=== PATIENT | female | born 1945 | race Caucasian/White ===

== ENCOUNTER 2020-02-04 09:50 | Outpatient (REF) | payer MEDICARE, OTHER, SELFPAY ==
[2020-02-04 14:03] LABS: MANUAL DIFF FLAG NO
[2020-02-04 14:18] LABS: Basophils Percent Auto 0.8 % (0-2); Eosinophils Absolute Auto 0.3 X10*3/uL (0.0-0.4); Hematocrit 42.4 % (37-47); Hemoglobin 13.4 g/dl (12.0-16.0); Imm Gran Abs Auto 0.02 X10*3/uL (0.00-0.03); Imm Gran Pct Auto 0.4 % (0.0-0.4); Lymphocytes Absolute Auto 1.4 X10*3/uL (1.2-4.9); Lymphocytes Percent Auto 25.6 % (20-40); Mean Corpuscular HGB Conc 31.6 g/dl (31.0-35.0); Mean Corpuscular Hemoglobin 26.7 pg (27.0-33.0); Mean Corpuscular Volume 84.5 fL (80-98); Mean Platelet Volume 11.3 fL (9.4-12.3); Monocytes Absolute Auto 0.5 X10*3/uL (0.1-1.2); Monocytes Percent Auto 8.7 % (2-11); Neutrophils Absolute Auto 3.1 X10*3/uL (2.0-8.3); Neutrophils Percent Auto 58.5 % (45-73); Platelet Count 288 X10*3/uL (160-400); Red Blood Count 5.02 X10*6/uL (4.20-5.50); Red Cell Distribution Width 14.1 % (11.0-16.0); White Blood Count 5.3 X10*3/uL (4.8-10.8)
[2020-02-04 14:24] LABS: Estimated Average Glucose 160 mg/dL; Hemoglobin A1c % 7.2 %
[2020-02-04 14:44] LABS: Glucose Urine UA NEG (NEG); Leukocyte Esterase Urine TRACE (NEG); Nitrite Urine POS (NEG); Specific Gravity - Urine >= 1.030 (1.005-1.025); Urine Blood NEG (NEG); Urine Ketones NEG (NEG); Urine Protein NEG (NEG-TRACE)
[2020-02-04 14:49] LABS: Appearance Urine CLOUDY; Color Urine YELLOW
[2020-02-04 14:50] LABS: Alanine Aminotransferase 32 U/L (0-31); Albumin Level 4.2 g/dL (3.5-5.0); Alkaline Phosphatase 61 U/L (39-117); Anion Gap 14 (12-20); Aspartate Amino Transferase 16 U/L (5-31); Bilirubin Total 0.6 mg/dL (0.0-1.0); Blood Urea Nitrogen 19 mg/dL (9-16); Calcium 9.8 mg/dL (8.4-10.2); Carbon Dioxide 23 mmol/L (22-29); Chloride 106 mmol/L (96-108); Cholesterol 155 mg/dL; Estimated Glomerular Filt Rate > 60; Glucose Fasting 173 mg/dL (60-99); HDL Cholesterol 45 mg/dL; LDL Cholesterol Calculated 83 mg/dl; Potassium 4.8 mmol/l (3.3-5.1); Sodium 138 mmol/L (135-145); Triglycerides 138 mg/dL
[2020-02-04 15:07] LABS: Bacteria Urine 3+ /LPF; RBC Urine 0-2 /HPF (0); Squamous Epithelial Cell Urine TRACE /LPF
[2020-02-04 15:11] LABS: Free T4 (Free Thyroxine) 1.17 ng/dL (0.71-1.85); Thyroid Stimulating Hormone 0.23 uIU/mL (0.32-4.0)
[2020-02-04 15:24] LABS: Creatinine Urine 109.48 mg/dL; Microalbum/Creatinine Ratio Ur 4.5 ug/mg cr
== END 2020-02-04 09:51 | disposition home or self-care (01) ==
LOC: HO.10HDL 09:50
PROVIDERS: Visit Provider Internal Medicine
DX: E78.5 Hyperlipidemia, unspecified (principal); E11.9 Type 2 diabetes mellitus without complications; I10 Essential (primary) hypertension; R74.8 Abnormal levels of other serum enzymes; E03.9 Hypothyroidism, unspecified; K21.9 Gastro-esophageal reflux disease without esophagitis; R32 Unspecified urinary incontinence
CPT/HCPCS: 36415; 80053; 80061; 81001; 82043; 83036; 84439; 84443; 85025; 87086; 87088; 87186

== ENCOUNTER 2020-05-11 10:25 | Outpatient (REF) | payer MEDICARE, OTHER, SELFPAY ==
[2020-05-11 13:44] LABS: MANUAL DIFF FLAG NO
[2020-05-11 13:50] LABS: Basophils Percent Auto 0.6 % (0-2); Eosinophils Absolute Auto 0.3 X10*3/uL (0.0-0.4); Eosinophils Percent Auto 4.1 % (0-4); Hematocrit 42.7 % (37-47); Hemoglobin 13.7 g/dl (12.0-16.0); Imm Gran Abs Auto 0.02 X10*3/uL (0.00-0.03); Imm Gran Pct Auto 0.3 % (0.0-0.4); Lymphocytes Absolute Auto 1.6 X10*3/uL (1.2-4.9); Lymphocytes Percent Auto 25.5 % (20-40); Mean Corpuscular HGB Conc 32.1 g/dl (31.0-35.0); Mean Corpuscular Volume 84.2 fL (80-98); Mean Platelet Volume 11.2 fL (9.4-12.3); Monocytes Absolute Auto 0.5 X10*3/uL (0.1-1.2); Monocytes Percent Auto 8.5 % (2-11); Neutrophils Absolute Auto 3.8 X10*3/uL (2.0-8.3); Platelet Count 289 X10*3/uL (160-400); Red Blood Count 5.07 X10*6/uL (4.20-5.50); Red Cell Distribution Width 14.6 % (11.0-16.0); White Blood Count 6.3 X10*3/uL (4.8-10.8)
[2020-05-11 14:02] LABS: Glucose Urine UA NEG (NEG); Leukocyte Esterase Urine NEG (NEG); Nitrite Urine POS (NEG); PH 5.5 (5.0-8.0); Specific Gravity - Urine 1.025 (1.005-1.025); UACC Culture Trigger YES; Urine Blood NEG (NEG); Urine Ketones NEG (NEG); Urine Protein NEG (NEG-TRACE)
[2020-05-11 14:15] LABS: Appearance Urine HAZY; Color Urine YELLOW
[2020-05-11 14:20] LABS: Alanine Aminotransferase 37 U/L (0-31); Albumin Level 4.5 g/dL (3.5-5.0); Alkaline Phosphatase 64 U/L (39-117); Anion Gap 13 (12-20); Aspartate Amino Transferase 20 U/L (5-31); Bilirubin Total 0.5 mg/dL (0.0-1.0); Blood Urea Nitrogen 20 mg/dL (9-16); Carbon Dioxide 23 mmol/L (22-29); Chloride 107 mmol/L (96-108); Cholesterol 142 mg/dL; Estimated Glomerular Filt Rate > 60; Glucose Fasting 136 mg/dL (60-99); HDL Cholesterol 45 mg/dL; LDL Cholesterol Calculated 68 mg/dl; Potassium 4.9 mmol/L (3.3-5.1); Sodium 138 mmol/L (135-145); Total Protein 7.3 g/dL (6.5-8.0); Triglycerides 147 mg/dL
[2020-05-11 14:32] LABS: Bacteria Urine 3+ /LPF; RBC Urine 0 /HPF (0); Squamous Epithelial Cell Urine TRACE /LPF
[2020-05-11 14:41] LABS: Free T4 (Free Thyroxine) 1.33 ng/dL (0.71-1.85); Thyroid Stimulating Hormone 0.16 uIU/mL (0.32-4.0)
== END 2020-05-11 10:26 | disposition home or self-care (01) ==
LOC: HO.10HDL 10:25
PROVIDERS: Visit Provider Internal Medicine
DX: I10 Essential (primary) hypertension (principal); K21.9 Gastro-esophageal reflux disease without esophagitis; E78.00 Pure hypercholesterolemia, unspecified; R74.8 Abnormal levels of other serum enzymes; E11.9 Type 2 diabetes mellitus without complications; E03.9 Hypothyroidism, unspecified; E66.9 Obesity, unspecified
CPT/HCPCS: 36415; 80053; 80061; 81001; 81003; 84439; 84443; 85025; 87086; 87088; 87186

== ENCOUNTER 2020-08-11 07:55 | Outpatient (REF) | payer MEDICARE, OTHER, SELFPAY ==
[2020-08-11 09:00] LABS: MANUAL DIFF FLAG NO
[2020-08-11 09:08] LABS: Basophils Absolute Auto 0.1 X10*3/uL (0.0-0.2); Basophils Percent Auto 0.8 % (0-2); Eosinophils Absolute Auto 0.3 X10*3/uL (0.0-0.4); Eosinophils Percent Auto 5.1 % (0-4); Hematocrit 42.2 % (37-47); Hemoglobin 13.4 g/dl (12.0-16.0); Imm Gran Abs Auto 0.03 X10*3/uL (0.00-0.03); Imm Gran Pct Auto 0.5 % (0.0-0.4); Lymphocytes Absolute Auto 1.5 X10*3/uL (1.2-4.9); Lymphocytes Percent Auto 24.5 % (20-40); Mean Corpuscular HGB Conc 31.8 g/dl (31.0-35.0); Mean Corpuscular Hemoglobin 26.6 pg (27.0-33.0); Mean Corpuscular Volume 83.9 fL (80-98); Mean Platelet Volume 10.9 fL (9.4-12.3); Monocytes Absolute Auto 0.6 X10*3/uL (0.1-1.2); Monocytes Percent Auto 9.1 % (2-11); Neutrophils Absolute Auto 3.8 X10*3/uL (2.0-8.3); Platelet Count 266 X10*3/uL (160-400); Red Blood Count 5.03 X10*6/uL (4.20-5.50); White Blood Count 6.3 X10*3/uL (4.8-10.8)
[2020-08-11 09:16] LABS: Estimated Average Glucose 186 mg/dL; Hemoglobin A1c % 8.1 %
[2020-08-11 09:23] LABS: Glucose Urine UA NEG (NEG); Leukocyte Esterase Urine NEG (NEG); Nitrite Urine POS (NEG); Specific Gravity - Urine 1.025 (1.005-1.025); UACC Culture Trigger YES; Urine Blood NEG (NEG); Urine Ketones NEG (NEG); Urine Protein NEG (NEG-TRACE)
[2020-08-11 09:24] LABS: Appearance Urine HAZY; Color Urine YELLOW
[2020-08-11 09:33] LABS: Alanine Aminotransferase 39 U/L (0-31); Albumin Level 4.3 g/dL (3.5-5.0); Alkaline Phosphatase 66 U/L (39-117); Anion Gap 13 (12-20); Aspartate Amino Transferase 20 U/L (5-31); Bilirubin Total 0.7 mg/dL (0.0-1.0); Blood Urea Nitrogen 19 mg/dL (9-16); Calcium 10.4 mg/dL (8.4-10.2); Carbon Dioxide 23 mmol/L (22-29); Chloride 107 mmol/L (96-108); Cholesterol 151 mg/dL; Estimated Glomerular Filt Rate 58; Glucose Fasting 243 mg/dL (60-99); HDL Cholesterol 42 mg/dL; LDL Cholesterol Calculated 80 mg/dl; Potassium 5.2 mmol/L (3.3-5.1); Sodium 138 mmol/L (135-145); Total Protein 6.8 g/dL (6.5-8.0); Triglycerides 149 mg/dL
[2020-08-11 09:36] LABS: Creatinine Urine 95.53 mg/dL; Microalbum/Creatinine Ratio Ur 5.2 ug/mg cr
[2020-08-11 09:43] LABS: Bacteria Urine 3+ /LPF; RBC Urine 0-2 /HPF (0); Squamous Epithelial Cell Urine 1+ /LPF
[2020-08-11 09:46] LABS: Free T4 (Free Thyroxine) 1.37 ng/dL (0.71-1.85); Thyroid Stimulating Hormone 0.09 uIU/mL (0.32-4.0)
== END 2020-08-11 07:56 | disposition home or self-care (01) ==
LOC: HO.LAB 07:55
PROVIDERS: PCP Internal Medicine; Visit Provider Internal Medicine
DX: I10 Essential (primary) hypertension (principal); K21.9 Gastro-esophageal reflux disease without esophagitis; E78.00 Pure hypercholesterolemia, unspecified; R74.8 Abnormal levels of other serum enzymes; E11.9 Type 2 diabetes mellitus without complications; E03.9 Hypothyroidism, unspecified; E66.9 Obesity, unspecified; E55.9 Vitamin D deficiency, unspecified
CPT/HCPCS: 36415; 80053; 80061; 81001; 81003; 82043; 82306; 83036; 84439; 84443; 85025; 87086; 87088; 87186

== ENCOUNTER 2020-12-01 09:25 | Outpatient (REF) | payer MEDICARE, OTHER, SELFPAY ==
[2020-12-01 10:29] LABS: MANUAL DIFF FLAG NO
[2020-12-01 10:35] LABS: Basophils Percent Auto 0.5 % (0-2); Eosinophils Absolute Auto 0.3 X10*3/uL (0.0-0.4); Eosinophils Percent Auto 3.8 % (0-4); Hematocrit 41.4 % (37-47); Hemoglobin 13.3 g/dl (12.0-16.0); Imm Gran Abs Auto 0.02 X10*3/uL (0.00-0.03); Imm Gran Pct Auto 0.3 % (0.0-0.4); Lymphocytes Absolute Auto 1.7 X10*3/uL (1.2-4.9); Lymphocytes Percent Auto 22.8 % (20-40); Mean Corpuscular HGB Conc 32.1 g/dl (31.0-35.0); Mean Corpuscular Volume 84.1 fL (80-98); Mean Platelet Volume 10.9 fL (9.4-12.3); Monocytes Absolute Auto 0.6 X10*3/uL (0.1-1.2); Monocytes Percent Auto 8.3 % (2-11); Neutrophils Absolute Auto 4.8 X10*3/uL (2.0-8.3); Neutrophils Percent Auto 64.3 % (45-73); Platelet Count 262 X10*3/uL (160-400); Red Blood Count 4.92 X10*6/uL (4.20-5.50); White Blood Count 7.5 X10*3/uL (4.8-10.8)
[2020-12-01 10:56] LABS: Estimated Average Glucose 189 mg/dL; Hemoglobin A1c % 8.2 %
[2020-12-01 11:15] LABS: Alanine Aminotransferase 51 U/L (0-31); Albumin Level 4.3 g/dL (3.5-5.0); Alkaline Phosphatase 60 U/L (39-117); Anion Gap 14 (12-20); Aspartate Amino Transferase 23 U/L (5-31); Bilirubin Total 0.6 mg/dL (0.0-1.0); Blood Urea Nitrogen 17 mg/dL (9-16); Calcium 10.1 mg/dL (8.4-10.2); Carbon Dioxide 22 mmol/L (22-29); Chloride 107 mmol/L (96-108); Cholesterol 144 mg/dL; Estimated Glomerular Filt Rate > 60; Glucose Fasting 203 mg/dL (60-99); HDL Cholesterol 42 mg/dL; LDL Cholesterol Calculated 62 mg/dl; Potassium 4.8 mmol/L (3.3-5.1); Sodium 138 mmol/L (135-145); Total Protein 6.9 g/dL (6.5-8.0); Triglycerides 201 mg/dL
[2020-12-01 11:27] LABS: Creatinine Urine 104.41 mg/dL; Microalbum/Creatinine Ratio Ur 5.7 ug/mg cr
[2020-12-01 11:39] LABS: Appearance Urine CLEAR; Color Urine YELLOW; Glucose Urine UA NEG (NEG); Leukocyte Esterase Urine 1+ (NEG); Nitrite Urine NEG (NEG); UACC Culture Trigger YES; Urine Blood NEG (NEG); Urine Ketones NEG (NEG); Urine Protein NEG (NEG-TRACE)
[2020-12-01 11:40] LABS: Free T4 (Free Thyroxine) 1.26 ng/dL (0.71-1.85); Thyroid Stimulating Hormone 0.13 uIU/mL (0.32-4.0)
[2020-12-01 11:58] LABS: Bacteria Urine 3+ /LPF; RBC Urine 0-2 /HPF (0); Squamous Epithelial Cell Urine 1+ /LPF
== END 2020-12-01 09:26 | disposition home or self-care (01) ==
LOC: HO.10HDL 09:25
PROVIDERS: Visit Provider Internal Medicine
DX: I10 Essential (primary) hypertension (principal); K21.9 Gastro-esophageal reflux disease without esophagitis; E78.00 Pure hypercholesterolemia, unspecified; E11.9 Type 2 diabetes mellitus without complications; E03.9 Hypothyroidism, unspecified; E66.9 Obesity, unspecified
CPT/HCPCS: 36415; 80053; 80061; 81001; 81003; 82043; 83036; 84439; 84443; 85025; 87086; 87088; 87186

== ENCOUNTER 2020-12-03 11:50 | Outpatient (REF) | payer MEDICARE, OTHER, SELFPAY ==
--- NOTE | ~2020-12-03 | XR_ITS ---
EXAMINATION: XR BOTH KNEES AP STANDING XR RIGHT KNEE, 2 VIEWS CLINICAL INFORMATION: Pain. COMPARISON: Persistent bilateral knee radiographs dated 04/08/2019. TECHNIQUE: Standing AP view of both knees and lateral and sunrise views of the right knee. FINDINGS: Right Knee: Moderate medial compartment joint space narrowing. Tricompartmental marginal osteophytes. No osseous erosion. No fracture or dislocation. Central osteophytes within the lateral and patellofemoral compartments. No significant joint effusion. Left Knee: Severe medial compartment joint space narrowing with subchondral sclerosis. Medial and lateral compartment marginal osteophytes. No osseous erosion. No fracture or dislocation. XR/XR knee standing BI IMPRESSION: RIGHT KNEE: Qlzotxvf-tt-umlezz medial as well as more alkw-ek-lfzopuyg patellofemoral and lateral compartment osteophyte arthritis, unchanged. LEFT KNEE: Severe medial and dubm-ny-fqykiaib lateral compartment osteophyte arthritis, unchanged.
--- NOTE | ~2020-12-03 | XR_ITS ---
EXAMINATION: XR BOTH KNEES AP STANDING XR RIGHT KNEE, 2 VIEWS CLINICAL INFORMATION: Pain. COMPARISON: Persistent bilateral knee radiographs dated 04/08/2019. TECHNIQUE: Standing AP view of both knees and lateral and sunrise views of the right knee. FINDINGS: Right Knee: Moderate medial compartment joint space narrowing. Tricompartmental marginal osteophytes. No osseous erosion. No fracture or dislocation. Central osteophytes within the lateral and patellofemoral compartments. No significant joint effusion. Left Knee: Severe medial compartment joint space narrowing with subchondral sclerosis. Medial and lateral compartment marginal osteophytes. No osseous erosion. No fracture or dislocation. XR/XR knee RT 2V IMPRESSION: RIGHT KNEE: Qadpopvv-yz-xpeycq medial as well as more rmxy-ka-blqdixnc patellofemoral and lateral compartment osteophyte arthritis, unchanged. LEFT KNEE: Severe medial and kikw-jx-ylmblrbd lateral compartment osteophyte arthritis, unchanged.
== END 2020-12-03 11:51 | disposition home or self-care (01) ==
LOC: HO.HOSX 11:50
PROVIDERS: Visit Provider Orthopaedic Surgery
DX: M17.0 Bilateral primary osteoarthritis of knee (principal); E11.9 Type 2 diabetes mellitus without complications
CPT/HCPCS: 20610; 73560; 73565; 99212; J1100

== ENCOUNTER 2020-12-31 12:21 | Outpatient (REF) | payer MEDICARE, OTHER, SELFPAY ==
--- NOTE | ~2020-12-31 | MM_ITS ---
EXAMINATION: MM SCREENING DIGITAL BREAST TOMOSYNTHESIS, BILATERAL CLINICAL INFORMATION: Screening. Asymptomatic. The lifetime risk of breast cancer based on the Tyrer-Cuzick Model is 5.7%. COMPARISON: Mammography: November 04, 2019 and studies dating back to September 18, 2015 TECHNIQUE: Digital breast tomosynthesis is performed in both the craniocaudal and mediolateral oblique views along with computer-aided detection (CAD). Synthesized 2D images are generated from the tomosynthesis. Additional left breast exaggerated craniocaudal view performed. FINDINGS: There are scattered areas of fibroglandular density (ACR BI-RADS breast composition Category b). There are no significant masses, abnormal calcifications, or other abnormalities. MM/MM tomosynthesis screening BI IMPRESSION: There are no significant changes from prior study. ASSESSMENT: BI-RADS 1: Negative RECOMMENDATION: Routine annual mammography screening. This patient's information was entered into a reminder system with a target due date for their next mammogram.
== END 2020-12-31 12:22 | disposition home or self-care (01) ==
LOC: HO.MAMMO 12:21
PROVIDERS: Visit Provider Internal Medicine
DX: Z12.31 Encounter for screening mammogram for malignant neoplasm of breast (principal)
CPT/HCPCS: 77063; 77067

== ENCOUNTER → 2021-01-14 08:34 | Outpatient (BNVA) | payer MEDICARE, OTHER, SELFPAY | PROVIDERS: PCP Internal Medicine; Visit Provider Orthopaedic Surgery | DX: M17.0 Bilateral primary osteoarthritis of knee (principal); M70.61 Trochanteric bursitis, right hip; E11.9 Type 2 diabetes mellitus without complications | CPT/HCPCS: 20610; 99212; J1100 ==

== ENCOUNTER 2021-03-17 10:00 | Outpatient (RCR) | payer MEDICARE, OTHER, SELFPAY ==
--- NOTE | 2020-12-16 13:10 | MHC.PT.EP ---
[facility] [place] [facility] [place] [facility] [place] [facility] [address] [place] [address] Dr Hiren Wade [address] [phone] F: [phone] F: [phone] F: [phone] F: [phone] Physical Therapy Plan of Care Date of Evaluation: Date of Surgery: NA Diagnosis: OA KNEES, TROCHANTERIC BURSITIS R Assessment: Pt IS 75 YO F REFERRED TO PT FROM DR MELARA WITH B KNEE OA AND R HIP TROCHANTERIC BURSITIS (NOTED TO HAVE BURSITIS BOTH HIPS). Pt PRESENTS WITH TTP B GREATER TROCHANTERS AND SURROUNDING TISSUES WITH LIMITED HIP FLEXIBILITY AND STRENGTH. Pt WITH B KNEE PAIN ALSO (REPORTS INITIALLY R>L BUT SINCE CORTISONE INJECTION IN R, L IS FEELING WORSE) WITH SOME LIMITED LE ENDURANCE REPORTED. Pt HAS DISCUSSED TKR WITH DR MELARA BUT DATE HAS NOT BEEN SET. SHOULD BENEFIT FROM PT TO ADDRESS THESE ISSUES WITH HOME PROG FOR LE STRENGTH AND FLEXIBILITY, ST WORK TO HELP DECREASE TISSUE TIGHTNESS/ STIFFNESS WITH KT USE (HAS HAD IN PAST) TO HELP WITH JT SUPPORT. Frequency and Duration: The patient will be seen 2X/WK X 8 WKS Short Term Goals: 1. INCREASED AWARENESS HIP AND KNEE CARE 2. IMPROVED GT PATTERN (LESS LIMP) 3. IMPROVED SLEEP (LESS AFFECT ON SLEEP FROM KNEE/HIP PAIN) Appeals Coordinator Goals: 1. I HEP WITH DC EX PLAN 2. DECREASED KNEE PAIN AT LEAST 50% WITH ADLS 3. DECREASED HIP PAIN AT LEAST 50% WITH ADLS 4. Pt TO REPORT FEELING STRONGER IN LEGS (WITH AN INCREASE IN HIP ABD STRENGTH AT LEAST 1/2 MM GRADE) 5. IMPROVED LEFI Treatment Plan: Modalities to reduce pain, spasms and effusion. Manual therapy to restore motion and function. Therapeutic exercise to improve strength and flexibility. Neuromuscular re-education for posture and balance. Therapeutic activities to return to functional activities of daily living. Electronically signed by: NURIS CHAPMAN PT Please sign and return to therapist. Thank you for your referral.
--- NOTE | 2021-01-11 15:22 | MHC.PT.OD ---
[facility] [place] Office [place] Office [place] [facility] [address] Hiren Wade [address] [phone] F: [phone] F: [phone] F: [phone] F: [phone] Physical Therapy Daily Note Diagnosis: OA KNEES, TROCHANTERIC BURSITIS R Date of Surgery: NA Date of Evaluation: 12/16/20 Date of Treatment: 01/11/21 Treatments to Date: 8 Cancellations to Date: No Shows to Date: Authorized Visits: Insurance End Date: Precautions/ Contraindications:COLBERT at time of eval Subjective: Doing better than last week but we will see how I do after working in the yard later today. Pain Score and Location: 2-6 R HIP, L KNEE Objective Flowsheet: Tests & Measures PT EVAL Exercises SCI-FIT bike LEVEL 3 X 10 MIN AT END OF SESSION last 4 minutes had to switch to backward revolution due to onset of L knee pain HL FOR HIP ADD ON BALL X 20 R sitting with unsupported trunk with TAC, SKTC WITH 30 SEC HOLD X 3 R B, HS STRETCH X 3 B, PIRIFORMIS STRETCH X 5 B, , SLR reviewed, hooklying posterior pelvic tilt x 2 sets 10R, SL clamshell x 3 sets 10R bilaterally STM to R posterior lateral hip via flexbar along R ITB distribution in effort to decrease pain and improve tissue extensibility. Reviewed HEP program Pt reports report of ankle pain- poor footwear support unable to find shoes that fit her width (+) DM- has not used diabetic footwear benefit- educated re: benefit Note send to pt's PCP Dr. Rojas to inquire re: obtaining prescription and clinical notes supporting need for diabetic footwear- pt given education re: information Call placed to [facility] in [address] [phone] fax [phone] walker Shepherd If prescription is obtained from PCP and he is in agreement PT office can aide patient in booking her an appt with [facility]. Modalities Trial continuous US 1.5 enriquez cm2 x 8 minutes 1 mHZ to R lateral greater troch insertion following STM to R ITB region while positioned in L SL position. Relief verbalized post treatment. Assessment: Pt demonstrated positive response to trial of continuous US and taping at time of last session at site of R trochanteric bursa region.. Improved tolerance for ther-ex today (before too painful). Pt reports ongoing L knee pain- able to do bike with periods of rest, encouraged gentle posterior vs anterior revolution with improved ability. Pt inquires re: how to obtain diabetic shoes after having conversation with therapist about current footwear. Phone call placed to Dr. Rojas office to ensure message was received today 01/11/21 (therapist spoke with Shawna in afternoon approx 3:00pm stated message will be changed to a high priority- therapist should hear from him in a day or so if not to call back). PT Plan: To see Dr. Reed on 01/14/21... ?? benefit of trialing ionto should sx return/persist- if in agreement Dr. Reed please write order Short Term Goals: 1. INCREASED AWARENESS HIP AND KNEE CARE 2. IMPROVED GT PATTERN (LESS LIMP) 3. IMPROVED SLEEP (LESS AFFECT ON SLEEP FROM KNEE/HIP PAIN) Sales Representative Electric Service Goals: 1. I HEP WITH DC EX PLAN 2. DECREASED KNEE PAIN AT LEAST 50% WITH ADLS 3. DECREASED HIP PAIN AT LEAST 50% WITH ADLS 4. Pt TO REPORT FEELING STRONGER IN LEGS (WITH AN INCREASE IN HIP ABD STRENGTH AT LEAST 1/2 MM GRADE) 5. IMPROVED LEFI Electronically signed by: Ayala Costello, PT, DPT
--- NOTE | 2021-03-17 12:36 | MHC.PT.DC ---
[facility] [place] [facility] [place] Office [place] [facility] [address] Hiren Wade [address] [phone] F: [phone] F: [phone] F: [phone] F: [phone] Physical Therapy Discharge Report Diagnosis: OA KNEES, TROCHANTERIC BURSITIS R Date of Surgery: NA Date of Evaluation: 12/16/20 Date of Discharge: 03/17/21 Treatments to Date: 14 Cancellations to Date: No Shows to Date: Discharge Status: Achieved Goals Improved Function Independent with HEP Recommend MD Follow-up Discharge Summary: LEFI=47/80, 39/80 AT SOC, HIP ABD STRENGTH 4+/5 B (3-/5 AT SOC) HAS MET MOST PT GOALS..HAS NOT BEEN SEEN IN OVER 1 MONTH AND REPORTS STILL DOING OK HAS HEP, AGREES TO DC AT THIS TIME Electronically signed by: NURIS CHPAMAN PT Please sign and return to therapist. Thank you for your referral.
== END 2021-03-17 12:36 | disposition home or self-care (01) ==
LOC: HO.PTWFD 10:00
PROVIDERS: PCP Internal Medicine; Visit Provider Orthopaedic Surgery
DX: M17.0 Bilateral primary osteoarthritis of knee (principal); M70.61 Trochanteric bursitis, right hip
CPT/HCPCS: 97014; 97035; 97110; 97140; 97162; 97164; 97535

== ENCOUNTER 2021-05-06 09:41 | Outpatient (REF) | payer MEDICARE, OTHER, SELFPAY ==
[2021-05-06 10:01] LABS: MANUAL DIFF FLAG NO
[2021-05-06 10:04] LABS: Basophils Absolute Auto 0.1 X10*3/uL (0.0-0.2); Basophils Percent Auto 0.7 % (0-2); Eosinophils Absolute Auto 0.3 X10*3/uL (0.0-0.4); Eosinophils Percent Auto 4.2 % (0-4); Hematocrit 44.1 % (37.0-47.0); Hemoglobin 14.2 g/dl (12.0-16.0); Imm Gran Abs Auto 0.03 X10*3/uL (0.00-0.03); Imm Gran Pct Auto 0.4 % (0.0-0.4); Lymphocytes Absolute Auto 1.6 X10*3/uL (1.2-4.9); Lymphocytes Percent Auto 21.9 % (20-40); Mean Corpuscular HGB Conc 32.2 g/dl (31.0-35.0); Mean Corpuscular Hemoglobin 26.4 pg (27.0-33.0); Mean Corpuscular Volume 82.1 fL (80.0-98.0); Mean Platelet Volume 10.1 fL (9.4-12.3); Monocytes Absolute Auto 0.6 X10*3/uL (0.1-1.2); Monocytes Percent Auto 7.8 % (2-11); Neutrophils Absolute Auto 4.8 x10*3/uL (2.0-8.3); Platelet Count 291 X10*3/uL (160-400); Red Blood Count 5.37 X10*6/uL (4.20-5.50); Red Cell Distribution Width 13.9 % (11.0-16.0); White Blood Count 7.3 X10*3/uL (4.8-10.8)
[2021-05-06 10:24] LABS: Estimated Average Glucose 206 mg/dL; Hemoglobin A1c % 8.8 %
[2021-05-06 11:07] LABS: Alanine Aminotransferase 77 U/L (0-31); Albumin Level 4.3 g/dL (3.5-5.0); Alkaline Phosphatase 64 U/L (39-117); Anion Gap 14 (12-20); Aspartate Amino Transferase 47 U/L (5-31); Bilirubin Total 0.7 mg/dL (0.0-1.0); Blood Urea Nitrogen 18 mg/dL (9-16); Calcium 11.7 mg/dL (8.4-10.2); Carbon Dioxide 23 mmol/L (22-29); Chloride 106 mmol/L (96-108); Cholesterol 142 mg/dL; Estimated Glomerular Filt Rate 52; Glucose Fasting 226 mg/dL (60-99); HDL Cholesterol 39 mg/dL; LDL Cholesterol Calculated 70 mg/dl; Potassium 4.8 mmol/L (3.3-5.1); Sodium 138 mmol/L (135-145); Total Protein 7.1 g/dL (6.5-8.0); Triglycerides 165 mg/dL
[2021-05-06 11:18] LABS: Free T4 (Free Thyroxine) 1.31 ng/dL (0.71-1.85)
[2021-05-06 13:52] LABS: Appearance Urine HAZY; Color Urine YELLOW; Glucose Urine UA NEG (NEG); Leukocyte Esterase Urine 1+ (NEG); Nitrite Urine POS (NEG); PH 5.5 (5.0-8.0); Specific Gravity - Urine 1.025 (1.005-1.025); UACC Culture Trigger YES; Urine Blood NEG (NEG); Urine Ketones NEG (NEG); Urine Protein NEG (NEG-TRACE)
[2021-05-06 14:06] LABS: Bacteria Urine 4+ /LPF; RBC Urine 0 /HPF (0); Squamous Epithelial Cell Urine TRACE /LPF
[2021-05-06 14:19] LABS: Creatinine Urine 109.43 mg/dL; Microalbum/Creatinine Ratio Ur 5.4 ug/mg cr
== END 2021-05-06 09:42 | disposition home or self-care (01) ==
LOC: HO.10HDL 09:41
PROVIDERS: Absent Provider Nurse Practitioner Family; Visit Provider Internal Medicine
DX: I10 Essential (primary) hypertension (principal); R74.8 Abnormal levels of other serum enzymes; E03.9 Hypothyroidism, unspecified; E11.9 Type 2 diabetes mellitus without complications; E78.00 Pure hypercholesterolemia, unspecified
CPT/HCPCS: 36415; 80053; 80061; 81001; 82043; 83036; 84439; 84443; 85025; 87086; 87088; 87186

== ENCOUNTER 2021-05-07 10:20 | Outpatient (REF) | payer MEDICARE, OTHER, SELFPAY ==
[2021-05-07 13:00] LABS: Vitamin D 25-OH Total 61.7 ng/mL (>30)
[2021-05-10 13:35] LABS: Calcium (PTHI) 11.1 mg/dL (8.6-10.4); PTHI 26 pg/mL (14-64)
== END 2021-05-07 10:21 | disposition home or self-care (01) ==
LOC: HO.10HDL 10:20
PROVIDERS: Visit Provider Internal Medicine
DX: I10 Essential (primary) hypertension (principal); E83.52 Hypercalcemia
CPT/HCPCS: 36415; 82306; 83970

== ENCOUNTER → 2021-05-28 09:24 | Outpatient (REF) | payer MEDICARE, OTHER, SELFPAY ==
--- NOTE | ~2021-05-28 | NM_ITS ---
Lexiscan Myocardial perfusion study Indication: Chest pain, assess for coronary artery disease Technique: The patient was brought in for a Lexiscan perfusion study on 05/28/2021 and was injected 0.4 mg of Lexiscan intravenously. Within a minute of this injection 35 mCi of sestamibi was given intravenously. Images were obtained using the SPECT gamma camera interlaced with the gating device. Images were obtained in supine position. Resting perfusion study was performed on 05/31/2021. Patient was administered 35 mCi of sestamibi intravenously at rest. Images were then obtained in supine position. Total DLP 143mGy-cm. Images were processed with the software and compared side to side in short axis, horizontal long axis and vertical long axis views. Findings: Raw acquisition was reviewed. The stress perfusion study showed mildly diminished tracer uptake in the distal part of anterior wall and adjacent apex. There is improvement with CT attenuation correction and hence could be from soft tissue attenuation artifact. The gated study shows normal LV systolic function with calculated LVEF of 60%. LV cavity is normal in size. The gated study shows normal wall thickening and contraction of segments. Resting study shows no significant perfusion abnormality. Gating at rest reveals normal wall motion with ejection fraction at 69%. The findings are consistent with mild reversible distal anterior defect most likely from soft tissue attenuation. NM/NM aakash perf SPECT rest & str Impression: 1. Myocardial perfusion imaging study shows no evidence of any ischemia or infarction. Likely normal perfusion. 2. Gated LVEF is percent during stress and 69% during rest. 3. Transient ischemic dilatation not present. EKG component of the test reported separately.
--- NOTE | 2021-05-28 09:27 | CA_ITS ---
Acquisition Time: 2021-05-28 09:57:51 Total Exercise Time: 00:02:00 Test Indications: CP, SOB Medications: SEE CHART Protocol: LEXISCAN Max HR: 122 BPM 83% of Pred: 146 BPM Max BP: 136/072 mmHG Max Work Load: 1.6 METS Pharmacological stress test with Lexiscan injection, while walking on treadmill, with report of sob post injection, no chest discomfort, with occassional PACs, with normotensive response to injection, with nondiagnostic EKG for ischemia. In recovery she reported headache and mild sob that was treated with Aminophylline 75mg IVP to reverse Lexsican with resolution of symptoms. Nuclear images pending. Test reviewed with Dr Gordillo. Referred By: Roberto Rojas Overread By: ACE MCRAE
== END ==
LOC: HO.CARD 09:24
PROVIDERS: Visit Provider Internal Medicine
DX: R07.9 Chest pain, unspecified (principal); I10 Essential (primary) hypertension; E11.9 Type 2 diabetes mellitus without complications; E78.00 Pure hypercholesterolemia, unspecified
CPT/HCPCS: 78452; 93017; A9500; J0280; J2785

== ENCOUNTER 2021-06-02 08:02 | Outpatient (REF) | payer MEDICARE, OTHER, SELFPAY ==
--- NOTE | ~2021-06-02 | US_ITS ---
EXAMINATION: US ABDOMEN COMPLETE CLINICAL INFORMATION: Abnormal results of other liver enzymes. COMPARISON: Ultrasound abdomen 07/15/2016 and 12/14/2012. TECHNIQUE: Real-time imaging of the abdominal viscera. FINDINGS: PANCREAS: Partially visualized pancreas, head and the body appear unremarkable. ABDOMINAL AORTA: The proximal, mid, and distal segments are normal in caliber. INFERIOR VENA CAVA: Visualized portions are normal. LIVER: The liver is enlarged measuring 21.4 cm. The liver contour is normal. There is diffuse hepatic echogenicity without focal lesion. There is no intrahepatic biliary duct dilatation seen. There is calcification along the anterior hepatic border. GALLBLADDER: There is an echogenic foci in the gallbladder fossa. The gallbladder is physiologically distended without evidence of stones, sludge, polyps, wall thickening or pericholecystic fluid. COMMON BILE DUCT: Normal in caliber measuring 0.4 cm in diameter. RIGHT KIDNEY: Normal. No hydronephrosis. No renal calculi or focal parenchymal lesions. The kidney measures 10.9 cm in maximum dimension. LEFT KIDNEY: Normal. No hydronephrosis. No renal calculi or focal parenchymal lesions. The kidney measures 10.4 cm in maximum dimension. SPLEEN: Normal. The spleen measures 11.3 cm in maximum dimension. FREE FLUID: None. ADDITIONAL FINDINGS: None. US/US abdomen complete IMPRESSION: Hepatic steatosis without focal lesion. Mild hepatomegaly. There is calcification along the anterior hepatic border. There is an echogenic area seen in the gallbladder fossa. Rest of the abdominal ultrasound is unremarkable.
== END 2021-06-02 08:03 | disposition home or self-care (01) ==
LOC: HO.US 08:02
PROVIDERS: PCP Internal Medicine; Visit Provider Internal Medicine
DX: R74.8 Abnormal levels of other serum enzymes (principal)
CPT/HCPCS: 76700

== ENCOUNTER 2021-07-02 08:48 | Outpatient (REF) | payer MEDICARE, OTHER, SELFPAY ==
--- NOTE | ~2021-07-02 | XR_ITS ---
EXAMINATION: XR chest 2V CLINICAL INFORMATION: Reason for Exam E83.52 - Hypercalcemia COMPARISON: None TECHNIQUE: 2 views of the chest XR/XR chest 2V FINDINGS/IMPRESSION: There is a 2.3 cm rounded nodular opacity in the right medial lung base raising the suspicion for possible pulmonary nodule. Recommend further characterization with a contrast-enhanced CT chest. There is asymmetric opacification at the left lung apex apex which may be related to calcification of the first costochondral junction however recommend attention on subsequent CT to ensure this does not reflect an underlying pulmonary nodule. No pneumothorax. No pleural effusion. Normal cardiomediastinal silhouette. The report will be called to the ordering clinician by a [place] Radiology Physician Nuclear Fuel Processing Technician.
[2021-07-02 09:18] LABS: MANUAL DIFF FLAG NO
[2021-07-02 09:41] LABS: Appearance Urine CLEAR; Color Urine YELLOW; Glucose Urine UA NEG (NEG); Leukocyte Esterase Urine TRACE (NEG); Nitrite Urine POS (NEG); PH 5.5 (5.0-8.0); Specific Gravity - Urine 1.025 (1.005-1.025); UACC Culture Trigger YES; Urine Blood NEG (NEG); Urine Ketones NEG (NEG); Urine Protein NEG (NEG-TRACE)
[2021-07-02 09:41] LABS: Basophils Absolute Auto 0.1 X10*3/uL (0.0-0.2); Basophils Percent Auto 0.7 % (0-2); Eosinophils Absolute Auto 0.3 X10*3/uL (0.0-0.4); Eosinophils Percent Auto 4.2 % (0-4); Hematocrit 41.5 % (37.0-47.0); Hemoglobin 13.3 g/dl (12.0-16.0); Imm Gran Abs Auto 0.02 X10*3/uL (0.00-0.03); Imm Gran Pct Auto 0.3 % (0.0-0.4); Lymphocytes Absolute Auto 1.6 X10*3/uL (1.2-4.9); Lymphocytes Percent Auto 22.8 % (20-40); Mean Corpuscular Hemoglobin 26.5 pg (27.0-33.0); Mean Corpuscular Volume 82.8 fL (80.0-98.0); Mean Platelet Volume 10.8 fL (9.4-12.3); Monocytes Absolute Auto 0.6 X10*3/uL (0.1-1.2); Monocytes Percent Auto 8.3 % (2-11); Neutrophils Absolute Auto 4.6 x10*3/uL (2.0-8.3); Neutrophils Percent Auto 63.7 % (45-73); Platelet Count 263 X10*3/uL (160-400); Red Blood Count 5.01 X10*6/uL (4.20-5.50); Red Cell Distribution Width 14.3 % (11.0-16.0); White Blood Count 7.2 X10*3/uL (4.8-10.8)
[2021-07-02 09:52] LABS: Bacteria Urine 4+ /LPF; Squamous Epithelial Cell Urine 2+ /LPF
[2021-07-02 09:54] LABS: RBC Urine 0 /HPF (0)
[2021-07-02 10:03] LABS: Alanine Aminotransferase 54 U/L (0-31); Albumin Level 4.2 g/dL (3.5-5.0); Alkaline Phosphatase 50 U/L (39-117); Anion Gap 11 (12-20); Aspartate Amino Transferase 25 U/L (5-31); Bilirubin Total 0.5 mg/dL (0.0-1.0); Blood Urea Nitrogen 18 mg/dL (9-16); Carbon Dioxide 24 mmol/L (22-29); Chloride 108 mmol/L (96-108); Estimated Glomerular Filt Rate 54; Glucose Random 150 mg/dL (60-115); Lactate Dehydrogenase 133 U/L (122-220); Phosphorus 3.6 mg/dL (2.7-4.5); Sodium 138 mmol/L (135-145)
[2021-07-02 10:26] LABS: Erythrocyte Sedimentation Rate 8 MM/HR (0-20)
[2021-07-02 10:33] LABS: Calcium 11.3 mg/dL (8.4-10.2)
[2021-07-02 11:29] LABS: Estimated Average Glucose 177 mg/dL; Hemoglobin A1c % 7.8 %
[2021-07-06 14:22] LABS: Beta-2 Microglobulin, Serum 2.57 mg/L (< OR = 2.51)
== END 2021-07-02 08:49 | disposition home or self-care (01) ==
LOC: HO.XRAY 08:48
PROVIDERS: PCP Internal Medicine; Visit Provider Internal Medicine
DX: E83.52 Hypercalcemia (principal); E11.9 Type 2 diabetes mellitus without complications; I10 Essential (primary) hypertension; R82.71 Bacteriuria; B96.20 Unspecified Escherichia coli [E. coli] as the cause of diseases classified elsewhere
CPT/HCPCS: 36415; 71046; 80053; 81001; 82232; 83036; 83615; 84100; 85025; 85652; 87086; 87088; 87186

== ENCOUNTER 2021-07-06 09:38 | Outpatient (REF) | payer MEDICARE, OTHER, SELFPAY ==
[2021-07-06 10:35] LABS: Blood Urea Nitrogen 17 mg/dL (9-16); Estimated Glomerular Filt Rate > 60
== END 2021-07-06 09:39 | disposition home or self-care (01) ==
LOC: HO.LAB 09:38
PROVIDERS: PCP Internal Medicine; Visit Provider Internal Medicine
DX: Z01.812 Encounter for preprocedural laboratory examination (principal)
CPT/HCPCS: 36415; 82565; 84520

== ENCOUNTER 2021-07-07 10:03 | Outpatient (REF) | payer MEDICARE, OTHER, SELFPAY ==
--- NOTE | ~2021-07-07 | CT_ITS ---
EXAMINATION: CT CHEST WITH CONTRAST CLINICAL INFORMATION: Question right pulmonary nodule COMPARISON: Previous chest x-ray June 2021 TECHNIQUE: Multidetector volumetric CT imaging of the chest was obtained after the administration of 65 mL of Omnipaque 350 intravenous contrast without immediate adverse reactions. Axial MIP volume rendering provided. Sagittal and coronal reformatted images were obtained. This CT examination was performed using dose optimization techniques as appropriate, variously including the following: *Automated exposure control *Adjustment of mA and/or kV according to patient size (this includes techniques or standardized protocols for targeted exams where dose is matched to indication/reason for exam; i.e. extremities or head) *Use of iterative reconstruction technique DLP: 192 mGy-cm FINDINGS: LUNGS: There is a 1.3 x 2 cm right lower lobe nodule corresponding to chest x-ray finding. The lungs are otherwise clear. MEDIASTINUM: The heart does not appear enlarged. There is mild coronary artery calcification. There is no pericardial effusion. The thoracic aorta is normal in caliber. There are no enlarged hilar or mediastinal lymph nodes. PLEURA: There is no pleural effusion. No pleural mass or thickening. AXILLA: No enlarged axillary lymph nodes. No chest wall mass. UPPER ABDOMEN: The gallbladder has been removed. OSSEOUS STRUCTURES: There are degenerative changes of the spine. CT/CT chest w con IMPRESSION: 1.3 x 2 cm right lower lobe nodule suspicious for malignancy. Fleischner guidelines were followed. Findings communicated by the [place] work flow co teacher.
[2021-07-07] MEDS: iohexoL 350 MG/ML 100 ML INFUS..BTL IV (10:33)
== END 2021-07-07 10:04 | disposition home or self-care (01) ==
LOC: HO.CT 10:03
PROVIDERS: PCP Internal Medicine; Visit Provider Internal Medicine
DX: R91.8 Other nonspecific abnormal finding of lung field (principal)
CPT/HCPCS: 71260; Q9967

== ENCOUNTER → 2021-07-23 10:02 | Outpatient (BNVA) | payer MEDICARE, OTHER, SELFPAY | PROVIDERS: PCP Internal Medicine; Visit Provider Surgery | DX: R91.1 Solitary pulmonary nodule (principal) | CPT/HCPCS: 99202 ==

== ENCOUNTER 2021-07-27 13:03 | Outpatient (REF) | payer MEDICARE, OTHER, SELFPAY ==
--- NOTE | ~2021-07-27 | PE_ITS ---
EXAMINATION: Fluorine-18 FDG PET/CT Scan CLINICAL INDICATION: Initial treatment management. Pulmonary nodule. PROCEDURE: 65 minutes following the intravenous administration of 21.9 mCi of fluorine 18 FDG, images from the base of the skull to the mid thighs were obtained using a combined PET/CT scanner with CT scan based attenuation correction. No oral contrast was administered. No intravenous contrast was administered. Transverse, coronal, sagittal, and volume reconstruction projections were obtained. The patient's blood glucose as determined by a finger stick, was 161 mg/dl immediately prior to injection. Total CT exam dose-length product 1122.08 mGy-cm * These CT images were obtained using dose optimization techniques as appropriate, variously including the following: Automated exposure control * Adjustment of mA and/or kV according to patient size (this includes techniques or standardized protocols for targeted exams where dose is matched to indication/reason for exam; i.e. extremities or head) * Use of iterative reconstruction technique COMPARISON: No previous PET/CT scan is available for comparison. CT scan of the chest dated 07/07/2021 is available for comparison. FINDINGS: (Slice numbers described in this report are numbered superiorly to inferiorly with slice #1 in the head) NECK AND VISUALIZED HEAD: There is mild diffuse FDG activity in the thyroid gland, slightly more prominently in the right lobe which is slightly larger than the left. There is no definite focal component. No other foci of abnormal FDG activity are present in the neck or visualized head. There is no cervical lymphadenopathy. THORAX: There is very weak FDG activity associated with the previously visualized right lower lobe pulmonary nodule, SUVmax 1.5, slice 103/267. This measures 2.1 x 1.2 cm in largest transverse dimensions and approximately 1 cm cephalocaudad. It does not appear changed in appearance from the 07/07/[address] scan. No additional pulmonary nodules are visualized. There are no additional foci of increased FDG activity in the chest. There is no pleural or pericardial fluid, or pneumothorax. There is no mediastinal, supraclavicular, or axillary lymphadenopathy. ABDOMEN AND PELVIS: There is diffuse FDG activity throughout the gastrointestinal tract possibly related to metformin use. There are no associated CT abnormalities. There is diverticulosis without evidence of diverticulitis. The hollow viscera are otherwise unremarkable. The liver and spleen are unremarkable. The gallbladder has been resected and there are multiple metallic surgical clips in the gallbladder bed. The kidneys, adrenal glands and pancreas are unremarkable. There is no retroperitoneal, mesenteric, pelvic or inguinal lymphadenopathy. There are several dense calcifications present in the pelvis. The uterus is not well visualized. The pelvic organs are otherwise unremarkable. MUSCULOSKELETAL: There is mild FDG activity in the shoulders bilaterally, likely arthritic in etiology. There are no other foci of abnormal FDG activity present in the osseous structures. There are degenerative changes in the spine but no suspicious sclerotic or lytic lesions are visualized. A minimal thoracolumbar scoliosis with upper lumbar convexity to the left is noted. VASCULAR: Diffuse vascular calcifications are noted. PET/PET CT fusion skull to thigh IMPRESSION: 1. There is weak FDG activity associated with the right lower lobe pulmonary nodule and this suggests a benign etiology. However, because approximately 10% of pulmonary malignancies demonstrate no abnormal FDG activity, if biopsy of this nodule is not obtained, followup with diagnostic CT scan in 6 months is recommended. 2. Mild diffuse FDG activity in the thyroid gland is nonspecific, but is likely due to autoimmune thyroid disease such as Haily's thyroiditis or Graves' disease. Clinical correlation with blood thyroid functions is recommended for initial follow-up. 3. No additional abnormalities are present suspicious for metastatic or other malignant lesions.
== END 2021-07-27 13:04 | disposition home or self-care (01) ==
LOC: HO.PET 13:03
PROVIDERS: Visit Provider Surgery
DX: Z13.89 Encounter for screening for other disorder (principal)

== ENCOUNTER 2021-07-28 12:58 | Outpatient (REF) | payer MEDICARE, OTHER, SELFPAY ==
--- NOTE | 2021-07-28 13:53 | PFT_ITS ---
FLOWS: FEV1 of 105% of predicted at 2.33 L. FVC of 100% of predicted at 2.96 L. FEV1 to FVC ratio of 0.79. No bronchodilator response. LUNG VOLUMES: Total lung capacity 106% of predicted at 5.54 L. Residual volume 103% of predicted at 2.40 L. Slow vital capacity 109% of predicted at 3.13 L. Expiratory reserve volume 15% of predicted at 0.10 L. Diffusion capacity is mildly decreased. IMPRESSION: No obstructive or restrictive ventilatory defect. No bronchodilator response. Decreased expiratory reserve volume suggests extrathoracic restriction likely secondary to abdominal obesity. Decreased diffusion capacity suggests emphysema. MD AUGUST Hutton/MODL / [id number]
== END 2021-07-28 12:59 | disposition home or self-care (01) ==
LOC: HO.RESP 12:58
PROVIDERS: PCP Internal Medicine; Visit Provider Surgery
DX: Z01.818 Encounter for other preprocedural examination (principal); R91.1 Solitary pulmonary nodule
CPT/HCPCS: 94060; 94727; 94729

== ENCOUNTER → 2021-08-27 09:18 | Outpatient (BNVA) | payer MEDICARE, OTHER, SELFPAY | PROVIDERS: PCP Internal Medicine; Visit Provider Surgery | DX: R91.1 Solitary pulmonary nodule (principal) | CPT/HCPCS: 99212 ==

== ENCOUNTER 2021-10-26 08:55 | Outpatient (REF) | payer MEDICARE, OTHER, SELFPAY ==
[2021-10-26 10:58] LABS: Estimated Average Glucose 157 mg/dL; Hemoglobin A1c % 7.1 %
[2021-10-26 11:05] LABS: Alanine Aminotransferase 31 U/L (0-31); Alkaline Phosphatase 50 U/L (39-117); Anion Gap 14 (12-20); Aspartate Amino Transferase 19 U/L (5-31); Bilirubin Total 0.5 mg/dL (0.0-1.0); Blood Urea Nitrogen 17 mg/dL (9-16); Calcium 9.9 mg/dL (8.4-10.2); Carbon Dioxide 23 mmol/L (22-29); Chloride 109 mmol/L (96-108); Cholesterol 162 mg/dL; Estimated Glomerular Filt Rate > 60; Glucose Fasting 154 mg/dL (60-99); HDL Cholesterol 48 mg/dL; LDL Cholesterol Calculated 86 mg/dl; Potassium 4.8 mmol/L (3.3-5.1); Sodium 141 mmol/L (135-145); Total Protein 6.5 g/dL (6.5-8.0); Triglycerides 141 mg/dL
[2021-10-26 11:07] LABS: Appearance Urine Clear; Color Urine Yellow; Glucose Urine UA Negative (Negative); Leukocyte Esterase Urine Moderate (2+) (Negative); Nitrite Urine Negative (Negative); PH 5.5 (5.0-8.0); Specific Gravity - Urine 1.015 (1.005-1.025); Urine Blood Negative (Negative); Urine Ketones Negative (Negative); Urine Protein Negative (Neg-Trace)
[2021-10-26 11:16] LABS: Bacteria Urine 4+ (None Seen); Creatinine Urine 69.12 mg/dL; Hyaline Casts Urine 0-2 /LPF (0-2); Microalbum/Creatinine Ratio Ur 23.1 ug/mg cr; RBC Urine 0-2 /HPF (0-2); UACC Culture Trigger YES; WBC Urine >50 /HPF (0-5)
[2021-10-26 11:26] LABS: Free T4 (Free Thyroxine) 1.12 ng/dL (0.71-1.85); Thyroid Stimulating Hormone 0.17 uIU/mL (0.32-4.0); Vitamin D 25-OH Total 44.2 ng/mL (>30)
== END 2021-10-26 08:56 | disposition home or self-care (01) ==
LOC: HO.10HDL 08:55
PROVIDERS: Visit Provider Internal Medicine
DX: E78.00 Pure hypercholesterolemia, unspecified (principal); E03.9 Hypothyroidism, unspecified; E83.52 Hypercalcemia; E11.9 Type 2 diabetes mellitus without complications
CPT/HCPCS: 36415; 80053; 80061; 81001; 81003; 82043; 82306; 83036; 84439; 84443; 87086; 87088; 87186

== ENCOUNTER 2022-01-06 12:30 | Outpatient (REF) | payer MEDICARE, OTHER, SELFPAY ==
--- NOTE | ~2022-01-06 | MM_ITS ---
EXAMINATION: MM SCREENING DIGITAL BREAST TOMOSYNTHESIS, BILATERAL CLINICAL INFORMATION: Screening. Asymptomatic. COMPARISON: Mammography: 12/31/2020, 11/04/2019, 07/04/2018 TECHNIQUE: Digital breast tomosynthesis is performed in both the craniocaudal and mediolateral oblique views along with computer-aided detection (CAD). Synthesized 2D images are generated from the tomosynthesis. FINDINGS: There are scattered areas of fibroglandular density (ACR BI-RADS breast composition Category b). There are no significant masses, abnormal calcifications, or other abnormalities. Parenchymal pattern is similar to prior studies. There is no developing density or architectural abnormality. The axilla and skin contours are unremarkable. No significant changes. MM/MM tomosynthesis screening BI IMPRESSION: No mammographic evidence of malignancy. ASSESSMENT: BI-RADS 1: Negative RECOMMENDATION: Routine annual mammography screening. This patient's information was entered into a reminder system with a target due date for their next mammogram.
== END 2022-01-06 12:31 | disposition home or self-care (01) ==
LOC: HO.MAMMO 12:30
PROVIDERS: PCP Internal Medicine; Visit Provider Internal Medicine
DX: Z12.31 Encounter for screening mammogram for malignant neoplasm of breast (principal)
CPT/HCPCS: 77063; 77067

== ENCOUNTER 2022-01-31 09:02 | Outpatient (REF) | payer MEDICARE, OTHER, SELFPAY ==
[2022-01-31 11:16] LABS: MANUAL DIFF FLAG NO
[2022-01-31 11:26] LABS: Basophils Absolute Auto 0.1 X10*3/uL (0.0-0.2); Basophils Percent Auto 0.9 % (0-2); Eosinophils Absolute Auto 0.3 X10*3/uL (0.0-0.4); Eosinophils Percent Auto 4.4 % (0-4); Hematocrit 41.7 % (37.0-47.0); Hemoglobin 13.3 g/dl (12.0-16.0); Imm Gran Abs Auto 0.02 X10*3/uL (0.00-0.03); Imm Gran Pct Auto 0.3 % (0.0-0.4); Lymphocytes Absolute Auto 1.4 X10*3/uL (1.2-4.9); Mean Corpuscular HGB Conc 31.9 g/dl (31.0-35.0); Mean Corpuscular Hemoglobin 26.7 pg (27.0-33.0); Mean Corpuscular Volume 83.7 fL (80.0-98.0); Mean Platelet Volume 11.1 fL (9.4-12.3); Monocytes Absolute Auto 0.5 X10*3/uL (0.1-1.2); Monocytes Percent Auto 8.3 % (2-11); Neutrophils Absolute Auto 3.7 x10*3/uL (2.0-8.3); Neutrophils Percent Auto 62.1 % (45-73); Platelet Count 258 X10*3/uL (160-400); Red Blood Count 4.98 X10*6/uL (4.20-5.50); White Blood Count 5.9 X10*3/uL (4.8-10.8)
[2022-01-31 12:03] LABS: Estimated Average Glucose 163 mg/dL; Hemoglobin A1c % 7.3 %
[2022-01-31 13:08] LABS: Alanine Aminotransferase 29 U/L (0-31); Alkaline Phosphatase 65 U/L (39-117); Anion Gap 13 (12-20); Aspartate Amino Transferase 17 U/L (5-31); Bilirubin Total 0.5 mg/dL (0.0-1.0); Blood Urea Nitrogen 22 mg/dL (9-16); Calcium 10.4 mg/dL (8.4-10.2); Carbon Dioxide 24 mmol/L (22-29); Chloride 106 mmol/L (96-108); Cholesterol 144 mg/dL; Estimated Glomerular Filt Rate > 60; Glucose Fasting 167 mg/dL (60-99); HDL Cholesterol 46 mg/dL; LDL Cholesterol Calculated 75 mg/dl; Potassium 4.9 mmol/L (3.3-5.1); Sodium 138 mmol/L (135-145); TSH reflex Free T4 0.09 uIU/mL (0.32-4.0); Total Protein 6.7 g/dL (6.5-8.0); Triglycerides 117 mg/dL; Vitamin D 25-OH Total 39.9 ng/mL (>30)
[2022-01-31 13:41] LABS: Appearance Urine Clear; Color Urine Yellow; Glucose Urine UA Negative (Negative); Leukocyte Esterase Urine Trace (Negative); Nitrite Urine Positive (Negative); PH 5.5 (5.0-9.0); UMIC TRIGGER UACC YES; Urine Blood Small (1+) (Negative); Urine Ketones Negative (Negative); Urine Protein Negative (Neg-Trace)
[2022-01-31 13:44] LABS: Bacteria Urine 4+ (None Seen); Hyaline Casts Urine 0-2 /LPF (0-2); UACC Culture Trigger YES
[2022-01-31 14:41] LABS: Creatinine Urine 115.43 mg/dL; Microalbum/Creatinine Ratio Ur 7.7 ug/mg cr
== END 2022-01-31 09:03 | disposition home or self-care (01) ==
LOC: HO.10HDL 09:02
PROVIDERS: Visit Provider Internal Medicine
DX: I10 Essential (primary) hypertension (principal); E55.9 Vitamin D deficiency, unspecified; E78.00 Pure hypercholesterolemia, unspecified; E11.9 Type 2 diabetes mellitus without complications
CPT/HCPCS: 36415; 80053; 80061; 81001; 82043; 82306; 83036; 84439; 84443; 85025; 87086; 87088; 87186

== ENCOUNTER 2022-05-02 09:05 | Outpatient (REF) | payer MEDICARE, OTHER, SELFPAY ==
--- NOTE | ~2022-05-02 | CT_ITS ---
EXAMINATION: CT CHEST WITHOUT CONTRAST CLINICAL INFORMATION: Benign carcinoid tumor of the bronchus and lung. COMPARISON: PET/CT dated 07/27/2021. Chest CT dated 07/07/2021. TECHNIQUE: Multidetector volumetric CT imaging of the chest was done. Axial MIP volume rendering provided. Sagittal and coronal reformatted images were obtained. This CT examination was performed using dose optimization techniques as appropriate, variously including the following: *Automated exposure control *Adjustment of mA and/or kV according to patient size (this includes techniques or standardized protocols for targeted exams where dose is matched to indication/reason for exam; i.e. extremities or head) *Use of iterative reconstruction technique DLP: 235 mGy-cm FINDINGS: LUNGS: Right lower lobe postsurgical changes. No evidence of locally recurrent tumor. The lungs otherwise appear clear, with no evidence of inflammation or nodules. MEDIASTINUM: The mediastinum is normal. CORONARY ARTERY CALCIFICATION: None visualized on this study. PLEURA: There is no pleural effusion. No pleural mass or thickening. AXILLA: No lymphadenopathy by size criteria. UPPER ABDOMEN: Status post cholecystectomy. OSSEOUS STRUCTURES: Mild degenerative changes of the spine and shoulders. CT/CT chest wo IV con IMPRESSION: No evidence of recurrent neoplasm.
== END 2022-05-02 09:06 | disposition home or self-care (01) ==
LOC: HO.CT 09:05
PROVIDERS: PCP Internal Medicine; Visit Provider Surgery
DX: D3A.090 Benign carcinoid tumor of the bronchus and lung (principal); R91.1 Solitary pulmonary nodule
CPT/HCPCS: 71250

== ENCOUNTER → 2022-05-06 10:39 | Outpatient (BNVA) | payer MEDICARE, OTHER, SELFPAY | PROVIDERS: PCP Internal Medicine; Visit Provider Surgery | DX: D3A.090 Benign carcinoid tumor of the bronchus and lung (principal); R91.1 Solitary pulmonary nodule | CPT/HCPCS: 99212 ==

== ENCOUNTER 2022-05-09 10:27 | Outpatient (REF) | payer MEDICARE, OTHER, SELFPAY ==
[2022-05-09 11:09] LABS: MANUAL DIFF FLAG NO
[2022-05-09 11:13] LABS: Basophils Absolute Auto 0.1 X10*3/uL (0.0-0.2); Basophils Percent Auto 0.8 % (0-2); Eosinophils Absolute Auto 0.3 X10*3/uL (0.0-0.4); Eosinophils Percent Auto 4.6 % (0-4); Hematocrit 41.6 % (37.0-47.0); Hemoglobin 13.3 g/dl (12.0-16.0); Imm Gran Abs Auto 0.03 X10*3/uL (0.00-0.03); Imm Gran Pct Auto 0.5 % (0.0-0.4); Lymphocytes Absolute Auto 1.4 X10*3/uL (1.2-4.9); Mean Corpuscular Hemoglobin 26.9 pg (27.0-33.0); Mean Platelet Volume 10.9 fL (9.4-12.3); Monocytes Absolute Auto 0.5 X10*3/uL (0.1-1.2); Monocytes Percent Auto 8.9 % (2-11); Neutrophils Absolute Auto 3.8 x10*3/uL (2.0-8.3); Neutrophils Percent Auto 62.2 % (45-73); Platelet Count 274 X10*3/uL (160-400); Red Blood Count 4.95 X10*6/uL (4.20-5.50); White Blood Count 6.1 X10*3/uL (4.8-10.8)
[2022-05-09 11:55] LABS: Alanine Aminotransferase 32 U/L (0-31); Albumin Level 4.3 g/dL (3.5-5.0); Alkaline Phosphatase 60 U/L (39-117); Anion Gap 12 (12-20); Aspartate Amino Transferase 22 U/L (5-31); Bilirubin Total 0.6 mg/dL (0.0-1.0); Blood Urea Nitrogen 19 mg/dL (9-16); Calcium 10.3 mg/dL (8.4-10.2); Carbon Dioxide 24 mmol/L (22-29); Chloride 111 mmol/L (96-108); Cholesterol 150 mg/dL; Estimated Glomerular Filt Rate > 60; Glucose Fasting 134 mg/dL (60-99); HDL Cholesterol 46 mg/dL; LDL Cholesterol Calculated 83 mg/dl; Potassium 4.7 mmol/L (3.3-5.1); Sodium 142 mmol/L (135-145); Total Protein 6.8 g/dL (6.5-8.0); Triglycerides 109 mg/dL
[2022-05-09 12:07] LABS: Estimated Average Glucose 163 mg/dL; Hemoglobin A1c % 7.3 %
[2022-05-09 12:14] LABS: Free T4 (Free Thyroxine) 1.31 ng/dL (0.71-1.85); Thyroid Stimulating Hormone 0.08 uIU/mL (0.32-4.0); Vitamin D 25-OH Total 35.3 ng/mL (>30)
[2022-05-09 14:08] LABS: Appearance Urine Clear; Color Urine Yellow; Glucose Urine UA Negative (Negative); Leukocyte Esterase Urine Moderate (2+) (Negative); Nitrite Urine Positive (Negative); PH 5.5 (5.0-9.0); UMIC TRIGGER UACC YES; Urine Blood Negative (Negative); Urine Ketones Negative (Negative); Urine Protein Negative (Neg-Trace)
[2022-05-09 14:11] LABS: Bacteria Urine 4+ (None Seen); Hyaline Casts Urine 0-2 /LPF (0-2); RBC Urine 0-2 /HPF (0-2); UACC Culture Trigger YES; WBC Urine 21-50 /HPF (0-5)
[2022-05-09 14:14] LABS: Creatinine Urine 116.14 mg/dL; Microalbum/Creatinine Ratio Ur 8.6 ug/mg cr
[2022-05-10 11:49] LABS: Calcium (PTHI) 10.7 mg/dL (8.6-10.4); PTHI 38 pg/mL (16-77)
== END 2022-05-09 10:28 | disposition home or self-care (01) ==
LOC: HO.10HDL 10:27
PROVIDERS: Visit Provider Internal Medicine
DX: E78.00 Pure hypercholesterolemia, unspecified (principal); E03.9 Hypothyroidism, unspecified; E11.9 Type 2 diabetes mellitus without complications; E83.52 Hypercalcemia; I10 Essential (primary) hypertension; R82.90 Unspecified abnormal findings in urine
CPT/HCPCS: 36415; 80053; 80061; 81001; 81003; 82043; 82306; 83036; 83970; 84439; 84443; 85025; 87086; 87088; 87186

== ENCOUNTER 2022-07-04 07:09 | Day surgery (SDC) | payer MEDICARE, OTHER, SELFPAY ==
--- NOTE | 2022-07-01 13:06 | HO.ANESPROP2 ---
Documented by User: Digna Browne NP 07/01/22 13:12 HPI - Anesthesia Eval Consult details Narrative: 76yo F for Upper Endoscopy and Colonoscopy S/P VATS and wedge resection by Dr. Wilson on 09/29/21 [facility] Active Problems Active Problems: All Active Problems (Updated 05/10/22 @ 11:02 by Roberto Rojas MD) Allergic rhinitis (Acute) Hypercalcemia (Acute) Rosacea (Acute) Carcinoid tumor (Acute) Right lower lobe pulmonary nodule (Acute) Obstructive sleep apnea (Acute ~2005) Benign essential hypertension (Acute) Pure hypercholesterolemia (Acute) Acquired hypothyroidism (Acute) Diabetes mellitus (Acute) Obesity (BMI 30-39.9) (Acute) GERD without esophagitis (Acute) Tubular adenoma of colon (Acute ~2002) Elevated liver enzymes (Acute) Hypercalcemia (Acute) Chest pain (Acute) Anxiety (Acute) Urinary incontinence (Acute) Greater trochanteric bursitis of right hip (Acute) Primary osteoarthritis of both knees (Acute) Post-menopausal (Acute) Nail abnormality (Acute) Past Medical History Medical History (Updated 07/01/22 @ 13:07 by Evangelina Florence, RN) Acquired hypothyroidism Allergic rhinitis Anxiety Campoverde's palsy Benign essential hypertension Diabetes mellitus Elevated liver enzymes GERD without esophagitis Obesity (BMI 30-39.9) Obstructive sleep apnea (~2005) Primary osteoarthritis of both knees Pure hypercholesterolemia Tubular adenoma of colon (~2002) Urinary incontinence Family History Family History Father Diabetes Hypertension Mother Diabetes Cancer Surgical History Surgical History (Updated 07/01/22 @ 13:07 by Evangelina Florence, CHELY) History of bronchoscopy (~2021) History of cholecystectomy (~1996) History of colonoscopy History of hysterectomy History of lung surgery History of pubovaginal sling (~2010) Social History Social History Household Members: Significant Other Housing: House Alcohol intake: current Alcohol intake frequency: holidays/special occasions only Alcohol type: wine Patient Tobacco Use Status: Never used Tobacco e-Cigarette/Vaping Use: Never Used Second Hand Smoke Exposure: Yes Use of substances other than those prescribed or required for medical reasons: No Advance Directives: No Advance Directives Information Provided: Yes Recently lost weight without trying: No service: No Current occupational status: retired Cognitive needs: No Hearing needs: Yes Vision needs: Yes Meds Allergies Allergy/AdvReac Type Severity Reaction Status Date / Time amoxicillin [AMOXICILLIN] Allergy Mild GI UPSET, Verified 05/10/22 10:32 upset stomach, stomach upset Sulfa (Sulfonamide Allergy Unknown HIVES,RASH Verified 05/10/22 10:32 Antibiotics) [SULFA (SULFONAMIDE ANTIBIOTICS)] Home Medications Medication Instructions Recorded Confirmed Last Taken Type fexofenadine 180 mg tablet 180 mg PO DAILY 05/07/21 05/10/22 Unknown History (Diane Allergy) Exam Exam Date and Time: July 01, 2022 1306 Pertinent Lab Results Pertinent Lab Results: Laboratory Tests 05/09/22 05/09/22 10:33 10:33 WBC 6.1 Hgb 13.3 Hct 41.6 Plt Count 274 Sodium 142 Potassium 4.7 Chloride 111 H Carbon Dioxide 24 BUN 19 H Creatinine 0.84 Narrative Narrative: NM aakash perf SPECT rest & str 2021 Impression: ? 1.? Myocardial perfusion imaging study shows no evidence of any ischemia or infarction. Likely normal perfusion. 2.? Gated LVEF is percent during stress and 69% during rest. 3. Transient ischemic dilatation not present. ? EKG component of the test reported separately. CT chest wo IV con 04/2022 IMPRESSION: ? No evidence of recurrent neoplasm.? Documented by User: Usama Fang MD 07/04/22 08:14 [facility] Past Medical History Medical History (Updated 07/01/22 @ 13:07 by Evangelina Florence RN) Acquired hypothyroidism Allergic rhinitis Anxiety Campoverde's palsy Benign essential hypertension Diabetes mellitus Elevated liver enzymes GERD without esophagitis Obesity (BMI 30-39.9) Obstructive sleep apnea (~2005) Primary osteoarthritis of both knees Pure hypercholesterolemia Tubular adenoma of colon (~2002) Urinary incontinence Family History Family History Father Diabetes Hypertension Mother Diabetes Cancer Family history of problems with anesthesia: No Surgical History Surgical History (Updated 07/01/22 @ 13:07 by Evangelina Florence RN) History of bronchoscopy (~2021) History of cholecystectomy (~1996) History of colonoscopy History of hysterectomy History of lung surgery History of pubovaginal sling (~2010) History of Problems with Anesthesia: No Social History Social History Household Members: Significant Other Housing: House Alcohol intake: current Alcohol intake frequency: holidays/special occasions only Alcohol type: wine Patient Tobacco Use Status: Never used Tobacco e-Cigarette/Vaping Use: Never Used Second Hand Smoke Exposure: Yes Use of substances other than those prescribed or required for medical reasons: No Advance Directives: No Advance Directives Information Provided: Yes Recently lost weight without trying: No service: No Current occupational status: retired Cognitive needs: No Hearing needs: Yes Vision needs: Yes Meds Allergies Allergy/AdvReac Type Severity Reaction Status Date / Time amoxicillin [AMOXICILLIN] Allergy Mild GI UPSET, Verified 05/10/22 10:32 upset stomach, stomach upset Sulfa (Sulfonamide Allergy Unknown HIVES,RASH Verified 05/10/22 10:32 Antibiotics) [SULFA (SULFONAMIDE ANTIBIOTICS)] Home Medications Medication Instructions Recorded Confirmed Last Taken Type fexofenadine 180 mg tablet 180 mg PO DAILY 05/07/21 05/10/22 Unknown History (Diane Allergy) Exam Airway Mallampati Class: II TM Dist: <=3cm Neck ROM: Full Heart: ok Lungs: ok Assessment and Plan Assessment Anesthesia Assessment: Anesthesia Plan Discussed and Chart Reviewed Final Anesthetic Review Family History of Problems with Anesthesia: No History of Problems with Anesthesia: No NPO: Yes ASA Class: III Final Preanesthetic Review: No Changes in Pt Med Stat, Meds/Allgs Chart Reviewed, Consent Obtained/Reviewed and Anes Risks/Benef Reviewed Patient Risk: High Procedure Risk: Intermediate Anesthetic Plan Anesthetic Plan: MAC: and Agree w/ Assess. and Plan Disposition: Standard PACU
[2022-07-04 07:19] VITALS: BP 152/82; PULSE 78; RESP 16; TEMP 36.6; O2SAT 97; BMI 34.0
[2022-07-04 07:32] LABS: Glucose, Whole Blood 181 mg/dL (60-115)
[2022-07-04 08:53] VITALS: BP 107/56; PULSE 66; RESP 18; TEMP 36.2; O2SAT 93
[2022-07-04 08:58] VITALS: BP 122/63; PULSE 68; RESP 18; O2SAT 96
--- NOTE | 2022-07-04 08:58 | PM.OP ---
Brief Operative Note Date of Service: 07/04/22 Pre-op diagnosis: GERD, Screening Post-op diagnosis: other (York's esophagus, Hiatal hernia, Diverticulosis) Procedure: EGD with biopsies, Colonoscopy to the cecum Surgeon: Tim Valenzuela Anesthesia: MAC Was an Evp General Counsel used for this Procedure?: No Estimated blood loss (mL): 2.0 Pathology: other (A. Esophagus at 34cm B. Esophagus at 32cm) Condition: stable Disposition: PACU
[2022-07-04 09:03] VITALS: BP 110/63; PULSE 73; RESP 18; O2SAT 98
[2022-07-04 09:08] VITALS: BP 121/67; PULSE 64; RESP 18; TEMP 36.1; O2SAT 96
--- NOTE | 2022-07-04 10:31 | OP_ITS ---
DATE OF SERVICE: 07/04/2022 SURGEON: Tim Valenzuela MD INDICATIONS: The patient presents for evaluation of chronic gastroesophageal reflux, personal history of tubular adenoma of the colon, and need for colorectal cancer screening. Full consent has been obtained from her for this, including risks of bleeding and perforation. PREOPERATIVE DIAGNOSIS: POSTOPERATIVE DIAGNOSIS: PROCEDURE PERFORMED: Esophagogastroduodenoscopy with biopsies and colonoscopy to the cecum . ESTIMATED BLOOD LOSS: COMPLICATIONS: ANESTHESIA: Monitored anesthesia care. ASSISTANTS: SPECIMENS: PREOPERATIVE DIAGNOSES: Gastroesophageal reflux, personal history of tubular adenoma of the colon and colorectal cancer screening. POSTOPERATIVE DIAGNOSES: Gastroesophageal reflux, personal history of tubular adenoma of the colon and colorectal cancer screening, hiatal hernia, rule out York's esophagus, diverticulosis, and internal hemorrhoids. DESCRIPTION OF PROCEDURE: The patient was placed in the left lateral decubitus position. The Olympus video gastroscope was passed into the posterior oropharynx and upper esophagus under direct vision. The scope was passed slowly to the distal esophagus. The gastroesophageal junction appeared at 35 cm. Extending from this to 32 cm was what appeared to be York's mucosa but without any lesions, inflammation, nor ulceration. The scope entered into the stomach. There was a moderate-sized hiatal hernia. The scope was advanced to the pylorus and the duodenum was cannulated to the descending portion. The duodenum including the bulb appeared normal without mass or ulceration. The scope was withdrawn back to the stomach. The gastric antrum and body appeared normal with good peristalsis. Scope was retroflexed visualizing the proximal stomach carefully, which appeared normal, without any sign of mass or ulceration. The scope was straightened and withdrawn back in the esophagus. I otained multiple biopsies at levels of 34 cm and at 32 cm in the esophagus from what appeared to be the York's mucosa. Proximal to 32 cm, the esophageal mucosa appeared normal. The scope was withdrawn from the patient. She was turned around for the colonoscopy. The digital rectal exam revealed no abnormalities. The Olympus video pediatric colonoscope was entered into the rectum and advanced easily to the cecum. Once in the cecum, I did identify a cecal pouch with appendiceal orifice and a normal-appearing ileocecal valve. The entire cecum and ileocecal valve appeared normal. The transillumination of light deep in the lower quadrant. The scope was slowly withdrawn assessing all mucosal surfaces carefully. Preparation was excellent. I did not visualize any sign of polyps, colitis nor angiodysplasia. There was a moderate amount of sigmoid diverticulosis. In the rectum, the scope was retroflexed visualizing internal hemorrhoids, but no other pathology. The rectal mucosa appeared normal. The scope was straightened out and withdrawn from the patient. She tolerated both procedures well and was returned to the recovery area in stable condition. IMPRESSION: 1. 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 2. Hiatal hernia. 3. Diverticulosis. 4. Internal hemorrhoids. PLAN: Given today's negative colonoscopy and her age, I do not think she will need any further screening colonoscopies. If the esophageal biopsies do show York's esophagus without dysplasia, I would recommend a repeat upper endoscopy in three years for further surveillance. She was advised continue her daily Prilosec for symptomatic relief of reflux. She was advised not to use any aspirin or NSAIDs for 1 week. MD COSTA Castaneda/PERCY / [id number] MTDJosh
== END 2022-07-04 09:50 | disposition home or self-care (01) ==
PROVIDERS: PCP Internal Medicine; Visit Provider Internal Medicine
PROC: (CPT 43239; principal; 2022-07-04 08:30)
DX: Z12.11 Encounter for screening for malignant neoplasm of colon (principal); K57.30 Diverticulosis of large intestine without perforation or abscess without bleeding; K64.8 Other hemorrhoids; Z86.010 Personal history of colon polyps; K21.9 Gastro-esophageal reflux disease without esophagitis; K22.70 Barrett's esophagus without dysplasia; K44.9 Diaphragmatic hernia without obstruction or gangrene; E11.9 Type 2 diabetes mellitus without complications; Z79.84 Long term (current) use of oral hypoglycemic drugs
CPT/HCPCS: 43239; G0105; 82947; 88305; J3010

== ENCOUNTER 2022-08-17 09:42 | Outpatient (REF) | payer MEDICARE, OTHER, SELFPAY ==
[2022-08-17 10:03] LABS: MANUAL DIFF FLAG NO
[2022-08-17 10:08] LABS: Basophils Absolute Auto 0.1 X10*3/uL (0.0-0.2); Eosinophils Absolute Auto 0.2 X10*3/uL (0.0-0.4); Eosinophils Percent Auto 3.6 % (0-4); Hemoglobin 13.9 g/dl (12.0-16.0); Imm Gran Abs Auto 0.03 X10*3/uL (0.00-0.03); Imm Gran Pct Auto 0.5 % (0.0-0.4); Lymphocytes Absolute Auto 1.6 X10*3/uL (1.2-4.9); Lymphocytes Percent Auto 25.2 % (20-40); Mean Corpuscular HGB Conc 32.3 g/dl (31.0-35.0); Mean Corpuscular Hemoglobin 26.9 pg (27.0-33.0); Mean Corpuscular Volume 83.3 fL (80.0-98.0); Mean Platelet Volume 10.4 fL (9.4-12.3); Monocytes Absolute Auto 0.5 X10*3/uL (0.1-1.2); Monocytes Percent Auto 7.8 % (2-11); Neutrophils Absolute Auto 3.8 x10*3/uL (2.0-8.3); Neutrophils Percent Auto 61.9 % (45-73); Platelet Count 303 X10*3/uL (160-400); Red Blood Count 5.16 X10*6/uL (4.20-5.50); Red Cell Distribution Width 14.4 % (11.0-16.0); White Blood Count 6.2 X10*3/uL (4.8-10.8)
[2022-08-17 10:25] LABS: Estimated Average Glucose 143 mg/dL; Hemoglobin A1c % 6.6 %
[2022-08-17 12:20] LABS: Alanine Aminotransferase 23 U/L (0-31); Albumin Level 4.2 g/dL (3.5-5.0); Alkaline Phosphatase 56 U/L (39-117); Anion Gap 15 (12-20); Aspartate Amino Transferase 16 U/L (5-31); Bilirubin Total 0.6 mg/dL (0.0-1.0); Blood Urea Nitrogen 18 mg/dL (9-16); Calcium 10.9 mg/dL (8.4-10.2); Carbon Dioxide 20 mmol/L (22-29); Chloride 111 mmol/L (96-108); Cholesterol 147 mg/dL; Estimated Glomerular Filt Rate > 60; Glucose Fasting 140 mg/dL (60-99); HDL Cholesterol 45 mg/dL; LDL Cholesterol Calculated 73 mg/dl; Potassium 4.5 mmol/L (3.3-5.1); Sodium 141 mmol/L (135-145); Thyroid Stimulating Hormone 0.22 uIU/mL (0.32-4.0); Total Protein 7.3 g/dL (6.5-8.0); Triglycerides 149 mg/dL; Vitamin D 25-OH Total 46.9 ng/mL (>30)
[2022-08-17 13:27] LABS: Appearance Urine Cloudy; Color Urine Yellow; Glucose Urine UA Negative (Negative); Leukocyte Esterase Urine Moderate (2+) (Negative); Nitrite Urine Positive (Negative); PH 5.5 (5.0-9.0); UMIC TRIGGER UACC YES; Urine Blood Negative (Negative); Urine Ketones Negative (Negative); Urine Protein Negative (Neg-Trace)
[2022-08-17 13:38] LABS: Bacteria Urine 4+ (None Seen); Hyaline Casts Urine 0-2 /LPF (0-2); UACC Culture Trigger YES; WBC Urine 21-50 /HPF (0-5)
[2022-08-17 13:53] LABS: Creatinine Urine 137.62 mg/dL; Microalbum/Creatinine Ratio Ur 8.7 ug/mg cr
[2022-08-19 19:23] LABS: Calcium (PTHI) 10.7 mg/dL (8.6-10.4); PTHI 37 pg/mL (16-77)
== END 2022-08-17 09:43 | disposition home or self-care (01) ==
LOC: HO.10HDL 09:42
PROVIDERS: Visit Provider Internal Medicine
DX: E03.9 Hypothyroidism, unspecified (principal); E55.9 Vitamin D deficiency, unspecified; E11.9 Type 2 diabetes mellitus without complications; I10 Essential (primary) hypertension; E78.00 Pure hypercholesterolemia, unspecified; R82.90 Unspecified abnormal findings in urine
CPT/HCPCS: 36415; 80053; 80061; 81001; 82043; 82306; 83036; 83970; 84439; 84443; 85025; 87086

== ENCOUNTER 2022-08-19 12:05 | Outpatient (REF) | payer MEDICARE, OTHER, SELFPAY ==
--- NOTE | ~2022-08-19 | XR_ITS ---
EXAMINATION: Lumbar spine and sacroiliac joints x-ray CLINICAL INFORMATION: Pain COMPARISON: None. TECHNIQUE: 3 views of the lumbar spine and 3 views of the sacroiliac joints FINDINGS: Sacroiliac joints: Bone alignment is normal. No fracture or dislocation. 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 Lumbar spine: Mild curvature of the lumbar spine to the left. Bone alignment is otherwise normal. No fracture or dislocation. Normal disc spaces. Mild degenerative spondylosis at L3-L4 and in the lower thoracic spine. Lower lumbar spine facet arthritis. Atherosclerotic disease. There is joint space narrowing at the right hip joint. XR/XR sacroiliac joint min 3V IMPRESSION: Degenerative changes of the lumbar spine and sacroiliac joints.
--- NOTE | ~2022-08-19 | XR_ITS ---
EXAMINATION: Lumbar spine and sacroiliac joints x-ray CLINICAL INFORMATION: Pain COMPARISON: None. TECHNIQUE: 3 views of the lumbar spine and 3 views of the sacroiliac joints FINDINGS: Sacroiliac joints: Bone alignment is normal. No fracture or dislocation. 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 Lumbar spine: Mild curvature of the lumbar spine to the left. Bone alignment is otherwise normal. No fracture or dislocation. Normal disc spaces. Mild degenerative spondylosis at L3-L4 and in the lower thoracic spine. Lower lumbar spine facet arthritis. Atherosclerotic disease. There is joint space narrowing at the right hip joint. XR/XR lumbar spine 2-3V IMPRESSION: Degenerative changes of the lumbar spine and sacroiliac joints.
== END 2022-08-19 12:06 | disposition home or self-care (01) ==
LOC: HO.XRAY 12:05
PROVIDERS: PCP Internal Medicine; Visit Provider Internal Medicine
DX: M54.41 Lumbago with sciatica, right side (principal)
CPT/HCPCS: 72100; 72202

== ENCOUNTER 2022-10-21 10:13 | Outpatient (REF) | payer MEDICARE, OTHER, SELFPAY ==
--- NOTE | ~2022-10-21 | XR_ITS ---
EXAMINATION: XR PELVIS XR KNEE, RIGHT XR KNEE, LEFT XR KNEE, STANDING, BILATERAL CLINICAL INFORMATION: Pain. COMPARISON: Sacroiliac joints 08/19/2022, bilateral knees 04/08/2019. TECHNIQUE: AP view of the pelvis, AP standing view of bilateral knees, lateral and sunrise views of bilateral knees. FINDINGS: PELVIS: Redemonstration of rounded pelvic calcifications. Advanced degenerative changes on AP views of bilateral hips with joint space narrowing and hypertrophic change right greater than left. Mild degenerative changes in the imaged lower lumbar spine. Mild degenerative changes in the bilateral sacroiliac joints. AP STANDING VIEW OF BILATERAL KNEES: Bilateral medial joint space narrowing, left greater than right, with varus angulation. Medial and lateral marginal osteophytes. RIGHT KNEE: Joint effusion. Tricompartmental osteophytes. Gpyitixl-ct-qdbjcx medial joint space narrowing. LEFT KNEE: Joint effusion. Tricompartmental osteophytes. Marked medial joint space narrowing. XR/XR knee standing BI IMPRESSION: 1. Advanced degenerative changes on single AP view of bilateral hips. Additional imaging with CT scan or MRI should be considered for better visualization as these modalities are much more sensitive for detection of fracture or other underlying pathology. 2. Zpojltws-oe-ycayie medial joint space narrowing right knee with tricompartmental degenerative changes. 3. Marked medial joint space narrowing left knee with tricompartmental degenerative changes.
--- NOTE | ~2022-10-21 | XR_ITS ---
EXAMINATION: XR PELVIS XR KNEE, RIGHT XR KNEE, LEFT XR KNEE, STANDING, BILATERAL CLINICAL INFORMATION: Pain. COMPARISON: Sacroiliac joints 08/19/2022, bilateral knees 04/08/2019. TECHNIQUE: AP view of the pelvis, AP standing view of bilateral knees, lateral and sunrise views of bilateral knees. FINDINGS: PELVIS: Redemonstration of rounded pelvic calcifications. Advanced degenerative changes on AP views of bilateral hips with joint space narrowing and hypertrophic change right greater than left. Mild degenerative changes in the imaged lower lumbar spine. Mild degenerative changes in the bilateral sacroiliac joints. AP STANDING VIEW OF BILATERAL KNEES: Bilateral medial joint space narrowing, left greater than right, with varus angulation. Medial and lateral marginal osteophytes. RIGHT KNEE: Joint effusion. Tricompartmental osteophytes. Tsavcvsn-wf-sudkgj medial joint space narrowing. LEFT KNEE: Joint effusion. Tricompartmental osteophytes. Marked medial joint space narrowing. XR/XR knee LT 2V IMPRESSION: 1. Advanced degenerative changes on single AP view of bilateral hips. Additional imaging with CT scan or MRI should be considered for better visualization as these modalities are much more sensitive for detection of fracture or other underlying pathology. 2. Gxnankxq-zl-dbgahb medial joint space narrowing right knee with tricompartmental degenerative changes. 3. Marked medial joint space narrowing left knee with tricompartmental degenerative changes.
--- NOTE | ~2022-10-21 | XR_ITS ---
EXAMINATION: XR PELVIS XR KNEE, RIGHT XR KNEE, LEFT XR KNEE, STANDING, BILATERAL CLINICAL INFORMATION: Pain. COMPARISON: Sacroiliac joints 08/19/2022, bilateral knees 04/08/2019. TECHNIQUE: AP view of the pelvis, AP standing view of bilateral knees, lateral and sunrise views of bilateral knees. FINDINGS: PELVIS: Redemonstration of rounded pelvic calcifications. Advanced degenerative changes on AP views of bilateral hips with joint space narrowing and hypertrophic change right greater than left. Mild degenerative changes in the imaged lower lumbar spine. Mild degenerative changes in the bilateral sacroiliac joints. AP STANDING VIEW OF BILATERAL KNEES: Bilateral medial joint space narrowing, left greater than right, with varus angulation. Medial and lateral marginal osteophytes. RIGHT KNEE: Joint effusion. Tricompartmental osteophytes. Ycksfcea-or-xkalif medial joint space narrowing. LEFT KNEE: Joint effusion. Tricompartmental osteophytes. Marked medial joint space narrowing. XR/XR knee RT 2V IMPRESSION: 1. Advanced degenerative changes on single AP view of bilateral hips. Additional imaging with CT scan or MRI should be considered for better visualization as these modalities are much more sensitive for detection of fracture or other underlying pathology. 2. Cnmeneer-xt-rdhfdi medial joint space narrowing right knee with tricompartmental degenerative changes. 3. Marked medial joint space narrowing left knee with tricompartmental degenerative changes.
--- NOTE | ~2022-10-21 | XR_ITS ---
EXAMINATION: XR PELVIS XR KNEE, RIGHT XR KNEE, LEFT XR KNEE, STANDING, BILATERAL CLINICAL INFORMATION: Pain. COMPARISON: Sacroiliac joints 08/19/2022, bilateral knees 04/08/2019. TECHNIQUE: AP view of the pelvis, AP standing view of bilateral knees, lateral and sunrise views of bilateral knees. FINDINGS: PELVIS: Redemonstration of rounded pelvic calcifications. Advanced degenerative changes on AP views of bilateral hips with joint space narrowing and hypertrophic change right greater than left. Mild degenerative changes in the imaged lower lumbar spine. Mild degenerative changes in the bilateral sacroiliac joints. AP STANDING VIEW OF BILATERAL KNEES: Bilateral medial joint space narrowing, left greater than right, with varus angulation. Medial and lateral marginal osteophytes. RIGHT KNEE: Joint effusion. Tricompartmental osteophytes. Ewyyphwn-mh-dmmfuf medial joint space narrowing. LEFT KNEE: Joint effusion. Tricompartmental osteophytes. Marked medial joint space narrowing. XR/XR pelvis 1-2V IMPRESSION: 1. Advanced degenerative changes on single AP view of bilateral hips. Additional imaging with CT scan or MRI should be considered for better visualization as these modalities are much more sensitive for detection of fracture or other underlying pathology. 2. Bwwaivrt-xn-ypzafl medial joint space narrowing right knee with tricompartmental degenerative changes. 3. Marked medial joint space narrowing left knee with tricompartmental degenerative changes.
== END 2022-10-21 10:14 | disposition home or self-care (01) ==
LOC: HO.HOSX 10:13
PROVIDERS: PCP Internal Medicine; Visit Provider Orthopaedic Surgery
DX: M16.11 Unilateral primary osteoarthritis, right hip (principal); M17.12 Unilateral primary osteoarthritis, left knee
CPT/HCPCS: 72170; 73560; 73565; 99212

== ENCOUNTER 2022-10-21 10:13 | Outpatient (AMB) | payer MEDICARE, OTHER, SELFPAY ==
--- NOTE | 2022-10-21 10:20 | A.OFFVIS_ITS ---
Intake Vital Signs 10/21/22 10:21 Height 5 ft 6 in Weight 214 lb BMI 34.5 Intake Visit Reasons: OV-Bilateral Knee Pain Intake Note: Ariane is a 76 year old female who presents today for a follow up of her bilateral knee pain. Last injection was done left knee 01/14/21 & right knee 12/03/20. Patient reports that these injections help but dont give great relief. She was recently seen with her PCP due to pain below the right buttock and radiates down the back of the leg. She would like to discus other treatment options. Allergies amoxicillin [AMOXICILLIN] Allergy (Mild, Verified 08/19/22 10:40) GI UPSET, upset stomach, stomach upset Sulfa (Sulfonamide Antibiotics) [SULFA (SULFONAMIDE ANTIBIOTICS)] Allergy (Unknown, Verified 08/19/22 10:40) HIVES,RASH HPI OV-Bilateral Knee Pain HPI Details Ariane Song is a 76-year-old Diabetic female who returns with bilateral knee pain. She was last injection with cortisone in the right knee on 12/03/2020 and left knee was on 01/14/2021. She states the injections gave her some help, but did not give her relief. She states she was recently seen by her PCP for pain in the lower buttocks that radiates to the back of her leg. She states when she ambulates she feels wobbly. She confirms stiffness when ambulating and feels like she is tripping. She states she feel in 06/2022. She confirms being treated for sciatica. [facility] Medical History Acquired hypothyroidism Allergic rhinitis Anxiety Campoverde's palsy Benign essential hypertension Diabetes mellitus Elevated liver enzymes GERD without esophagitis Obesity (BMI 30-39.9) Obstructive sleep apnea (~2005) Primary osteoarthritis of both knees Pure hypercholesterolemia Tubular adenoma of colon (~2002) Urinary incontinence Surgical History History of bronchoscopy (~2021) History of cholecystectomy (~1996) History of colonoscopy History of hysterectomy History of lung surgery History of pubovaginal sling (~2010) Family History Father Diabetes Hypertension Mother Diabetes Cancer Social History Household Members: Significant Other Housing: House Alcohol intake: current Alcohol intake frequency: holidays/special occasions only Alcohol type: wine Patient Tobacco Use Status: Never used Tobacco e-Cigarette/Vaping Use: Never Used Second Hand Smoke Exposure: Yes service: No Current occupational status: retired Cognitive needs: No Hearing needs: Yes Vision needs: Yes Review of Systems Const All systems reviewed & are unremarkable except as noted in HPI and below Physical Exam Vital Signs: BMI result Body Mass Index 34.5 Const General: cooperative, healthy appearing and no acute distress Orientation/consciousness: patient oriented x3 Resp Effort & Inspection: normal respiratory effort and able to speak in complete sentences Cardio Rate: regular rate Peripheral pulses: Peripheral pulses 2+ throughout GI Palpation (GI): Soft to palpation Skin General skin exam: no rashes or lesions noted Lesions: no lesions Rashes: no rashes Neuro General: patient oriented x3 Extrem Other: Right hip: Positive hip impingement test on the right. Limited internal rotation. Positive Stinchfield test. Antalgic trendelenburg gait. Negative trendelenburg sign. Results Reviewed Results Reviewed: I personally reviewed relevant radiographs. X-rays of the right hip obtained today revealed severe right hip osteoarthritis. X-rays of the left knee obtained today revealed severe left knee osteoarthritis. Assessment & Plan Assessment & Plan (1) Osteoarthritis of right hip: Code(s): M16.11 - Unilateral primary osteoarthritis, right hip Plan: I discussed the role of cortisone injection in the left knee and right hip. I educated the patient if she moves forward with the cortisone injection today she will delay any possibility of surgery for [address] a referral for the patient to be seen by Pain Management for a back injection. She feels limited in their ADLs and that their QOL is diminished. I recommend a right hip arthroplasty. I discussed the risks, benefits, and alternatives including, but not limited to, the risk of pain, infection, stiffness, need for further surgery as well as potential medical complications such as blood clots, pulmonary embolism and cardiac complications. I discussed the recovery timeline and process as well as the importance of PT. She is a good candidate for this surgery, and she wishes to proceed with this decision. She will speak with Elda to schedule this procedure. (2) Osteoarthritis of left knee: Code(s): M17.12 - Unilateral primary osteoarthritis, left knee Plan Scribed for Dr. Alejandro Reed by Renu Liao, claim review medical director, on 10/11/2022 at 10:41 am, EST. Orders: Orders XR knee LT 2V 10/21/22 M25.569 - Pain in unspecified knee XR knee RT 2V 10/21/22 M25.569 - Pain in unspecified knee XR knee standing BI 10/21/22 M25.569 - Pain in unspecified knee XR pelvis 1-2V 10/21/22 M25.559 - Pain in unspecified hip Coding Level of Care Code Est Pt Level 4 (70364) Diagnoses Osteoarthritis of right hip M16.11 Osteoarthritis of left knee M17.12
[2022-10-21 10:21] VITALS: BMI 34.5
== END 2022-10-21 11:24 | disposition home or self-care (01) ==
PROVIDERS: PCP Internal Medicine; Visit Provider Orthopaedic Surgery
DX: M16.11 Unilateral primary osteoarthritis, right hip (principal); M17.0 Bilateral primary osteoarthritis of knee
CPT/HCPCS: 99214

== ENCOUNTER 2022-11-01 13:42 | Outpatient (REF) | payer MEDICARE, OTHER, SELFPAY ==
--- NOTE | ~2022-11-01 | CT_ITS ---
EXAMINATION: CT CHEST WITHOUT CONTRAST CLINICAL INFORMATION: History of benign carcinoid tumor of the bronchus and lung. COMPARISON: 05/02/2022 and 07/07/2021 TECHNIQUE: Multidetector volumetric CT imaging of the chest was done. Axial MIP volume rendering provided. Sagittal and coronal reformatted images were obtained. This CT examination was performed using dose optimization techniques as appropriate, variously including the following: *Automated exposure control *Adjustment of mA and/or kV according to patient size (this includes techniques or standardized protocols for targeted exams where dose is matched to indication/reason for exam; i.e. extremities or head) *Use of iterative reconstruction technique DLP: 354 mGy-cm FINDINGS: LUNGS: Stable postsurgical changes in the right lower lobe. No evidence of local tumor recurrence. No suspicious pulmonary nodule. No focal consolidation. Central airways are patent. MEDIASTINUM: No bulky axillary, hilar or mediastinal lymphadenopathy. Great vessels are of normal caliber. Heart size is normal. No pericardial effusion. CORONARY ARTERY CALCIFICATION: Mild. PLEURA: There is no pleural effusion. No pleural mass or thickening. UPPER ABDOMEN: Status post cholecystectomy. No adrenal mass. OSSEOUS STRUCTURES: No destructive bone lesions. CT/CT chest wo IV con IMPRESSION: No evidence of recurrent disease.
== END 2022-11-01 13:43 | disposition home or self-care (01) ==
LOC: HO.CT 13:42
PROVIDERS: PCP Internal Medicine; Visit Provider Surgery
DX: D3A.090 Benign carcinoid tumor of the bronchus and lung (principal)
CPT/HCPCS: 71250

== ENCOUNTER 2022-11-11 09:49 | Outpatient (AMB) | payer MEDICARE, OTHER, SELFPAY ==
--- NOTE | 2022-11-11 10:09 | A.OFFVIS_ITS ---
Intake Vital Signs 11/11/22 10:18 Height 5 ft 6 in Weight 218 lb BMI 35.2 BP 130/80 Blood Pressure Location Lt brachial Position Sitting Pulse 80 Pulse Oximetry (%) 99 Intake Visit Reasons: 6 month follow up with Chest CT Allergies amoxicillin [AMOXICILLIN] Allergy (Mild, Verified 11/11/22 10:19) GI UPSET, upset stomach, stomach upset Sulfa (Sulfonamide Antibiotics) [SULFA (SULFONAMIDE ANTIBIOTICS)] Allergy (Unkn own, Verified 11/11/22 10:19) HIVES,RASH Medication List - Last Reconciled 11/11/22 by Nathaniel Wilson MD atorvastatin 10 mg PO DAILY [DIABETIC SHOES As directed - Dx: E11.9] dulaglutide 1.5 mg (0.5 mL) subcut QWEEK 90 days fexofenadine (Diane Allergy) 180 mg PO DAILY fluoxetine 20 mg PO QAM 90 days levothyroxine (Synthroid) 150 mcg PO QAM lisinopril 20 mg PO DAILY 90 days metformin 850 mg PO BID 90 days metronidazole 0.75% 1 appl topical BID PRN omeprazole 20 mg PO DAILY 90 days sitagliptin phosphate (Januvia) 100 mg PO DAILY 90 days tizanidine 4 mg PO Q8H PRN 30 days HPI 6 month follow up with Chest CT HPI Details 76-year-old woman nonsmoker never s moker who is havin g some vague chest pain symptoms and as part of that w orkup got a chest x-ray which was fo llowed with a CT s can of the chest d one on 07/07/2021.? This CT scan was r eviewed interprete d by me directly a nd shows a 1.3 x 2 cm right lower lo be pulmonary nodul e posteriorly in t he superior segmen t of the right low er lobe.? This has a lobulated appea damir.? There is n o mediastinal lymp hadenopathy and no pleural fluid.? W e then arranged fo r her to have pulm onary function bijal ting, PET scan, an d navigational bro nchoscopy with an attempt at biopsy. ? The pulmonary fu nction testing was done on 07/28/2021 which showed an F EV1 of 100% of pre dicted and 105% of predicted after b ronchodilators wit h a DLCO VA of 69% of predicted.? PE T scan showed mini mal if any increas ed uptake in the r ight lower lobe pu lmonary nodule SUV max of 1.5 and in no increased upta ke elsewhere.? Klever igational bronchos copy done on 022 showed some at ypical cells what but was nondiagnos tic of malignancy. ? She tolerated th e procedure well a nd denies any hemo ptysis or shortnes s of breath since that time. On 09/04 she underwe nt a Davinci right lower lobe wedge resection and medi astinal lymphadeno matias for what tur mindi out to be a ca rcinoid typical tu mor. She has done quite well since that operation and was here after fo llow-up CT scan of the chest done on 05/02/2022 which s hows no evidence o f recurrence or ne w disease. Her 2n d six-month follow -up CT scan as per protocol was done on 11/01/2022 whic h was reviewed int erpreted by me dir ectly as well show ing no evidence of recurrence or new disease. There i s no mediastinal l ymphadenopathy and no pleural fluid. She continues to do well denies an y pain shortness o f breath cough or hemoptysis. Her o nly complaint is t hat she needs to n ew knees and hip. She reports feeli ng generally good health and denies unintentional weig ht loss, decreased appetite, fevers, chills, soaking s weats, or fatigue. ? She denies chest pain currently an d denies shortness of breath, cough, or hemoptysis.? S he denies any new neurologic symptom s.? Showing has ve ry occasional pain at her surgical s ite. Other than a lenny, 12 point rev iew of systems was done and document ed separately in t he office chart wi th detailed social and family histor y. ? PFSH Medical History [place] esophagus GERD (gastroesophageal reflux disease) Campoverde's palsy Allergic rhinitis Carcinoid tumor (~2021) Tubular adenoma of colon (~2002) Obesity (BMI 30-39.9) Anxiety Urinary incontinence Primary osteoarthritis of both knees Acquired hypothyroidism Obstructive sleep apnea (~2005) Benign essential hypertension Diabetes mellitus Pure hypercholesterolemia Surgical History History of esophagogastroduodenoscopy (EGD) History of lung surgery History of bronchoscopy (~2021) History of colonoscopy History of pubovaginal sling (~2010) History of hysterectomy History of cholecystectomy (~1996) Family History Father Diabetes Hypertension Mother Diabetes Cancer Social History Household Members: Significant Other Housing: House Alcohol intake: current Alcohol intake frequency: holidays/special occasions only Alcohol type: wine Patient Tobacco Use Status: Never used Tobacco e-Cigarette/Vaping Use: Never Used Second Hand Smoke Exposure: Yes service: No Current occupational status: retired Cognitive needs: No Hearing needs: Yes Vision needs: Yes Physical Exam Vital Signs: Last Vital Signs Pulse 80 11/11/22 10:18 BP 130/80 11/11/22 10:18 Pulse Ox 99 11/11/22 10:18 BMI result Body Mass Index 35.2 General: No acute distress HEENT: Moist mucous membranes, normocephalic, pupils equal round and reactive to light. Neck: No thyromegaly, supple, no JVD Lymph: No cervical, supraclavicular, or other lymphadenopathy Chest: No chest wall abnormalities or deformities wounds well healed Heart: Regular rate and rhythm Lungs: Clear to auscultation bilaterally Abdomen: Soft, nontender, normal bowel sounds Extremities: No edema, cyanosis, or clubbing. 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 I explained to her the findings on the CT scan which she seemed understand. We also discussed the surveillance protocol after resection of carcinoid tumors in the lung which is a CT scan every 6 months for the 1st 2 years postoperatively followed by yearly for 7 years after that for a total of 10 years as long as there are no new changes. Plan then will be for her to have a CT scan of the chest here at [place] with a follow-up visit in the office at [facility] in 1 year's time. All questions were answered. Orders: Orders CT chest wo IV con 11 Months D3A.090 - Benign carcinoid tumor of the bronchus and lung Coding Level of Care Code Est Pt Level 4 (67643) Diagnoses 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 Carcinoid tumor malignancy status: benign Carcinoid tumor location: lung
[2022-11-11 10:18] VITALS: BP 130/80; PULSE 80; O2SAT 99; BMI 35.2
== END 2022-11-11 10:54 | disposition home or self-care (01) ==
PROVIDERS: PCP Internal Medicine; Visit Provider Surgery
DX: D3A.090 Benign carcinoid tumor of the bronchus and lung (principal)

== ENCOUNTER → 2022-11-11 09:49 | Outpatient (BNVA) | payer MEDICARE, OTHER, SELFPAY | PROVIDERS: PCP Internal Medicine; Visit Provider Surgery | DX: D3A.090 Benign carcinoid tumor of the bronchus and lung (principal) | CPT/HCPCS: 99212 ==

== ENCOUNTER 2022-11-28 09:58 | Outpatient (REF) | payer MEDICARE, OTHER, SELFPAY ==
[2022-11-28 10:26] LABS: MANUAL DIFF FLAG NO
[2022-11-28 11:07] LABS: Basophils Absolute Auto 0.1 X10*3/uL (0.0-0.2); Basophils Percent Auto 0.8 % (0-2); Eosinophils Absolute Auto 0.3 X10*3/uL (0.0-0.4); Eosinophils Percent Auto 3.9 % (0-4); Hematocrit 43.2 % (37.0-47.0); Hemoglobin 13.9 g/dl (12.0-16.0); Imm Gran Abs Auto 0.02 X10*3/uL (0.00-0.03); Imm Gran Pct Auto 0.3 % (0.0-0.4); Lymphocytes Absolute Auto 1.6 X10*3/uL (1.2-4.9); Lymphocytes Percent Auto 22.3 % (20-40); Mean Corpuscular HGB Conc 32.2 g/dl (31.0-35.0); Mean Corpuscular Volume 83.9 fL (80.0-98.0); Mean Platelet Volume 11.3 fL (9.4-12.3); Monocytes Absolute Auto 0.5 X10*3/uL (0.1-1.2); Monocytes Percent Auto 7.4 % (2-11); Neutrophils Absolute Auto 4.7 x10*3/uL (2.0-8.3); Neutrophils Percent Auto 65.3 % (45-73); Platelet Count 297 X10*3/uL (160-400); Red Blood Count 5.15 X10*6/uL (4.20-5.50); White Blood Count 7.1 X10*3/uL (4.8-10.8)
[2022-11-28 11:22] LABS: Estimated Average Glucose 140 mg/dL; Hemoglobin A1c % 6.5 % (<6.0)
[2022-11-28 11:35] LABS: Alanine Aminotransferase 25 U/L (0-31); Albumin Level 4.4 g/dL (3.5-5.0); Alkaline Phosphatase 57 U/L (39-117); Anion Gap 16 (12-20); Aspartate Amino Transferase 16 U/L (5-31); Bilirubin Total 0.4 mg/dL (0.0-1.0); Blood Urea Nitrogen 18 mg/dL (9-16); Calcium 11.1 mg/dL (8.4-10.2); Carbon Dioxide 21 mmol/L (22-29); Chloride 109 mmol/L (96-108); Cholesterol 154 mg/dL (<200); Estimated Glomerular Filt Rate > 60; Glucose Fasting 137 mg/dL (60-99); HDL Cholesterol 44 mg/dL (>40); LDL Cholesterol Calculated 87 mg/dL (<100); Potassium 4.7 mmol/L (3.3-5.1); Sodium 141 mmol/L (135-145); Total Protein 7.4 g/dL (6.5-8.0); Triglycerides 119 mg/dL (<150)
[2022-11-28 11:53] LABS: Free T4 (Free Thyroxine) 1.32 ng/dL (0.71-1.85); Thyroid Stimulating Hormone 0.07 uIU/mL (0.32-4.0); Vitamin D 25-OH Total 59.3 ng/mL (>30)
[2022-11-28 12:02] LABS: Folate 7.8 ng/mL (> or = 4.0); Vitamin B12 277 pg/mL (200-900)
[2022-11-28 12:11] LABS: Appearance Urine Clear; Color Urine Yellow; Glucose Urine UA Negative (Negative); Leukocyte Esterase Urine Small (1+) (Negative); Nitrite Urine Negative (Negative); PH 5.5 (5.0-9.0); UMIC TRIGGER UACC YES; Urine Blood Negative (Negative); Urine Ketones Negative (Negative); Urine Protein Negative (Neg-Trace)
[2022-11-28 12:15] LABS: Bacteria Urine 2+ (None Seen); Hyaline Casts Urine 0-2 /LPF (0-2); RBC Urine 0-2 /HPF (0-2); Squamous Epithelial Cell Urine 0-2 /HPF (0-2); UACC Culture Trigger YES
== END 2022-11-28 09:59 | disposition home or self-care (01) ==
LOC: HO.LAB 09:58
PROVIDERS: PCP Internal Medicine; Visit Provider Internal Medicine
DX: E03.9 Hypothyroidism, unspecified (principal); E53.8 Deficiency of other specified B group vitamins; I10 Essential (primary) hypertension; E11.9 Type 2 diabetes mellitus without complications; E55.9 Vitamin D deficiency, unspecified; E78.00 Pure hypercholesterolemia, unspecified; R30.0 Dysuria
CPT/HCPCS: 36415; 80053; 80061; 81001; 81003; 82306; 82607; 82746; 83036; 84439; 84443; 85025; 87086; 87088; 87186

== ENCOUNTER 2022-11-30 10:43 | Outpatient (AMB) | payer MEDICARE, OTHER, SELFPAY ==
[2022-11-30 10:45] VITALS: BP 130/82; PULSE 63; O2SAT 98; BMI 34.5
--- NOTE | 2022-11-30 10:45 | A.OFFPC_ITS ---
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: No Accompanied by: Self / Same As Patient Allergies amoxicillin [AMOXICILLIN] Allergy (Mild, Verified 11/30/22 11:29) GI UPSET, upset stomach, stomach upset Sulfa (Sulfonamide Antibiotics) [SULFA (SULFONAMIDE ANTIBIOTICS)] Allergy (Unknown, Verified 11/30/22 11:29) HIVES,RASH Medication List - Last Reconciled 11/30/22 by Roberto Rojas MD atorvastatin 10 mg PO DAILY [DIABETIC SHOES As directed - Dx: E11.9] dulaglutide 1.5 mg (0.5 mL) subcut QWEEK 90 days fexofenadine (Diane Allergy) 180 mg PO DAILY fluoxetine 20 mg PO QAM 90 days levothyroxine (Synthroid) 150 mcg PO QAM lisinopril 20 mg PO DAILY 90 days metformin 850 mg PO BID 90 days metronidazole 0.75% 1 appl topical BID PRN omeprazole 20 mg PO DAILY 90 days sitagliptin phosphate (Januvia) 100 mg PO DAILY 90 days tizanidine 4 mg PO Q8H PRN 30 days Tobacco use date assessed: 11/30/22 Fall risk assessment: 2 + Falls in past year Last assessed Fall Risk: 11/30/22 Dental Screening Dental Screen Date: 11/30/22 Did you have a dental visit in the last 12 months?: Yes Did you have a dental problem in the last 6 months where you did not have access to dental care?: No Was dental information given to patient?: Patient has dentist HPI 3 month f/u HPI Details Patient comes in today for her follow up visit States that she continues to experience increased pain over her right lower back and right buttocks area - symptoms started back in August 2022 and have not eased up or improved since States that taking Tylenol lately has not helped relieve even some of her pain She is scheduled for a right hip replacement surgery with Dr. Reed on 01/17/23 and is wondering if her symptoms may also be related to her hip osteoarthritis Also relates (+) multiple joint pains as well, including over her knees She denies any headaches or dizziness Denies any chest pains, no increased SOB No nausea/vomiting, no abdominal pain No change in bowel habits noted Had her follow up labs done a couple of days ago - to discuss her results [facility] Medical History [place] esophagus GERD (gastroesophageal reflux disease) Campoverde's palsy Allergic rhinitis Carcinoid tumor (~2021) Tubular adenoma of colon (~2002) Obesity (BMI 30-39.9) Anxiety Urinary incontinence Primary osteoarthritis of both knees Acquired hypothyroidism Obstructive sleep apnea (~2005) Benign essential hypertension Diabetes mellitus Pure hypercholesterolemia Surgical History History of esophagogastroduodenoscopy (EGD) History of lung surgery History of bronchoscopy (~2021) History of colonoscopy History of pubovaginal sling (~2010) History of hysterectomy History of cholecystectomy (~1996) Family History Father Diabetes Hypertension Mother Diabetes Cancer Social History Household Members: Significant Other Housing: House Alcohol intake: current Alcohol intake frequency: holidays/special occasions only Alcohol type: wine Patient Tobacco Use Status: Never used Tobacco e-Cigarette/Vaping Use: Never Used Second Hand Smoke Exposure: Yes service: No Current occupational status: retired Cognitive needs: No Hearing needs: Yes Vision needs: Yes Questionnaire PHQ-9 Over the last 2 weeks, how often have you been bothered by any of the following problems? 1. Little interest or pleasure in doing things: not at all 2. Feeling down, depressed, or hopeless: not at all 3. Trouble falling or staying asleep, or sleeping too much: not at all 4. Feeling tired or having little energy: not at all 5. Poor appetite or overeating: not at all 6. Feeling bad about yourself - or that you are a failure or have let yourself or your family down: not at all 7. Trouble concentrating on things, such as reading the newspaper or watching television: not at all 8. Moving or speaking so slowly that other people could have noticed. Or the opposite - being so fidgety or restless that you have been moving around a lot more than usual: not at all 9. Thoughts that you would be better off or of hurting yourself in some way: not at all Total score: 0 Depression Screening Interpretation: Negative 50505 - PHQ-9 Billing: Yes Source: Developed by Drs. Tim Torres, Caitie Nguyen, Justin Fallon and colleagues, with an educational ion from [employer]. Thrive Questionnaire Date Thrive assessed: 11/30/22 I am a: Patient What is your living situation today?: I have a steady place to live Within the past 12 months, did the food you bought not last and you didn't have the money to get more?: Never true Within the past 12 months, did you worry whether your food would run out before you got money to buy more?: Never true Do you have trouble paying for medicines?: No Do you have trouble getting transportation to medical appointments?: No Do you have trouble paying your heating and electricity bill?: No Do you have trouble taking care of your child, family member or friend?: No Do you have trouble with day-to-day activities such as bathing, preparing meals, shopping, managing finances, etc.?: No Are you currently unemployed and looking for a job?: No Are you interested in more education?: No Please select the resources that you would like help with: None Currently or been in a relationship where the following occur: no concerns reported AUDIT C Alcohol Use Questionnaire (AUDIT-C) 1. How often do you have a drink containing alcohol?: Monthly or less 2. How many drinks containing alcohol do you have on a typical day when you are drinking?: 1 or 2 3. How often do you have six or more drinks on one occasion?: Never Total Score: 1 Score Reviewed/Action Taken: Yes SEBAS-7 AMB Questionnaire SEBAS-7 Date SEBAS - 7 assessed: 11/30/22 Feeling nervous, anxious, or on edge: 0 = Not at all Not being able to stop or control worryin = Not at all Worrying too much about different things: 0 = Not at all Trouble relaxin = Not at all Being so restless that it is hard to sit still: 0 = Not at all Becoming easily annoyed or irritable: 0 = Not at all Feeling afraid as if something awful might happen: 0 = Not at all Total SEBAS-7 score (0-4 normal; 5-9 mild; 10-14 moderate; 15-21 severe): 0 Source: Developed by Drs. Tim Torres, Caitie Nguyen, Justin Fallon and colleagues, with an educational ion from [employer]. Review of Systems Const Denies chills, Reports fatigue, Denies fever(s) and Denies headache(s) ENT Denies dysphagia, Denies dizziness, Denies otalgia, Denies headache(s), Denies neck pain, Denies odynophagia and Denies sore throat Card Denies chest pain, Denies palpitations and Denies dyspnea Resp Denies cough and Denies dyspnea GI Denies abdominal pain, Denies constipation, Denies dysphagia, Denies heartburn, Denies diarrhea, Denies nausea, Denies odynophagia and Denies vomiting Denies difficulty voiding, Denies nocturia and Denies dysuria Musc Reports back pain (increased over the right lower back - see HPI), Reports arthralgias (affecting her hips, knees and ankles) and Denies neck pain Skin/Breast Denies rash Neuro Denies dizziness and Denies headache(s) Endo Reports fatigue and Denies palpitations Physical exam (Primary Care) Vital Signs: Last Vital Signs Pulse 63 11/30/22 10:45 BP 130/82 11/30/22 10:45 Pulse Ox 98 11/30/22 10:45 Oxygen Delivery Method Room Air 11/30/22 10:45 BMI result Body Mass Index 34.5 Tobacco/Smoking Status: Tobacco use Status Tobacco use date assessed 11/30/22 11/30/22 10:52 Patient Tobacco Use Status Never used Tobacco 11/30/22 10:52 e-Cigarette/Vaping Use Never Used 11/30/22 10:52 PHQ-9: PHQ-9 Score PHQ-9: Total score 0 11/30/22 10:52 Depression Screening Interpretation: Negative Thrive Assessment: Date of Thrive Assessment Date Thrive assessed 11/30/22 11/30/22 10:52 Currently or been in a relationship where the following occur: no concerns reported Const General: no acute distress and alert HENMT Ears: TM's normal bilaterally and EAC's normal Throat: Yes posterior oropharynx normal and Yes tonsils normal (no TP congestion noted) Neck Neck: Yes no lymphadenopathy and Yes supple Resp Auscultation: clear to auscultation bilaterally, no rales and no wheezes Cardio Rate: regular rate Rhythm: regular rhythm Heart sounds: no murmurs GI Palpation (GI): Soft to palpation and nontender Auscultation: normal bowel sounds Back/Spine/Pelvis Thoracic/Lumbar Spine: straight leg raise negative bilaterally, paraspinal muscle tenderness on the right in the lower lumbar and lumbar spinal tenderness Pelvis: buttock tenderness on the right Sacroiliac joints: on the right tender to palpation Skin Rashes: no rashes Extrem General: Yes no clubbing, cyanosis or edema Right lower extremity: hip/thigh Details: tenderness Location: of the hip Left lower extremity: hip/thigh Details: tenderness Location: of the hip Results Reviewed Results Reviewed: Laboratory Tests 08/17/22 11/28/22 11/28/22 09:45 10:24 11:18 WBC 7.1 Hgb 13.9 Hct 43.2 Plt Count 297 Sodium 141 Potassium 4.7 Creatinine 0.80 Estimated GFR > 60 Fasting Glucose 137 H Hemoglobin A1c % 6.5 H Calcium 11.1 H AST 16 ALT 25 Triglycerides 119 Cholesterol 154 LDL Cholesterol, Calc 87 HDL Cholesterol 44 Vitamin B12 277 25-OH Vitamin D Total 59.3 TSH 0.07 L Free T4 1.32 PTH Intact 37 Calcium (PTH Intact) 10.7 H Urine Protein Negative Urine Glucose (UA) Negative Urine Blood Negative Assessment and Plan Assessment & Plan (1) Pure hypercholesterolemia: Code(s): E78.00 - Pure hypercholesterolemia, unspecified Plan: Results of her labs done a couple of days ago reviewed and discussed with patient Reinforced low cholesterol diet Continue Atorvastatin 10 mg QD (2) Diabetes mellitus: Code(s): E11.9 - Type 2 diabetes mellitus without complications Qualifiers: Diabetes mellitus type: type 2 Diabetes mellitus fdc insulin use: without fdc use Diabetes mellitus complication status: without complication Qualified Code(s): E11.9 - Type 2 diabetes mellitus without complications Plan: HgbA1c has improved to 6.5% on her labs done a couple of days ago (was at 6.6% a few months ago) - goal is < 7.0% Reinforced diabetic diet Continue Metformin 850 mg BID, Januvia 100 mg QD and Trulicity 1.5 mg SQ once a week (3) Benign essential hypertension: Code(s): I10 - Essential (primary) hypertension Plan: Reinforced low sodium diet - goal is systolic BP of at least 140 mm or less Her BP is still okay today - states that her BP is usually much lower when she checks it at home Continue Lisinopril 20 mg QD (4) Carcinoid tumor: Onset Date: ~2021 Comment: (s/p RLL wedge resection 09/2021) Code(s): D3A.00 - Benign carcinoid tumor of unspecified site Qualifiers: Carcinoid tumor malignancy status: benign Carcinoid tumor location: lung Qualified Code(s): 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 Wilson on 09/29/21; states that she has been doing well since with no acute issues Follow up with thoracic surgery (Dr. Wilson) as scheduled for continuing surveillance - was last seen back in August 2022 and will have repeat chest CT in 1 year (5) Hypercalcemia: Code(s): E83.52 - Hypercalcemia Plan: Serum calcium level remains slightly elevated again and has gone up higher on her recent labs, this time to 11.1 PTH level checked a couple of times in the past have come back normal Will recheck ionized calcium level and repeat PTH level for further evaluation Will also place an urgent referral to endocrinology for further evaluation - patient is concerned that this may delay her upcoming right hip replacement surgery in January 2023 (6) Acquired hypothyroidism: Code(s): E03.9 - Hypothyroidism, unspecified Plan: TSH level is again low on her recent labs but free T4 level remains normal; patient is clinically euthyroid Continue Levothyroxine 150 mcg QD Will continue to monitor her TFTs regularly (7) Elevated liver enzymes: Code(s): R74.8 - Abnormal levels of other serum enzymes Plan: Improved; LFTs have remained normal on her recent labs - will continue to monitor closely Is most likely due to her weight (hepatosteatosis) - this was confirmed on abdominal US in the past (8) Obstructive sleep apnea: Onset Date: ~2005 Comment: (ALEXANDRE on CPAP) Code(s): G47.33 - Obstructive sleep apnea (adult) (pediatric) Plan: Continue using her CPAP device when she sleeps at night - patient continues to experience significant improvement/resolution of her fatigue and daytime somnolence with the regular use of her CPAP device (9) Low back pain with right-sided sciatica: Code(s): M54.41 - Lumbago with sciatica, right side Qualifiers: Chronicity: unspecified Back pain laterality: right Qualified Code(s): M54.41 - Lumbago with sciatica, right side Plan: Reinforced activity and weight-lifting restrictions Repeat lumbar spine and SI joint x-rays done back in August 2022 revealed (+) degenerative changes of the lumbar spine and SI joints May continue taking Tylenol PRN and Tizanidine 4 mg TID PRN but as she reports no relief from Tylenol recently, will start her on a trial of Meloxicam 15 mg QD PRN with food Advised that physical therapy may also be an option and she can call for referral at any time if she wishes to try physical therapy (10) GERD without esophagitis: Code(s): K21.9 - Gastro-esophageal reflux disease without esophagitis Plan: Dietary restrictions reinforced Continue Omeprazole 20 mg QD PRN (11) Allergic rhinitis: Code(s): J30.9 - Allergic rhinitis, unspecified Qualifiers: Allergic rhinitis trigger: unspecified Allergic rhinitis seasonality: non-seasonal Qualified Code(s): J30.89 - Other allergic rhinitis Plan: States that she has tried several OTC antihistamines and nasal sprays with variable results Recalls getting allergy shots in the past but did not think they were helping much either and she eventually stopped getting them Advised that we can refer her back for allergy testing if she wants - states that she will call for referral if she decides to get this done again (12) Rosacea: Code(s): L71.9 - Rosacea, unspecified Plan: Continue Metronidazole 0.75% cream apply BID PRN Follow up with dermatology as scheduled (13) Primary osteoarthritis of both knees: Code(s): M17.0 - Bilateral primary osteoarthritis of knee Plan: Follow up with orthopedics as scheduled - is now scheduled for a total right hip arthroplasty with Dr. Reed on 01/17/2023 (14) Urinary incontinence: Code(s): R32 - Unspecified urinary incontinence Qualifiers: Urinary Incontinence type: unspecified incontinence Qualified Code(s): R32 - Unspecified urinary incontinence Plan: Follow up with urology (Dr. Hernandes) as scheduled (15) Anxiety: Code(s): F41.9 - Anxiety disorder, unspecified Plan: Continue Fluoxetine 20 mg QD (16) Obesity (BMI 30-39.9): Code(s): E66.9 - Obesity, unspecified Plan: Reinforced diet; exercise is not realistic at present due to patient's multiple physical issues Plan To return as scheduled next month for her Medicare Wellness Exam and also for her preop exam Orders: Orders PTHI Today E83.52 - Hypercalcemia Calcium, Ionized Today E83.52 - Hypercalcemia Referrals Endocrinology Referral E83.52 - Hypercalcemia Medications: New meloxicam Take with food as needed 15 mg PO DAILY 30 days 30 tabs 1RF Coding Level of Care Code Est Pt Level 4 (73410) Diagnoses Pure hypercholesterolemia E78.00 Type 2 diabetes mellitus without complication, without long-term current use of insulin E11.9 Diabetes mellitus type: type 2 Diabetes mellitus 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 use: without fdc use Diabetes mellitus complication status: without complication Benign essential hypertension I10 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 Carcinoid tumor malignancy status: benign Carcinoid tumor location: lung Hypercalcemia E83.52 Acquired hypothyroidism E03.9 Elevated liver enzymes R74.8 Obstructive sleep apnea G47.33 Right-sided low back pain with right-sided sciatica, unspecified chronicity M54.41 Chronicity: unspecified Back pain laterality: right GERD without esophagitis K21.9 Non-seasonal allergic rhinitis, unspecified trigger J30.89 Allergic rhinitis trigger: unspecified Allergic rhinitis seasonality: non-seasonal Rosacea L71.9 Primary osteoarthritis of both knees M17.0 Urinary incontinence, unspecified type R32 Urinary Incontinence type: unspecified incontinence Anxiety F41.9 Obesity (BMI 30-39.9) E66.9
== END 2022-11-30 11:51 | disposition home or self-care (01) ==
PROVIDERS: PCP Internal Medicine; Visit Provider Internal Medicine
DX: E11.9 Type 2 diabetes mellitus without complications (principal); I10 Essential (primary) hypertension; E83.52 Hypercalcemia; E03.9 Hypothyroidism, unspecified; K21.9 Gastro-esophageal reflux disease without esophagitis; F41.9 Anxiety disorder, unspecified; E78.00 Pure hypercholesterolemia, unspecified; D3A.090 Benign carcinoid tumor of the bronchus and lung; R74.8 Abnormal levels of other serum enzymes; G47.33 Obstructive sleep apnea (adult) (pediatric); M54.41 Lumbago with sciatica, right side
CPT/HCPCS: 99214

== ENCOUNTER 2022-11-30 11:57 | Outpatient (REF) | payer MEDICARE, OTHER, SELFPAY ==
[2022-12-01 16:19] LABS: Calcium (PTHI) 10.6 mg/dL (8.6-10.4); PTHI 30 pg/mL (16-77)
[2022-12-04 22:18] LABS: Calcium, Ionized 5.6 mg/dL (4.7-5.5)
== END 2022-11-30 11:58 | disposition home or self-care (01) ==
LOC: HO.10HDL 11:57
PROVIDERS: Visit Provider Internal Medicine
DX: E83.52 Hypercalcemia (principal)
CPT/HCPCS: 36415; 82330; 83970

== ENCOUNTER 2022-12-09 08:54 | Outpatient (AMB) | payer MEDICARE, OTHER, SELFPAY ==
[2022-12-09 08:56] VITALS: BP 152/80; PULSE 63; O2SAT 99; BMI 34.7
--- NOTE | 2022-12-09 08:56 | AM.OFFVISMDC ---
Intake Vital Signs 12/09/22 08:56 12/09/22 09:26 Height 5 ft 6 in Weight 215 lb 0.6 oz BMI 34.7 BP 152/80 H 156/76 H Blood Pressure Location Lt brachial Lt brachial Position Sitting Sitting Pulse 63 Pulse Source Pulse Oximeter Temp Source Skin Pulse Oximetry (%) 99 Oxygen Delivery Method Room Air Intake Visit Reasons: [facility] News Assistant Required: No Allergies amoxicillin [AMOXICILLIN] Allergy (Mild, Verified 12/09/22 09:09) GI UPSET, upset stomach, stomach upset Sulfa (Sulfonamide Antibiotics) [SULFA (SULFONAMIDE ANTIBIOTICS)] Allergy (Unknown, Verified 12/09/22 09:09) HIVES,RASH Medication List - Last Reconciled 12/09/22 by TAMMY Mcguire atorvastatin 10 mg PO DAILY [DIABETIC SHOES As directed - Dx: E11.9] dulaglutide 1.5 mg (0.5 mL) subcut QWEEK 90 days fexofenadine (Diane Allergy) 180 mg PO DAILY fluoxetine 20 mg PO QAM 90 days levothyroxine (Synthroid) 150 mcg PO QAM lisinopril 20 mg PO DAILY 90 days meloxicam 15 mg PO DAILY 30 days metformin 850 mg PO BID 90 days metronidazole 0.75% 1 appl topical BID PRN omeprazole 20 mg PO DAILY 90 days sitagliptin phosphate (Januvia) 100 mg PO DAILY 90 days tizanidine 4 mg PO Q8H PRN 30 days HPI [facility] HPI Details Patient is a 77-year-old female who presents today for subsequent wellness visit. Patient of Dr. Rojas Today we discussed patient's need for bone density screening and tetanus vaccine. Patient would like to hold off on tetanus vaccine. She has an upcoming mammogram 01/2023. Colonoscopy 07/2022 with diverticulosis and internal hemorrhoids was done by Dr. Valenzuela. Weiser of care was reviewed with the patient and she was provided with a screening schedule. End of life planning was discussed with the patient and she was provided with healthcare proxy and MOLST forms. In addition, patient reports that about 1 week ago she tripped on a stool and hurt left foot 2nd to 4th toes, reports ecchymosis which is improving, no more pain, able to ambulate. [facility] Medical History Chest pain York esophagus GERD (gastroesophageal reflux disease) Campoverde's palsy Allergic rhinitis Carcinoid tumor (~2021) Tubular adenoma of colon (~2002) Obesity (BMI 30-39.9) Anxiety Urinary incontinence Primary osteoarthritis of both knees Acquired hypothyroidism Obstructive sleep apnea (~2005) Benign essential hypertension Diabetes mellitus Pure hypercholesterolemia Surgical History History of esophagogastroduodenoscopy (EGD) History of lung surgery History of bronchoscopy (~2021) History of colonoscopy History of pubovaginal sling (~2010) History of hysterectomy History of cholecystectomy (~1996) Family History Father Diabetes Hypertension Mother Diabetes Cancer Social History Household Members: Significant Other Housing: House Alcohol intake: current Alcohol intake frequency: holidays/special occasions only Alcohol type: wine Patient Tobacco Use Status: Never used Tobacco e-Cigarette/Vaping Use: Never Used Second Hand Smoke Exposure: Yes service: No Current occupational status: retired Cognitive needs: No Hearing needs: Yes Vision needs: Yes Questionnaire Medicare Wellness Checkup [age] What gender do you identify with?: female During the past 4 weeks, how much have you been bothered by emotional problems such as feeling anxious, depressed, irritable, sad or downhearted, and blue?: not at all During the past 4 weeks, has your physical & emotional health limited your social activities with family, friends, neighbors, or groups?: not at all During the past 4 weeks, how much bodily pain have you generally had?: moderate pain During the past 4 weeks, was someone available to help you if you needed & wanted help?: yes, as much as I wanted During the past 4 weeks, what was the hardest physical activity you could do for at least 2 minutes?: moderate Can you get to places out of walking distance without help? (For eg., can you travel alone on buses, taxis or drive your car?): Yes Can you go shopping for groceries or clothes without someone's help?: Yes Can you prepare your own meals?: Yes Can you do your housework without help?: Yes Because of any health problems, do you need the help of another person with your personal care needs such as eating, bathing, dressing or getting around the house?: No Can you handle your own money without help?: Yes During the past 4 weeks, how would you rate your health in general?: good During the past 4 weeks how have things been going for you?: good & bad parts about equal Are you having difficulties driving your car?: no Do you always fasten your seat belt when you are in a car?: yes, usually During past 4 weeks, have you been bothered by the following: never: Sexual problems?, Trouble eating well?, Teeth or denture problems?, Problems using the telephone? and Tiredness or fatigue? and sometimes: Falling or dizzy when standing up Have you fallen 2 or more times in the past year?: Yes Are you afraid of falling?: Yes Are you a smoker?: no During the past 4 weeks, how many drinks of wine, beer, or other alcoholic beverages did you have?: 1 drink or less per week Do you exercise for about 20 minutes 3 or more times a week?: no, I usually do not exercise this much Have you been given information to help with the following?: yes: Hazards in your house that might hurt you? and yes: Keeping track of your medications? How often do you have trouble taking medicines the way you have been told to take them?: I always take medicine as prescribed How confident are you that you can control & manage most of your health problems?: very confident What is your race?: White Mini Mental State Exam (MMSE) Orientation What is the (year) (season) (date) (day) (month)?: year, season, date, day and month Score Score: 5 Activity of Daily Living Bathing - sponge bath, tub bath or shower: receives no assistance (gets in/out by self, if usual bathing means Dressing - getting clothes from closets & drawers, including inner/outer garments & fasteners.: gets clothes & gets completely dressed without help Toileting - going to the 'toilet room' for urine/bowel elimination & cleaning self/arranging clothes: goes to toilet room, cleans self, arranges clothes without help Transfer: moves in & out of bed and chair without help (may use support object) Continence: controls urination/bowel movements completely by self Feeding: feeds self without help Total Score: 0 Information obtained from: patient Using telephone: independent Traveling: independent Shopping: independent Preparing meals: independent Housework: independent Taking medicine: independent Managing money: independent PHQ-9 Over the last 2 weeks, how often have you been bothered by any of the following problems? 1. Little interest or pleasure in doing things: not at all 2. Feeling down, depressed, or hopeless: not at all 3. Trouble falling or staying asleep, or sleeping too much: not at all 4. Feeling tired or having little energy: not at all 5. Poor appetite or overeating: not at all 6. Feeling bad about yourself - or that you are a failure or have let yourself or your family down: not at all 7. Trouble concentrating on things, such as reading the newspaper or watching television: not at all 8. Moving or speaking so slowly that other people could have noticed. Or the opposite - being so fidgety or restless that you have been moving around a lot more than usual: not at all 9. Thoughts that you would be better off or of hurting yourself in some way: not at all Total score: 0 Depression Screening Interpretation: Negative Depression Screening Done: Yes 16957 - PHQ-9 Billing: Yes Source: Developed by Drs. Tim Torres, Caitie Nguyen, Justin Fallon and colleagues, with an educational ion from [employer]. Review of Systems Skin/Breast Reports as per HPI Physical Exam Vital Signs: Last Vital Signs Pulse 63 12/09/22 08:56 BP 156/76 H 12/09/22 09:26 Pulse Ox 99 12/09/22 08:56 Oxygen Delivery Method Room Air 12/09/22 08:56 BMI result Body Mass Index 34.7 Const General: cooperative and no acute distress Orientation/consciousness: patient oriented x3 HEENT Other: Whisper test: pass Neuro Other: Balance: Normal Get up and walk: able to Romberg: negative Tandem gait: able to General: patient oriented x3 Extrem Other: Left foot 2nd to 4th toes with fading ecchymosis, patient able to move toes, denies pain, nontender-patient was encouraged to monitor and notify office if no improvement Assessment & Plan Assessment & Plan (1) Adult general medical exam: Code(s): Z00.00 - Encounter for general adult medical examination without abnormal findings (2) Post-menopausal: Code(s): Z78.0 - Asymptomatic menopausal state (3) Obesity (BMI 30-39.9): Code(s): E66.9 - Obesity, unspecified Plan: Encouraged healthy food choices and exercise as tolerated (4) Anxiety: Code(s): F41.9 - Anxiety disorder, unspecified Plan: Continue fluoxetine (5) Urinary incontinence: Code(s): R32 - Unspecified urinary incontinence Qualifiers: Urinary Incontinence type: unspecified incontinence Qualified Code(s): R32 - Unspecified urinary incontinence Plan: Patient was seen by urologist Dr. Hernandes in the past (6) GERD without esophagitis: Code(s): K21.9 - Gastro-esophageal reflux disease without esophagitis Plan: Continue current treatment. Encouraged to avoid GERD trigger foods. (7) Primary osteoarthritis of both knees: Code(s): M17.0 - Bilateral primary osteoarthritis of knee Plan: Continue meloxicam as prescribed. Followed by Dr. Reed (8) Acquired hypothyroidism: Code(s): E03.9 - Hypothyroidism, unspecified Plan: Patient is on levothyroxine 150 mcg (9) Obstructive sleep apnea: Onset Date: ~2005 Comment: (ALEXANDRE on CPAP) Code(s): G47.33 - Obstructive sleep apnea (adult) (pediatric) Plan: Patient uses CPAP at bedtime (10) Benign essential hypertension: Code(s): I10 - Essential (primary) hypertension Plan: Goal BP equal or less than 140/90 Continue current treatment. Reinforced low-sodium diet and exercise as tolerated. (11) Diabetes mellitus: Code(s): E11.9 - Type 2 diabetes mellitus without complications Qualifiers: Diabetes mellitus type: type 2 Diabetes mellitus long-term insulin use: without long-term use Diabetes mellitus complication status: without complication Qualified Code(s): E11.9 - Type 2 diabetes mellitus without complications Plan: A1c 6.5 11/2022 Continue current treatment Low-carbohydrate diet (12) Pure hypercholesterolemia: Code(s): E78.00 - Pure hypercholesterolemia, unspecified Plan: Continue current treatment. Reinforced low-cholesterol diet. 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 Wilson Orders: Orders XR DEXA axial skeleton Today Z78.0 - Asymptomatic menopausal state Quality Reporting (2019) Depression/Bipolar (159/160/161/177) PHQ-9: Total score: 0 Coding Level of Care Code Medicare Subsequent (G0439) Diagnoses Adult general medical exam Z00.00 Post-menopausal Z78.0 Obesity (BMI 30-39.9) E66.9 Anxiety F41.9 Urinary incontinence, unspecified type R32 Urinary Incontinence type: unspecified incontinence GERD without esophagitis K21.9 Primary osteoarthritis of both knees M17.0 Acquired hypothyroidism E03.9 Obstructive sleep apnea G47.33 Benign essential hypertension I10 Type 2 diabetes mellitus without complication, without long-term current use of insulin E11.9 Diabetes mellitus type: type 2 Diabetes mellitus manager long term care insulin use: without long-term use Diabetes mellitus complication status: without complication Pure hypercholesterolemia E78.00 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
[2022-12-09 09:26] VITALS: BP 156/76
== END 2022-12-09 09:32 | disposition home or self-care (01) ==
PROVIDERS: Visit Provider Nurse Practitioner Family
DX: Z00.00 Encounter for general adult medical examination without abnormal findings (principal); E11.9 Type 2 diabetes mellitus without complications; D3A.090 Benign carcinoid tumor of the bronchus and lung; Z78.0 Asymptomatic menopausal state; E66.9 Obesity, unspecified; F41.9 Anxiety disorder, unspecified; R32 Unspecified urinary incontinence; K21.9 Gastro-esophageal reflux disease without esophagitis; M17.0 Bilateral primary osteoarthritis of knee; E03.9 Hypothyroidism, unspecified; G47.33 Obstructive sleep apnea (adult) (pediatric); Z68.37 Body mass index [BMI] 37.0-37.9, adult
CPT/HCPCS: 1124F; G0439

== ENCOUNTER → 2022-12-14 09:43 | Outpatient (REF) | payer MEDICARE, OTHER, SELFPAY | LOC: HO.CARD 09:43 | PROVIDERS: PCP Internal Medicine; Visit Provider Orthopaedic Surgery | DX: Z01.810 Encounter for preprocedural cardiovascular examination (principal) | CPT/HCPCS: 93005 ==

== ENCOUNTER 2022-12-19 12:18 | Outpatient (AMB) | payer MEDICARE, OTHER, SELFPAY ==
[2022-12-19 12:34] VITALS: BP 148/88; PULSE 87; O2SAT 98; BMI 34.2
--- NOTE | 2022-12-19 12:34 | A.OFFPC_ITS ---
Vital Signs 12/19/22 12:34 Height 5 ft 6 in Weight 212 lb BMI 34.2 BP 148/88 H Position Sitting Pulse 87 Pulse Source Pulse Oximeter Pulse Oximetry (%) 98 Oxygen Delivery Method Room Air Intake Visit Reasons: RT SALOMON 01/17/23 Order Filler Required: No Accompanied by: Self / Same As Patient Allergies amoxicillin [AMOXICILLIN] Allergy (Mild, Verified 12/19/22 12:47) GI UPSET, upset stomach, stomach upset Sulfa (Sulfonamide Antibiotics) [SULFA (SULFONAMIDE ANTIBIOTICS)] Allergy (Unknown, Verified 12/19/22 12:47) HIVES,RASH Medication List - Last Reconciled 12/19/22 by Roberto Rojas MD atorvastatin 10 mg PO DAILY [DIABETIC SHOES As directed - Dx: E11.9] dulaglutide 1.5 mg (0.5 mL) subcut QWEEK 90 days fexofenadine (Diane Allergy) 180 mg PO DAILY fluoxetine 20 mg PO QAM 90 days levothyroxine (Synthroid) 150 mcg PO QAM lisinopril 20 mg PO DAILY 90 days meloxicam 15 mg PO DAILY 30 days metformin 850 mg PO BID 90 days metronidazole 0.75% 1 appl topical BID PRN omeprazole 20 mg PO DAILY 90 days sitagliptin phosphate (Januvia) 100 mg PO DAILY 90 days tizanidine 4 mg PO Q8H PRN 30 days walker Folding Front wheeled walker Tobacco use date assessed: 12/19/22 Fall risk assessment: 2 + Falls in past year Last assessed Fall Risk: 12/19/22 Dental Screening Dental Screen Date: 12/19/22 Did you have a dental visit in the last 12 months?: Yes Did you have a dental problem in the last 6 months where you did not have access to dental care?: No Was dental information given to patient?: Patient has dentist HPI RT SALOMON 01/17/23 HPI Details Patient comes in today at the request of Dr. Alejandro Reed for a preoperative medical examination for clearance for surgery She is scheduled for a total right hip arthroplasty under general anesthesia on 01/17/2023 States that she currently feels okay She denies any headaches or dizziness Denies any chest pains, no shortness of breath No nausea/ vomiting, no abdominal pain No change in bowel habits noted She had her labs done a few weeks ago and her EKG done at [facility] [place] last week PFSH Medical History Chest pain York esophagus GERD (gastroesophageal reflux disease) Campoverde's palsy Allergic rhinitis Carcinoid tumor (~2021) Tubular adenoma of colon (~2002) Obesity (BMI 30-39.9) Anxiety Urinary incontinence Primary osteoarthritis of both knees Acquired hypothyroidism Obstructive sleep apnea (~2005) Benign essential hypertension Diabetes mellitus Pure hypercholesterolemia Surgical History History of esophagogastroduodenoscopy (EGD) History of lung surgery History of bronchoscopy (~2021) History of colonoscopy History of pubovaginal sling (~2010) History of hysterectomy History of cholecystectomy (~1996) Family History Father Diabetes Hypertension Mother Diabetes Cancer Social History Household Members: Significant Other Housing: House Alcohol intake: current Alcohol intake frequency: holidays/special occasions only Alcohol type: wine Patient Tobacco Use Status: Never used Tobacco e-Cigarette/Vaping Use: Never Used Second Hand Smoke Exposure: Yes service: No Current occupational status: retired Cognitive needs: No Hearing needs: Yes Vision needs: Yes Questionnaire PHQ-9 Over the last 2 weeks, how often have you been bothered by any of the following problems? 1. Little interest or pleasure in doing things: not at all 2. Feeling down, depressed, or hopeless: not at all 3. Trouble falling or staying asleep, or sleeping too much: not at all 4. Feeling tired or having little energy: not at all 5. Poor appetite or overeating: not at all 6. Feeling bad about yourself - or that you are a failure or have let yourself or your family down: not at all 7. Trouble concentrating on things, such as reading the newspaper or watching television: not at all 8. Moving or speaking so slowly that other people could have noticed. Or the opposite - being so fidgety or restless that you have been moving around a lot more than usual: not at all 9. Thoughts that you would be better off or of hurting yourself in some way: not at all Total score: 0 Depression Screening Interpretation: Negative Depression Screening Done: Yes 88830 - PHQ-9 Billing: Yes Source: Developed by Drs. Tim Torres, Caitie Nguyen, Justin Fallon and colleagues, with an educational ion from [employer]. Thrive Questionnaire Date Thrive assessed: 12/19/22 I am a: Patient What is your living situation today?: I have a steady place to live Within the past 12 months, did the food you bought not last and you didn't have the money to get more?: Never true Within the past 12 months, did you worry whether your food would run out before you got money to buy more?: Never true Do you have trouble paying for medicines?: No Do you have trouble getting transportation to medical appointments?: No Do you have trouble paying your heating and electricity bill?: No Do you have trouble taking care of your child, family member or friend?: No Do you have trouble with day-to-day activities such as bathing, preparing meals, shopping, managing finances, etc.?: No Are you currently unemployed and looking for a job?: No Are you interested in more education?: No Please select the resources that you would like help with: None Currently or been in a relationship where the following occur: no concerns reported AUDIT C Alcohol Use Questionnaire (AUDIT-C) 1. How often do you have a drink containing alcohol?: Monthly or less 2. How many drinks containing alcohol do you have on a typical day when you are drinking?: 1 or 2 3. How often do you have six or more drinks on one occasion?: Never Total Score: 1 Score Reviewed/Action Taken: Yes SEBAS-7 AMB Questionnaire SEBAS-7 Date SEBAS - 7 assessed: 12/19/22 Feeling nervous, anxious, or on edge: 0 = Not at all Not being able to stop or control worryin = Not at all Worrying too much about different things: 0 = Not at all Trouble relaxin = Not at all Being so restless that it is hard to sit still: 0 = Not at all Becoming easily annoyed or irritable: 0 = Not at all Feeling afraid as if something awful might happen: 0 = Not at all Total SEBAS-7 score (0-4 normal; 5-9 mild; 10-14 moderate; 15-21 severe): 0 Source: Developed by Drs. Tim Torres, Caitie Nguyen, Justin Fallon and colleagues, with an educational ion from [employer]. Review of Systems Const Denies chills, Denies fatigue, Denies fever(s) and Denies headache(s) ENT Denies dysphagia, Denies dizziness, Denies otalgia, Denies headache(s), Denies neck pain, Denies odynophagia and Denies sore throat Card Denies chest pain, Denies palpitations and Denies dyspnea Resp Denies cough and Denies dyspnea GI Denies abdominal pain, Denies constipation, Denies dysphagia, Denies heartburn, Denies diarrhea, Denies nausea, Denies odynophagia and Denies vomiting Denies difficulty voiding, Denies nocturia and Denies dysuria Musc Reports back pain (increased over the right lower back - see HPI), Reports arthralgias (affecting her hips, knees and ankles but especially over the right hip), Denies neck pain and Reports stiffness Skin/Breast Denies rash Neuro Denies dizziness and Denies headache(s) Endo Denies fatigue and Denies palpitations Physical exam (Primary Care) Vital Signs: Last Vital Signs Pulse 87 12/19/22 12:34 BP 148/88 H 12/19/22 12:34 Pulse Ox 98 12/19/22 12:34 Oxygen Delivery Method Room Air 12/19/22 12:34 BMI result Body Mass Index 34.2 Tobacco/Smoking Status: Tobacco use Status Tobacco use date assessed 12/19/22 12/19/22 12:41 Patient Tobacco Use Status Never used Tobacco 12/19/22 12:41 e-Cigarette/Vaping Use Never Used 12/19/22 12:41 PHQ-9: PHQ-9 Score PHQ-9: Total score 0 12/19/22 12:45 Depression Screening Interpretation: Negative Thrive Assessment: Date of Thrive Assessment Date Thrive assessed 12/19/22 12/19/22 12:41 Currently or been in a relationship where the following occur: no concerns reported Const General: no acute distress and alert HENMT Ears: TM's normal bilaterally and EAC's normal Throat: Yes posterior oropharynx normal and Yes tonsils normal (no TP congestion noted) Neck Neck: Yes no lymphadenopathy and Yes supple Resp Auscultation: clear to auscultation bilaterally, no rales and no wheezes Cardio Rate: regular rate Rhythm: regular rhythm Heart sounds: no murmurs GI Palpation (GI): Soft to palpation and nontender Auscultation: normal bowel sounds Back/Spine/Pelvis Thoracic/Lumbar Spine: straight leg raise negative bilaterally, paraspinal muscle tenderness on the right in the lower lumbar and lumbar spinal tenderness Pelvis: buttock tenderness on the right Sacroiliac joints: on the right tender to palpation Skin Rashes: no rashes Extrem General: Yes no clubbing, cyanosis or edema Right lower extremity: hip/thigh Details: tenderness Location: of the hip Left lower extremity: hip/thigh Details: tenderness Location: of the hip Results Reviewed Results Reviewed: Laboratory Tests 11/28/22 11/28/22 11/28/22 10:24 10:24 11:18 WBC 7.1 Hgb 13.9 Hct 43.2 Plt Count 297 Sodium 141 Potassium 4.7 Creatinine 0.80 Estimated GFR > 60 Fasting Glucose 137 H Hemoglobin A1c % 6.5 H Calcium 11.1 H Ionized Calcium AST 16 ALT 25 Triglycerides 119 Cholesterol 154 LDL Cholesterol, Calc 87 HDL Cholesterol 44 Vitamin B12 277 25-OH Vitamin D Total 59.3 TSH 0.07 L Free T4 1.32 PTH Intact Calcium (PTH Intact) Urine pH 5.5 Ur Specific [place] Urine Protein Negative Urine Glucose (UA) Negative Urine Blood Negative 11/28/22 11/30/22 11/30/22 11:18 12:05 12:05 WBC Hgb Hct Plt Count Sodium Potassium Creatinine Estimated GFR Fasting Glucose Hemoglobin A1c % Calcium Ionized Calcium 5.6 H AST ALT Triglycerides Cholesterol LDL Cholesterol, Calc HDL Cholesterol Vitamin B12 25-OH Vitamin D Total TSH Free T4 PTH Intact 30 Calcium (PTH Intact) 10.6 H Urine pH Ur Specific [place] 1.020 Urine Protein Urine Glucose (UA) Urine Blood Assessment and Plan Assessment & Plan (1) Preoperative examination: Code(s): Z01.818 - Encounter for other preprocedural examination Plan: Patient presents with acceptable risks for planned intermediate cardiac risk procedure Results of her labs done a few weeks ago reviewed and discussed with patient - her labs are mostly within normal limits EKG done at [facility] [place] last week came out normal - NSR with no acute ST-T wave changes (2) Primary osteoarthritis of right hip: Code(s): M16.11 - Unilateral primary osteoarthritis, right hip Plan: She is currently scheduled for a total right hip arthroplasty under general anesthesia with Dr. Reed on 01/17/2023 (3) Primary osteoarthritis of both knees: Code(s): M17.0 - Bilateral primary osteoarthritis of knee Plan: Follow up with orthopedics as scheduled (4) Low back pain with right-sided sciatica: Code(s): M54.41 - Lumbago with sciatica, right side Qualifiers: Back pain laterality: right Chronicity: unspecified Qualified Code(s): M54.41 - Lumbago with sciatica, right side Plan: Reinforced activity and weight-lifting restrictions Repeat lumbar spine and SI joint x-rays done back in August 2022 revealed (+) degenerative changes of the lumbar spine and SI joints May continue taking Tylenol PRN and Tizanidine 4 mg TID PRN but as she reports no relief from Tylenol recently, she was started on a trial of Meloxicam 15 mg QD PRN with food - states that Meloxicam helped a lot but she is concerned that this is affecting her BP and she stopped taking it about a week ago She is advised to start back on Meloxicam for now to help with her pain - explained that while it is true that taking Meloxicam may increase her blood pressure, significant pain can also cause her blood pressure to increase She is reminded to stop taking Meloxicam and all other NSAIDs about 7 days before her scheduled surgery next month Advised also that physical therapy may also be an option and she can call for referral at any time if she wishes to try physical therapy for her back pain (5) Benign essential hypertension: Code(s): I10 - Essential (primary) hypertension Plan: Reinforced low sodium diet - goal is systolic BP of at least 140 mm or less Patient states that her BP is usually much lower when she checks it at home but it appears elevated today, likely in part due to pain in her hips and also due to anxiety Instructed patient to increase her Lisinopril to 30 mg QD Will have her come back regularly for the next couple of weeks and have our nurse navigators recheck and monitor her blood pressure (6) Diabetes mellitus: Code(s): E11.9 - Type 2 diabetes mellitus without complications Qualifiers: Diabetes mellitus complication status: without complication Diabetes mellitus halfway insulin use: without halfway use Diabetes mellitus type: type 2 Qualified Code(s): E11.9 - Type 2 diabetes mellitus without complications Plan: HgbA1c has improved to 6.5% on her labs done a couple of weeks ago (was previously at 6.6%) - goal is < 7.0% Reinforced diabetic diet Continue Metformin 850 mg BID, Januvia 100 mg QD and Trulicity 1.5 mg SQ once a week (7) Pure hypercholesterolemia: Code(s): E78.00 - Pure hypercholesterolemia, unspecified Plan: Reinforced low cholesterol diet Continue Atorvastatin 10 mg QD Will recheck her labs and fasting lipids in 3 months for follow up (8) Hypercalcemia: Code(s): E83.52 - Hypercalcemia Plan: Serum calcium level remains slightly elevated again and has gone up higher on her recent labs, this time to 11.1 PTH level checked a couple of times in the past have come back normal Her ionized calcium level came back on slightly elevated at 10.6 (normal is up to 10.4) and her repeat PTH level is normal An urgent referral to endocrinology was placed a couple of weeks ago for further evaluation as patient is concerned that this may delay her upcoming right hip replacement surgery next month - she is scheduled to be seen by Dr. 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 Wilson on 09/29/21; states that she has been doing well since with no acute issues Follow up with thoracic surgery (Dr. Wilson) as scheduled for continuing surveillance - was last seen back in August 2022 and will have repeat chest CT in 1 year (10) Acquired hypothyroidism: Code(s): E03.9 - Hypothyroidism, unspecified Plan: TSH level is again low on her recent labs but free T4 level remains normal; patient is clinically euthyroid Continue Levothyroxine 150 mcg QD Will continue to monitor her TFTs regularly (11) Elevated liver enzymes: Code(s): R74.8 - Abnormal levels of other serum enzymes Plan: Improved; LFTs have remained normal on her recent labs - will continue to monitor closely Is most likely due to her weight (hepatosteatosis) - this was confirmed on abdominal US in the past (12) Obstructive sleep apnea: Onset Date: ~2005 Comment: (ALEXANDRE on CPAP) Code(s): G47.33 - Obstructive sleep apnea (adult) (pediatric) Plan: Continue using her CPAP device when she sleeps at night - patient continues to experience significant improvement/resolution of her fatigue and daytime somnolence with the regular use of her CPAP device (13) GERD without esophagitis: Code(s): K21.9 - Gastro-esophageal reflux disease without esophagitis Plan: Dietary restrictions reinforced Continue Omeprazole 20 mg QD PRN (14) Anxiety: Code(s): F41.9 - Anxiety disorder, unspecified Plan: Continue Fluoxetine 20 mg QD (15) Obesity (BMI 30-39.9): Code(s): E66.9 - Obesity, unspecified Plan: Reinforced diet; exercise is not realistic at present due to patient's multiple physical issues Plan Patient is currently still not medically optimized for surgery mainly due to her elevated blood pressure - this is currently being addressed and her BP Rx dosage has been increased today She will return regularly over the next couple of weeks and meet with our nurse navigators here in the office and they will help her monitor her blood pressure closely If we can get her BP to goal (systolic BP of at least 130 mm or less) in the next week or so, she will then be formally cleared for surgery She also has an upcoming appointment with Dr. Anitha Hughes in [place] for endocrinology consultation regarding her recent hypercalcemia although her ionized calcium level checked a couple of weeks ago came back only slightly elevated above the normal range Follow up in 3 months Orders: Orders Comprehensive [place]. Panel Fast 3 Months E78.00 - Pure hypercholesterolemia, u nspecified Hemoglobin A1c 3 Months E11.9 - Type 2 diabetes mellitus without complications Thyroid Stimulating Hormone 3 Months E03.9 - Hypothyroidism, unspecified UA CC w/rflx Micro + Cult 3 Months R30.0 - Dysuria Vitamin D 25-OH Total 3 Months E55.9 - Vitamin D deficiency, unspecified Calcium, Ionized 3 Months E83.52 - Hypercalcemia Lipid Panel 3 Months E78.00 - Pure hypercholesterolemia, unspecified Complete Blood Count Auto Diff 3 Months I10 - Essential (primary) hypertension Microalbumin, Random (w Creat) 3 Months E11.9 - Type 2 diabetes mellitus without complications Free T4 (Free Thyroxine) 3 Months E03.9 - Hypothyroidism, unspecified Medications: Changed From lisinopril 20 mg PO DAILY 90 days 90 tabs 3RF I10 - Essential (primary) hypertension To lisinopril 30 mg (1.5 x 20 mg) PO DAILY 90 days 135 tabs 3RF I10 - Essential (primary) hypertension Coding Level of Care Code Est Pt Level 4 (05309) Diagnoses Preoperative examination Z01.818 Primary osteoarthritis of right hip M16.11 Primary osteoarthritis of both knees M17.0 Right-sided low back pain with right-sided sciatica, unspecified chronicity M54 .41 Back pain laterality: right Chronicity: unspecified Benign essential hypertension I10 Type 2 diabetes mellitus without complication, without long-term current use of insulin E11.9 Diabetes mellitus complication status: without complication Diabetes mellitus 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
== END 2022-12-19 13:00 | disposition home or self-care (01) ==
PROVIDERS: PCP Internal Medicine; Visit Provider Internal Medicine
DX: Z01.818 Encounter for other preprocedural examination (principal); M16.11 Unilateral primary osteoarthritis, right hip; E11.9 Type 2 diabetes mellitus without complications; D3A.090 Benign carcinoid tumor of the bronchus and lung; E03.9 Hypothyroidism, unspecified; R74.8 Abnormal levels of other serum enzymes; G47.33 Obstructive sleep apnea (adult) (pediatric); K21.9 Gastro-esophageal reflux disease without esophagitis; F41.9 Anxiety disorder, unspecified
CPT/HCPCS: 99214

== ENCOUNTER 2023-01-12 09:14 | Outpatient (AMB) | payer MEDICARE, OTHER, SELFPAY ==
--- NOTE | 2023-01-12 09:34 | MHC.OFFVIS ---
Intake Vital Signs 01/12/23 09:37 Height 5 ft 6 in Weight 212 lb BMI 34.2 Intake Visit Reasons: Preop-RT SALOMON 01/17/23 NE Intake Note: Ariane is a 77 year old female who presents today for a pre op appointment for her right SALOMON 01/17/23 NE. Allergies amoxicillin [AMOXICILLIN] Allergy (Intermediate, Verified 01/12/23 09:38) Gastrointestinal Upset Sulfa (Sulfonamide Antibiotics) [SULFA (SULFONAMIDE ANTIBIOTICS)] Allergy (Intermediate, Verified 01/12/23 09:38) HIVES,RASH HPI Preop-RT SALOMON 01/17/23 NE HPI Details 77-year-old female who presents in the office today for her preoperative history and physical exam prior to a right total hip arthroplasty to be performed on 01/17/[address] Reed. The patient reports she was exposed to COVID and presents wearing a mask while in the office today. She reports her diabetes has been controlled. She has been having some elevated blood pressures. 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 09/29/2022 -History of lung surgery; Davinci [facility] -History of bronchoscopy; Klever Bronch, RLL bx = non-diagnostic - [facility] ? 08/11/2021 -History of colonoscopy; TA/HP 11/29/02; normal 08/16/06; TA/HP 04/12/12; TA 10/26/17; diverticulosis 07/04/22 -History of pubovaginal sling; Dr. Rosa, [facility] [place] - 05/25/2010 -History of hysterectomy -History of cholecystectomy; lap caryn - Dr. Moctezuma, [facility] - [facility]12/[facility] Medical History (Updated 01/12/23 @ 09:44 by Renu Liao) Cervical cancer York esophagus GERD (gastroesophageal reflux disease) Campoverde's palsy Allergic rhinitis Carcinoid tumor (~2021) Tubular adenoma of colon (~2002) Chest pain Obesity (BMI 30-39.9) Anxiety Urinary incontinence Primary osteoarthritis of both knees Acquired hypothyroidism Obstructive sleep apnea (~2005) Benign essential hypertension Diabetes mellitus Pure hypercholesterolemia Surgical History (Updated 01/11/23 @ 12:10 by Xena Chand RN) Hx of bilateral cataract extraction History of esophagogastroduodenoscopy (EGD) History of lung surgery History of bronchoscopy (~2021) History of colonoscopy History of pubovaginal sling (~2010) History of hysterectomy History of cholecystectomy (~1996) Family History Father Diabetes Hypertension Mother Diabetes Cancer Social History Household Members: Significant Other Housing: House Are you a primary rn managed care to a significant other at home: No Do you presently have visiting nurse or other home services: No Alcohol intake: current Alcohol intake frequency: holidays/special occasions only Alcohol type: wine Patient Tobacco Use Status: Never used Tobacco e-Cigarette/Vaping Use: Never Used Second Hand Smoke Exposure: Yes service: No Current occupational status: retired Cognitive needs: No Hearing needs: Yes Vision needs: Yes Review of Systems Const All systems reviewed & are unremarkable except as noted in HPI and below Physical Exam Vital Signs: BMI result Body Mass Index 34.2 Const General: cooperative, healthy appearing and no acute distress Orientation/consciousness: patient oriented x3 Resp Effort & Inspection: normal respiratory effort and able to speak in complete sentences Cardio Rate: regular rate Peripheral pulses: Peripheral pulses 2+ throughout GI Palpation (GI): Soft to palpation Skin General skin exam: no rashes or lesions noted Lesions: no lesions Rashes: no rashes Neuro General: patient oriented x3 Extrem Other: Right hip: Skin is clean, dry, and intact. Positive hip impingement test on the right. Limited internal rotation. Positive Stinchfield test. Antalgic trendelenburg gait. Negative trendelenburg sign. Results Reviewed Results Reviewed: 01/12/23 09:45 Lidocaine HCl 2 % MPF [Xylocaine 2 % MPF] 5 ml .ROUTE .STK-MED ONE methylPREDNISolone acetate [DEPO-MedroL] 40 mg .ROUTE .STK-MED ONE Assessment & Plan Assessment & Plan (1) Osteoarthritis of right hip: Code(s): M16.11 - Unilateral primary osteoarthritis, right hip Qualifiers: Osteoarthritis type: unspecified Qualified Code(s): M16.11 - Unilateral primary osteoarthritis, right hip (2) Osteoarthritis of left knee: Code(s): M17.12 - Unilateral primary osteoarthritis, left knee Qualifiers: Osteoarthritis type: unspecified Qualified Code(s): M17.12 - Unilateral primary osteoarthritis, left knee Plan Ms. Song is a 77-year-old female who presents in the office today for her preoperative history and physical exam prior to a right total hip arthroplasty to be performed on 01/17/[address] Reed. The patient reports she was exposed to COVID and presents wearing a mask while in the office today. She reports her diabetes has been controlled. She has been having some elevated blood pressures. 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 Valenzuela, [facility] ? 09/29/2022 -History of lung surgery; Davinci RLL wedge resection [carcinoid] - Dr. Wilson [facility] - 09/29/2021 -History of bronchoscopy; Klever Bronch, RLL bx = [facility]diagnostic [facility] -History of colonoscopy; TA/HP 11/29/02; normal 08/16/06; TA/HP 04/12/12; TA 10/26/17; diverticulosis 07/04/22 -History of pubovaginal sling; Dr. Rosa, [facility] - 05/25/2010 -History of hysterectomy -History of cholecystectomy; lap caryn - Dr. Moctezuma, [facility] - 03/12/1996 The patient was offered a cortisone injection in the left knee with 40 mg of DepoMedrol. The patient was explained the risk, benefits, and alternatives to receiving this injection. After receiving consent for the injection, the patient had the procedure done while in office today. The patient tolerated the procedure well with no complications. I discussed in detail the procedure and what to expect pre and post operatively. We discussed the risks, benefits and alternatives to the surgery as well as the rehabilitation course. The risks; which include, but are not limited to infection, bleeding, nerve injury, ongoing pain, swelling, and stiffness, perioperative risk of injury to bones and soft tissues, and blood clots. I have answered all questions and with their understanding they have consented to move forward with a right total hip arthroplasty to be performed on 01/17/[address] Alejandro Reed. Follow up will be at the post operative appointment on 02/02/2023 at 1:00 pm, or sooner if needed. Patient Instructions: Scribed for Lakeisha Argueta PA-C by Renu Liao medical service technician, on 01/12/2023 at 9:15 am, EST. Coding Level of Care Code Global (89153) Diagnoses Osteoarthritis of right hip, unspecified osteoarthritis type M16.11 Osteoarthritis type: unspecified Osteoarthritis of left knee, unspecified osteoarthritis type M17.12 Osteoarthritis type: unspecified
[2023-01-12 09:37] VITALS: BMI 34.2
== END 2023-01-12 09:59 | disposition home or self-care (01) ==
PROVIDERS: PCP Internal Medicine; Visit Provider Physician Assistant
DX: M16.11 Unilateral primary osteoarthritis, right hip (principal); M17.12 Unilateral primary osteoarthritis, left knee
CPT/HCPCS: 99024

== ENCOUNTER 2023-01-12 12:20 | Outpatient (REF) | payer MEDICARE, OTHER, SELFPAY ==
--- NOTE | ~2023-01-12 | MM_ITS ---
EXAMINATION: BONE DENSITOMETRY CLINICAL INDICATION: Menopause. COMPARISON: Previous BD dated 05/21/2010 and baseline BD dated 08/23/2006. TECHNIQUE: Using a [employer] DXA System (software version: 13.1) manufactured by [employer], dual-energy x-ray absorptiometry was performed of the lumbar spine and left hip. The images are of good technical quality. Summary results are attached. FINDINGS: LEFT FEMUR, NECK: Current: BMD 0.988 g/cm2, Z-score 0.9, T-score -0.4, normal. Prior: BMD 1.178 g/cm2. Baseline: BMD 1.083 g/cm2. LEFT FEMUR, TOTAL: Current: BMD 1.115 g/cm2, Z-score 1.9, T-score 0.9, normal, 11.8% decrease from previous, 10.1% decrease from baseline (<5% change is not significant). Prior: BMD 1.264 g/cm2. Baseline: BMD 1.240 g/cm2. AP SPINE L1-L2 (excluding L3 and L4): The data of L1-L4 has been changed to exclude the L3 and L4 vertebral bodies, because degenerative sclerosis at these levels may cause overestimation of lumbar spine density. Current: BMD 1.235 g/cm2, Z-score 1.3, T-score 0.6, normal, 3.6% decrease from previous, 1.1% increase from baseline (<5% change is not significant). Prior: BMD 1.281 g/cm2. Baseline: BMD 1.221 g/cm2. IDENTIFIED RISK FACTORS: Menopause, height loss, hysterectomy, recurrent falls, rheumatoid arthritis. HISTORY OF FRACTURE: None listed. MEDICATIONS: Vitamin D. MM/XR DEXA axial skeleton IMPRESSION: 1. DIAGNOSIS: Normal bone density based on the lowest T-score value of -0.4 in the femoral neck applying World Health Organization criteria. 2. 10-YEAR FRACTURE RISK PREDICTION, FRAX: According to the guidelines, FRAX calculation should only be performed on patients in the osteopenia bone density category. Therefore, FRAX was not performed on this patient. 3. Treatment Recommendations: NOF guidelines recommend consideration for treatment in postmenopausal women and men age 50 and older presenting with the following: -A hip or vertebral (clinical or morphometric) fracture. -T-score less than or equal to -2.5 at the femoral neck or spine after appropriate evaluation to exclude secondary causes. -Low bone mass at the hip or spine and a 10-year fracture probability by FRAX of greater than or equal to 3% for hip fracture or greater than or equal to 20% for major osteoporotic fracture based on the [place] adapted WHO algorithm. 4. Other Recommendations: All treatment decisions require clinical judgment and consideration of individual patient factors, including patient preferences, comorbidities, previous drug use, risk factors not captured in the FRAX model (e.g. frailty, falls, vitamin D deficiency, increased bone turnover, interval significant decline in bone density) and possible under or overestimation of fracture risk by FRAX. FUTURE SCAN RECOMMENDATION: People with diagnosed cases of osteoporosis or at high risk for fracture should have regular bone mineral density tests. For patients eligible for Medicare, routine testing is allowed once every 2 years. The testing frequency can be increased to one year for patients who have rapidly progressing disease, those who are receiving or discontinuing medical therapy to restore bone mass, or have additional risk factors.
== END 2023-01-12 12:21 | disposition home or self-care (01) ==
LOC: HO.MAMMO 12:20
PROVIDERS: PCP Internal Medicine; Visit Provider Nurse Practitioner Family
DX: Z12.31 Encounter for screening mammogram for malignant neoplasm of breast (principal); Z13.820 Encounter for screening for osteoporosis; Z78.0 Asymptomatic menopausal state
CPT/HCPCS: 77063; 77067; 77080; J1020

== ENCOUNTER → 2023-01-12 13:00 | Outpatient (BNV) | payer MEDICARE, OTHER, SELFPAY | PROVIDERS: PCP Internal Medicine; Visit Provider Radiology Diagnostic Radiology | DX: Z12.31 Encounter for screening mammogram for malignant neoplasm of breast (principal) | CPT/HCPCS: 77063; 77067 ==

== ENCOUNTER 2023-01-17 09:32 | Inpatient (IN) | payer MEDICARE, OTHER, SELFPAY ==
[2023-01-11 12:19] VITALS: BMI 34.8
[2023-01-11 12:23] VITALS: BP 164/70; PULSE 55; RESP 20; O2SAT 97
--- NOTE | 2023-01-11 12:33 | HO.ANESPROP2 ---
HPI - Anesthesia Eval Consult details Narrative: 77yo F for Right Hip Total Replacement PCP cleared after optimizing BP Recent sinus infection resolved with abx No CP/SOB with stairs or mowing lauwn Lung CA s/p RLL resection 2021. Minimal COLBERT DM. FBS ~ 150 ALEXANDRE. With CPAP QHS GERD. Controlled with PPI Dexter Palsy with R eyelid affected Anesthesia Pre-Procedure Meds Is the patient on any of the following meds?: Dulaglutide (Trulicity) (Last dose 01/03/23) If Yes to any meds - educate patient: Pt education - increased risk of aspiration and Pt education - possibility of cancelled proc at provider's discretion PMFSH Active Problems Active Problems: All Active Problems (Updated 01/11/23 @ 12:09 by Xena Chand RN) Primary osteoarthritis of right hip (Acute) Preoperative examination (Acute) Osteoarthritis of left knee (Acute) Osteoarthritis of right hip (Acute) Low back pain with right-sided sciatica (Acute) Hypercalcemia (Acute) Rosacea (Acute) Greater trochanteric bursitis of right hip (Acute) Nail abnormality (Acute) Post-menopausal (Acute) Carcinoid tumor (Acute ~2021) Acquired hypothyroidism (Acute) Diabetes mellitus (Acute) Benign essential hypertension (Acute) Pure hypercholesterolemia (Acute) Obstructive sleep apnea (Acute ~2005) [place] esophagus (Acute) GERD (gastroesophageal reflux disease) (Acute) Tubular adenoma of colon (Acute ~2002) Urinary incontinence (Acute) Allergic rhinitis (Acute) Anxiety (Acute) Obesity (BMI 30-39.9) (Acute) Primary osteoarthritis of both knees (Acute) Past Medical History Medical History Cervical cancer [place] esophagus GERD (gastroesophageal reflux disease) Campoverde's palsy Allergic rhinitis Carcinoid tumor (~2021) Tubular adenoma of colon (~2002) Chest pain Obesity (BMI 30-39.9) Anxiety Urinary incontinence Primary osteoarthritis of both knees Acquired hypothyroidism Obstructive sleep apnea (~2005) Benign essential hypertension Diabetes mellitus Pure hypercholesterolemia Family History Family History Father Diabetes Hypertension Mother Diabetes Cancer Family history of problems with anesthesia: No Surgical History Surgical History Hx of bilateral cataract extraction History of esophagogastroduodenoscopy (EGD) History of lung surgery History of bronchoscopy (~2021) History of colonoscopy History of pubovaginal sling (~2010) History of hysterectomy History of cholecystectomy (~1996) History of Problems with Anesthesia: No Social History Social History Household Members: Spouse Housing: House Are you a primary home health care worker to a significant other at home: No Do you presently have visiting nurse or other home services: No Alcohol intake: current Alcohol intake frequency: holidays/special occasions only Alcohol type: wine Patient Tobacco Use Status: Never used Tobacco e-Cigarette/Vaping Use: Never Used Second Hand Smoke Exposure: Yes service: No Current occupational status: retired Cognitive needs: No Hearing needs: Yes Vision needs: Yes Meds Allergies Allergy/AdvReac Type Severity Reaction Status Date / Time amoxicillin [AMOXICILLIN] Allergy Intermediate Gastrointestinal Verified 01/12/23 09:38 Upset Sulfa (Sulfonamide Allergy Intermediate HIVES,RASH Verified 01/12/23 09:38 Antibiotics) [SULFA (SULFONAMIDE ANTIBIOTICS)] Home Medications Medication Instructions Recorded Confirmed Last Taken Type atorvastatin 10 mg tablet 10 mg PO QAM 01/11/23 01/11/23 01/16/23 History cholecalciferol (vitamin D3) 25 25 mcg PO BID 01/11/23 01/11/23 01/16/23 History mcg (1,000 unit) tablet (Vitamin D3) coenzyme Q10 400 mg capsule (Co 400 mg PO QAM 01/11/23 01/11/23 01/16/23 History Q-10) omeprazole 20 mg capsule,delayed 20 mg PO QAM 01/11/23 01/11/23 01/16/23 History release sitagliptin phosphate 100 mg 100 mg PO QAM 01/11/23 01/11/23 01/16/23 History tablet (Januvia) Exam Exam Date and Time: January 11, 2023 1233 Height,Weight and Vital Signs: Height 5 ft 6 in Weight 97.7 kg Pertinent Lab Results Pertinent Lab Results: Laboratory Tests 11/28/22 10:24 WBC 7.1 Hgb 13.9 Hct 43.2 Plt Count 297 Sodium 141 Potassium 4.7 Chloride 109 H Carbon Dioxide 21 L BUN 18 H Creatinine 0.80 Narrative Narrative: EKG 11/2022 Vent. Rate : 062 BPM Atrial Rate : 062 BPM P-R Int : 146 ms QRS Dur : 086 ms QT Int : 416 ms P-R-T Axes : 054 016 024 degrees QTc Int : 422 ms Normal sinus rhythm Normal ECG When compared with ECG of 16-JUN-2014 14:07, No significant change was found NM aakash perf SPECT rest & str 2021 Impression: 1. Myocardial perfusion imaging study shows no evidence of any ischemia or infarction. Likely normal perfusion. 2. Gated LVEF is percent during stress and 69% during rest. 3. Transient ischemic dilatation not present. EKG component of the test reported separately. Airway TM Dist: >3cm Neck ROM: Limited (OA, no disc disease) Loose/Missing/Broken Teeth: No (1 x crown RL molar) Heart: RRR Lungs: CTAB Assessment and Plan Assessment Anesthesia Assessment: Anesthesia Plan Discussed and PAT Visit Final Anesthetic Review Family History of Problems with Anesthesia: No History of Problems with Anesthesia: No
[2023-01-11 14:21] LABS: MRSA Nasal PCR NEGATIVE (Negative); SA Nasal PCR NEGATIVE (Negative)
[2023-01-17] VITALS (8 sets, daily range): BP systolic 120–155; BP diastolic 46–68; PULSE 62–91; RESP 16–18; TEMP 36.3–36.8; O2SAT 93–98
--- NOTE | ~2023-01-17 | XR_ITS ---
EXAMINATION: XR PELVIS CLINICAL INFORMATION: Post right hip replacement COMPARISON: Previous pelvis x-ray October 2022 TECHNIQUE: AP view of the pelvis. FINDINGS: There is a new right hip replacement in satisfactory position. No fracture or dislocation. Mild degenerative changes at the left hip. Bones of the pelvis are unremarkable. Postsurgical changes to the soft tissues. XR/XR pelvis 1-2V IMPRESSION: Satisfactory appearance of right hip replacement.
[2023-01-17] MEDS: oxyCODONE HCl ER 10 MG TAB.ER.12H PO ×2 (10:05→19:57)
[2023-01-17 10:14] LABS: Glucose, Whole Blood 134 mg/dL (60-115)
[2023-01-17] MEDS: vancomycin HCL 1,500 MG in 0.9 % Sodium Chloride 500 ML 333.33 MG IV ×2 (10:46→21:36)
[2023-01-17] MEDS: Lactated Ringers 1,000 ML 100 ML IVCONT ×2 (10:49→15:55)
--- NOTE | 2023-01-17 14:22 | P.BOP_ITS ---
Brief Operative Note Date of Service: 01/17/23 Pre-op diagnosis: Right Hip OA Post-op diagnosis: same Procedure: Right SALOMON Implants: Sharyn Trident 50/10 deg liner Stryler Accolade2 #4 127 deg with + 0/32 ceramic Surgeon: Alejandro Reed MD Anesthesia: GETA and local Was an Education Research Analyst used for this Procedure?: Yes Education Research Analyst: Lizandro Jeff Estimated blood loss (mL): 175 IV fluids (mL): 1,000 Pathology: other Condition: stable Disposition: PACU
--- NOTE | 2023-01-17 15:23 | PC.NURSE ---
bladder scanned 15:15 multiple sites (patient has had hysterectomy as per her) 0ml' s when asked if she feels the need/sensation to void she declined.
--- NOTE | 2023-01-17 15:51 | PHA.MEDREC ---
Pharmacy Consult ? Medication Reconciliation Pharmacy has reviewed the medication reconciliation completed by nursing. Called to confirmed medications that were filled. Patient last filled lisinopril 20 mg tablet in October however, per provider not it was increased to 1.5 tablets in December. Lucy Quiroz, PharmD
[2023-01-17] MEDS: 0.9 % Sodium Chloride Flush 3 ML SYRINGE IVFLUSH (15:52)
[2023-01-17 16:22] LABS: Glucose, Whole Blood 181 mg/dL (60-115)
--- NOTE | 2023-01-17 16:30 | P.CONHOSP_ITS ---
History of Present Illness Data of Consult Service Date: 01/17/23 Requesting physician: Alejandro Reed Primary Care Provider: Roberto Rojas MD HPI Reason for consult: medical management 77yo F admitted to Orthopedics p R SALOMON for OA. Medicine consultation for management of comorbid conditions, which include: - ALEXANDRE, on CPAP 12 cm at night - DM2, on Januvia plus MTF plus Trulicity with A1c 6.5 11/28/22 - carcinoid tumor, s/p VATS resection with recent clear CT - HLD, on statin - hypothyroidism, on LT4 - HTN, on lisinopril - anxiety, on fluoxetine She denies hx of perioperative cardiovascular complications and denies hx of ID or CVA. Currently c/o postop pain. No fever, chills, chest pain, or dyspnea. Review of Systems Review of Systems: Yes all other systems are reviewed and are negative [facility] Medical History Cervical cancer York esophagus GERD (gastroesophageal reflux disease) Campoverde's palsy Allergic rhinitis Carcinoid tumor (~2021) Tubular adenoma of colon (~2002) Chest pain Obesity (BMI 30-39.9) Anxiety Urinary incontinence Primary osteoarthritis of both knees Acquired hypothyroidism Obstructive sleep apnea (~2005) Benign essential hypertension Diabetes mellitus Pure hypercholesterolemia Family History Father Diabetes Hypertension Mother Diabetes Cancer Surgical History Hx of bilateral cataract extraction History of esophagogastroduodenoscopy (EGD) History of lung surgery History of bronchoscopy (~2021) History of colonoscopy History of pubovaginal sling (~2010) History of hysterectomy History of cholecystectomy (~1996) Social History Household Members: Spouse Housing: House Are you a primary career manager to a significant other at home: No Do you presently have visiting nurse or other home services: No Alcohol intake: current Alcohol intake frequency: holidays/special occasions only Alcohol type: wine Patient Tobacco Use Status: Never used Tobacco e-Cigarette/Vaping Use: Never Used Second Hand Smoke Exposure: Yes service: No Current occupational status: retired Cognitive needs: No Hearing needs: Yes Vision needs: Yes Meds Allergies Allergy/AdvReac Type Severity Reaction Status Date / Time amoxicillin [AMOXICILLIN] Allergy Intermediate Gastrointestinal Verified 01/12/23 09:38 Upset Sulfa (Sulfonamide Allergy Intermediate HIVES,RASH Verified 01/12/23 09:38 Antibiotics) [SULFA (SULFONAMIDE ANTIBIOTICS)] Active Medications: Current Medications Acetaminophen (Acetaminophen 325 Mg Tablet) 650 mg PO Q6H PRN PRN Reason: Pain, Mild (Pain Scale 1-3) Aspirin (Aspirin 325 Mg Tablet) 325 mg PO BID [facility] Celecoxib (Celecoxib 200 Mg Capsule) 200 mg PO BID [facility] Dextrose (Dextrose 50 % 25 Gm/50 Ml Syringe) 25 gm IVPUSH Q15M PRN; Protocol PRN Reason: per Hypoglycemia Standing Ord. Docusate Sodium (Docusate Sodium 100 Mg Capsule) 100 mg PO BID [facility] Fluoxetine HCl (Fluoxetine Hcl 20 Mg Capsule) 20 mg PO DAILY [facility] Glucose (Glucose Gel 15 Gm Gel..Gram.) 15 gm PO Q15M PRN; Protocol PRN Reason: per Hypoglycemia Standing Ord. Hydromorphone HCl (Hydromorphone Hcl 0.5 Mg/0.5 Ml Syringe) 0.25 mg IVPUSH Q4H PRN; Protocol PRN Reason: Pain, Severe (Pain Scale 7-10) Lactated Ringer's (Lr) 1,000 mls @ 100 mls/hr IVCONT .Q10H [facility] Stop: 01/18/23 14:25 Last Admin: 01/17/23 15:55 Dose: 100 mls/hr Vancomycin HCl 1,500 mg/ (Sodium Chloride) 500 mls @ 333.333 mls/hr IV POSTOP ONE Stop: 01/17/23 23:59 Insulin Human Lispro (Insulin Lispro 100 Unit/Ml 3 Ml Vial) 0 unit SUBCUT QIDACHS [facility]; Protocol Levothyroxine Sodium (Levothyroxine Sodium 150 Mcg Tablet) 150 mcg PO ROSALINDA LY@0600 [facility] Metronidazole (Metronidazole 0.75 % Gel 45 Gm Tube) 1 appl TOPICAL BID PRN PRN Reason: rosacea rash Omeprazole (Omeprazole 20 Mg Capsule.Dr) 20 mg PO DAILY@0630 [facility] Ondansetron HCl (Ondansetron Hcl 4 Mg/2 Ml Vial) 4 mg IVPUSH Q8H PRN PRN Reason: Nausea and Vomiting Oxycodone HCl (Oxycodone Hcl Immed Release 5 Mg Tablet) 5 mg PO Q4H PRN PRN Reason: Pain, Moderate(Pain Scale 4-6) Oxycodone HCl (Oxycodone Hcl Er 10 Mg Tab.Er.12h) 10 mg PO BID [facility] Sodium Chloride (0.9 % Sodium Chloride Flush 3 Ml Syringe) 3 ml IVFLUSH QSHIFT [facility] Last Admin: 01/17/23 15:52 Dose: 3 ml Tizanidine HCl (Tizanidine Hcl 4 Mg Tablet) 4 mg PO Q8H PRN PRN Reason: muscle spasms Home Medications Medication Instructions Recorded Confirmed Last Taken Type atorvastatin 10 mg tablet 10 mg PO QAM 01/11/23 01/11/23 01/16/23 History cholecalciferol (vitamin D3) 25 25 mcg PO BID 01/11/23 01/11/23 01/16/23 History mcg (1,000 unit) tablet (Vitamin D3) coenzyme Q10 400 mg capsule (Co 400 mg PO QAM 01/11/23 01/11/23 01/16/23 History Q-10) omeprazole 20 mg capsule,delayed 20 mg PO QAM 01/11/23 01/11/23 01/16/23 History release sitagliptin phosphate 100 mg 100 mg PO QAM 01/11/23 01/11/23 01/16/23 History tablet (Januvia) Physical Exam Vital Signs and Narrative: Vital Signs: Last Vital Signs Temp 97.3 F 01/17/23 15:44 Pulse 71 01/17/23 15:44 Resp 18 01/17/23 15:44 BP 155/68 H 01/17/23 15:44 Pulse Ox 98 01/17/23 15:44 O2 Del Method Nasal Cannula 01/17/23 15:44 O2 Flow Rate 2 01/17/23 15:44 BMI result Body Mass Index 34.8 Gen: in no acute distress HEENT: sclera anicteric, moist mucus membranes Neck: supple Lungs: clear to auscultation bilaterally Heart: regular rate and rhythm, no murmurs Abd: soft, non-tender, non-distended Ext: no edema Skin: warm/well-perfused, R hip incision with dry bandage Neuro: alert and oriented x3, no focal findings Psych: appropriate affect Results Labs Labs: Laboratory Results - last 24 hr 01/17/23 01/17/23 10:09 16:02 POC Glucose 134 H 181 H Assessment and Plan (1) Primary osteoarthritis of right hip: Status: Acute Plan 77yo F s/p R SALOMON for OA 01/17/23, hospitalist consultation for management of comorbid medical conditions ALEXANDRE - CPAP 12 cm at night DM2 - on Januvia plus MTF plus Trulicity with A1c 6.5 11/28/22; use betsy-dose lispro in hospital carcinoid tumor - s/p VATS resection with recent clear CT HLD - continue statin hypothyroidism - continue LT4 HTN - continue lisinopril anxiety - fluoxetine VTE ppx - LMWH when cleared by Ortho, should have 30d postop dispo - TBD Thank you for this consultation; we will continue to follow her in the hospital
[2023-01-17] MEDS: oxyCODONE HCl Immed Release 5 MG TABLET PO (18:47)
[2023-01-17] MEDS: Celecoxib 200 MG CAPSULE PO (19:56)
[2023-01-17] MEDS: Docusate Sodium 100 MG CAPSULE PO (19:57)
[2023-01-17] MEDS: Acetaminophen 325 MG TABLET 650 MG PO (20:01)
[2023-01-17 20:29] LABS: Glucose, Whole Blood 207 mg/dL (60-115)
[2023-01-17] MEDS: Insulin Lispro 100 UNIT/ML 3 ML VIAL SUBCUT (21:05)
[2023-01-18] VITALS (9 sets, daily range): BP systolic 108–158; BP diastolic 56–72; PULSE 54–72; RESP 16–18; TEMP 36.1–36.6; O2SAT 94–98
[2023-01-18] MEDS: Lactated Ringers 1,000 ML 100 ML IVCONT (00:32)
[2023-01-18] MEDS: oxyCODONE HCl Immed Release 5 MG TABLET PO ×4 (05:34→20:01)
[2023-01-18] MEDS: Omeprazole 20 MG CAPSULE.DR PO (05:35)
[2023-01-18] MEDS: Levothyroxine Sodium 150 MCG TABLET PO (05:35)
[2023-01-18 05:42] LABS: MANUAL DIFF FLAG NO
[2023-01-18 05:48] LABS: Basophils Percent Auto 0.2 % (0-2); Eosinophils Percent Auto 0.1 % (0-4); Hematocrit 33.9 % (37.0-47.0); Hemoglobin 10.5 g/dl (12.0-16.0); Imm Gran Abs Auto 0.06 X10*3/uL (0.00-0.03); Imm Gran Pct Auto 0.5 % (0.0-0.4); Lymphocytes Absolute Auto 1.1 X10*3/uL (1.2-4.9); Lymphocytes Percent Auto 8.3 % (20-40); Mean Corpuscular Hemoglobin 26.4 pg (27.0-33.0); Mean Corpuscular Volume 85.2 fL (80.0-98.0); Mean Platelet Volume 10.7 fL (9.4-12.3); Monocytes Absolute Auto 1.1 X10*3/uL (0.1-1.2); Monocytes Percent Auto 8.2 % (2-11); Neutrophils Absolute Auto 10.7 x10*3/uL (2.0-8.3); Neutrophils Percent Auto 82.7 % (45-73); Platelet Count 250 X10*3/uL (160-400); Red Blood Count 3.98 X10*6/uL (4.20-5.50); Red Cell Distribution Width 14.1 % (11.0-16.0); White Blood Count 12.9 X10*3/uL (4.8-10.8)
[2023-01-18 06:04] LABS: Anion Gap 9 (12-20); Blood Urea Nitrogen 22 mg/dL (9-16); Calcium 9.5 mg/dL (8.4-10.2); Carbon Dioxide 23 mmol/L (22-29); Chloride 111 mmol/L (96-108); Creatinine Clr Calc Pharmacy 69.6; Estimated Glomerular Filt Rate > 60; Glucose Fasting 158 mg/dL (60-99); Potassium 4.6 mmol/L (3.3-5.1); Sodium 138 mmol/L (135-145)
[2023-01-18 07:48] LABS: Glucose, Whole Blood 118 mg/dL (60-115)
[2023-01-18] MEDS: FLUoxetine HCl 20 MG CAPSULE PO (08:34)
[2023-01-18] MEDS: Celecoxib 200 MG CAPSULE PO ×2 (08:35→20:53)
[2023-01-18] MEDS: oxyCODONE HCl ER 10 MG TAB.ER.12H PO ×2 (08:35→20:52)
[2023-01-18] MEDS: Docusate Sodium 100 MG CAPSULE PO ×2 (08:37→20:53)
--- NOTE | 2023-01-18 09:54 | MHC.CLN ---
NUTRITION INCREASED DIETARY KCALS TO DIABETIC 1800 KCAL TO BETTER MEET ESTIMATED ENERGY NEEDS.
--- NOTE | 2023-01-18 10:33 | HO.PM.IMPN ---
Subjective Subjective Date of Service: 01/18/23 Interval History: no chest pain or dyspnea postop hip pain controlled, did well with PT Review of Systems Review of Systems: Yes all other systems are reviewed and are negative Physical Exam Vital Signs: Vital Signs: Last Vital Signs Temp 97.8 F 01/18/23 07:40 Pulse 60 01/18/23 10:04 Resp 16 01/18/23 07:40 BP 147/62 H 01/18/23 10:04 Pulse Ox 96 01/18/23 10:04 O2 Del Method Room Air 01/18/23 07:40 O2 Flow Rate 2 01/17/23 15:44 BMI result Body Mass Index 34.8 Gen: in no acute distress HEENT: sclera anicteric, moist mucus membranes Neck: supple Lungs: clear to auscultation bilaterally Heart: regular rate and rhythm, no murmurs Abd: soft, non-tender, non-distended Ext: no edema Skin: warm/well-perfused, R hip incision with dry bandage Neuro: alert and oriented x3, no focal findings Psych: appropriate affect Objective Data Active Medications Dextrose (Dextrose 50 % 25 Gm/50 Ml Syringe) 25 gm IVPUSH Q15M PRN; Protocol PRN Reason: per Hypoglycemia Standing Ord. Fluoxetine HCl (Fluoxetine Hcl 20 Mg Capsule) 20 mg PO DAILY [facility] Last Admin: 01/18/23 08:34 Dose: 20 mg Documented By: SANAZ Glucose (Glucose Gel 15 Gm Gel..Gram.) 15 gm PO Q15M PRN; Protocol PRN Reason: per Hypoglycemia Standing Ord. Insulin Human Lispro (Insulin Lispro 100 Unit/Ml 3 Ml Vial) 0 unit SUBCUT QIDACHS [facility]; Protocol Last Admin: 01/18/23 07:53 Dose: Not Given Documented By: SANAZ Non-Admin Reason: No Insulin Coverage Levothyroxine Sodium (Levothyroxine Sodium 150 Mcg Tablet) 150 mcg PO DAILY@0600 [facility] Last Admin: 01/18/23 05:35 Dose: 150 mcg Documented By: DIAN Metronidazole (Metronidazole 0.75 % Gel 45 Gm Tube) 1 appl TOPICAL BID PRN PRN Reason: rosacea rash Omeprazole (Omeprazole 20 Mg Kristen.) 20 mg PO DAILY@0630 [facility] Last Admin: 01/18/23 05:35 Dose: 20 mg Documented By: DIAN Tizanidine HCl (Tizanidine Hcl 4 Mg Tablet) 4 mg PO Q8H PRN PRN Reason: muscle spasms Labs 01/18/23 05:10 01/18/23 05:10 Labs: Laboratory Results - last 24 hr 01/17/23 01/17/23 01/18/23 16:02 20:21 05:10 MCV 85.2 MCH 26.4 L MCHC 31.0 RDW 14.1 Plt Count 250 MPV 10.7 Immature Gran % (Auto) 0.5 H Neut % (Auto) 82.7 H Lymph % (Auto) 8.3 L [place] % (Auto) 8.2 Eos % (Auto) 0.1 Baso % (Auto) 0.2 Lymph # (Auto) 1.1 L [place] # (Auto) 1.1 Eos # (Auto) 0.0 Baso # (Auto) 0.0 Abs Immat Gran (auto) 0.06 H Absolute Neuts (auto) 10.7 H Absolute Nucleated RBC 0.000 Nucleated RBC % (auto) 0.0 Anion Gap 9 L Estim Creat Clear Calc 69.6 Estimated GFR > 60 POC Glucose 181 H 207 H Fasting Glucose 158 H Calcium 9.5 D 01/18/23 07:45 MCV MCH MCHC RDW Plt Count MPV Immature Gran % (Auto) Neut % (Auto) Lymph % (Auto) [place] % (Auto) Eos % (Auto) Baso % (Auto) Lymph # (Auto) [place] # (Auto) Eos # (Auto) Baso # (Auto) Abs Immat Gran (auto) Absolute Neuts (auto) Absolute Nucleated RBC Nucleated RBC % (auto) Anion Gap Estim Creat Clear Calc Estimated GFR POC Glucose 118 H Fasting Glucose Calcium Assessment and Plan (1) Primary osteoarthritis of right hip: Status: Acute Plan 77yo F s/p R SALOMON for OA 01/17/23, hospitalist consultation for management of comorbid medical conditions today is POD1 ALEXANDRE - continue CPAP 12 cm at night DM2 - at home, on Januvia plus MTF plus Trulicity with A1c 6.5 11/28/22; use betsy-dose lispro in hospital carcinoid tumor - s/p VATS resection with recent clear CT HLD - continue statin hypothyroidism - continue LT4 HTN - continue lisinopril anxiety - fluoxetine VTE ppx - LMWH when cleared by Ortho, should have 30d postop Thank you for this consultation. We are signing off the case at this time. Please communicate with us if any new medical questions arise. Total time managing care of this patient today: 25 minutes. Quality Stroke Does the patient have a stroke diagnosis?: No VTE Prior VTE?: No VTE Risk Level:: Medical - moderate - high VTE Device Contraindication: N/A - Device Ordered VTE Drug Contraindication: N/A - Med Ordered
--- NOTE | 2023-01-18 10:52 | W.PM.OPN ---
Operative Note Operative Note Date of Service: 01/17/23 Narrative: Date of Service: 01/17/23 Pre-op diagnosis: Right Hip OA Post-op diagnosis: same Procedure: Right SALOMON Implants: [place] Trident 50/10 deg liner Stryler Accolade2 #4 127 deg with + 0/32 ceramic Surgeon: Alejandro Reed MD Anesthesia: GETA and local Was an Requisition Approver used for this Procedure?: Yes Requisition Approver: Lizandro Jeff Estimated blood loss (mL): 175 IV fluids (mL): 1,000 Pathology: other Condition: stable Disposition: PACU Procedure in detail: Patient was brought into the operating room and placed in the right lateral decubitus position. All bony prominences were well padded and the limb was prepped and draped in standard sterile fashion. A time-out was called to identify proper site procedure proper surgeon IV antibiotics and 1 g of transaxemic acid were administered. I began by making a curvilinear incision over the posterolateral aspect of the greater trochanter. Dissection was taken down to the tensor fascia which was incised in line with the incision and a Charnley retractor was placed. Cautery was used to maintain hemostasis. The hip was internally rotated and the external rotators were identified. The vessels were cauterized and a full-thickness capsular/external rotator layer was developed starting just proximal to the piriformis. This layer was tagged and a dull Hohmann retractor was placed underneath the neck in the hip was dislocated. A neck cut was made 1 cm proximal to the lesser trochanter and the head and neck were removed and measured 46mm on the back table. I then removed the labrum and cauterized the fovea. I started with a 42 reamer and medialized to the inner table. I sequentially reamed up to a size 50 and impacted a 50mm cup at 45 degrees of inclination and 25 degrees of version. I then placed a 10 deg posterior lipped liner and turned my attention to the femur. I identified the piriformis insertion and used this as a starting point for my bethany cutter. The medius tendon was protected with a Hibs retractor. A Charnley awl was inserted in the canal and a curved curette used to remove the lateral bone. I irrigated copiously. I then sequentially broached in the patient's natural version to a size 4 and placed my trial implants. I used a #4/127/+0 based on my pre-operative template. Using a trail head I took the hip through range of motion. I was satisfied with the stability. A -4 head was not stable. I removed all instrumentation and copiously irrigated. I placed my final femoral implant and again took the hip through range of motion and was satisfied with the stability and length. The final +0/32 implant was impacted in place and the hip reduced. I then irrigated for 3 minutes with iodine and placed 1 g of local transaxemic acid. I performed a capsular closure with 2.0 fiberwire, Nga's fascia with 0 Vicryl, subcuticular with 2-0 Vicryl and the skin with magalis. Patient was placed into a sterile dressing. Radiographs were taken prior to extubation and I was satisfied with the alignment. Patient was extubated brought to the recovery room in stable condition. There were no known complications.
[2023-01-18 11:18] LABS: Glucose, Whole Blood 138 mg/dL (60-115)
[2023-01-18] MEDS: Aspirin 325 MG TABLET PO ×2 (12:56→20:53)
--- NOTE | 2023-01-18 13:30 | MHC.CM.NN ---
pt lives with had no previous servceis will be going home with home pt thru [facility] pt has opwn ride home
[2023-01-18] MEDS: Acetaminophen 325 MG TABLET 650 MG PO (16:06)
[2023-01-18] MEDS: 0.9 % Sodium Chloride Flush 3 ML SYRINGE IVFLUSH ×2 (16:09→20:53)
[2023-01-18 16:14] LABS: Glucose, Whole Blood 159 mg/dL (60-115)
[2023-01-18] MEDS: Insulin Lispro 100 UNIT/ML 3 ML VIAL SUBCUT ×2 (16:38→20:52)
[2023-01-18 20:22] LABS: Glucose, Whole Blood 214 mg/dL (60-115)
[2023-01-19] MEDS: oxyCODONE HCl Immed Release 5 MG TABLET PO ×2 (02:36→07:29)
[2023-01-19 03:27] VITALS: BP 116/57; PULSE 65; RESP 18; TEMP 36.6; O2SAT 96
[2023-01-19] MEDS: Levothyroxine Sodium 150 MCG TABLET PO (05:48)
[2023-01-19] MEDS: Omeprazole 20 MG CAPSULE.DR PO (05:48)
--- NOTE | 2023-01-19 06:47 | HO.POSTANES ---
Post Anesthesia Evaluation Post Anesthesia Evaluation Date of Service: 01/19/23 Vital Signs: Vital Signs Temp Pulse Resp BP Pulse Ox O2 Del Method 01/19/23 03:27 97.8 F 65 18 116/57 L 96 Room Air 01/18/23 23:51 97.7 F 54 18 130/60 98 Room Air 01/18/23 19:14 97.5 F 68 18 135/60 97 Room Air Anesthesia: General Mental Status: Awake Pain Control: Satisfactory Nausea/Vomiting: None Hydration: Adequate Anesthesia-Related Issues: No Anes. Related Issues
[2023-01-19 07:53] LABS: Glucose, Whole Blood 141 mg/dL (60-115)
[2023-01-19] MEDS: Aspirin 325 MG TABLET PO (08:28)
[2023-01-19] MEDS: oxyCODONE HCl ER 10 MG TAB.ER.12H PO (08:28)
[2023-01-19] MEDS: FLUoxetine HCl 20 MG CAPSULE PO (08:29)
[2023-01-19] MEDS: Docusate Sodium 100 MG CAPSULE PO (08:29)
[2023-01-19] MEDS: Celecoxib 200 MG CAPSULE PO (08:29)
[2023-01-19] MEDS: 0.9 % Sodium Chloride Flush 3 ML SYRINGE IVFLUSH (08:30)
--- NOTE | 2023-01-19 08:49 | P.DS_ITS ---
DS: Providers Provider Date of Service: 01/19/23 Date of admission: 01/17/23 09:32 Primary care physician: Roberto Rojas MD DS: Diagnosis Discharge Diagnosis (1) Primary osteoarthritis of right hip: Status: Acute DS: Summary Hospital Course Hospital Course: The patient underwent a successful right total hip arthroplasty, they were transferred to PACU and then to the floor to recover. During their stay, their vitals were stable, afebrile at 97.4. Labs were unremarkable, H/H 10.5/33.9. POD 1 they were started on Aspirin 325mg po bid for DVT ppx, they also received Physical Therapy services twice a day. Prior to discharge, their dressing was changed, incision clean dry and intact, new Aquacel dressing applied and the plan was to be discharged home with VNA services. Time Attestation Discharge coordination time: Less than 30 minutes Quality: Safe Use of Opioids Does Pt have an Active Cancer Diagnosis on the Problem List?: No Quality: Stroke Does the patient have a stroke diagnosis?: No Physical Exam Vital Signs: Vital Signs: Last Vital Signs Temp 97.8 F 01/19/23 03:27 Pulse 65 01/19/23 03:27 Resp 18 01/19/23 03:27 BP 116/57 L 01/19/23 03:27 Pulse Ox 96 01/19/23 03:27 O2 Del Method Room Air 01/19/23 03:27 O2 Flow Rate 2 01/17/23 15:44 BMI result Body Mass Index 34.8 Const: General: cooperative, healthy appearing and no acute distress Resp: Effort & Inspection: normal respiratory effort and able to speak in complete sentences Cardio: Rate: regular rate Peripheral pulses: Peripheral pulses 2+ throughout GI: Palpation (GI): Soft to palpation Skin: Lesions: no lesions Rashes: no rashes Extrem: Other: Right hip dressing is c/d/i. [place] intact. No erythema or drainage. Able to dorsi/plantar flex. Calf is supple and nontender. Sensation intact. Pedal pulse intact. DS: Data Data Completed and Pending Pending studies at discharge: Pending at discharge 01/17/23 13:41 Surgical [PTH] Routine Labs on day of discharge: Laboratory Results - last 24 hr 01/18/23 01/18/23 01/18/23 11:12 16:03 20:19 POC Glucose 138 H 159 H 214 H 01/19/23 07:15 POC Glucose 141 H Discharge Plan Discharge Anticipated Discharge Date/Time: 01/19/23 08:46 Patient Disposition: Home Health Service Discharge Diagnosis: s/p RTHA Referrals: Lizandro Jeff PA-C [Physician Supervisor Color Making] - 02/02/23 1:00 pm Discharge Medications: New celecoxib 200 mg Capsule 200 mg PO BID 30 Days Qty: 60 0RF acetaminophen 325 mg Tablet 650 mg PO Q6H PRN (Reason: Pain, Mild (Pain Scale 1-3)) 30 Days Qty: 240 0RF aspirin 325 mg Tablet 325 mg PO BID 42 Days Qty: 84 0RF docusate sodium 100 mg Capsule 100 mg PO BID 60 Days Qty: 120 0RF oxycodone 5 mg Tablet 5 mg PO Q4H PRN (Reason: Pain, Moderate(Pain Scale 4-6)) 7 Days Qty: 42 0RF Rx Instructions: Partial Fill upon patient request. Continued (DME) DIABETIC SHOES See Rx Instructions .Route .MEDSUPPLY Qty: 2 0RF Rx Instructions: As directed - Dx: E11.9 fluoxetine 20 mg capsule 20 mg PO QAM 90 Days Qty: 90 1RF levothyroxine [Synthroid] 150 mcg tablet 150 mcg PO QAM Qty: 90 3RF metformin 850 mg tablet 850 mg PO BID 90 Days Qty: 180 2RF (DME) walker Misc See Rx Instructions .MEDSUPPLY Qty: 1 0RF Rx Instructions: Folding Front wheeled walker lisinopril 30 mg tablet 30 mg PO QAM 90 Days Qty: 90 1RF atorvastatin 10 mg tablet 10 mg PO QAM omeprazole 20 mg capsule,delayed release(DR/EC) 20 mg PO QAM Januvia 100 mg tablet 100 mg PO QAM cholecalciferol (vitamin D3) [Vitamin D3] 25 mcg (1,000 unit) Tablet 25 mcg PO BID coenzyme Q10 [Co Q-10] 400 mg Capsule 400 mg PO QAM tizanidine 4 mg tablet 4 mg PO Q8H PRN (Reason: muscle spasms) 30 Days Qty: 90 0RF metronidazole 0.75 % cream 1 appl topical BID PRN (Reason: rosacea rash) Qty: 45 1RF dulaglutide 1.5 mg/0.5 mL pen injector 1.5 mg subcut QWEEK 90 Days Qty: 6.5 3RF Discharge Orders: Discharge Order (Routine); Ordered 01/19/23 Ordered By: Lakeisha Argueta Diet: Advance to usual diet Activity on Discharge: Use cane or walker Stand Alone Forms: Patient Portal Discharge page Care Plan Goals: Restore fxn to right hip Health Concerns: None Plan of Treatment: Physical Therapy for total hip arthroplasty: posterior precautions, gait training, ROM, strength Limit stair climbing No showering, no tub bath-keep dressing clean, dry and intact No driving x6 weeks Continue Lovenox tabs once a day x 4 weeks Follow up with [facility] in 2 weeks Assessment: Stable for d/c
--- NOTE | 2023-01-19 08:50 | P.F2F_ITS ---
Service Date Service Date: 01/19/23 Encounter Date of encounter: 01/19/23 Reasons for Services Signs and symptoms assessed: s/p RTHA. Pt. is considered homebound due to recent surgery. Unable to drive, poor balance, poor gait mechanics. Reason for physical therapy: home safety and mobility, therapeutic exercises, restore joint function, gait/transfer training, assess need for DME and ADL training Reason for occupational therapy: home safety and mobility, therapeutic exercises, restore joint function, gait/transfer training, assess need for DME and ADL training Homebound: Leaving the home is medically contraindicated at this time without the asist of a device and/or another person due th the listed conditions above and below. Reason homebound: unsteady gait / fall risk, leg weakness, pain with ambulation, pain with transfers, poor balance / fall risk and unable to drive Certification: Based on the above findings, I certify that this patient is confined to the home and needs intermittent group home care, physical therapy and/or speech therapy, or continues to need occupational therapy. The patient is under my care, and I have initiated the establishment of the plan of care. The patient will be followed by a physician who will periodically review the plan of care. Time Spent With Patient Time: Total time managing care of this patient today ____ minutes.
--- NOTE | 2023-01-19 09:01 | MHC.CM.PN ---
PT WILL DC HOME TODAY WITH NIKOLAY BARKER FOR HOME PT FAMILY TO TRANSPORT
[2023-01-19 09:14] VITALS: BP 116/57; PULSE 65; O2SAT 96
[2023-01-19] MEDS: Acetaminophen 325 MG TABLET 650 MG PO (10:45)
== END 2023-01-19 11:15 | disposition home health service (06) | DRG 470 ==
LOC: HO.SSSA 09:38 → HO.S3 14:37
PROVIDERS: Physician Assistant; Admitting Provider Orthopaedic Surgery; PCP Internal Medicine; Visit Provider Orthopaedic Surgery
PROC: 0SR903A Replacement of Right Hip Joint with Ceramic Synthetic Substitute, Uncemented, Open Approach (ICD-10-PCS; CPT 27130; principal; 2023-01-17 11:50)
DX: M16.11 Unilateral primary osteoarthritis, right hip (principal); E11.9 Type 2 diabetes mellitus without complications; E78.5 Hyperlipidemia, unspecified; I10 Essential (primary) hypertension; F41.9 Anxiety disorder, unspecified; G47.33 Obstructive sleep apnea (adult) (pediatric); Z90.2 Acquired absence of lung [part of]; Z79.84 Long term (current) use of oral hypoglycemic drugs; Z79.85 Long-term (current) use of injectable non-insulin antidiabetic drugs; Z79.899 Other long term (current) drug therapy
CPT/HCPCS: 27130; 36415; 72170; 80048; 82947; 85025; 86850; 86900; 86901; 87640; 87641; 88304; 88311; 97116; 97161; 97165; 97535; C1776; J0131; J1100; J1170; J1885; J2405; J2704; J2795; J3010; J3371; J7120

== ENCOUNTER → 2023-01-17 09:32 | Outpatient (BNV) | payer MEDICARE, OTHER, SELFPAY | PROVIDERS: Admitting Provider Orthopaedic Surgery; PCP Internal Medicine; Visit Provider Family Medicine | DX: M16.11 Unilateral primary osteoarthritis, right hip (principal) | CPT/HCPCS: 99223; 99231 ==

== ENCOUNTER → 2023-01-17 09:32 | Outpatient (BNV) | payer MEDICARE, OTHER, SELFPAY | PROVIDERS: Admitting Provider Orthopaedic Surgery; PCP Internal Medicine; Visit Provider Orthopaedic Surgery | DX: Z47.1 Aftercare following joint replacement surgery (principal); Z96.641 Presence of right artificial hip joint; M16.11 Unilateral primary osteoarthritis, right hip | CPT/HCPCS: 27130; 99024; G0180 ==

== ENCOUNTER 2023-02-02 12:54 | Outpatient (AMB) | payer MEDICARE, OTHER, SELFPAY ==
--- NOTE | 2023-02-02 12:58 | MHC.OFFVIS ---
Intake Intake Visit Reasons: PO RT SALOMON 01/17/23 NE Intake Note: THis is a 77 year old female who presents for a post op right SALOMON on 01/17/23 with NE. She reports she is doing well and denies pain at this time. Allergies amoxicillin [AMOXICILLIN] Allergy (Intermediate, Verified 02/02/23 13:00) Gastrointestinal Upset Sulfa (Sulfonamide Antibiotics) [SULFA (SULFONAMIDE ANTIBIOTICS)] Allergy (Intermediate, Verified 02/02/23 13:00) HIVES,RASH Medication List - Last Reconciled 02/02/23 by Yumi Shay RN acetaminophen 650 mg (2 x 325 mg) PO Q6H PRN 30 days aspirin 325 mg PO BID 42 days atorvastatin 10 mg PO QAM celecoxib 200 mg PO BID 30 days cholecalciferol (vitamin D3) (Vitamin D3) 25 mcg PO BID coenzyme Q10 (Co Q-10) 400 mg PO QAM [DIABETIC SHOES As directed - Dx: E11.9] docusate sodium 100 mg PO BID 60 days dulaglutide 1.5 mg (0.5 mL) subcut QWEEK 90 days fluoxetine 20 mg PO QAM 90 days levothyroxine (Synthroid) 150 mcg PO QAM lisinopril 30 mg PO QAM 90 days metformin 850 mg PO BID 90 days metronidazole 0.75% 1 appl topical BID PRN omeprazole 20 mg PO QAM oxycodone 5 mg PO Q4H PRN 7 days sitagliptin phosphate (Januvia) 100 mg PO QAM tizanidine 4 mg PO Q8H PRN 30 days walker Folding Front wheeled walker HPI PO RT SALOMON 01/17/23 NE HPI Details 77-year-old female who returns to the office today for post-op right SALOMON, 01/17/[address] Reed. She states she has no pain and is doing well overall. she has no concerns today. [facility] Medical History Cervical cancer [place] esophagus GERD (gastroesophageal reflux disease) Campoverde's palsy Allergic rhinitis Carcinoid tumor (~2021) Tubular adenoma of colon (~2002) Chest pain Obesity (BMI 30-39.9) Anxiety Urinary incontinence Primary osteoarthritis of both knees Acquired hypothyroidism Obstructive sleep apnea (~2005) Benign essential hypertension Diabetes mellitus Pure hypercholesterolemia Surgical History Hx of bilateral cataract extraction History of esophagogastroduodenoscopy (EGD) History of lung surgery History of bronchoscopy (~2021) History of colonoscopy History of pubovaginal sling (~2010) History of hysterectomy History of cholecystectomy (~1996) Family History Father Diabetes Hypertension Mother Diabetes Cancer Social History Household Members: Spouse Housing: House Are you a primary personal care aid to a significant other at home: No Do you presently have visiting nurse or other home services: No Alcohol intake: current Alcohol intake frequency: holidays/special occasions only Alcohol type: wine Patient Tobacco Use Status: Never used Tobacco e-Cigarette/Vaping Use: Never Used Second Hand Smoke Exposure: Yes service: No Current occupational status: retired Cognitive needs: No Hearing needs: Yes Vision needs: Yes Review of Systems Const All systems reviewed & are unremarkable except as noted in HPI and below Physical Exam Extrem Other: Right hip: Normal to inspection. No redness or drainage. She has no pain with ROM of hip. Mild discomfort with hip flexion. NVI. Assessment & Plan Assessment & Plan (1) Status post total replacement of right hip: Code(s): Z96.641 - Presence of right artificial hip joint Plan Niranjan removed, steri strips applied. She will begin to transition to Outpatient PT to continue working on Gait training, ROM and quad strength. No driving for another 4 weeks. She will require ppx abx for dental procedures. She will f/u in 4 weeks, sooner if needed. Orders: Orders PT Evaluation and Treatment 02/01/23 Z96.641 - Presence of right artificial hip joint Patient Instructions: Scribed for Lizandro Jeff PA-C, by Leno Santos medical administrative assistant, on 02/02/2023 at 1:00 PM EST. I, Lizandro Jeff PA-C, have personally reviewed and agree with the information entered by the scribe. Coding Level of Care Code Global (25457) Diagnoses Status post total replacement of right hip Z96.641
== END 2023-02-02 13:38 | disposition home or self-care (01) ==
PROVIDERS: PCP Internal Medicine; Visit Provider Physician Assistant
DX: Z96.641 Presence of right artificial hip joint (principal)
CPT/HCPCS: 99024

== ENCOUNTER → 2023-02-02 12:54 | Outpatient (BNVA) | payer MEDICARE, OTHER, SELFPAY | PROVIDERS: PCP Internal Medicine; Visit Provider Physician Assistant | DX: Z96.641 Presence of right artificial hip joint (principal) ==

== ENCOUNTER 2023-02-20 13:00 | Outpatient (RCR) | payer MEDICARE, OTHER, SELFPAY ==
--- NOTE | 2023-02-02 13:27 | MHC.PT.EP ---
[facility] [place] [facility] [place] [facility] [place] [facility] [address] Hiren Wade [address] [phone] F: [phone] F: [phone] F: [phone] F: [phone] Physical Therapy Plan of Care Date of Evaluation: 02/02/23 Date of Surgery: 01/17/23 Diagnosis: S/P RIGHT SALOMON (DR MELARA) Assessment: 66 YO FEMALE REF TO PT S/P Rt SALOMON , POSTERIOR APPROACH ON 01/17/23. SHE RESIDES W HER SPOUSE IN A 1 LEVEL HOME AND IS CURRENTLY AMB W A CANE. OBJECTIVE FINDINGS: LIMITED AROM Rt LE, TIGHT PSOAS MM SANDRA AND DECR ANKLE DF SANDRA; DECR STRENGTH IN PROX / LUMBOPELVIC AND Rt LE, POST-OP PAIN IN RIGHT HIP GIRDLE/ THIGH MM ,AND HEALING LATERAL Rt HIP INCISION. FUNCTIONALLY, SHE HAS COMPENSATORY GAIT, MODIFIED STAIR MGMT, DECR SLEEPING, AND DECR HECTOR TO MORE DYNAMIC ADLs . Pt IS A GOOD PT CANDIDATE TO GUIDE HER IN HER POST-OP SALOMON COURSE, REVIEWING SALOMON PRECAUTIONS, ADDRESSING THE ABOVE FINDINGS, PAIN MGMT, AND MAXIMIZING FUNCTIONAL INDEPENDENCE Frequency and Duration: The patient will be seen 2 x WK x 8 WKS Short Term Goals: *Pt INDEP W RIGHT SALOMON POSTERIOR PRECAUTIONS/ RESTRICTIONS W SIMUL ADLs *Pt WILL DEMON EFFICIENT GAIT MECHANICS W LEAST RESTRICTIVE ASST DEVICE ON LEVEL GROUND AND STAIRS *Pt'S RIGHT HIP PAIN WILL DECR TO 2-3/10 *Pt DEMON APPROP BED MOB/ POSITIONING/ SIT <-> STAND/ CAR TRANSFERS Mcc Goals: *Pt WILL IMPROVE LUMBOPELVIC/ Rt LE STRENGTH TO AT LEAST 5-/5 *Pt RESUME PLOF EVIDENT W IMPROVED LEFI SCORE AND BE ABLE TO WALK LONGER DISTANCES (AT EVAL 29/ ) *Pt INDEP W PROGR HEP AND SELF-SX MGMT TECHN Treatment Plan: Modalities to reduce pain, spasms and effusion. Manual therapy to restore motion and function. Therapeutic exercise to improve strength and flexibility. Neuromuscular re-education for posture and balance. Therapeutic activities to return to functional activities of daily living. Electronically signed by: JUSTIN GRAY,PT Please sign and return to therapist. Thank you for your referral.
== END 2023-04-04 13:44 | disposition home or self-care (01) ==
LOC: HO.PTWFD 13:00
PROVIDERS: PCP Internal Medicine; Visit Provider Physician Assistant
DX: Z96.641 Presence of right artificial hip joint (principal)
CPT/HCPCS: 97110; 97116; 97140; 97162; 97530

== ENCOUNTER 2023-03-02 13:52 | Outpatient (AMB) | payer MEDICARE, OTHER, SELFPAY ==
--- NOTE | 2023-03-02 13:57 | A.OFFVIS_ITS ---
Intake Intake Visit Reasons: P.O- right SALOMON on 01/17/23 NE Intake Note: Ariane a 77 year old female presents today for a post operative right SALOMON on 01/17/23 NE. Patient reports she is doing well, however she complains of discomfort in her right knee causing her to limp. States with certain leg exercises she has pain in her groin area. Completed PT. She is questioning if she would be able to start taking celebrex again as this provided her with the most relief. Allergies amoxicillin [AMOXICILLIN] Allergy (Intermediate, Verified 02/02/23 13:00) Gastrointestinal Upset Sulfa (Sulfonamide Antibiotics) [SULFA (SULFONAMIDE ANTIBIOTICS)] Allergy ( Intermediate, Verified 02/02/23 13:00) HIVES,RASH HPI P.O- right SALOMON on 01/17/23 NE HPI Details 77-year-old female who returns to the [facility] today for post-op right SALOMON, 01/17/[address] Reed. She states she has pain in her groin region with certain leg exercises as well as discomfort in her right knee. Her pain is aggravated with sleeping and stair use. She also c/o clicking and knee giving out. She walks with a limp. She is completed with physical therapy about a week ago. She is doing well otherwise and has no other concerns today. [facility] Medical History Cervical cancer [place] esophagus GERD (gastroesophageal reflux disease) Campoverde's palsy Allergic rhinitis Carcinoid tumor (~2021) Tubular adenoma of colon (~2002) Chest pain Obesity (BMI 30-39.9) Anxiety Urinary incontinence Primary osteoarthritis of both knees Acquired hypothyroidism Obstructive sleep apnea (~2005) Benign essential hypertension Diabetes mellitus Pure hypercholesterolemia Surgical History Hx of bilateral cataract extraction History of esophagogastroduodenoscopy (EGD) History of lung surgery History of bronchoscopy (~2021) History of colonoscopy History of pubovaginal sling (~2010) History of hysterectomy History of cholecystectomy (~1996) Family History Father Diabetes Hypertension Mother Diabetes Cancer Social History Household Members: Spouse Housing: House Are you a primary personal care assistant to a significant other at home: No Do you presently have visiting nurse or other home services: No Alcohol intake: current Alcohol intake frequency: holidays/special occasions only Alcohol type: wine Patient Tobacco Use Status: Never used Tobacco e-Cigarette/Vaping Use: Never Used Second Hand Smoke Exposure: Yes service: No Current occupational status: retired Cognitive needs: No Hearing needs: Yes Vision needs: Yes Review of Systems Const All systems reviewed & are unremarkable except as noted in HPI and below Physical Exam Extrem Other: Right hip: Incision well healed. She has good ROM of hip. No discomfort with hip flexion. She does have the lateral retropatellar tenderness in the right knee and crepitus with ROM. Assessment & Plan Assessment & Plan (1) Status post total replacement of right hip: Code(s): Z96.641 - Presence of right artificial hip joint Plan She will continue working on home exercises for glute strengthening and core stabilization. As far as her knee goes, she had Celebrex in the past which was helpful and I did send a prescription to her pharmacy today. We discussed cortisone injections today and if she does not have any relief in 6 weeks, we will discuss about having the injection. She will see us back in [address] Reed and new x-rays, sooner if needed. Medications: New amoxicillin take 4 capsules 1 hr prior to dental procedure 2,000 mg (4 x 500 mg) PO ONCE 4 tabs 3RF 1 day Refilled celecoxib 200 mg PO BID 60 caps 0RF 30 days Patient Instructions: Scribed for Lizandro Jeff PA-C, by Leno Santos certified medical aide, on 03/02/2023 at 2:00 PM EST. Lizandro Martinez PA-C, have personally reviewed and agree with the information entered by the scribe. Coding Level of Care Code Global (99887) Diagnoses Status post total replacement of right hip Z96.641
== END 2023-03-02 14:13 | disposition home or self-care (01) ==
PROVIDERS: PCP Internal Medicine; Visit Provider Physician Assistant
DX: Z96.641 Presence of right artificial hip joint (principal)
CPT/HCPCS: 99024

== ENCOUNTER → 2023-03-02 13:52 | Outpatient (BNVA) | payer MEDICARE, OTHER, SELFPAY | PROVIDERS: PCP Internal Medicine; Visit Provider Physician Assistant | DX: Z47.1 Aftercare following joint replacement surgery (principal); Z96.641 Presence of right artificial hip joint | CPT/HCPCS: 99212 ==

== ENCOUNTER 2023-03-20 12:28 | Outpatient (AMB) | payer MEDICARE, OTHER, SELFPAY ==
[2023-03-20 12:34] VITALS: BP 124/72; PULSE 68; O2SAT 99; BMI 34.3
--- NOTE | 2023-03-20 12:34 | A.OFFPC_ITS ---
Vital Signs 03/20/23 12:34 Height 5 ft 6 in Weight 212 lb 8 oz BMI 34.3 BP 124/72 Blood Pressure Location Rt femoral Position Sitting Pulse 68 Pulse Source Pulse Oximeter Pulse Oximetry (%) 99 Oxygen Delivery Method Room Air Intake Visit Reasons: 3mth f/u Wet Trimmer Required: No Accompanied by: Self / Same As Patient Allergies amoxicillin [AMOXICILLIN] Allergy (Intermediate, Verified 03/20/23 12:50) Gastrointestinal Upset Sulfa (Sulfonamide Antibiotics) [SULFA (SULFONAMIDE ANTIBIOTICS)] Allergy (Intermediate, Verified 03/20/23 12:50) HIVES,RASH Medication List - Last Reconciled 03/20/23 by Roberto Rojas MD acetaminophen 650 mg (2 x 325 mg) PO Q6H PRN 30 days amoxicillin 2,000 mg (4 x 500 mg) PO ONCE 1 day aspirin 325 mg PO BID 42 days atorvastatin 10 mg PO QAM celecoxib (Celebrex) 200 mg PO BID celecoxib 200 mg PO BID 30 days cholecalciferol (vitamin D3) (Vitamin D3) 25 mcg PO BID coenzyme Q10 (Co Q-10) 400 mg PO QAM [DIABETIC SHOES As directed - Dx: E11.9] docusate sodium 100 mg PO BID 60 days dulaglutide 1.5 mg (0.5 mL) subcut QWEEK 90 days fluoxetine 20 mg PO QAM 90 days levothyroxine (Synthroid) 150 mcg PO QAM lisinopril 30 mg PO QAM 90 days metformin 850 mg PO BID 90 days metronidazole 0.75% 1 appl topical BID PRN omeprazole 20 mg PO QAM oxycodone 5 mg PO Q4H PRN 7 days sitagliptin phosphate (Januvia) 100 mg PO QAM tizanidine 4 mg PO Q8H PRN 30 days walker Folding Front wheeled walker Tobacco use date assessed: 03/20/23 Fall risk assessment: 2 + Falls in past year Last assessed Fall Risk: 03/20/23 Dental Screening Dental Screen Date: 03/20/23 Did you have a dental visit in the last 12 months?: Yes Did you have a dental problem in the last 6 months where you did not have access to dental care?: No Was dental information given to patient?: Patient has dentist HPI 3mth f/u HPI Details Patient comes in today for her follow up visit States that she feels okay Had total right hip arthroplasty a couple of months ago and states that her surgery went well, with significant improvement of her hip pain after her surgery States that she also recently completed physical therapy for her hip and she continues to do the exercises taught to her by physical therapy regularly She denies any headaches or dizziness Denies any chest pains, no SOB No nausea/vomiting, no abdominal pain No change in bowel habits noted Was not able to get her follow up labs done prior to her visit today - states that she will try to get her labs done sometime in the next few days [facility] Medical History Primary osteoarthritis of right hip Cervical cancer [place] esophagus GERD (gastroesophageal reflux disease) Campoverde's palsy Allergic rhinitis Carcinoid tumor (~2021) Tubular adenoma of colon (~2002) Chest pain Obesity (BMI 30-39.9) Anxiety Urinary incontinence Primary osteoarthritis of both knees Acquired hypothyroidism Obstructive sleep apnea (~2005) Benign essential hypertension Diabetes mellitus Pure hypercholesterolemia Surgical History (Updated 03/20/23 @ 12:54 by Roberto Rojas MD) Status post total replacement of right hip (~01/17/23) Hx of bilateral cataract extraction History of esophagogastroduodenoscopy (EGD) History of lung surgery History of bronchoscopy (~2021) History of colonoscopy History of pubovaginal sling (~2010) History of hysterectomy History of cholecystectomy (~1996) Family History Father Diabetes Hypertension Mother Diabetes Cancer Social History Household Members: Spouse Housing: House Are you a primary health care attorney to a significant other at home: No Do you presently have visiting nurse or other home services: No Alcohol intake: current Alcohol intake frequency: holidays/special occasions only Alcohol type: wine Patient Tobacco Use Status: Never used Tobacco e-Cigarette/Vaping Use: Never Used Second Hand Smoke Exposure: Yes service: No Current occupational status: retired Cognitive needs: No Hearing needs: Yes Vision needs: Yes Questionnaire PHQ-9 Over the last 2 weeks, how often have you been bothered by any of the following problems? 1. Little interest or pleasure in doing things: not at all 2. Feeling down, depressed, or hopeless: not at all 3. Trouble falling or staying asleep, or sleeping too much: not at all 4. Feeling tired or having little energy: not at all 5. Poor appetite or overeating: not at all 6. Feeling bad about yourself - or that you are a failure or have let yourself or your family down: not at all 7. Trouble concentrating on things, such as reading the newspaper or watching television: not at all 8. Moving or speaking so slowly that other people could have noticed. Or the opposite - being so fidgety or restless that you have been moving around a lot more than usual: not at all 9. Thoughts that you would be better off or of hurting yourself in some way: not at all Total score: 0 Depression Screening Interpretation: Negative Depression Screening Done: Yes [id number] - PHQ-9 Billing: Yes Source: Developed by Drs. Tim Torres, Caitie Nguyen, Justin Fallon and colleagues, with an educational ion from [employer]. Thrive Questionnaire Date Thrive assessed: 03/20/23 I am a: Patient What is your living situation today?: I have a steady place to live Within the past 12 months, did the food you bought not last and you didn't have the money to get more?: Never true Within the past 12 months, did you worry whether your food would run out before you got money to buy more?: Never true Do you have trouble paying for medicines?: No Do you have trouble getting transportation to medical appointments?: No Do you have trouble paying your heating and electricity bill?: No Do you have trouble taking care of your child, family member or friend?: No Do you have trouble with day-to-day activities such as bathing, preparing meals, shopping, managing finances, etc.?: No Are you currently unemployed and looking for a job?: No Are you interested in more education?: No Please select the resources that you would like help with: None Currently or been in a relationship where the following occur: no concerns reported AUDIT C Alcohol Use Questionnaire (AUDIT-C) 1. How often do you have a drink containing alcohol?: Monthly or less 2. How many drinks containing alcohol do you have on a typical day when you are drinking?: 1 or 2 3. How often do you have six or more drinks on one occasion?: Never Total Score: 1 Score Reviewed/Action Taken: Yes SEBAS-7 AMB Questionnaire SEBAS-7 Date SEBAS - 7 assessed: 03/20/23 Feeling nervous, anxious, or on edge: 0 = Not at all Not being able to stop or control worryin = Not at all Worrying too much about different things: 0 = Not at all Trouble relaxin = Not at all Being so restless that it is hard to sit still: 0 = Not at all Becoming easily annoyed or irritable: 0 = Not at all Feeling afraid as if something awful might happen: 0 = Not at all Total SEBAS-7 score (0-4 normal; 5-9 mild; 10-14 moderate; 15-21 severe): 0 Source: Developed by Drs. Tim Torres, Caitie Nguyen, Justin Fallon and colleagues, with an educational ion from [employer]. Review of Systems Const Denies chills, Denies fatigue, Denies fever(s) and Denies headache(s) ENT Denies dysphagia, Denies dizziness, Denies otalgia, Denies headache(s), Denies neck pain, Denies odynophagia and Denies sore throat Card Denies chest pain, Denies palpitations and Denies dyspnea Resp Denies cough and Denies dyspnea GI Denies abdominal pain, Denies constipation, Denies dysphagia, Denies heartburn, Denies diarrhea, Denies nausea, Denies odynophagia and Denies vomiting Denies difficulty voiding, Denies nocturia and Denies dysuria Musc Reports arthralgias (over both knees; right hip pain has improved with SALOMON recently), Denies neck pain and Reports stiffness Skin/Breast Denies rash Neuro Denies dizziness and Denies headache(s) Endo Denies fatigue and Denies palpitations Physical exam (Primary Care) Vital Signs: Last Vital Signs Pulse 68 03/20/23 12:34 BP 124/72 03/20/23 12:34 Pulse Ox 99 03/20/23 12:34 Oxygen Delivery Method Room Air 03/20/23 12:34 BMI result Body Mass Index 34.3 Tobacco/Smoking Status: Tobacco use Status Tobacco use date assessed 03/20/23 03/20/23 12:40 Patient Tobacco Use Status Never used Tobacco 03/20/23 12:40 e-Cigarette/Vaping Use Never Used 03/20/23 12:40 PHQ-9: PHQ-9 Score PHQ-9: Total score 0 03/20/23 12:40 Depression Screening Interpretation: Negative Thrive Assessment: Date of Thrive Assessment Date Thrive assessed 03/20/23 03/20/23 12:40 Currently or been in a relationship where the following occur: no concerns reported Const General: no acute distress and alert HENMT Ears: TM's normal bilaterally and EAC's normal Throat: Yes posterior oropharynx normal and Yes tonsils normal (no TP congestion noted) Neck Neck: Yes no lymphadenopathy and Yes supple Resp Auscultation: clear to auscultation bilaterally, no rales and no wheezes Cardio Rate: regular rate Rhythm: regular rhythm Heart sounds: no murmurs GI Palpation (GI): Soft to palpation and nontender Auscultation: normal bowel sounds Back/Spine/Pelvis Thoracic/Lumbar Spine: paraspinal muscle tenderness on the right in the lower lumbar and lumbar spinal tenderness Skin Rashes: no rashes Extrem General: Yes no clubbing, cyanosis or edema Right lower extremity: knee Details: tenderness; no swelling Left lower extremity: knee Details: tenderness; no swelling Assessment and Plan Assessment & Plan (1) Benign essential hypertension: Code(s): I10 - Essential (primary) hypertension Plan: Reinforced low sodium diet - goal is systolic BP of at least 140 mm or less Patient states that her BP is usually much lower when she checks it at home Continue Lisinopril 30 mg QD Patient is reminded to continue monitoring her blood pressure regularly (2) Diabetes mellitus: Comment: type 2-dx ~2016-glucose usually [phone] Trulicity (takes on Tuesdays), Metformin, Januvia Code(s): E11.9 - Type 2 diabetes mellitus without complications Qualifiers: Diabetes mellitus type: type 2 Diabetes mellitus usp insulin use: without usp use Diabetes mellitus complication status: without complication Qualified Code(s): E11.9 - Type 2 diabetes mellitus without complications Plan: She has not been able to get her follow up labs done recently HgbA1c has improved to 6.5% on her labs done a few months ago (was previously at 6.6%) - goal is < 7.0% Reinforced diabetic diet Continue Metformin 850 mg BID, Januvia 100 mg QD and Trulicity 1.5 mg SQ once a week (3) Pure hypercholesterolemia: Code(s): E78.00 - Pure hypercholesterolemia, unspecified Plan: Patient states that she will try to get her follow up labs done NIALL Reinforced low cholesterol diet Continue Atorvastatin 10 mg QD Will recheck her labs and fasting lipids in 3 months for follow up (4) Primary osteoarthritis of right hip: Code(s): M16.11 - Unilateral primary osteoarthritis, right hip Plan: S/P total right hip arthroplasty with Dr. Reed on 01/17/2023, with (+) significant improvement of her hip symptoms Patient also recently completed physical therapy for her right hip and she continues to do the exercises taught to her by physical therapy regularly Follow up with orthopedics as scheduled (5) Primary osteoarthritis of both knees: Code(s): M17.0 - Bilateral primary osteoarthritis of knee Plan: Follow up with orthopedics as scheduled (6) Low back pain with right-sided sciatica: Code(s): M54.41 - Lumbago with sciatica, right side Qualifiers: Chronicity: unspecified Back pain laterality: right Qualified Code(s): M54.41 - Lumbago with sciatica, right side Plan: Reinforced activity and weight-lifting restrictions Repeat lumbar spine and SI joint x-rays done back in August 2022 revealed (+) degenerative changes of the lumbar spine and SI joints May continue taking Tylenol PRN and Tizanidine 4 mg TID PRN but as she reports no relief from Tylenol recently, she was started on a trial of Meloxicam 15 mg QD PRN with food - states that Meloxicam helped a lot but she is concerned that this is affecting her BP and she stopped taking it about a week ago She is advised to start back on Meloxicam for now to help with her pain - explained that while it is true that taking Meloxicam may increase her blood pressure, significant pain can also cause her blood pressure to increase She is reminded to stop taking Meloxicam and all other NSAIDs about 7 days before her scheduled surgery next month Advised also that physical therapy may also be an option and she can call for referral at any time if she wishes to try physical therapy for her back pain (7) Hypercalcemia: Code(s): E83.52 - Hypercalcemia Plan: Serum calcium level was normal at 9.5 when last checked on 01/18/2023 PTH level checked a couple of times in the past have come back normal Follow up with endocrinology as scheduled (8) Carcinoid tumor: Onset Date: ~2021 Comment: (s/p RLL wedge resection 09/2021) Code(s): D3A.00 - Benign carcinoid tumor of unspecified site Qualifiers: Carcinoid tumor malignancy status: benign Carcinoid tumor location: lung Qualified Code(s): 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 Wilson on 09/29/21; states that she has been doing well since with no acute issues Follow up with thoracic surgery (Dr. Wilson) as scheduled for continuing surveillance - was last seen back in August 2022 and will have repeat chest CT in 1 year (9) Acquired hypothyroidism: Code(s): E03.9 - Hypothyroidism, unspecified Plan: Continue Levothyroxine 150 mcg QD Will continue to monitor her TFTs regularly (10) Elevated liver enzymes: Code(s): R74.8 - Abnormal levels of other serum enzymes Plan: Improved; LFTs have remained normal on her previous labs - will continue to monitor this closely Is most likely due to her weight (hepatosteatosis) - this was confirmed on abdominal US in the past (11) Obstructive sleep apnea: Onset Date: ~2005 Comment: (ALEXANDRE on CPAP) Code(s): G47.33 - Obstructive sleep apnea (adult) (pediatric) Plan: Continue using her CPAP device when she sleeps at night - patient continues to experience significant improvement/resolution of her fatigue and daytime somnolence with the regular use of her CPAP device (12) GERD without esophagitis: Code(s): K21.9 - Gastro-esophageal reflux disease without esophagitis Plan: Dietary restrictions reinforced Continue Omeprazole 20 mg QD PRN (13) Anxiety: Code(s): F41.9 - Anxiety disorder, unspecified Plan: Continue Fluoxetine 20 mg QD (14) Obesity (BMI 30-39.9): Code(s): E66.9 - Obesity, unspecified Plan: Reinforced diet; exercise is not realistic at present due to patient's multiple physical issues Plan Follow up in 3 months Orders: Orders Complete Blood Count Auto Diff 3 Months D64.9 - Anemia, unspecified Lipid Panel 3 Months E78.00 - Pure hypercholesterolemia, unspecified Vitamin D 25-OH Total 3 Months E55.9 - Vitamin D deficiency, unspecified Thyroid Stimulating Hormone 3 Months E03.9 - Hypothyroidism, unspecified Comprehensive [place]. Panel Fast 3 Months E78.00 - Pure hypercholesterolemia, unspecified Hemoglobin A1c 3 Months E11.9 - Type 2 diabetes mellitus without complications Microalbumin, Random (w Creat) 3 Months E11.9 - Type 2 diabetes mellitus without complications UA CC w/rflx Micro + Cult 3 Months R30.0 - Dysuria Vitamin B12 and Folate 3 Months E53.8 - Deficiency of other specified B group vitamins Free T4 (Free Thyroxine) 3 Months E03.9 - Hypothyroidism, unspecified Coding Level of Care Code Est Pt Level 4 (30464) Diagnoses Benign essential hypertension I10 Type 2 diabetes mellitus without complication, without long-term current use of insulin E11.9 Diabetes mellitus type: type 2 Diabetes mellitus usp insulin use: without usp use Diabetes mellitus complication status: without complication Pure hypercholesterolemia E78.00 Primary osteoarthritis of right hip M16.11 Primary osteoarthritis of both knees M17.0 Right-sided low back pain with right-sided sciatica, unspecified chronicity M54.41 Chronicity: unspecified Back pain laterality: right Hypercalcemia E83.52 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
== END 2023-03-20 13:04 | disposition home or self-care (01) ==
PROVIDERS: PCP Internal Medicine; Visit Provider Internal Medicine
DX: I10 Essential (primary) hypertension (principal); E11.9 Type 2 diabetes mellitus without complications; D3A.090 Benign carcinoid tumor of the bronchus and lung; E78.00 Pure hypercholesterolemia, unspecified; M16.11 Unilateral primary osteoarthritis, right hip; M17.0 Bilateral primary osteoarthritis of knee; M54.41 Lumbago with sciatica, right side; E83.52 Hypercalcemia; E03.9 Hypothyroidism, unspecified; R74.8 Abnormal levels of other serum enzymes; G47.33 Obstructive sleep apnea (adult) (pediatric)
CPT/HCPCS: 99214

== ENCOUNTER 2023-03-24 09:00 | Outpatient (REF) | payer MEDICARE, OTHER, SELFPAY ==
[2023-03-24 10:29] LABS: MANUAL DIFF FLAG NO
[2023-03-24 10:38] LABS: Basophils Percent Auto 0.6 % (0-2); Eosinophils Absolute Auto 0.3 X10*3/uL (0.0-0.4); Eosinophils Percent Auto 4.2 % (0-4); Hematocrit 41.6 % (37.0-47.0); Hemoglobin 13.2 g/dl (12.0-16.0); Imm Gran Abs Auto 0.01 X10*3/uL (0.00-0.03); Imm Gran Pct Auto 0.2 % (0.0-0.4); Lymphocytes Absolute Auto 1.3 X10*3/uL (1.2-4.9); Lymphocytes Percent Auto 19.7 % (20-40); Mean Corpuscular HGB Conc 31.7 g/dl (31.0-35.0); Mean Corpuscular Hemoglobin 25.9 pg (27.0-33.0); Mean Corpuscular Volume 81.6 fL (80.0-98.0); Mean Platelet Volume 10.3 fL (9.4-12.3); Monocytes Absolute Auto 0.5 X10*3/uL (0.1-1.2); Monocytes Percent Auto 8.2 % (2-11); Neutrophils Absolute Auto 4.3 x10*3/uL (2.0-8.3); Neutrophils Percent Auto 67.1 % (45-73); Platelet Count 257 X10*3/uL (160-400); Red Cell Distribution Width 14.6 % (11.0-16.0); White Blood Count 6.4 X10*3/uL (4.8-10.8)
[2023-03-24 10:43] LABS: Appearance Urine Turbid; Color Urine Yellow; Glucose Urine UA Negative (Negative); Leukocyte Esterase Urine Moderate (2+) (Negative); Nitrite Urine Positive (Negative); Specific Gravity - Urine >= 1.030 (1.005-1.025); UMIC TRIGGER UACC YES; Urine Blood Trace (Negative); Urine Ketones Negative (Negative); Urine Protein Trace mg/dL (Neg-Trace)
[2023-03-24 10:51] LABS: Estimated Average Glucose 131 mg/dL; Hemoglobin A1C 151.9551 umol/L; Hemoglobin A1c % 6.2 % (<6.0)
[2023-03-24 11:08] LABS: Bacteria Urine 4+ (None Seen); Calcium Oxalate Crystals Urine Present; RBC Urine 0-2 /HPF (0-2); Squamous Epithelial Cell Urine >20 /HPF (0-2); UACC Culture Trigger YES; WBC Urine >50 /HPF (0-5)
[2023-03-24 11:14] LABS: Microalbum/Creatinine Ratio Ur 7.9 ug/mg cr (<30)
[2023-03-24 13:19] LABS: Alanine Aminotransferase 17 U/L (0-31); Albumin Level 4.2 g/dL (3.5-5.0); Alkaline Phosphatase 60 U/L (39-117); Anion Gap 13 (12-20); Aspartate Amino Transferase 13 U/L (5-31); Bilirubin Total 0.4 mg/dL (0.0-1.0); Blood Urea Nitrogen 19 mg/dL (9-16); Calcium 10.6 mg/dL (8.4-10.2); Carbon Dioxide 23 mmol/L (22-29); Chloride 111 mmol/L (96-108); Cholesterol 147 mg/dL (<200); Estimated Glomerular Filt Rate > 60; Free T4 (Free Thyroxine) 1.53 ng/dL (0.71-1.85); Glucose Fasting 118 mg/dL (60-99); HDL Cholesterol 50 mg/dL (>40); LDL Cholesterol Calculated 77 mg/dL (<100); Potassium 4.5 mmol/L (3.3-5.1); Sodium 142 mmol/L (135-145); Thyroid Stimulating Hormone 0.07 uIU/mL (0.32-4.0); Triglycerides 104 mg/dL (<150); Vitamin D 25-OH Total 39.7 ng/mL (>30)
[2023-03-27 13:33] LABS: Calcium, Ionized 5.6 mg/dL (4.7-5.5)
== END 2023-03-24 09:01 | disposition home or self-care (01) ==
LOC: HO.10HDL 09:00
PROVIDERS: Visit Provider Internal Medicine
DX: E03.9 Hypothyroidism, unspecified (principal); E55.9 Vitamin D deficiency, unspecified; E78.00 Pure hypercholesterolemia, unspecified; I10 Essential (primary) hypertension; E11.9 Type 2 diabetes mellitus without complications; R30.0 Dysuria
CPT/HCPCS: 36415; 80053; 80061; 81001; 82043; 82306; 82330; 82570; 83036; 84439; 84443; 85025; 87086

== ENCOUNTER 2023-04-13 07:25 | Outpatient (REF) | payer MEDICARE, OTHER, SELFPAY ==
--- NOTE | ~2023-04-13 | XR_ITS ---
EXAMINATION: XR pelvis 1-2V, XR hip RT 1V CLINICAL INFORMATION: Reason for Exam M25.559 - Pain in unspecified hip COMPARISON: Pelvis radiographs 01/17/2023 TECHNIQUE: Two views of the hip and pelvis FINDINGS: No acute fracture or dislocation. Status post right total hip arthroplasty. No evidence of hardware fracture or complication. Mild osteoarthritis of the left hip with small osteophytes similar to prior. Calcified phleboliths in the pelvis. XR/XR pelvis 1-2V IMPRESSION: 1. Status post right total hip arthroplasty. No evidence of hardware fracture or complication. 2. Mild osteoarthritis of the left hip similar to prior.
--- NOTE | ~2023-04-13 | XR_ITS ---
EXAMINATION: XR pelvis 1-2V, XR hip RT 1V CLINICAL INFORMATION: Reason for Exam M25.559 - Pain in unspecified hip COMPARISON: Pelvis radiographs 01/17/2023 TECHNIQUE: Two views of the hip and pelvis FINDINGS: No acute fracture or dislocation. Status post right total hip arthroplasty. No evidence of hardware fracture or complication. Mild osteoarthritis of the left hip with small osteophytes similar to prior. Calcified phleboliths in the pelvis. XR/XR hip RT 1V IMPRESSION: 1. Status post right total hip arthroplasty. No evidence of hardware fracture or complication. 2. Mild osteoarthritis of the left hip similar to prior.
== END 2023-04-13 07:26 | disposition home or self-care (01) ==
LOC: HO.HOSX 07:25
PROVIDERS: Visit Provider Orthopaedic Surgery
DX: M25.551 Pain in right hip (principal); M17.12 Unilateral primary osteoarthritis, left knee
CPT/HCPCS: 72170; 73501; 99212

== ENCOUNTER 2023-04-13 10:36 | Outpatient (AMB) | payer MEDICARE, OTHER, SELFPAY ==
--- NOTE | 2023-04-13 10:49 | MHC.OFFVIS ---
Intake Intake Visit Reasons: OV- right SALOMON on 01/17/23 NE Intake Note: Ariane a 77 year old female presents today for a post operative right SALOMON on 01/17/23 NE. Patient reports that the right hip is doing well, however she is struggling with bilateral knee pain, Left > Right Allergies amoxicillin [AMOXICILLIN] Allergy (Intermediate, Verified 03/20/23 12:50) Gastrointestinal Upset Sulfa (Sulfonamide Antibiotics) [SULFA (SULFONAMIDE ANTIBIOTICS)] Allergy (Intermediate, Verified 03/20/23 12:50) HIVES,RASH HPI OV- right SALOMON on 01/17/23 NE HPI Details Ariane is a 77 year old woman ~3 months S/P right SALOMON. She says in regards to her hip that she is doing well, and continues to attend PT. Her complaint today is of bilateral knee pain, L>R. She has been treated in the past for her knees with injections, PT and NSAIDs but this is no longer helpful. SHe has been doing well after her SALOMON but has pain with all ambulation in her left knee. She does not want injections. [facility] Medical History (Updated 04/17/23 @ 13:18 by Velma Juárez RN) Elevated cholesterol Cervical cancer Primary osteoarthritis of right hip [place] esophagus GERD (gastroesophageal reflux disease) Campoverde's palsy Allergic rhinitis Carcinoid tumor (~2021) Tubular adenoma of colon (~2002) Chest pain Obesity (BMI 30-39.9) Anxiety Urinary incontinence Primary osteoarthritis of both knees Acquired hypothyroidism Obstructive sleep apnea (~2005) Benign essential hypertension Diabetes mellitus Pure hypercholesterolemia Surgical History (Updated 03/20/23 @ 12:54 by Roberto Rojas MD) Status post total replacement of right hip (~01/17/23) Hx of bilateral cataract extraction History of esophagogastroduodenoscopy (EGD) History of lung surgery History of bronchoscopy (~2021) History of colonoscopy History of pubovaginal sling (~2010) History of hysterectomy History of cholecystectomy (~1996) Family History Father Diabetes Hypertension Mother Diabetes Cancer Social History Household Members: Spouse Housing: House Are you a primary progressive care manager to a significant other at home: No Do you presently have visiting nurse or other home services: No Alcohol intake: current Alcohol intake frequency: holidays/special occasions only Alcohol type: wine Patient Tobacco Use Status: Never used Tobacco e-Cigarette/Vaping Use: Never Used Second Hand Smoke Exposure: Yes Use of substances other than those prescribed or required for medical reasons: No Have you been hit, kicked, punched, or otherwise hurt by someone within the past year? If so, by whom?: No Advance Directives: No Advance Directives Information Provided: No Advance Directives on File: No Recently lost weight without trying: No Nutrition Risks: No Nutritional Risk Patient : No : No Poor oral hygiene: No service: No Current occupational status: retired Cognitive needs: No Hearing needs: Yes Vision needs: Yes Review of Systems Const All systems reviewed & are unremarkable except as noted in HPI and below Physical Exam Const General: no acute distress, alert and awake Orientation/consciousness: patient oriented x3 HEENT Head: Yes normocephalic and Yes atraumatic Eyes EOM: EOMs intact bilaterally Resp Effort & Inspection: normal respiratory effort and able to speak in complete sentences Cardio Jugular venous distension: no JVD Skin General skin exam: turgor normal Rashes: no rashes Neuro General: patient oriented x3 Extrem Other: Varus thrust with gait on left 1+ varus instability TTP medial joint line Psych Appearance: grossly normal Affect: normal affect Attitude: cooperative Results Reviewed Results Reviewed: I personally reviewed relevant radiographs. Severe left varus pattern OA Right SALOMON in expected post operative position with no hardware complications or evidence of loosening Assessment & Plan Assessment & Plan (1) Osteoarthritis of left knee: Code(s): M17.12 - Unilateral primary osteoarthritis, left knee Qualifiers: Osteoarthritis type: unspecified Qualified Code(s): M17.12 - Unilateral primary osteoarthritis, left knee Plan: Left knee OA with long standing pain. She feels her QOL is diminished and she feels that she cannot engage in daily activities without pain. We discussed options and I recommend TKA. I discussed the risks benefits and alternatives including but not limited to the risk of pain, infection, stiffness, need for further surgery as well as potential medical complications such as blood clots, pulmonary embolism and cardiac complications. She expressed understanding. Plan Prepared for Alejandro Reed MD by Abraham Solis special forces medical sergeant, on 04/13/23 at 11:02 AM, EST. Orders: Orders XR pelvis 1-2V 04/13/23 M25.559 - Pain in unspecified hip XR hip RT 1V 04/13/23 M25.559 - Pain in unspecified hip Coding Level of Care Code Est Pt Level 4 (10213) Diagnoses Osteoarthritis of left knee, unspecified osteoarthritis type M17.12 Osteoarthritis type: unspecified
== END 2023-04-13 11:59 | disposition home or self-care (01) ==
PROVIDERS: PCP Internal Medicine; Visit Provider Orthopaedic Surgery
DX: M17.12 Unilateral primary osteoarthritis, left knee (principal)
CPT/HCPCS: 99214

== ENCOUNTER 2023-04-19 11:10 | Outpatient (AMB) | payer MEDICARE, OTHER, SELFPAY ==
--- NOTE | 2023-04-19 11:15 | MHC.OFFWIV ---
Intake Vital Signs 04/19/23 11:17 Height 5 ft 6 in Weight 209 lb BMI 33.7 BP 142/86 H Blood Pressure Location Lt brachial Position Sitting Pulse 74 Pulse Source Pulse Oximeter Temp 97.7 F Temp Source Oral Pulse Oximetry (%) 96 Oxygen Delivery Method Room Air Intake Visit Reasons: ? Sinus Infection Intake Note: Pt presents to the office today for c/o sinus pressure in her whole head and ears. Pt states she also has a stuffy nose. Patient Tobacco Use Status: Never used Tobacco Allergies amoxicillin [AMOXICILLIN] Allergy (Intermediate, Verified 04/19/23 11:46) Gastrointestinal Upset Sulfa (Sulfonamide Antibiotics) [SULFA (SULFONAMIDE ANTIBIOTICS)] Allergy (Intermediate, Verified 04/19/23 11:46) HIVES,RASH Medication List - Last Reconciled 04/19/23 by Stella Andino AIR SHOVEL OPERATOR- acetaminophen 650 mg (2 x 325 mg) PO Q6H PRN 30 days amoxicillin 2,000 mg (4 x 500 mg) PO ONCE 1 day atorvastatin 10 mg PO QAM cholecalciferol (vitamin D3) (Vitamin D3) 50 mcg PO DAILY coenzyme Q10 (Co Q-10) 400 mg PO QAM [DIABETIC SHOES As directed - Dx: E11.9] dulaglutide 1.5 mg (0.5 mL) subcut QWEEK 90 days fluoxetine 20 mg PO QAM 90 days levothyroxine (Synthroid) 150 mcg PO QAM lisinopril 30 mg PO QAM 90 days metformin 850 mg PO BID 90 days metronidazole 0.75% 1 appl topical BID PRN omeprazole 20 mg PO QAM sitagliptin phosphate (Januvia) 100 mg PO QAM walker Folding Front wheeled walker HPI HPI Comments History of Present Illness Details here today c/o sinus congestion, runny nose, sneezing, head pressure, dental pain in the setting of environmental allergies. Getting allergy shots Her sx started a few weeks ago Using zyrtec w/o relief. No flu shot or RSV. UTD on COVID vaccine [facility] Medical History (Updated 04/17/23 @ 13:18 by Velma Juárez RN) Elevated cholesterol Cervical cancer Primary osteoarthritis of right hip York esophagus GERD (gastroesophageal reflux disease) Campoverde's palsy Allergic rhinitis Carcinoid tumor (~2021) Tubular adenoma of colon (~2002) Chest pain Obesity (BMI 30-39.9) Anxiety Urinary incontinence Primary osteoarthritis of both knees Acquired hypothyroidism Obstructive sleep apnea (~2005) Benign essential hypertension Diabetes mellitus Pure hypercholesterolemia Surgical History (Updated 03/20/23 @ 12:54 by Roberto Rojas MD) Status post total replacement of right hip (~01/17/23) Hx of bilateral cataract extraction History of esophagogastroduodenoscopy (EGD) History of lung surgery History of bronchoscopy (~2021) History of colonoscopy History of pubovaginal sling (~2010) History of hysterectomy History of cholecystectomy (~1996) Family History Father Diabetes Hypertension Mother Diabetes Cancer Social History Household Members: Spouse Housing: House Are you a primary career transition specialist to a significant other at home: No Do you presently have visiting nurse or other home services: No Alcohol intake: current Alcohol intake frequency: holidays/special occasions only Alcohol type: wine Patient Tobacco Use Status: Never used Tobacco e-Cigarette/Vaping Use: Never Used Second Hand Smoke Exposure: Yes service: No Current occupational status: retired Cognitive needs: No Hearing needs: Yes Vision needs: Yes Review of Systems Const All systems reviewed & are unremarkable except as noted in HPI and below Physical Exam Vital Signs: Last Vital Signs Pulse 74 04/19/23 11:17 BP 142/86 H 04/19/23 11:17 Pulse Ox 96 04/19/23 11:17 Oxygen Delivery Method Room Air 04/19/23 11:17 BMI result Body Mass Index 33.7 Const Other: Awake alert NAD Sclera and conjunctiva clear bilat TM intact and clear bilat Nares with mucoid discharge bilat, turbinates erythematous and edematous, positive maxillary and frontal sinus tenderness with palpation MMM, pharynx WNL RRR LS CTAB Assessment & Plan Assessment & Plan (1) Acute bacterial sinusitis: Code(s): J01.90 - Acute sinusitis, unspecified; B96.89 - Other specified bacterial agents as the cause of diseases classified elsewhere Plan: . Medications: New doxycycline hyclate 100 mg PO BID 7 days 14 caps 0RF Coding Level of Care Code Est Pt Level 3 (17875) Diagnoses Acute bacterial sinusitis J01.90; B96.89
[2023-04-19 11:17] VITALS: BP 142/86; PULSE 74; TEMP 36.5; O2SAT 96; BMI 33.7
== END 2023-04-19 12:26 | disposition home or self-care (01) ==
PROVIDERS: PCP Internal Medicine; Visit Provider Nurse Practitioner Family
DX: J01.90 Acute sinusitis, unspecified (principal); B96.89 Other specified bacterial agents as the cause of diseases classified elsewhere
CPT/HCPCS: 99213

== ENCOUNTER 2023-04-20 09:56 | Outpatient (AMB) | payer MEDICARE, OTHER, SELFPAY ==
--- NOTE | 2023-04-20 10:02 | A.OFFVIS_ITS ---
Intake Intake Visit Reasons: Pre Op LT TKA 04/26/23 NE Intake Note: Ariane is a 77 year old female who presents today for a pre op appointment for her left TKA 04/26/23. Allergies amoxicillin [AMOXICILLIN] Allergy (Intermediate, Verified 04/20/23 10:03) Gastrointestinal Upset Sulfa (Sulfonamide Antibiotics) [SULFA (SULFONAMIDE ANTIBIOTICS)] Allergy (Intermediate, Verified 04/20/23 10:03) HIVES,RASH HPI Pre Op LT TKA 04/26/23 NE HPI Details 77-year-old female who presents in the [facility] today for her preop erative history and physical exam prior to a left total knee arthroplasty to be performed on 04/26/[address] Alejandro Reed. Patient is currently being treated for acute sinusitis and was prescribed doxycycline hyclate 100 mg PO BID for 7 days on 04/19/2023; estimated course completion on 04/27/2023. She reports having diarrhea from the antibiotic. Patient has an allergy history, as follows: -Amoxicillin; GI upset -Sulfa; hive, rash Patient is currently taking, as follows: -Acetaminophen 650 mg PO Q6H PRN -Atorvastatin 10 mg PO QAM -Cholecalciferol 50 mcg PO Daily -Coenzyme Q10 400 mg PO QAM -Doxycycline hyclate 100 mg pO BID -Dulaglutide 1.5 mg subcut Qweek -Fluoxetine 20 mg PO QAM -Sitagliptin phosphate 100 mg PO QAM -Levothyroxine 150 mcg PO QAM -Lisinopril 30 mg PO QAM -Metformin 850 mg PO BID -Metronidazole 0.75% 1 application topic al BID PRN -Omeprazole 20 mg PO QAM -Trulicity *states she took last dose on Monday* Patient has a medical history, as follows: -Elevated cholesterol -Cervical cancer -York esophagus -GERD (gastroesophageal reflux disease) -Campoverde's palsy; 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 Reed -Hx of bilateral cataract extraction -History of esophagogastroduodenoscopy ( EGD); Barretts - Dr. Valenzuela, [facility] [place] - 09/29/2022 -History of lung surgery; Davinci RLL we dge resection [carcinoid] - Dr. Wilson [facility] - 09/29/2021 -History of bronchoscopy; Klever Bronch, RL L bx = non-diagnostic - Dr. Wilson [facility] - 08/11/2021 -History of colonoscopy; TA/HP 11/29/02; normal 08/16/06; TA/HP 04/12/12; TA 10/26/17; diverticulosis 07/04/22 -History of pubovaginal sling; Dr. Laila ojeda, [facility] [place] - 05/25/2010 -History of hysterectomy -History of cholecystectomy; lap caryn - Dr. Moctezuma, [facility] [place] - 03/12/1996 [facility] Medical History Elevated cholesterol Cervical cancer Primary osteoarthritis of right hip York esophagus GERD (gastroesophageal reflux disease) Campoverde's palsy Allergic rhinitis Carcinoid tumor (~2021) Tubular adenoma of colon (~2002) Chest pain Obesity (BMI 30-39.9) Anxiety Urinary incontinence Primary osteoarthritis of both knees Acquired hypothyroidism Obstructive sleep apnea (~2005) Benign essential hypertension Diabetes mellitus Pure hypercholesterolemia Surgical History Status post total replacement of right hip (~01/17/23) Hx of bilateral cataract extraction History of esophagogastroduodenoscopy (EGD) History of lung surgery History of bronchoscopy (~2021) History of colonoscopy History of pubovaginal sling (~2010) History of hysterectomy History of cholecystectomy (~1996) Family History Father Diabetes Hypertension Mother Diabetes Cancer Social History Household Members: Spouse Housing: House Are you a primary residential child care counselor to a significant other at home: No Do you presently have visiting nurse or other home services: No Alcohol intake: current Alcohol intake frequency: holidays/special occasions only Alcohol type: wine Patient Tobacco Use Status: Never used Tobacco e-Cigarette/Vaping Use: Never Used Second Hand Smoke Exposure: Yes service: No Current occupational status: retired Cognitive needs: No Hearing needs: Yes Vision needs: Yes Review of Systems Const All systems reviewed & are unremarkable except as noted in HPI and below Physical Exam Const General: cooperative, healthy appearing, comfortable, no acute distress, well developed, alert and awake Orientation/consciousness: patient oriented x3 HEENT Head: Yes normal to inspection, Yes normocephalic and Yes atraumatic Eyes General: appearance normal, both eyes and all related structures EOM: EOMs intact bilaterally Neck Neck: Yes normal visual inspection and Yes no lymphadenopathy Resp Effort & Inspection: normal respiratory effort and able to speak in complete sentences Cardio Jugular venous distension: no JVD Rate: regular rate Peripheral pulses: Peripheral pulses 2+ throughout GI Inspection: Yes normal to inspection Palpation (GI): Soft to palpation Skin General skin exam: no rashes or lesions noted Rashes: no rashes Neuro General: patient oriented x3 Extrem Other: Left knee: Varus thrust with gait on left 1+ varus instability TTP medial joint line Psych Appearance: grossly normal Mental Status: mental status grossly normal Affect: normal affect Attitude: cooperative Assessment & Plan Assessment & Plan (1) Osteoarthritis of left knee: Code(s): M17.12 - Unilateral primary osteoarthritis, left knee Qualifiers: Osteoarthritis type: unspecified Qualified Code(s): M17.12 - Unilateral primary osteoarthritis, left knee Plan Ms. Song is a 77-year-old female who presents in the office today for her preoperative history and physical exam prior to a left total knee arthroplasty to be performed on 04/26/[address] Alejandro Reed. Patient is currently being treated for acute sinusitis and was prescribed doxycycline hyclate 100 mg PO BID for 7 days on 04/19/2023; estimated course completion on 04/27/2023. She reports having diarrhea from the antibiotic. Patient has an allergy history, as follows: -Amoxicillin; GI upset -Sulfa; hive, rash Patient is currently taking, as follows: -Acetaminophen 650 mg PO Q6H PRN -Atorvastatin 10 mg PO QAM -Cholecalciferol 50 mcg PO Daily -Coenzyme Q10 400 mg PO QAM -Doxycycline hyclate 100 mg pO BID -Dulaglutide 1.5 mg subcut Qweek -Fluoxetine 20 mg PO QAM -Sitagliptin phosphate 100 mg PO QAM -Levothyroxine 150 mcg PO QAM -Lisinopril 30 mg PO QAM -Metformin 850 mg PO BID -Metronidazole 0.75% 1 application topical BID PRN -Omeprazole 20 mg PO QAM -Trulicity *states she took last dose on Monday* Patient has a medical history, as follows: -Elevated cholesterol -Cervical cancer -York esophagus -GERD (gastroesophageal reflux disease) -Campoverde's palsy; 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 Reed -Hx of bilateral cataract extraction -History of esophagogastroduodenoscopy (EGD); Chris - Dr. Valenzuela, [facility] [place] - 09/29/2022 -History of lung surgery; Davinci RLL wedge resection [carcinoid] - Dr. Wilson [facility] - 09/29/2021 -History of bronchoscopy; Klever Bronch[facility] -History of colonoscopy; TA/HP 11/29/02; normal 08/16/06; TA/HP 04/12/12; TA 10/26/17; diverticulosis 07/04/22 -History of pubovaginal sling; Dr. Rosa, [facility] [place] - 05/25/2010 -History of hysterectomy -History of cholecystectomy; lap caryn - Dr. Moctezuma, [facility] [place] - 03/12/1996 I discussed in detail the procedure and what to expect pre and post operatively. We discussed the risks, benefits and alternatives to the surgery as well as the rehabilitation course. The risks; which include, but are not limited to infection, bleeding, nerve injury, ongoing pain, swelling, and stiffness, perioperative risk of injury to bones and soft tissues, and blood clots. I have answered all questions and with their understanding they have consented to move forward with a left total knee arthroplasty to be performed on 04/26/[address] Alejandro Reed. Follow up will be at the post operative appointment on 05/11/2023 at 3:00 pm, or sooner if needed. The patient [place] [facility] [place] Patient Instructions: Scribed by Renu Liao certified medical assistant, for Lakeisha Argueta PA-C on 04/20/2023 at 9:58 am, EST. Coding Level of Care Code Global (15265) Diagnoses Osteoarthritis of left knee, unspecified osteoarthritis type M17.12 Osteoarthritis type: unspecified
== END 2023-04-20 10:35 | disposition home or self-care (01) ==
PROVIDERS: PCP Internal Medicine; Visit Provider Physician Assistant
DX: M17.12 Unilateral primary osteoarthritis, left knee (principal)
CPT/HCPCS: 99024

== ENCOUNTER → 2023-04-20 09:56 | Outpatient (BNVA) | payer MEDICARE, OTHER, SELFPAY | PROVIDERS: PCP Internal Medicine; Visit Provider Physician Assistant | DX: Z01.818 Encounter for other preprocedural examination (principal); M17.12 Unilateral primary osteoarthritis, left knee | CPT/HCPCS: 99212 ==

== ENCOUNTER 2023-04-26 06:13 | Inpatient (IN) | payer MEDICARE, OTHER, SELFPAY ==
[2023-04-17 13:28] VITALS: BP 176/83; PULSE 62; RESP 20; O2SAT 97; BMI 34.4
--- NOTE | 2023-04-17 13:32 | HO.ANESPROP2 ---
Documented by User: Digna Browne NP 04/17/23 13:58 HPI - Anesthesia Eval Consult details Narrative: 77yo F for Left Knee Replacement Total s/p Right Hip Total Replacement 01/2023 with GA-ETT 7.5 - pt states that everything went well No recent illness No CP/SOB within limits of pain Lung CA s/p RLL resection 2021. Minimal COLBERT DM. FBS ~ 150 ALEXANDRE. With CPAP QHS GERD. Controlled with PPI [place] Palsy with R eyelid affected BP up at PAT. OK at PCP office visit. Will monitor at home and bring log DOS. Anesthesia Pre-Procedure Meds Is the patient on any of the following meds?: Dulaglutide (Trulicity) (Last dose 04/16/23) If Yes to any meds - educate patient: Pt education - increased risk of aspiration and Pt education - possibility of cancelled proc at provider's discretion PMFSH Active Problems Active Problems: All Active Problems (Updated 04/17/23 @ 13:18 by Velma Juárez RN) Preoperative examination (Acute) Osteoarthritis of left knee (Acute) Osteoarthritis of right hip (Acute) Low back pain with right-sided sciatica (Acute) Hypercalcemia (Acute) Rosacea (Acute) Greater trochanteric bursitis of right hip (Acute) Nail abnormality (Acute) Post-menopausal (Acute) Status post total replacement of right hip (Acute ~01/17/23) Carcinoid tumor (Acute ~2021) Acquired hypothyroidism (Acute) Diabetes mellitus (Acute) Benign essential hypertension (Acute) Pure hypercholesterolemia (Acute) Obstructive sleep apnea (Acute ~2005) York esophagus (Acute) GERD (gastroesophageal reflux disease) (Acute) Tubular adenoma of colon (Acute ~2002) Urinary incontinence (Acute) Allergic rhinitis (Acute) Anxiety (Acute) Obesity (BMI 30-39.9) (Acute) Primary osteoarthritis of both knees (Acute) Past Medical History Medical History Elevated cholesterol Cervical cancer Primary osteoarthritis of right hip York esophagus GERD (gastroesophageal reflux disease) Campoverde's palsy Allergic rhinitis Carcinoid tumor (~2021) Tubular adenoma of colon (~2002) Chest pain Obesity (BMI 30-39.9) Anxiety Urinary incontinence Primary osteoarthritis of both knees Acquired hypothyroidism Obstructive sleep apnea (~2005) Benign essential hypertension Diabetes mellitus Pure hypercholesterolemia Family History Family History Father Diabetes Hypertension Mother Diabetes Cancer Family history of problems with anesthesia: No Surgical History Surgical History Status post total replacement of right hip (~01/17/23) Hx of bilateral cataract extraction History of esophagogastroduodenoscopy (EGD) History of lung surgery History of bronchoscopy (~2021) History of colonoscopy History of pubovaginal sling (~2010) History of hysterectomy History of cholecystectomy (~1996) History of Problems with Anesthesia: No Social History Social History Household Members: Spouse Housing: House Are you a primary care management associate to a significant other at home: No Do you presently have visiting nurse or other home services: No Alcohol intake: current Alcohol intake frequency: holidays/special occasions only Alcohol type: wine Patient Tobacco Use Status: Never used Tobacco e-Cigarette/Vaping Use: Never Used Second Hand Smoke Exposure: Yes Use of substances other than those prescribed or required for medical reasons: No Have you been hit, kicked, punched, or otherwise hurt by someone within the past year? If so, by whom?: No Advance Directives: No Advance Directives Information Provided: No Advance Directives on File: No Recently lost weight without trying: No Nutrition Risks: No Nutritional Risk Patient : No : No Poor oral hygiene: No service: No Current occupational status: retired Cognitive needs: No Hearing needs: Yes Vision needs: Yes Meds Allergies Allergy/AdvReac Type Severity Reaction Status Date / Time amoxicillin [AMOXICILLIN] Allergy Intermediate Gastrointestinal Verified 04/20/23 10:03 Upset Sulfa (Sulfonamide Allergy Intermediate HIVES,RASH Verified 04/20/23 10:03 Antibiotics) [SULFA (SULFONAMIDE ANTIBIOTICS)] Home Medications Medication Instructions Recorded Confirmed Last Taken Type atorvastatin 10 mg tablet 10 mg PO QAM 01/11/23 04/19/23 04/25/23 History cholecalciferol (vitamin D3) 25 50 mcg PO DAILY 01/11/23 04/19/23 04/25/23 History mcg (1,000 unit) tablet (Vitamin D3) coenzyme Q10 400 mg capsule (Co 400 mg PO QAM 01/11/23 04/19/23 04/25/23 History Q-10) omeprazole 20 mg capsule,delayed 20 mg PO QAM 01/11/23 04/19/23 04/26/23 History release sitagliptin phosphate 100 mg 100 mg PO QAM 01/11/23 04/19/23 04/23/23 History tablet (Januvia) Exam Exam Date and Time: January 11, 2023 1233 Height,Weight and Vital Signs: Vital Signs Pulse Rate 62 04/17/23 13:28 Respiratory Rate 20 04/17/23 13:28 Blood Pressure 176/83 H 04/17/23 13:28 Pulse Oximetry 97 04/17/23 13:28 Oxygen Delivery Method Room Air 04/17/23 13:28 Narrative Narrative: EKG 11/2022 Vent. Rate : 062 BPM Atrial Rate : 062 BPM P-R Int : 146 ms QRS Dur : 086 ms QT Int : 416 ms P-R-T Axes : 054 016 024 degrees QTc Int : 422 ms Normal sinus rhythm Normal ECG When compared with ECG of 16-JUN-2014 14:07, No significant change was found NM aakash perf SPECT rest & str 2021 Impression: 1. Myocardial perfusion imaging study shows no evidence of any ischemia or infarction. Likely normal perfusion. 2. Gated LVEF is percent during stress and 69% during rest. 3. Transient ischemic dilatation not present. EKG component of the test reported separately. Airway Mallampati Class: III TM Dist: >3cm Neck ROM: Limited (OA, no disc disease) Loose/Missing/Broken Teeth: No (1 x crown RL molar) Heart: RRR Lungs: CTAB Assessment and Plan Assessment Anesthesia Assessment: Anesthesia Plan Discussed and PAT Visit Final Anesthetic Review Family History of Problems with Anesthesia: No History of Problems with Anesthesia: No Documented by User: Rosalind Reaves MD 04/26/23 08:04 [facility] Past Medical History Medical History Elevated cholesterol Cervical cancer Primary osteoarthritis of right hip York esophagus GERD (gastroesophageal reflux disease) Campoverde's palsy Allergic rhinitis Carcinoid tumor (~2021) Tubular adenoma of colon (~2002) Chest pain Obesity (BMI 30-39.9) Anxiety Urinary incontinence Primary osteoarthritis of both knees Acquired hypothyroidism Obstructive sleep apnea (~2005) Benign essential hypertension Diabetes mellitus Pure hypercholesterolemia Family History Family History Father Diabetes Hypertension Mother Diabetes Cancer Surgical History Surgical History Status post total replacement of right hip (~01/17/23) Hx of bilateral cataract extraction History of esophagogastroduodenoscopy (EGD) History of lung surgery History of bronchoscopy (~2021) History of colonoscopy History of pubovaginal sling (~2010) History of hysterectomy History of cholecystectomy (~1996) Social History Social History Household Members: Spouse Housing: House Are you a primary care management associate to a significant other at home: No Do you presently have visiting nurse or other home services: No Alcohol intake: current Alcohol intake frequency: holidays/special occasions only Alcohol type: wine Patient Tobacco Use Status: Never used Tobacco e-Cigarette/Vaping Use: Never Used Second Hand Smoke Exposure: Yes Use of substances other than those prescribed or required for medical reasons: No Have you been hit, kicked, punched, or otherwise hurt by someone within the past year? If so, by whom?: No Advance Directives: No Advance Directives Information Provided: No Advance Directives on File: No Recently lost weight without trying: No Nutrition Risks: No Nutritional Risk Patient : No : No Poor oral hygiene: No service: No Current occupational status: retired Cognitive needs: No Hearing needs: Yes Vision needs: Yes Meds Allergies Allergy/AdvReac Type Severity Reaction Status Date / Time amoxicillin [AMOXICILLIN] Allergy Intermediate Gastrointestinal Verified 04/20/23 10:03 Upset Sulfa (Sulfonamide Allergy Intermediate HIVES,RASH Verified 04/20/23 10:03 Antibiotics) [SULFA (SULFONAMIDE ANTIBIOTICS)] Home Medications Medication Instructions Recorded Confirmed Last Taken Type atorvastatin 10 mg tablet 10 mg PO QAM 01/11/23 04/19/23 04/25/23 History cholecalciferol (vitamin D3) 25 50 mcg PO DAILY 01/11/23 04/19/23 04/25/23 History mcg (1,000 unit) tablet (Vitamin D3) coenzyme Q10 400 mg capsule (Co 400 mg PO QAM 01/11/23 04/19/23 04/25/23 History Q-10) omeprazole 20 mg capsule,delayed 20 mg PO QAM 01/11/23 04/19/23 04/26/23 History release sitagliptin phosphate 100 mg 100 mg PO QAM 01/11/23 04/19/23 04/23/23 History tablet (Januvia) Assessment and Plan Assessment Anesthesia Assessment: Chart Reviewed Final Anesthetic Review NPO: Yes ASA Class: III Final Preanesthetic Review: No Changes in Pt Med Stat, Meds/Allgs Chart Reviewed, Consent Obtained/Reviewed and Anes Risks/Benef Reviewed Patient Risk: Intermediate Procedure Risk: Intermediate Anesthetic Plan Anesthetic Plan: Spinal and Regional Block Disposition: Standard PACU
[2023-04-17 16:01] LABS: MRSA Nasal PCR NEGATIVE (Negative); SA Nasal PCR POSITIVE (Negative)
[2023-04-26] VITALS (17 sets, daily range): BP systolic 123–173; BP diastolic 53–86; PULSE 57–68; RESP 14–18; TEMP 36.1–37; O2SAT 95–100
--- NOTE | ~2023-04-26 | XR_ITS ---
EXAMINATION: XR KNEE, LEFT CLINICAL INFORMATION: Status post left total knee arthroplasty. COMPARISON: October 25, 2022 TECHNIQUE: AP and lateral views of the left knee. FINDINGS: The patient is status post left total knee arthroplasty without evidence of acute fracture or dislocation. Prosthetic components appear in good position. Surgical magalis are seen anteriorly. A small suprapatellar effusion present. There is some gas within the soft tissues from the recent surgery. XR/XR knee LT 2V IMPRESSION: Satisfactory postoperative appearance status post left total knee arthroplasty.
--- OUTSIDE RECORDS SUMMARY | 2023-04-26 06:15 | XMS_ITS | Patient Health Record ---
Author Name Unknown Organization [facility] Address [address] [place] [address] Care Team Providers Care Citrix Engineer Name Role Phone Bob LYNN, Roberto Primary Care Provider Tim Odell Unavailable [phone] RESULTS Component Value Reference Range Notes Pathology (Not yet reviewed by provider) Interpretation: Performing Lab:[facility], [address] [place] [id number] Notes/Report: Glucose, Whole Blood Reviewed date:07/04/2022 04:51:43 PM Interpretation: Performing Lab:[facility], [address] [place] [phone] Notes/Report: Glucose, Whole Blood 181 60-115 mg/dL METER # : [id number] REASON FOR REFERRAL No Information MEDICATIONS Medication SIG (Take, Route, Fr equency, Duration) Notes Start Date End Date Status Lisinopril 20 MG TAKE 1 TABLET BY FOSTER TH DAILY Diagnosis Unavailable Oral for 90 Active metFORMIN HCl Active Prilosec Active Prozac Active Synthroid Active Vitamin D3 Active IMMUNIZATIONS Vaccine Route Administration Date Status Comme nts Influenza Unknown 01/04/2022 Administered SOCIAL HISTORY Tobacco Use: Social History Observation Description Date Details (start date - stop date) Never Smoker NA - NA Sex Assigned At : Social History Observation Description Sex Assigned At Unknown Tobacco Use/Smoking Question Answer Notes Patient is a nonsmoker Alcohol Screen Question Answer Notes Did you have a drink containing alcohol in the p ast year? No Points 0 Interpretation Negative PROBLEMS Problem Type ICD Code Onset Dates Problem Status W/U Status Risk SNOMED Code Notes Problem Gastroesophageal reflux disease, unspecified whether esophagitis present (K21.9) Active confirmed 382220339 Problem History of adenomatous polyp of colon (Z86.010) Active confirmed 919446174 Problem Colon cancer screening (Z12.11) Active confirmed 359893242 Problem Personal history of colonic polyps (Z86.010) Active confirmed History of poly p of colon (situation) (488512691) Problem Diverticulosis of large intestine without perforation or abscess without bleeding (K57.30) Active confirmed Diverticul ar disease of colon (118891199) Problem Gastroesophageal reflux disease (K21.9) Active confirmed Gastroesophagea l reflux disease (496025937) VITAL SIGNS Temperature 98.6 degrees Fahrenheit 05/06/2022 Blood pressure diastolic 00 mm Hg 05/06/2022 Height 66 in 05/06/2022 Blood pressure systolic 000 mm Hg 05/06/2022 Weight 221 lbs 05/06/2022 BMI 35.67 kg/m2 05/06/2022 Encounters Encounter Location Date Provider Diagnosis [facility] Outpatient [address] [place] [address] [id number] 07/04/2022 Tim Valenzuela Personal history of colonic polyps Z86.010 ; Diverticulosis of large intestine without perforation or abscess without bleeding K57.30 ; Other hemorrhoids K64.8 ; Other specified disease of esophagus K22.89 ; Gastroesophageal reflux disease K21.9 and Hiatal hernia K44.9 [facility] [address] [place] [address] 05/06/2022 Tim Valenzuela Gastroesophageal ref lux disease, unspecified whether esophagitis present K21.9 ; Colon cancer screening Z12.11 and History of adenomatous polyp of colon Z86.010 ASSESSMENTS Encounter Date Diagnosis Assessment Notes Treatment Notes Treatment Clinical Notes 05/06/2022 Gastroesophageal ref lux disease, unspecified whether esophagitis present (ICD-10 - K21.9) 07/04/2022 Personal history of colonic polyps (ICD-10 - Z86.010) 07/04/2022 Diverticulosis of la rge intestine without perforation or abscess without bleeding (ICD-10 - K57.30) 05/06/2022 Colon cancer screeni ng (ICD-10 - Z12.11) Do not use the Metformin the night before nor on the morning of the procedures 07/04/2022 Other hemorrhoids (ICD-10 - K64.8) 05/06/2022 History of adenomato us polyp of colon (ICD-10 - Z86.010) 07/04/2022 Other specified dise ase of esophagus (ICD-10 - K22.89) 07/04/2022 Gastroesophageal ref lux disease (ICD-10 - K21.9) 07/04/2022 Hiatal hernia (ICD-1 0 - K44.9) PLAN OF TREATMENT Pending Test Test Name Order Date Pathology 07/04/2022 Future Test Test Name Order Date UPPER GI ENDOSCOPY 05/06/2022 COLONOSCOPY 05/06/2022 Insurance Providers Payer Name Payer Address Payer Phone Subscriber Number Group Number Insured Name Patient Relationship to Insured Coverage Start Date Coverage End Date MEDICARE OF [place] [address] [place] [address] [id number] ZACKERY FISHMAN Self - patient is the insured [facility] [address] [address] [place] [address] [phone] [id number] ZACKERY FISHMAN Self - patient is the insured MEDICAL (GENERAL) HISTORY Medical History History ICD Code Colonoscopies with Dr. 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
[2023-04-26 06:20] LABS: Glucose, Whole Blood 155 mg/dL (60-115)
[2023-04-26] MEDS: Lactated Ringers 1,000 ML 100 ML IVCONT ×3 (06:54→23:03)
--- NOTE | 2023-04-26 07:26 | MHC.SHP ---
Pre-Procedural Eval Section A - 24 Hr Update-Section A only Date of Service: 04/26/23 The patient is an INPATIENT: No Changes since office visit: No Cold of Flu in the past 2 weeks, No New Medical Problems, No Changes in Medication and No Patient answered all questions The patient has been examined within 24 hours of the surgical procedure. The History & Physical has been completed within 30 days and I have reviewed it.: Yes Section B - Complete if H&P > 30 days Chief Complaint: LTKA Allergies: Allergies Allergy/AdvReac Type Severity Reaction Status Date / Time amoxicillin [AMOXICILLIN] Allergy Intermediate Gastrointestinal Verified 04/20/23 10:03 Upset Sulfa (Sulfonamide Allergy Intermediate HIVES,RASH Verified 04/20/23 10:03 Antibiotics) [SULFA (SULFONAMIDE ANTIBIOTICS)] Plan I have reviewed the history and physical and performed a pertinent physical examination on my patient. No changes have occurred unless specified. Time Spent With Patient Time: Total time managing care of this patient today ____ minutes.
--- NOTE | 2023-04-26 07:27 | PC.NURSE ---
vss block initiated by anesthesia timeout prior tolerated well
--- NOTE | 2023-04-26 09:15 | PM.OP ---
Brief Operative Note Date of Service: 04/26/23 Pre-op diagnosis: Left knee OA Post-op diagnosis: same Procedure: Left TKA Implants: [place] Triathlon cemented 06/07/09pPS/32a Surgeon: Alejandro Reed MD Anesthesia: GETA and regional Was an Horses Or Mules Teamster used for this Procedure?: Yes Horses Or Mules Teamster: Lakeisha Argueta Estimated blood loss (mL): 20 Tourniquet time (min): 60 IV fluids (mL): 1,000 Pathology: other Condition: stable Disposition: PACU
--- NOTE | 2023-04-26 09:17 | P.OP_ITS ---
Operative Note Operative Note Date of Service: 04/26/23 Narrative: Date of Service: 04/26/23 Pre-op diagnosis: Left knee OA Post-op diagnosis: same Procedure: Left TKA Implants: [place] Triathlon cemented 06/07/10pPS/32a Surgeon: Alejandro Reed MD Anesthesia: GETA and regional Was an Sewer Maintenance Supervisor used for this Procedure?: Yes Sewer Maintenance Supervisor: Lakeisha Argueta Estimated blood loss (mL): 20 Tourniquet time (min): 60 IV fluids (mL): 1,000 Pathology: other Condition: stable Disposition: PACU Procedure in detail: The patient was brought to the operating room and prepped and draped in standard sterile fashion. A time-out was called to identify proper site proper procedure proper surgeon and IV antibiotics were administered. 1 g of IV tranexamic acid was administered. I began by making a midline incision to the retinaculum and performed a medial parapatellar arthrotomy. The patella was translated laterally and the knee was flexed up. The medial femoral and tibial articular surfaces were eburnated. I performed a small medial peel and resected the infrapatellar fat pad. Martín's line was then used to drill my intramedullary femoral guide and my distal femur cut of 12 mm (10 deg flexion contracture) was made in 5 degrees of valgus while protecting the soft tissues. I then measured a # 4 femur and placed my cutting guide and made my anterior posterior and chamfer cuts protecting the soft tissues at all times. I then made my box but removing the PCL. Once I was satisfied with my cuts I turned my attention to the tibia. I removed the meniscus medially and laterally and , using an external cutting guide, in line with the tibial crest and the third ray, I made my distal tibial cut in 0 deg slope of while protecting the posterior soft tissues at all times. An extension block was used to confirm appropriate amount of bony resection. I then sized a #4 tibia and once I was satisfied that there was complete tibial coverage I placed my trial and with the trial femur in place took the knee through range of motion. I was satisfied with the extension and flexion as well as the balance at 0, 30 and 90 degrees. I then turned my attention to the patella where I removed 1 cm from the undersurface of the patella and then trialed a 32a patellar button. Again the knee was taken through range of motion I was satisfied with the tracking. I then prepared the tibia. A femoral bone plug was placed and the knee was irrigated copiously.A Werewolf cautery wand was used to maintain hemostasis over the capsule and meniscal beds, the gutters and peripatellar soft tissues. 2 bags of Pal[place]os bone cement was mixed on the back table using 3rd generation mixing techniques. I then cemented the patella, tibia and femur in standard fashion. Axial compression and a clamp on the patella were used while the cement was drying. Once the cement was hard on the back table I trialed different inserts until I selected a #10 insert. The final insert was placed local TXA was administered. The knee was then closed with a running Quill suture, a 3 0 Vicryl and magalis on the skin. Patient was then placed in sterile dressing and brought to recovery room in stable condition there were no known complications.
--- NOTE | 2023-04-26 14:19 | PHA.MEDREC ---
Pharmacy Consult ? Medication Reconciliation Pharmacy has completed the medication reconciliation. Spoke to patient and confirmed medication list. Patient still has 1 dose of azithromycin left and no longer takes trulicity.
[2023-04-26] MEDS: ceFAZolin Sodium/Dextrose,Iso 2 GM/50 ML PIGGYBACK IV (14:41)
[2023-04-26] MEDS: Cholecalciferol (Vitamin D3) 25 MCG TABLET 50 MCG PO (14:45)
[2023-04-26] MEDS: oxyCODONE HCl ER 10 MG TAB.ER.12H PO ×2 (14:45→21:24)
[2023-04-26] MEDS: Docusate Sodium 100 MG CAPSULE PO ×2 (14:45→21:25)
[2023-04-26] MEDS: lisinopriL 10 MG TABLET 30 MG PO (14:45)
[2023-04-26] MEDS: Celecoxib 200 MG CAPSULE PO ×2 (14:46→21:25)
--- NOTE | 2023-04-26 14:50 | HO.PM.IMCN ---
History of Present Illness Data of Consult Service Date: 04/26/23 Primary Care Provider: Roberto Rojas MD [facility] Reason for consult: Medical management Patient is a 77-year-old female with a PMH significant for HTN, HLD, xyh-vglxkfq-xpxaoqztk diabetes type 2, hypothyroidism, GERD, hx of lung cancer (2020), and mood disorder who was admitted to the hospital under orthopedics for elective left TKA. Medical consult for routine medical management. Patient has not acute medical complaints at this time. States her left leg is starting to wake up , but denies any left leg or knee pain. No chest pain/pressure, palpitations. Denies shortness of breath. No fever, chills, nausea, vomiting, abdominal pain. Denies headache. Review of Systems Review of Systems: Patient has no acute medical complaints at this time. [facility] Medical History Elevated cholesterol Cervical cancer Primary osteoarthritis of right hip [place] esophagus GERD (gastroesophageal reflux disease) Campoverde's palsy Allergic rhinitis Carcinoid tumor (~2021) Tubular adenoma of colon (~2002) Chest pain Obesity (BMI 30-39.9) Anxiety Urinary incontinence Primary osteoarthritis of both knees Acquired hypothyroidism Obstructive sleep apnea (~2005) Benign essential hypertension Diabetes mellitus Pure hypercholesterolemia Family History Father Diabetes Hypertension Mother Diabetes Cancer Surgical History Status post total replacement of right hip (~01/17/23) Hx of bilateral cataract extraction History of esophagogastroduodenoscopy (EGD) History of lung surgery History of bronchoscopy (~2021) History of colonoscopy History of pubovaginal sling (~2010) History of hysterectomy History of cholecystectomy (~1996) Social History Household Members: Spouse Housing: House Are you a primary palliative care nurse to a significant other at home: No Do you presently have visiting nurse or other home services: No Alcohol intake: current Alcohol intake frequency: holidays/special occasions only Alcohol type: wine Patient Tobacco Use Status: Never used Tobacco e-Cigarette/Vaping Use: Never Used Second Hand Smoke Exposure: Yes service: No Current occupational status: retired Cognitive needs: No Hearing needs: Yes Vision needs: Yes Meds Allergies Allergy/AdvReac Type Severity Reaction Status Date / Time amoxicillin [AMOXICILLIN] Allergy Intermediate Gastrointestinal Verified 04/20/23 10:03 Upset Sulfa (Sulfonamide Allergy Intermediate HIVES,RASH Verified 04/20/23 10:03 Antibiotics) [SULFA (SULFONAMIDE ANTIBIOTICS)] Active Medications: Current Medications Acetaminophen (Acetaminophen 325 Mg Tablet) 650 mg PO Q6H PRN PRN Reason: Pain, Mild (Pain Scale 1-3) Aspirin (Aspirin 325 Mg Tablet) 325 mg PO BID [facility] Atorvastatin Calcium (Atorvastatin Calcium 10 Mg Tablet) 10 mg PO DAILY@0900 [facility] Last Admin: 04/26/23 14:33 Dose: Not Given Celecoxib (Celecoxib 200 Mg Capsule) 200 mg PO BID [facility] Last Admin: 04/26/23 14:46 Dose: 200 mg Docusate Sodium (Docusate Sodium 100 Mg Capsule) 100 mg PO BID [facility] Last Admin: 04/26/23 14:45 Dose: 100 mg Fluoxetine HCl (Fluoxetine Hcl 20 Mg Capsule) 20 mg PO DAILY@0900 [facility] Hydromorphone HCl (Hydromorphone Hcl 0.5 Mg/0.5 Ml Syringe) 0.25 mg IVPUSH Q4H PRN; Protocol PRN Reason: Pain, Severe (Pain Scale 7-10) Lactated Ringer's (Lr) 1,000 mls @ 100 mls/hr IVCONT .Q10H [facility] Last Admin: 04/26/23 06:54 Dose: 100 mls/hr Lactated Ringer's (Lr) 1,000 mls @ 100 mls/hr IVCONT .Q10H [facility] Last Admin: 04/26/23 14:31 Dose: 100 mls/hr Levothyroxine Sodium (Levothyroxine Sodium 150 Mcg Tablet) 150 mcg PO DAILY@0600 [facility] Lisinopril (Lisinopril 10 Mg Tablet) 30 mg PO DAILY@0900 [facility]; Protocol Last Admin: 04/26/23 14:45 Dose: 30 mg Metformin HCl (Metformin Hcl 850 Mg Tablet) 850 mg PO BID [facility] Omeprazole (Omeprazole 20 Mg Capsule.Dr) 20 mg PO DAILY@0630 [facility] Last Admin: 04/26/23 14:48 Dose: Not Given Ondansetron HCl (Ondansetron Hcl 4 Mg/2 Ml Vial) 4 mg IVPUSH ONCE PRN PRN Reason: Nausea and Vomiting Ondansetron HCl (Ondansetron Hcl 4 Mg/2 Ml Vial) 4 mg IVPUSH Q8H PRN PRN Reason: Nausea and Vomiting Oxycodone HCl (Oxycodone Hcl Immed Release 5 Mg Tablet) 5 mg PO Q4H PRN PRN Reason: Pain, Moderate(Pain Scale 4-6) Oxycodone HCl (Oxycodone Hcl Er 10 Mg Tab.Er.12h) 10 mg PO BID [facility] Last Admin: 04/26/23 14:45 Dose: 10 mg Sitagliptin Phosphate (Sitagliptin Phosphate 100 Mg Tablet) 100 mg PO DAILY@0900 [facility] Last Admin: 04/26/23 14:46 Dose: 100 mg Sodium Chloride (0.9 % Sodium Chloride Flush 3 Ml Syringe) 3 ml IVFLUSH QSHIFT [facility] Last Admin: 04/26/23 14:33 Dose: Not Given Vitamin D (Cholecalciferol (Vitamin D3) 25 Mcg Tablet) 50 mcg PO DAILY [facility] Last Admin: 04/26/23 14:45 Dose: 50 mcg Home Medications Medication Instructions Recorded Confirmed Last Taken Type atorvastatin 10 mg tablet 10 mg PO [facility] 01/11/23 04/19/23 04/25/23 History cholecalciferol (vitamin D3) 25 50 mcg PO DAILY 01/11/23 04/19/23 04/25/23 History mcg (1,000 unit) tablet (Vitamin D3) coenzyme Q10 400 mg capsule (Co 400 mg PO [facility] 01/11/23 04/19/23 04/25/23 History Q-10) omeprazole 20 mg capsule,delayed 20 mg PO [facility] 01/11/23 04/19/23 04/26/23 History release sitagliptin phosphate 100 mg 100 mg PO [facility] 01/11/23 04/19/23 04/25/23 History tablet (Januvia) Physical Exam Vital Signs and Narrative: Vital Signs: Last Vital Signs Temp 98.6 F 04/26/23 13:17 Pulse 57 04/26/23 13:17 Resp 16 04/26/23 13:17 BP 150/70 H 04/26/23 13:17 Pulse Ox 98 04/26/23 13:17 O2 Del Method Nasal Cannula 04/26/23 13:17 O2 Flow Rate 2 04/26/23 13:17 BMI result Body Mass Index 34.4 General: AOx3, no acute distress Resp: CTA bilaterally CVS: S1, S2, RRR GI: +BS, NT, no distention Skin: Warm, dry Neuro: Cranial nerves II-XII grossly intact bilaterally. Motor grossly intact bilaterally Extremities: No edema. Left knee with clean dressing in place. Psych: Appropriate affect Results Labs Labs: Laboratory Results - last 24 hr 04/26/23 04/26/23 06:14 06:28 POC Glucose 155 H Blood Type AB Positive Antibody Screen NEGATIVE Imaging Radiologist's Impressions: Impressions Knee X-Ray 04/26/23 12:43 IMPRESSION: Satisfactory postoperative appearance status post left total knee arthroplasty. Assessment and Plan (1) Osteoarthritis of left knee: Qualifiers: Osteoarthritis type: unspecified Qualified Code(s): M17.12 - Unilateral primary osteoarthritis, left knee Status: Acute Plan Patient is a 77-year-old female with a PMH significant for HTN, HLD, aop-todhdww-wojrruxko diabetes type 2, hypothyroidism, GERD, hx of lung cancer (2020), and mood disorder who was admitted to the hospital under orthopedics for elective left TKA. Medical consult for routine medical management. Left TKA POD #0 Plan as per orthopedics HTN Continue lisinopril HLD Continue statin Non-insulin dependent type 2 diabetes Continue Jan[address] Will place on sliding scale insulin Diabetic diet Hypothyroidism Continue levothyroxine GERD Continue omeprazole Pt currently doing well with no acute complaints and vitals stable. Thank you for allowing us to participate in the care of this patient. Signing off at this time. Please re-consult if any acute complaints or issues arise.
[2023-04-26] MEDS: oxyCODONE HCl Immed Release 5 MG TABLET PO ×2 (15:46→21:25)
[2023-04-26 16:39] LABS: Glucose, Whole Blood 180 mg/dL (60-115)
[2023-04-26] MEDS: Insulin Lispro 100 UNIT/ML 3 ML VIAL SUBCUT ×2 (17:07→21:26)
[2023-04-26 19:42] LABS: Glucose, Whole Blood 182 mg/dL (60-115)
[2023-04-26] MEDS: Acetaminophen 325 MG TABLET 650 MG PO (21:24)
[2023-04-26] MEDS: metFORMIN HCl 850 MG TABLET PO (21:25)
[2023-04-27 03:32] VITALS: BP 142/67; PULSE 59; RESP 18; TEMP 36.1; O2SAT 95
[2023-04-27] MEDS: Levothyroxine Sodium 150 MCG TABLET PO (05:55)
[2023-04-27] MEDS: Omeprazole 20 MG CAPSULE.DR PO (05:55)
[2023-04-27] MEDS: oxyCODONE HCl Immed Release 5 MG TABLET PO ×2 (05:59→10:50)
[2023-04-27 07:03] LABS: MANUAL DIFF FLAG NO
[2023-04-27 07:05] LABS: Basophils Percent Auto 0.3 % (0-2); Eosinophils Absolute Auto 0.4 X10*3/uL (0.0-0.4); Hematocrit 35.1 % (37.0-47.0); Hemoglobin 11.2 g/dl (12.0-16.0); Imm Gran Abs Auto 0.03 X10*3/uL (0.00-0.03); Imm Gran Pct Auto 0.3 % (0.0-0.4); Lymphocytes Absolute Auto 1.6 X10*3/uL (1.2-4.9); Lymphocytes Percent Auto 15.1 % (20-40); Mean Corpuscular HGB Conc 31.9 g/dl (31.0-35.0); Mean Corpuscular Volume 81.4 fL (80.0-98.0); Mean Platelet Volume 10.5 fL (9.4-12.3); Monocytes Percent Auto 9.5 % (2-11); Neutrophils Absolute Auto 7.7 x10*3/uL (2.0-8.3); Neutrophils Percent Auto 70.8 % (45-73); Platelet Count 260 X10*3/uL (160-400); Red Blood Count 4.31 X10*6/uL (4.20-5.50); Red Cell Distribution Width 14.6 % (11.0-16.0); White Blood Count 10.9 X10*3/uL (4.8-10.8)
[2023-04-27 07:09] VITALS: BP 186/71; PULSE 68; RESP 18; TEMP 36.5; O2SAT 96
[2023-04-27 07:20] LABS: Glucose, Whole Blood 121 mg/dL (60-115)
[2023-04-27 07:32] LABS: Anion Gap 14 (12-20); Blood Urea Nitrogen 21 mg/dL (9-16); Calcium 10.1 mg/dL (8.4-10.2); Carbon Dioxide 22 mmol/L (22-29); Chloride 108 mmol/L (96-108); Creatinine Clr Calc Pharmacy 74.7; Estimated Glomerular Filt Rate > 60; Glucose Fasting 122 mg/dL (60-99); Potassium 4.8 mmol/L (3.3-5.1); Sodium 139 mmol/L (135-145)
[2023-04-27 07:43] VITALS: BP 186/71; PULSE 68; O2SAT 96
[2023-04-27 08:05] VITALS: O2SAT 97
[2023-04-27] MEDS: lisinopriL 10 MG TABLET 30 MG PO (08:14)
[2023-04-27] MEDS: FLUoxetine HCl 20 MG CAPSULE PO (08:14)
[2023-04-27] MEDS: Cholecalciferol (Vitamin D3) 25 MCG TABLET 50 MCG PO (08:15)
[2023-04-27] MEDS: metFORMIN HCl 850 MG TABLET PO (08:15)
[2023-04-27] MEDS: Docusate Sodium 100 MG CAPSULE PO (08:15)
[2023-04-27] MEDS: Atorvastatin Calcium 10 MG TABLET PO (08:16)
[2023-04-27] MEDS: oxyCODONE HCl ER 10 MG TAB.ER.12H PO (08:16)
[2023-04-27] MEDS: Celecoxib 200 MG CAPSULE PO (08:16)
[2023-04-27] MEDS: SITagliptin Phosphate 100 MG TABLET PO (08:16)
--- NOTE | 2023-04-27 08:33 | PM.PNORT ---
Subjective Subjective Date of Service: 04/27/23 Interval history: POD1 s/p LTKA Patient is resting in bed comfortably No overnight events Pain is managed No additional complaints Physical Exam Vital Signs: Vital Signs: Last Vital Signs Temp 97.7 F 04/27/23 07:09 Pulse 68 04/27/23 07:43 Resp 18 04/27/23 07:09 BP 186/71 H 04/27/23 07:43 Pulse Ox 97 04/27/23 08:05 O2 Del Method Room Air 04/27/23 08:05 O2 Flow Rate 2 04/26/23 13:17 BMI result Body Mass Index 34.4 Const: General: cooperative, healthy appearing and no acute distress Resp: Effort & Inspection: normal respiratory effort and able to speak in complete sentences Cardio: Rate: regular rate Peripheral pulses: Peripheral pulses 2+ throughout GI: Palpation (GI): Soft to palpation Skin: Lesions: no lesions Rashes: no rashes Extrem: Other: left knee dressing is c/d/i. Able to dorsi/plantar flex. Calf is supple and nontender. Sensation intact. Pedal pulse intact. Procedures Date of Service Date of Service: 04/27/23 Progress Note: A&P Assessment and plan (1) Status post total knee replacement, left: Status: Acute Assessment and Plan: Continue pain mgmnt Begin ASA for dvt ppx begin PT for LTKA Dispo planning- PT, pain mgmnt, anticipate D/C later today if cleared with P.T. Time Spent With Patient Time: Total time managing care of this patient today ____ minutes. Quality Stroke Does the patient have a stroke diagnosis?: No VTE Prior VTE?: No VTE Risk Level:: Medical - moderate - high VTE Device Contraindication: N/A - Device Ordered VTE Drug Contraindication: N/A - Med Ordered
--- NOTE | 2023-04-27 08:39 | W.MHC.F2F ---
Service Date Service Date: 04/27/23 Encounter Date of encounter: 04/27/23 Reasons for Services Signs and symptoms assessed: s/p LTKA. Pt. is considered homebound due to recent surgery. Unable to drive, poor balance, poor gait mechanics. Reason for physical therapy: home safety and mobility, therapeutic exercises, restore joint function, gait/transfer training, assess need for DME and ADL training Homebound: Leaving the home is medically contraindicated at this time without the asist of a device and/or another person due th the listed conditions above and below. Reason homebound: unsteady gait / fall risk, leg weakness, pain with ambulation, pain with transfers, poor balance / fall risk and unable to drive Certification: Based on the above findings, I certify that this patient is confined to the home and needs intermittent senior care care, physical therapy and/or speech therapy, or continues to need occupational therapy. The patient is under my care, and I have initiated the establishment of the plan of care. The patient will be followed by a physician who will periodically review the plan of care. Time Spent With Patient Time: Total time managing care of this patient today ____ minutes.
--- NOTE | 2023-04-27 08:40 | PM.DS ---
DS: Providers Provider Date of Service: 04/27/23 Date of admission: 04/26/23 06:13 Primary care physician: Roberto Rojas MD Consults: 04/26/23 13:47 Consult to Hospitalist Routine Comment: Consulting Provider: Hospitalist Reason For Exam: Routine medical management - DM DS: Diagnosis Discharge Diagnosis (1) Status post total knee replacement, left: Status: Acute DS: Summary Hospital Course Hospital Course: The patient underwent a successful left total knee arthroplasty, they were transferred to PACU and then to the floor to recover. During their stay, their vitals were stable, afebrile at 98.0. Labs were unremarkable, H/H 11.2/35.1. POD 1 they were started on Aspirin 325mg po bid for DVT ppx, they also received Physical Therapy services twice a day. Prior to discharge, their dressing was clean dry and intact, and the plan was to be discharged home with VNA services. Time Attestation Discharge coordination time: Less than 30 minutes Quality: Safe Use of Opioids Does Pt have an Active Cancer Diagnosis on the Problem List?: No Quality: Stroke Does the patient have a stroke diagnosis?: No Physical Exam Vital Signs: Vital Signs: Last Vital Signs Temp 97.7 F 04/27/23 07:09 Pulse 68 04/27/23 07:43 Resp 18 04/27/23 07:09 BP 186/71 H 04/27/23 07:43 Pulse Ox 97 04/27/23 08:05 O2 Del Method Room Air 04/27/23 08:05 O2 Flow Rate 2 04/26/23 13:17 BMI result Body Mass Index 34.4 Const: General: cooperative, healthy appearing and no acute distress Resp: Effort & Inspection: normal respiratory effort and able to speak in complete sentences Cardio: Rate: regular rate Peripheral pulses: Peripheral pulses 2+ throughout GI: Palpation (GI): Soft to palpation Skin: Lesions: no lesions Rashes: no rashes Extrem: Other: left knee dressing is c/d/i. Able to dorsi/plantar flex. Calf is supple and nontender. Sensation intact. Pedal pulse intact. DS: Data Data Completed and Pending Completed studies during hospitalization [Text1]: Procedures Replacement of Right Hip Joint with Ceramic Synthetic Substitute, Uncemented, Open Approach (01/17/23) Pending studies at discharge: Pending at discharge 04/26/23 09:01 Surgical [PTH] Routine Labs on day of discharge: Laboratory Results - last 24 hr 04/26/23 04/26/23 04/27/23 16:34 19:36 05:49 WBC 10.9 H RBC 4.31 Hgb 11.2 L Hct 35.1 L MCV 81.4 MCH 26.0 L MCHC 31.9 RDW 14.6 Plt Count 260 MPV 10.5 Immature Gran % (Auto) 0.3 Neut % (Auto) 70.8 Lymph % (Auto) 15.1 L [place] % (Auto) 9.5 Eos % (Auto) 4.0 Baso % (Auto) 0.3 Lymph # (Auto) 1.6 [place] # (Auto) 1.0 Eos # (Auto) 0.4 Baso # (Auto) 0.0 Abs Immat Gran (auto) 0.03 Absolute Neuts (auto) 7.7 Absolute Nucleated RBC 0.000 Nucleated RBC % (auto) 0.0 Sodium 139 Potassium 4.8 Chloride 108 Carbon Dioxide 22 Anion Gap 14 BUN 21 H Creatinine 0.75 Estim Creat Clear Calc 74.7 Estimated GFR > 60 POC Glucose 180 H 182 H Fasting Glucose 122 H Calcium 10.1 04/27/23 07:08 WBC RBC Hgb Hct MCV MCH MCHC RDW Plt Count MPV Immature Gran % (Auto) Neut % (Auto) Lymph % (Auto) [place] % (Auto) Eos % (Auto) Baso % (Auto) Lymph # (Auto) [place] # (Auto) Eos # (Auto) Baso # (Auto) Abs Immat Gran (auto) Absolute Neuts (auto) Absolute Nucleated RBC Nucleated RBC % (auto) Sodium Potassium Chloride Carbon Dioxide Anion Gap BUN Creatinine Estim Creat Clear Calc Estimated GFR POC Glucose 121 H Fasting Glucose Calcium Discharge Plan Discharge Anticipated Discharge Date/Time: 04/27/23 15:30 Patient Disposition: Home Health Service Discharge Diagnosis: s/p LTKA Referrals: Lakeisha Argueta PA-C [Physician Special Programs Director] - 05/11/23 3:00 pm Discharge Medications: New celecoxib 200 mg Capsule 200 mg PO BID 30 Days Qty: 60 0RF acetaminophen 325 mg Tablet 650 mg PO Q6H PRN (Reason: Pain, Mild (Pain Scale 1-3)) 30 Days Qty: 240 0RF aspirin 325 mg Tablet 325 mg PO BID 42 Days Qty: 84 0RF docusate sodium 100 mg Capsule 100 mg PO BID 30 Days Qty: 60 0RF oxycodone 5 mg Tablet 5 mg PO Q4H PRN (Reason: Pain, Moderate(Pain Scale 4-6)) 7 Days Qty: 42 0RF Rx Instructions: Partial Fill upon patient request. Continued (DME) DIABETIC SHOES See Rx Instructions .Route .MEDSUPPLY Qty: 2 0RF Rx Instructions: As directed - Dx: E11.9 levothyroxine [Synthroid] 150 mcg tablet 150 mcg PO QAM Qty: 90 3RF metformin 850 mg tablet 850 mg PO BID 90 Days Qty: 180 2RF (DME) walker Misc See Rx Instructions .MEDSUPPLY Qty: 1 0RF Rx Instructions: Folding Front wheeled walker lisinopril 30 mg tablet 30 mg PO QAM 90 Days Qty: 90 1RF fluoxetine 20 mg capsule 20 mg PO QAM 90 Days Qty: 90 1RF azithromycin 250 mg tablet See Rx Instructions PO .COMPLEX Qty: 6 0RF Patient Comments: pt last dose yesterday Rx Instructions: take 500 mg today (day 1), then 250 mg for 4 days (days 2-5) PO atorvastatin 10 mg tablet 10 mg PO QAM omeprazole 20 mg capsule,delayed release(DR/EC) 20 mg PO QAM Januvia 100 mg tablet 100 mg PO QAM cholecalciferol (vitamin D3) [Vitamin D3] 25 mcg (1,000 unit) Tablet 50 mcg PO DAILY coenzyme Q10 [Co Q-10] 400 mg Capsule 400 mg PO QAM Discharge Orders: Discharge Order (Routine); Ordered 04/27/23 Ordered By: Lakeisha Argueta Diet: Advance to usual diet Activity on Discharge: Use cane or walker Stand Alone Forms: Patient Portal Discharge page Activity Restrictions/Additional Instructions: Physical Therapy for ROM 0-120, quad strength, gait training. Use walker for ambulation Limit stair climbing, No shower, No tub bath, No driving Continue anticoagulant for 6 weeks Keep Aquacel dressing clean, dry and intact. Follow up with orthopedics in 2 weeks Care Plan Goals: restorn fxn to left knee Health Concerns: none Plan of Treatment: Physical Therapy for ROM 0-120, quad strength, gait training. Use walker for ambulation Limit stair climbing, No shower, No tub bath, No driving Continue anticoagulant x 6 weeks Keep Aquacel dressing clean, dry and intact. Follow up with orthopedics in 2 weeks Assessment: stable for d/c
--- NOTE | 2023-04-27 08:57 | HO.POSTANES ---
Post Anesthesia Evaluation Post Anesthesia Evaluation Date of Service: 04/27/23 Vital Signs: Vital Signs Temp Pulse Resp BP Pulse Ox O2 Del Method 04/27/23 08:05 97 Room Air 04/27/23 07:43 68 186/71 H 96 04/27/23 07:09 97.7 F 68 18 186/71 H 96 Room Air 04/27/23 03:32 97.0 F 59 18 142/67 H 95 Room Air Anesthesia: Spinal and Nerve Block Mental Status: Awake Pain Control: Satisfactory Nausea/Vomiting: None Hydration: Adequate Anesthesia-Related Issues: No Anes. Related Issues
--- NOTE | 2023-04-27 10:38 | MHC.CM.PN ---
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
[2023-04-27 10:46] VITALS: BP 146/65
[2023-04-27] MEDS: Acetaminophen 325 MG TABLET 650 MG PO (10:50)
[2023-04-27] MEDS: Aspirin 325 MG TABLET PO (10:50)
[2023-04-27 11:02] VITALS: BP 146/65
[2023-04-27 11:44] LABS: Glucose, Whole Blood 126 mg/dL (60-115)
== END 2023-04-27 13:44 | disposition home health service (06) | DRG 470 ==
LOC: HO.SSSA 09:26 → HO.S3 13:20
PROVIDERS: Physician Assistant; Admitting Provider Orthopaedic Surgery; PCP Internal Medicine; Visit Provider Orthopaedic Surgery
PROC: 0SRD0J9 Replacement of Left Knee Joint with Synthetic Substitute, Cemented, Open Approach (ICD-10-PCS; CPT 27447; principal; 2023-04-26 07:30)
DX: M17.12 Unilateral primary osteoarthritis, left knee (principal); G89.18 Other acute postprocedural pain; I10 Essential (primary) hypertension; E78.5 Hyperlipidemia, unspecified; E11.9 Type 2 diabetes mellitus without complications; K21.9 Gastro-esophageal reflux disease without esophagitis; Z85.118 Personal history of other malignant neoplasm of bronchus and lung; Z79.84 Long term (current) use of oral hypoglycemic drugs; Z79.890 Hormone replacement therapy; Z79.899 Other long term (current) drug therapy
CPT/HCPCS: 27447; 36415; 73560; 80048; 82947; 85025; 86850; 86900; 86901; 87640; 87641; 88305; 88311; 96361; 96365; 96366; 97110; 97116; 97162; 97530; C1713; C1776; J0131; J0665; J0690; J1100; J1885; J2250; J2704; J7120

== ENCOUNTER → 2023-04-26 06:13 | Outpatient (BNV) | payer MEDICARE, OTHER, SELFPAY | PROVIDERS: Admitting Provider Orthopaedic Surgery; PCP Internal Medicine; Visit Provider Student in an Organized Health Care Education/Training Program | DX: E11.9 Type 2 diabetes mellitus without complications (principal); M17.12 Unilateral primary osteoarthritis, left knee | CPT/HCPCS: 99222 ==

== ENCOUNTER → 2023-04-26 06:13 | Outpatient (BNV) | payer MEDICARE, OTHER, SELFPAY | PROVIDERS: Admitting Provider Orthopaedic Surgery; PCP Internal Medicine; Visit Provider Orthopaedic Surgery | DX: Z47.1 Aftercare following joint replacement surgery (principal); Z96.652 Presence of left artificial knee joint | CPT/HCPCS: 27447; 99024; G0180 ==

== ENCOUNTER 2023-05-11 14:50 | Outpatient (AMB) | payer MEDICARE, OTHER, SELFPAY ==
--- NOTE | 2023-05-11 15:00 | MHC.OFFVIS ---
Intake Intake Visit Reasons: PO LT TKA 04/26/23 NE Intake Note: Ariane is a 77 year old female who presents today for a post op appointment s/p LT TKA 04/26/23 NE. Patient reports her knee feels better. She states that her pain is a little worse at night. Allergies amoxicillin [AMOXICILLIN] Allergy (Intermediate, Verified 05/11/23 15:02) Gastrointestinal Upset Sulfa (Sulfonamide Antibiotics) [SULFA (SULFONAMIDE ANTIBIOTICS)] Allergy (Intermediate, Verified 05/11/23 15:02) HIVES,RASH HPI PO LT TKA 04/26/23 NE HPI Details 77-year-old female who presents in the office today 2 weeks status post left total knee arthroplasty, which was performed on 04/26/[address] Reed. The patient reports her knee feels better. However, she does have increased pain at night. [facility] Medical History Elevated cholesterol Cervical cancer Primary osteoarthritis of right hip [place] esophagus GERD (gastroesophageal reflux disease) Campoverde's palsy Allergic rhinitis Carcinoid tumor (~2021) Tubular adenoma of colon (~2002) Chest pain Obesity (BMI 30-39.9) Anxiety Urinary incontinence Primary osteoarthritis of both knees Acquired hypothyroidism Obstructive sleep apnea (~2005) Benign essential hypertension Diabetes mellitus Pure hypercholesterolemia Surgical History Status post total replacement of right hip (~01/17/23) Hx of bilateral cataract extraction History of esophagogastroduodenoscopy (EGD) History of lung surgery History of bronchoscopy (~2021) History of colonoscopy History of pubovaginal sling (~2010) History of hysterectomy History of cholecystectomy (~1996) Family History Father Diabetes Hypertension Mother Diabetes Cancer Social History Household Members: Spouse Housing: House Are you a primary health care aide to a significant other at home: No Do you presently have visiting nurse or other home services: No Alcohol intake: current Alcohol intake frequency: holidays/special occasions only Alcohol type: wine Patient Tobacco Use Status: Never used Tobacco e-Cigarette/Vaping Use: Never Used Second Hand Smoke Exposure: Yes service: No Current occupational status: retired Cognitive needs: No Hearing needs: Yes Vision needs: Yes Review of Systems Const All systems reviewed & are unremarkable except as noted in HPI and below Physical Exam Const General: cooperative, healthy appearing and no acute distress Resp Effort & Inspection: normal respiratory effort and able to speak in complete sentences Cardio Rate: regular rate Peripheral pulses: Peripheral pulses 2+ throughout GI Palpation (GI): Soft to palpation Skin Lesions: no lesions Rashes: no rashes Extrem Other: Left knee: Normal to inspection. Incision site is clean, dry, and intact. No surrounding erythema or drainage. No signs of infection. [place] intact. ROM is 0-110 degrees. NVI. Assessment & Plan Assessment & Plan (1) Status post total knee replacement, left: Onset Date: ~04/26/23 Comment: Dr. Alejandro Reed Code(s): Z96.652 - Presence of left artificial knee joint Plan Ms. Song is a 77-year-old female who presents in the office today 2 weeks status post left total knee arthroplasty, which was performed on 04/26/[address] Reed. The patient reports her knee feels better. However, she does have increased pain at night. [place] were removed and steri-stripes were applied. The patient will transition to outpatient physical therapy. A refill for Oxycodone 5 mg PO Q4H PRN with 42 tabs was sent to the pharmacy. Follow up will be in [address] Reed, or sooner if needed. Medications: Refilled oxycodone Partial Fill upon patient request. 5 mg PO Q4H PRN 42 tabs 0RF Pain, Moderate(Pain Scale 4-6) 7 days Patient Instructions: Scribed by Renu Liao medical imaging technologist, for Lakeisha Argueta PA-C on 05/11/2023 at 2:52 pm, EST. Coding Level of Care Code Global (08838) Diagnoses Status post total knee replacement, left Z96.652
== END 2023-05-11 15:35 | disposition home or self-care (01) ==
PROVIDERS: PCP Internal Medicine; Visit Provider Physician Assistant
DX: Z96.652 Presence of left artificial knee joint (principal)
CPT/HCPCS: 99024

== ENCOUNTER → 2023-05-11 14:50 | Outpatient (BNVA) | payer MEDICARE, OTHER, SELFPAY | PROVIDERS: PCP Internal Medicine; Visit Provider Physician Assistant | DX: Z47.1 Aftercare following joint replacement surgery (principal); Z96.652 Presence of left artificial knee joint | CPT/HCPCS: 99212 ==

== ENCOUNTER 2023-06-05 11:02 | Outpatient (AMB) | payer MEDICARE, OTHER, SELFPAY ==
--- NOTE | 2023-06-05 11:25 | MHC.OFFVIS ---
Intake Intake Visit Reasons: PO 6 week LT TKA 04/26/23 NE Intake Note: Ariane is a 77 year old female who presents today for a follow up of her left knee, she is s/p Left TKA 04/26/23. She feels that she had a minor setback as she is having increased stiffness and soreness on medial and lateral aspect of the upper leg. Denies pain, swelling has continued to decrease Allergies amoxicillin [AMOXICILLIN] Allergy (Intermediate, Verified 05/11/23 15:02) Gastrointestinal Upset Sulfa (Sulfonamide Antibiotics) [SULFA (SULFONAMIDE ANTIBIOTICS)] Allergy (Intermediate, Verified 05/11/23 15:02) HIVES,RASH HPI PO 6 week LT TKA 04/26/23 NE HPI Details Ariane is a 77 year old female who presents today for a follow up of her left knee, she is s/p Left TKA 04/26/23. She feels that she had a minor setback as she is having increased stiffness and soreness on medial and lateral aspect of the upper leg. Denies pain, swelling has continued to decrease PFSH Medical History Elevated cholesterol Cervical cancer Primary osteoarthritis of right hip [place] esophagus GERD (gastroesophageal reflux disease) Campoverde's palsy Allergic rhinitis Carcinoid tumor (~2021) Tubular adenoma of colon (~2002) Chest pain Obesity (BMI 30-39.9) Anxiety Urinary incontinence Primary osteoarthritis of both knees Acquired hypothyroidism Obstructive sleep apnea (~2005) Benign essential hypertension Diabetes mellitus Pure hypercholesterolemia Surgical History Status post total replacement of right hip (~01/17/23) Hx of bilateral cataract extraction History of esophagogastroduodenoscopy (EGD) History of lung surgery History of bronchoscopy (~2021) History of colonoscopy History of pubovaginal sling (~2010) History of hysterectomy History of cholecystectomy (~1996) Family History Father Diabetes Hypertension Mother Diabetes Cancer Social History Household Members: Spouse Housing: House Are you a primary md do resident urgent care to a significant other at home: No Do you presently have visiting nurse or other home services: No Alcohol intake: current Alcohol intake frequency: holidays/special occasions only Alcohol type: wine Patient Tobacco Use Status: Never used Tobacco e-Cigarette/Vaping Use: Never Used Second Hand Smoke Exposure: Yes service: No Current occupational status: retired Cognitive needs: No Hearing needs: Yes Vision needs: Yes Physical Exam Extrem Other: inc c/d/i 0- 115 deg stable arc of motion Assessment & Plan Assessment & Plan (1) Status post total knee replacement, left: Onset Date: ~04/26/23 Comment: Dr. Alejandro Reed Code(s): Z96.652 - Presence of left artificial knee joint Plan: July d/c chemoprophylaxis cont pt f/u 6 weeks Coding Level of Care Code Global (16951) Diagnoses Status post total knee replacement, left Z96.652
== END 2023-06-05 11:52 | disposition home or self-care (01) ==
PROVIDERS: PCP Internal Medicine; Visit Provider Orthopaedic Surgery
DX: Z96.652 Presence of left artificial knee joint (principal)
CPT/HCPCS: 99024

== ENCOUNTER → 2023-06-05 11:02 | Outpatient (BNVA) | payer MEDICARE, OTHER, SELFPAY | PROVIDERS: PCP Internal Medicine; Visit Provider Orthopaedic Surgery | DX: Z47.1 Aftercare following joint replacement surgery (principal); Z96.652 Presence of left artificial knee joint | CPT/HCPCS: 99212 ==

== ENCOUNTER 2023-06-21 08:56 | Outpatient (REF) | payer MEDICARE, OTHER, SELFPAY ==
[2023-06-21 10:56] LABS: MANUAL DIFF FLAG NO
[2023-06-21 10:58] LABS: Appearance Urine Cloudy; Color Urine Yellow; Glucose Urine UA Negative (Negative); Leukocyte Esterase Urine Moderate (2+) (Negative); Nitrite Urine Positive (Negative); PH 5.5 (5.0-9.0); UMIC TRIGGER UACC YES; Urine Blood Negative (Negative); Urine Ketones Negative (Negative); Urine Protein Negative (Neg-Trace)
[2023-06-21 11:03] LABS: Basophils Absolute Auto 0.1 X10*3/uL (0.0-0.2); Basophils Percent Auto 1.1 % (0-2); Eosinophils Absolute Auto 0.3 X10*3/uL (0.0-0.4); Eosinophils Percent Auto 6.3 % (0-4); Hemoglobin 12.4 g/dl (12.0-16.0); Imm Gran Abs Auto 0.02 X10*3/uL (0.00-0.03); Imm Gran Pct Auto 0.4 % (0.0-0.4); Lymphocytes Absolute Auto 1.5 X10*3/uL (1.2-4.9); Lymphocytes Percent Auto 29.2 % (20-40); Mean Corpuscular HGB Conc 31.8 g/dl (31.0-35.0); Mean Corpuscular Hemoglobin 25.8 pg (27.0-33.0); Mean Corpuscular Volume 81.3 fL (80.0-98.0); Mean Platelet Volume 9.8 fL (9.4-12.3); Monocytes Absolute Auto 0.4 X10*3/uL (0.1-1.2); Monocytes Percent Auto 8.2 % (2-11); Neutrophils Absolute Auto 2.9 x10*3/uL (2.0-8.3); Neutrophils Percent Auto 54.8 % (45-73); Platelet Count 356 X10*3/uL (160-400); Red Cell Distribution Width 15.1 % (11.0-16.0); White Blood Count 5.3 X10*3/uL (4.8-10.8)
[2023-06-21 11:05] LABS: Bacteria Urine 4+ (None Seen); Hyaline Casts Urine 0-2 /LPF (0-2); RBC Urine 0-2 /HPF (0-2); UACC Culture Trigger YES; WBC Urine 21-50 /HPF (0-5)
[2023-06-21 11:16] LABS: Estimated Average Glucose 134 mg/dL; Hemoglobin A1c % 6.3 % (<6.0)
[2023-06-21 11:20] LABS: Alanine Aminotransferase 17 U/L (0-31); Albumin Level 4.1 g/dL (3.5-5.0); Anion Gap 11 (12-20); Aspartate Amino Transferase 14 U/L (5-31); Bilirubin Total 0.5 mg/dL (0.0-1.0); Blood Urea Nitrogen 17 mg/dL (9-16); Calcium 10.5 mg/dL (8.4-10.2); Carbon Dioxide 25 mmol/L (22-29); Chloride 109 mmol/L (96-108); Cholesterol 127 mg/dL (<200); Estimated Glomerular Filt Rate > 60; Glucose Fasting 150 mg/dL (60-99); HDL Cholesterol 46 mg/dL (>40); LDL Cholesterol Calculated 57 mg/dL (<100); Potassium 4.7 mmol/L (3.3-5.1); Sodium 140 mmol/L (135-145); Total Protein 7.2 g/dL (6.5-8.0); Triglycerides 121 mg/dL (<150)
[2023-06-21 11:37] LABS: Alkaline Phosphatase 58 U/L (39-117)
[2023-06-21 11:41] LABS: Free T4 (Free Thyroxine) 1.25 ng/dL (0.71-1.85); Thyroid Stimulating Hormone 0.29 uIU/mL (0.32-4.0); Vitamin D 25-OH Total 37.5 ng/mL (>30)
[2023-06-21 11:44] LABS: Folate 7.6 ng/mL (> or = 4.0); Vitamin B12 195 pg/mL (200-900)
[2023-06-21 11:49] LABS: Creatinine Urine 116.29 mg/dL; Microalbum/Creatinine Ratio Ur 10.3 ug/mg cr (<30)
== END 2023-06-21 08:57 | disposition home or self-care (01) ==
LOC: HO.10HDL 08:56
PROVIDERS: Visit Provider Internal Medicine
DX: E03.9 Hypothyroidism, unspecified (principal); E11.9 Type 2 diabetes mellitus without complications; D64.9 Anemia, unspecified; E78.00 Pure hypercholesterolemia, unspecified; E55.9 Vitamin D deficiency, unspecified; E53.8 Deficiency of other specified B group vitamins; R30.0 Dysuria
CPT/HCPCS: 36415; 80053; 80061; 81001; 82043; 82306; 82570; 82607; 82746; 83036; 84439; 84443; 85025; 87086

== ENCOUNTER 2023-06-23 12:18 | Outpatient (AMB) | payer MEDICARE, OTHER, SELFPAY ==
[2023-06-23 12:30] VITALS: BP 118/64; PULSE 68; O2SAT 97; BMI 32.9
--- NOTE | 2023-06-23 12:30 | A.OFFPC_ITS ---
Vital Signs 06/23/23 12:30 Height 5 ft 6 in Weight 204 lb 0.4 oz BMI 32.9 BP 118/64 Blood Pressure Location Lt brachial Position Sitting Pulse 68 Pulse Source Pulse Oximeter Pulse Oximetry (%) 97 Oxygen Delivery Method Room Air Intake Visit Reasons: HTN, hyperlipidemia, OA News Broadcaster Required: No Allergies amoxicillin [AMOXICILLIN] Allergy (Intermediate, Verified 06/23/23 12:52) Gastrointestinal Upset Sulfa (Sulfonamide Antibiotics) [SULFA (SULFONAMIDE ANTIBIOTICS)] Allergy (Intermediate, Verified 06/23/23 12:52) HIVES,RASH Medication List - Last Reconciled 06/23/23 by Roberto Rojas MD acetaminophen 650 mg (2 x 325 mg) PO Q6H PRN 30 days aspirin 325 mg PO BID 42 days atorvastatin 10 mg PO QAM celecoxib 200 mg PO BID 30 days cholecalciferol (vitamin D3) (Vitamin D3) 50 mcg PO DAILY coenzyme Q10 (Co Q-10) 400 mg PO QAM [DIABETIC SHOES As directed - Dx: E11.9] docusate sodium 100 mg PO BID 30 days dulaglutide (Trulicity) 0.75 mg (0.5 mL) subcut QWEEK 90 days fluoxetine 20 mg PO QAM 90 days levothyroxine (Synthroid) 150 mcg PO QAM lisinopril 30 mg PO QAM 90 days metformin 850 mg PO BID 90 days omeprazole 20 mg PO QAM oxycodone 5 mg PO Q4H PRN 7 days sitagliptin phosphate (Januvia) 100 mg PO QAM walker Folding Front wheeled walker Tobacco use date assessed: 06/23/23 Fall risk assessment: No Falls in past year Last assessed Fall Risk: 06/23/23 Dental Screening Dental Screen Date: 03/20/23 HPI HTN, hyperlipidemia, OA HPI Details Patient comes in today for her follow up visit States that she feels okay but notes that she feels shaky at times lately Her children have also noticed that she has on and off tremors in both hands, especially when she is trying to do something or open something with her hands and she starts fumbling around more due to her tremors States that her knee surgery went well but she still has increased pain/discomfort in the knee and is currently still going to physical therapy She denies any headaches or dizziness Denies any chest pains, no SOB No nausea/vomiting, no abdominal pain No change in bowel habits noted Has also noticed some tingling/numbness in her hands and feet lately and notes that her feet get cold more often now, especially at night Had her follow up labs done a couple of days ago - to discuss her results PENDING SALE TO [facility] Medical History (Updated 06/23/23 @ 13:22 by Roberto Rojas MD) Vitamin B12 deficiency Osteoarthritis of left knee Elevated cholesterol Cervical cancer Primary osteoarthritis of right hip [place] esophagus GERD (gastroesophageal reflux disease) Campoverde's palsy Allergic rhinitis Carcinoid tumor (~2021) Tubular adenoma of colon (~2002) Chest pain Obesity (BMI 30-39.9) Anxiety Urinary incontinence Primary osteoarthritis of both knees Acquired hypothyroidism Obstructive sleep apnea (~2005) Benign essential hypertension Diabetes mellitus Pure hypercholesterolemia Surgical History Status post total replacement of right hip (~01/17/23) Hx of bilateral cataract extraction History of esophagogastroduodenoscopy (EGD) History of lung surgery History of bronchoscopy (~2021) History of colonoscopy History of pubovaginal sling (~2010) History of hysterectomy History of cholecystectomy (~1996) Family History Father Diabetes Hypertension Mother Diabetes Cancer Social History Household Members: Spouse Housing: House Are you a primary home care specialist to a significant other at home: No Do you presently have visiting nurse or other home services: No Alcohol intake: current Alcohol intake frequency: holidays/special occasions only Alcohol type: wine Patient Tobacco Use Status: Never used Tobacco e-Cigarette/Vaping Use: Never Used Second Hand Smoke Exposure: Yes service: No Current occupational status: retired Cognitive needs: No Hearing needs: Yes Vision needs: Yes Questionnaire PHQ-9 Over the last 2 weeks, how often have you been bothered by any of the following problems? Depression Screening Interpretation: Negative Depression Screening Done: Yes Source: Developed by Drs. Tim Torres, Caitie Nguyen, Justin Fallon and colleagues, with an educational ion from [employer]. Thrive Questionnaire Date Thrive assessed: 04/27/23 Currently or been in a relationship where the following occur: no concerns reported THRIVE Score: 0 AUDIT C Alcohol Use Questionnaire (AUDIT-C) 1. How often do you have a drink containing alcohol?: Monthly or less 2. How many drinks containing alcohol do you have on a typical day when you are drinking?: 1 or 2 3. How often do you have six or more drinks on one occasion?: Never Total Score: 1 Score Reviewed/Action Taken: Yes SEBAS-7 AMB Questionnaire SEBAS-7 Date SEBAS - 7 assessed: 03/20/23 Source: Developed by Drs. Tim Torres, Caitie Nguyen, Justin Fallon and colleagues, with an educational ion from [employer]. Review of Systems Const Denies chills, Reports fatigue, Denies fever(s) and Denies headache(s) ENT Denies dysphagia, Denies dizziness, Denies otalgia, Denies headache(s), Denies neck pain, Denies odynophagia and Denies sore throat Card Denies chest pain, Denies palpitations and Denies dyspnea Resp Denies cough and Denies dyspnea GI Denies abdominal pain, Denies constipation, Denies dysphagia, Denies heartburn, Denies diarrhea, Denies nausea, Denies odynophagia and Denies vomiting Denies difficulty voiding, Denies nocturia and Denies dysuria Musc Reports arthralgias (over both knees; right hip pain has improved with SALOMON), Denies neck pain and Reports stiffness Skin/Breast Denies rash Neuro Denies dizziness, Denies headache(s), Reports paresthesias (on and off in the fingers and toes bilaterally) and Reports tremor(s) (in both hands - see HPI) Endo Reports fatigue and Denies palpitations Physical exam (Primary Care) Vital Signs: Last Vital Signs Pulse 68 06/23/23 12:30 BP 118/64 06/23/23 12:30 Pulse Ox 97 06/23/23 12:30 Oxygen Delivery Method Room Air 06/23/23 12:30 BMI result Body Mass Index 32.9 Tobacco/Smoking Status: Tobacco use Status Tobacco use date assessed 06/23/23 06/23/23 12:35 Patient Tobacco Use Status Never used Tobacco 06/23/23 12:35 e-Cigarette/Vaping Use Never Used 06/23/23 12:35 Depression Screening Interpretation: Negative Thrive Assessment: Date of Thrive Assessment Date Thrive assessed 04/27/23 06/23/23 12:35 Currently or been in a relationship where the following occur: no concerns reported Const General: no acute distress and alert HENMT Ears: TM's normal bilaterally and EAC's normal Throat: Yes posterior oropharynx normal and Yes tonsils normal (no TP congestion noted) Neck Neck: Yes no lymphadenopathy and Yes supple Thyroid: Thyroid normal Resp Auscultation: clear to auscultation bilaterally, no rales and no wheezes Cardio Rate: regular rate Rhythm: regular rhythm Heart sounds: no murmurs GI Palpation (GI): Soft to palpation and nontender Auscultation: normal bowel sounds General: Yes no CVA tenderness Back/Spine/Pelvis Back: no CVA tenderness Thoracic/Lumbar Spine: paraspinal muscle tenderness on the right in the lower lumbar and lumbar spinal tenderness Skin Rashes: no rashes Extrem General: Yes no clubbing, cyanosis or edema Right lower extremity: knee Details: tenderness; no swelling Left lower extremity: knee Details: tenderness; no swelling Results Reviewed Results Reviewed: Laboratory Tests 06/21/23 09:00 WBC 5.3 Hgb 12.4 Hct 39.0 Plt Count 356 D Sodium 140 Potassium 4.7 Creatinine 0.83 Estimated GFR > 60 Fasting Glucose 150 H Hemoglobin A1c % 6.3 H Calcium 10.5 H AST 14 ALT 17 Triglycerides 121 Cholesterol 127 LDL Cholesterol, Calc 57 HDL Cholesterol 46 Vitamin B12 195 L 25-OH Vitamin D Total 37.5 TSH 0.29 L Free T4 1.25 Ur Specific [place] 1.020 Urine Protein Negative Urine Glucose (UA) Negative Urine Blood Negative Urine Nitrite Positive H Ur Leukocyte Esterase Moderate (2+) H Microalb/Creat Ratio 10.3 Assessment and Plan Assessment & Plan (1) Benign essential hypertension: Code(s): I10 - Essential (primary) hypertension Plan: Reinforced low sodium diet - goal is systolic BP of at least 140 mm or less Patient states that her BP is usually much lower when she checks it at home Continue Lisinopril 30 mg QD Patient is reminded to continue monitoring her blood pressure regularly (2) Diabetes mellitus: Comment: type 2-dx ~2016-glucose usually [phone] Trulicity (takes on Tuesdays), Metformin, Januvia Code(s): E11.9 - Type 2 diabetes mellitus without complications Qualifiers: Diabetes mellitus type: type 2 Diabetes mellitus terminal computer operator insulin use: without terminal computer operator use Diabetes mellitus complication status: without complication Qualified Code(s): E11.9 - Type 2 diabetes mellitus without complications Plan: Her HgbA1c was at 6.3% on her labs done a couple of days ago (was previously at 6.5% a few months ago) - goal is < 7.0% Reinforced diabetic diet Continue Metformin 850 mg BID, Januvia 100 mg QD and Trulicity 0.75 mg SQ once a week (3) Pure hypercholesterolemia: Code(s): E78.00 - Pure hypercholesterolemia, unspecified Plan: Results of her labs done a couple of days ago reviewed and discussed with patient Reinforced low cholesterol diet Continue Atorvastatin 10 mg QD Will recheck her labs and fasting lipids in 3 months for follow up (4) Primary osteoarthritis of right hip: Code(s): M16.11 - Unilateral primary osteoarthritis, right hip Plan: S/P total right hip arthroplasty with Dr. Reed on 01/17/2023, with (+) significant improvement of her hip symptoms Patient also recently completed physical therapy for her right hip and she continues to do the exercises taught to her by physical therapy regularly Follow up with orthopedics as scheduled (5) Primary osteoarthritis of both knees: Code(s): M17.0 - Bilateral primary osteoarthritis of knee Plan: S/P left knee TKA on 04/26/2023 She is currently still going to physical therapy for her knee Follow up with orthopedics as scheduled (6) Low back pain with right-sided sciatica: Code(s): M54.41 - Lumbago with sciatica, right side Qualifiers: Chronicity: unspecified Back pain laterality: right Qualified Code(s): M54.41 - Lumbago with sciatica, right side Plan: Reinforced activity and weight-lifting restrictions Repeat lumbar spine and SI joint x-rays done back in August 2022 revealed (+) degenerative changes of the lumbar spine and SI joints May continue taking Tylenol PRN and Tizanidine 4 mg TID PRN but as she reports no relief from Tylenol recently, she was started on a trial of Meloxicam 15 mg QD PRN with food - states that Meloxicam helped a lot but she is concerned that this is affecting her BP and she stopped taking it about a week ago She is advised to start back on Meloxicam for now to help with her pain - explained that while it is true that taking Meloxicam may increase her blood pressure, significant pain can also cause her blood pressure to increase Advised also that physical therapy may be an option and she can call for referral at any time if she wishes to try physical therapy for her back pain (7) Hypercalcemia: Code(s): E83.52 - Hypercalcemia Plan: Her serum calcium level was again slightly elevated at 10.5 a couple of days ago (was normal at 9.5 when previously checked on 01/18/2023) PTH level checked a couple of times in the past have come back normal Follow up with endocrinology as scheduled (8) Carcinoid tumor: Onset Date: ~2021 Comment: (s/p RLL wedge resection 09/2021) Code(s): D3A.00 - Benign carcinoid tumor of unspecified site Qualifiers: Carcinoid tumor malignancy status: benign Carcinoid tumor location: lung Qualified Code(s): 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 Wilson on 09/29/21; states that she has been doing well since with no acute issues Follow up with thoracic surgery (Dr. Wilson) as scheduled for continuing surveillance - was last seen back in August 2022 and will have repeat chest CT in 1 year (9) Acquired hypothyroidism: Code(s): E03.9 - Hypothyroidism, unspecified Plan: Continue Levothyroxine 150 mcg QD Will continue to monitor her TFTs regularly (10) Elevated liver enzymes: Code(s): R74.8 - Abnormal levels of other serum enzymes Plan: Improved; LFTs have remained normal on her previous labs - will continue to monitor this closely Is most likely due to her weight (hepatosteatosis) - this was confirmed on abdominal US in the past (11) Obstructive sleep apnea: Onset Date: ~2005 Comment: (ALEXANDRE on CPAP) Code(s): G47.33 - Obstructive sleep apnea (adult) (pediatric) Plan: Continue using her CPAP device when she sleeps at night - patient continues to experience significant improvement/resolution of her fatigue and daytime somnolence with the regular use of her CPAP device (12) Tremor of both hands: Code(s): R25.1 - Tremor, unspecified Plan: Per request, will refer her to neurology for further evaluation and management (13) Vitamin B12 deficiency: Code(s): E53.8 - Deficiency of other specified B group vitamins Plan: Have also advised patient that her B12 level was low on her recent labs and this may be contributing to her recent symptoms of paresthesis Will start her on Vitamin B12 1000 mcg QD (14) GERD without esophagitis: Code(s): K21.9 - Gastro-esophageal reflux disease without esophagitis Plan: Dietary restrictions reinforced Continue Omeprazole 20 mg QD PRN (15) Anxiety: Code(s): F41.9 - Anxiety disorder, unspecified Plan: Continue Fluoxetine 20 mg QD (16) Obesity (BMI 30-39.9): Code(s): E66.9 - Obesity, unspecified Plan: Reinforced diet; exercise is not realistic at present due to patient's multiple physical issues Plan Follow up in 3 months Orders: Orders Complete Blood Count Auto Diff 3 Months D64.9 - Anemia, unspecified Free T4 (Free Thyroxine) 3 Months E03.9 - Hypothyroidism, unspecified Thyroid Stimulating Hormone 3 Months E03.9 - Hypothyroidism, unspecified Lipid Panel 3 Months E78.00 - Pure hypercholesterolemia, unspecified Comprehensive [place]. Panel Fast 3 Months E78.00 - Pure hypercholesterolemia, unspecified Vitamin D 25-OH Total 3 Months E55.9 - Vitamin D deficiency, unspecified Vitamin B12 and Folate 3 Months E53.8 - Deficiency of other specified B group vitamins UA CC w/rflx Micro + Cult 3 Months R30.0 - Dysuria Microalbumin, Random (w Creat) 3 Months E11.9 - Type 2 diabetes mellitus without complications Hemoglobin A1c 3 Months E11.9 - Type 2 diabetes mellitus without complications Referrals Neurology Referral R25.1 - Tremor, unspecified Medications: New cyanocobalamin (vitamin B-12) 1,000 mcg PO DAILY 90 days 90 tabs 1RF Coding Level of Care Code Est Pt Level 4 (71750) Diagnoses Benign essential hypertension I10 Type 2 diabetes mellitus without complication, without long-term current use of insulin E11.9 Diabetes mellitus type: type 2 Diabetes mellitus terminal computer operator insulin use: without usp use Diabetes mellitus complication status: without complication Pure hypercholesterolemia E78.00 Primary osteoarthritis of right hip M16.11 Primary osteoarthritis of both knees M17.0 Right-sided low back pain with right-sided sciatica, unspecified chronicity M54.41 Chronicity: unspecified Back pain laterality: right Hypercalcemia E83.52 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
== END 2023-06-23 13:14 | disposition home or self-care (01) ==
PROVIDERS: PCP Internal Medicine; Visit Provider Internal Medicine
DX: I10 Essential (primary) hypertension (principal); E11.9 Type 2 diabetes mellitus without complications; D3A.090 Benign carcinoid tumor of the bronchus and lung; E78.00 Pure hypercholesterolemia, unspecified; M16.11 Unilateral primary osteoarthritis, right hip; M17.0 Bilateral primary osteoarthritis of knee; M54.41 Lumbago with sciatica, right side; E83.52 Hypercalcemia; E03.9 Hypothyroidism, unspecified; R74.8 Abnormal levels of other serum enzymes; G47.33 Obstructive sleep apnea (adult) (pediatric); R25.1 Tremor, unspecified
CPT/HCPCS: 99214

== ENCOUNTER 2023-07-17 09:43 | Outpatient (AMB) | payer MEDICARE, OTHER, SELFPAY ==
--- NOTE | 2023-07-17 09:45 | MHC.OFFVIS ---
Intake Visit Reasons: PO 6 week LT TKA 04/26/23 NE Intake Note: Ariane is a 77 year old female who presents today for a post operative appointment s/p Left TKA 04/26/23. Patient reports that she is doing well with no concerns. Allergies amoxicillin [AMOXICILLIN] Allergy (Intermediate, Verified 07/17/23 09:46) Gastrointestinal Upset Sulfa (Sulfonamide Antibiotics) [SULFA (SULFONAMIDE ANTIBIOTICS)] Allergy (Intermediate, Verified 07/17/23 09:46) HIVES,RASH HPI HPI PO 6 week LT TKA 04/26/23 NE: Details: Ariane is a 77 year old female who presents today for a post operative appointment s/p Left TKA 04/26/23. Patient reports that she is doing well with no concerns. [facility] Medical History (Updated 06/23/23 @ 13:22 by Roberto Rojas MD) Vitamin B12 deficiency Osteoarthritis of left knee Elevated cholesterol Cervical cancer Primary osteoarthritis of right hip [place] esophagus GERD (gastroesophageal reflux disease) Campoverde's palsy Allergic rhinitis Carcinoid tumor (~2021) Tubular adenoma of colon (~2002) Chest pain Obesity (BMI 30-39.9) Anxiety Urinary incontinence Primary osteoarthritis of both knees Acquired hypothyroidism Obstructive sleep apnea (~2005) Benign essential hypertension Diabetes mellitus Pure hypercholesterolemia Surgical History Status post total replacement of right hip (~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) Hx of bilateral cataract extraction History of esophagogastroduodenoscopy (EGD) History of lung surgery History of bronchoscopy (~2021) History of colonoscopy History of pubovaginal sling (~2010) History of hysterectomy History of cholecystectomy (~1996) Family History Father Diabetes Hypertension Mother Diabetes Cancer Social History Household Members: Spouse Housing: House Are you a primary child care worker to a significant other at home: No Do you presently have visiting nurse or other home services: No Alcohol intake: current Alcohol intake frequency: holidays/special occasions only Alcohol type: wine Patient Tobacco Use Status: Never used Tobacco e-Cigarette/Vaping Use: Never Used Second Hand Smoke Exposure: Yes service: No Current occupational status: retired Cognitive needs: No Hearing needs: Yes Vision needs: Yes Physical Exam Extrem Other: inc c/d/i 0- 130 deg stable arc of motion Assessment & Plan Assessment & Plan (1) Status post total knee replacement, left: Onset Date: ~04/26/23 Comment: Dr. Alejandro Reed Code(s): Z96.652 - Presence of left artificial knee joint Category: Surgical Plan: Activity as tolerated F/u 9 months or sooner for right knee. Coding Level of Care Code Global (51512) Diagnoses Status post total knee replacement, left Z96.652
== END 2023-07-17 09:53 | disposition home or self-care (01) ==
PROVIDERS: PCP Internal Medicine; Visit Provider Orthopaedic Surgery
DX: Z96.652 Presence of left artificial knee joint (principal)
CPT/HCPCS: 99024

== ENCOUNTER → 2023-07-17 09:43 | Outpatient (BNVA) | payer MEDICARE, OTHER, SELFPAY | PROVIDERS: PCP Internal Medicine; Visit Provider Orthopaedic Surgery | DX: Z47.1 Aftercare following joint replacement surgery (principal); Z96.652 Presence of left artificial knee joint | CPT/HCPCS: 99212 ==

== ENCOUNTER 2023-07-17 11:00 | Outpatient (RCR) | payer MEDICARE, OTHER, SELFPAY ==
--- NOTE | 2023-05-17 14:15 | MHC.PT.EP ---
[facility] [place] Office [place] Office [place] Office [address] Hiren Wade [address] [phone] F: [phone] F: [phone] F: [phone] F: [phone] Physical Therapy Plan of Care Date of Evaluation: 05/17/23 Date of Surgery: 04/26/23 Diagnosis: L TKA Assessment: Pt IS 77 YO F S/P L TKR ON 04/26/[address] MELARA. HAD HOME PT UNTIL LAST WEEK. PRESENTS WITH LIMITED L KNEE ROM AND STRENGTH. GT WITHOUT SIGNIF LIMP WITHOUT AD. SHOULD BENEFIT FROM PT TO ADDRESS THESE ISSUES Frequency and Duration: The patient will be seen 2X/WK X 6 WKS Short Term Goals: 1. INCREASED AWARENESS KNEE CARE 2. DECREASED SWELLING NOTED/REPORTED 3. 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 I HEP WITH DC EX PLAN 2. INCREAED L KNEE ROM 0-130 3. DECREASED L KNEE PAIN AT LEAST 50% WITH ADLS Treatment Plan: Modalities to reduce pain, spasms and effusion. Manual therapy to restore motion and function. Therapeutic exercise to improve strength and flexibility. Neuromuscular re-education for posture and balance. Therapeutic activities to return to functional activities of daily living. Electronically signed by: NURIS CHAPMAN PT Please sign and return to therapist. Thank you for your referral.
--- NOTE | 2023-06-01 15:25 | MHC.PT.OD ---
[facility] [place] Office [place] Office [place] Office [address] Hiren Wade [address] [phone] F: [phone] F: [phone] F: [phone] F: [phone] Physical Therapy Daily Note Diagnosis: L TKA Date of Surgery: 04/26/23 Date of Evaluation: 05/17/23 Date of Treatment: 06/01/23 Treatments to Date: Cancellations to Date: No Shows to Date: Authorized Visits: 6 Insurance End Date: Precautions/ Contraindications:CANCER, HBP Subjective: Presents to office with increased edema, pain past few day. States she did the stairs three times on Monday, (was not doing before). She questions bike as trigger. Pt reports multiple areas of body aches, joint pain. Also stated has been out of her trulicity medication states [facility]-(encouraged to make portal message to her PCP Dr. Rojas, also reports high cost of medication is of concern for her (? joint pain and lack of medication combo contributing to sx) Pain Score and Location: 8 L KNEE Objective Flowsheet: Tests & Measures Negative 5 degrees extension, poor tolerance for flexion this date Supra L patella 47 cm, infra 37 cm vs Supra R patella 43 cm, 34 cm infra Exercises Held this date due to surge of sx ENcouraged gentle heel slides to tolerance supine and sitting. Supine isometric QS x 5 sec hold x 20R, SAQ x 20 sec hold, SLR into flexion (held due to sx but reviewed to trial and perform gentle to tolerance) seated LAQ/AP gentle, seated HS stretch x 4R x 20 sec hold, seated gastroc stretch x 4R x 20 sec hold. Review of gentle seated knee flexion slides to tolerance. Pt seated with knee in slight extension stretch for trial of gentle STM to distal HS/proximal calf. Pt educated re: self care massage to loosen posterior knee. ED RE EVAL FINDINGS/RX PLAN, IMPORTANCE OF ROM (MUSA EXT) EARLY ON, ICE A/P L Modalities Sensation intact. Skin intact. Trial of select TENS unit knee setting surrounding tibiofemoral joint in effort to ease sx intensity 3.5mA with ice anterior/posterior knee while in knee extension (poor tolerance for full extension) used towel roll for this applicatio under knee to ease edema and sx. Assessment: 06/01/23: Pt arrives at the office with observable increase in edema and erythema at site of her L knee. Reports joint pain in R knee, bilateral greater trochanters/hip pain. She states surge of pain in L knee since 05/01/23. She admits to climbing her flight of stairs multiple times on Monday (was doing well on 05/01/23)- States stairs was not something she was not previously doing. She questions relationship of increased knee flexion (118) last visit to potential cause of her pain. She expresses concern for being out of trulicity medication for two weeks, (was encouraged to call and make portal message to her PCP Dr. Rojas- to see him 06/23/23.) She was advised to resume use of her cane to reduce sx/pain on her knee to aide in gait deviation. She was advised to minimize her use of stairs and to ice her knee more often and use over the counter medications as prescribed/recommended per Dr. Melara office. She was encouraged to keep up her knee program and continue her HEP program to tolerance. Today in the office use of TENS was trialed to ease pain in her knee with combo of ice which did not appear to do much for her pain. She reported use of 500 mg x 2 tablets tylenol medication with limited relief. She will be seeing Dr. Melara on 06/05/23. Her knee incision was intact, skin intact pre/post tens. She was educated re: benefits in gentle self care/massage to posterior knee to reduce anterior knee sx. She expresses overall body ache/pain, stating I dont know if Im coming down with something, but I feel like a rag. Pt denies sx fever. Pt educated to minful of sx, was previously being tapered to 2x/weekly however due to surge of sx pt inquired about attending 3x/week next week which PT was agreeable to. 05/30/23: AAROM flexion to 118. Pt expressing sx lateral aspect of R hip along greater trochanter. 05/25/23: AAROM flexion 115. Pt exhibits good quad control during SLR, minimal swelling L LE. Incision fully closed. Educated re: benefit in self care gentle quad STM/posterior knee to ease knee flexion stretching. 05/22/23: Pt is s/p L TKA on 04/26/23. Pt doing extremely well, has D/C standard cane. Incision healing well. Good tolerance for AAROM flexion. ROM measurement lost in error. Pt making excellent strikes in ambulation, ROM and has very little edema in L LE. Pt unable to make forward revolution initially but to once warming up. Pt to consider obtaining a restorator for home use. Pt IS 77 YO F S/P L TKR ON 04/26/[address] MELARA. HAD HOME PT UNTIL LAST WEEK. PRESENTS WITH LIMITED L KNEE ROM AND STRENGTH. GT WITHOUT SIGNIF LIMP WITHOUT AD. SHOULD BENEFIT FROM PT TO ADDRESS THESE ISSUES PT Plan: Ortho follow up 06/04/22, Resume use of std cane to ease pain/gait in L knee, ice more often, HEP to tolerance, ease stair climbing to calm knee Short Term Goals: 1. INCREASED AWARENESS KNEE CARE 2. DECREASED SWELLING NOTED/REPORTED 3. INCREASED STAIR NEGOTIATION WITHOUT ISSUE Senior Living Goals: 1. I HEP WITH DC EX PLAN 2. INCREAED L KNEE ROM 0-130 3. DECREASED L KNEE PAIN AT LEAST 50% WITH ADLS Electronically signed by: Ayala Costello, PT, DPT
--- NOTE | 2023-08-23 12:49 | MHC.PT.DC ---
[facility] [place] Office [place] Office [place] Office [address] Hiren Wade [address] [phone] F: [phone] F: [phone] F: [phone] F: [phone] Physical Therapy Discharge Report Diagnosis: L TKA Date of Surgery: 04/26/23 Date of Evaluation: 05/17/23 Date of Discharge: 08/23/23 Treatments to Date: Cancellations to Date: No Shows to Date: Discharge Status: Achieved Goals Improved Function Independent with HEP Discharge Summary: PER LAST NOTE BY OMAIRA REDDY PT,DPT 07/17/23:Pt has met all STG/LTG to date with therapy. Pt saw Dr. Reed this morning and was will be seeing him again in 9 months. Pt has good carryover of home program.' Electronically signed by: NURIS CHAPMAN PT Please sign and return to therapist. Thank you for your referral.
== END 2023-08-23 12:49 | disposition home or self-care (01) ==
LOC: HO.PTWFD 11:00
PROVIDERS: PCP Internal Medicine; Visit Provider Orthopaedic Surgery
DX: Z96.652 Presence of left artificial knee joint (principal)
CPT/HCPCS: 97014; 97110; 97140; 97161; 97535

== ENCOUNTER 2023-09-12 13:13 | Emergency (ER) | payer MEDICARE, OTHER, SELFPAY | END 2023-09-12 14:10 | disposition left against medical advice (07) | LOC: HO.ED 14:03 | PROVIDERS: Emergency Provider Emergency Medicine | DX: Z53.21 Procedure and treatment not carried out due to patient leaving prior to being seen by health care provider (principal) ==

== ENCOUNTER 2023-09-21 09:17 | Outpatient (REF) | payer MEDICARE, OTHER, SELFPAY ==
[2023-09-21 10:50] LABS: MANUAL DIFF FLAG NO
[2023-09-21 10:56] LABS: Basophils Absolute Auto 0.1 X10*3/uL (0.0-0.2); Basophils Percent Auto 0.7 % (0-2); Eosinophils Absolute Auto 0.3 X10*3/uL (0.0-0.4); Eosinophils Percent Auto 3.4 % (0-4); Hematocrit 40.3 % (37.0-47.0); Hemoglobin 12.9 g/dl (12.0-16.0); Imm Gran Abs Auto 0.02 X10*3/uL (0.00-0.03); Imm Gran Pct Auto 0.3 % (0.0-0.4); Lymphocytes Absolute Auto 1.5 X10*3/uL (1.2-4.9); Lymphocytes Percent Auto 20.5 % (20-40); Mean Corpuscular Volume 81.3 fL (80.0-98.0); Mean Platelet Volume 10.5 fL (9.4-12.3); Monocytes Absolute Auto 0.6 X10*3/uL (0.1-1.2); Monocytes Percent Auto 8.2 % (2-11); Neutrophils Absolute Auto 4.9 x10*3/uL (2.0-8.3); Neutrophils Percent Auto 66.9 % (45-73); Platelet Count 285 X10*3/uL (160-400); Red Blood Count 4.96 X10*6/uL (4.20-5.50); Red Cell Distribution Width 14.7 % (11.0-16.0); White Blood Count 7.3 X10*3/uL (4.8-10.8)
[2023-09-21 11:14] LABS: Alanine Aminotransferase 14 U/L (0-31); Albumin Level 4.1 g/dL (3.5-5.0); Alkaline Phosphatase 52 U/L (39-117); Anion Gap 14 (12-20); Aspartate Amino Transferase 13 U/L (5-31); Bilirubin Total 0.4 mg/dL (0.0-1.0); Blood Urea Nitrogen 14 mg/dL (9-16); Calcium 10.6 mg/dL (8.4-10.2); Carbon Dioxide 21 mmol/L (22-29); Chloride 110 mmol/L (96-108); Estimated Glomerular Filt Rate > 60; Glucose Fasting 124 mg/dL (60-99); Potassium 4.4 mmol/L (3.3-5.1); Sodium 141 mmol/L (135-145); Total Protein 6.9 g/dL (6.5-8.0)
[2023-09-21 11:31] LABS: Free T4 (Free Thyroxine) 1.15 ng/dL (0.71-1.85); Thyroid Stimulating Hormone 0.15 uIU/mL (0.32-4.0); Vitamin D 25-OH Total 53.8 ng/mL (>30)
== END 2023-09-21 09:18 | disposition home or self-care (01) ==
LOC: HO.10HDL 09:17
PROVIDERS: Visit Provider Internal Medicine
DX: E55.9 Vitamin D deficiency, unspecified (principal); D64.9 Anemia, unspecified; E78.00 Pure hypercholesterolemia, unspecified; E03.9 Hypothyroidism, unspecified
CPT/HCPCS: 36415; 80053; 82306; 84439; 84443; 85025

== ENCOUNTER 2023-09-26 12:24 | Outpatient (AMB) | payer MEDICARE, OTHER, SELFPAY ==
--- NOTE | 2023-09-26 12:32 | MHC.PC.OV ---
Vital Signs 09/26/23 12:33 Height 5 ft 6 in Weight 201 lb 0.8 oz BMI 32.4 BP 124/78 Blood Pressure Location Lt brachial Position Sitting Pulse 73 Pulse Source Pulse Oximeter Pulse Oximetry (%) 98 Oxygen Delivery Method Room Air Intake Visit Reasons: DM, hyperlipidemia, HTN, ALEXANDRE Casino Surveillance Officer Required: No Allergies amoxicillin [AMOXICILLIN] Allergy (Intermediate, Verified 09/26/23 12:55) Gastrointestinal Upset Sulfa (Sulfonamide Antibiotics) [SULFA (SULFONAMIDE ANTIBIOTICS)] Allergy (Intermediate, Verified 09/26/23 12:55) HIVES,RASH Medication List - Last Reconciled 09/26/23 by Roberto Rojas MD acetaminophen 650 mg (2 x 325 mg) PO Q6H PRN 30 days atorvastatin 10 mg PO QAM 90 days cholecalciferol (vitamin D3) (Vitamin D3) 50 mcg PO DAILY coenzyme Q10 (Co Q-10) 400 mg PO QAM cyanocobalamin (vitamin B-12) 1,000 mcg PO DAILY 90 days [DIABETIC SHOES As directed - Dx: E11.9] docusate sodium 100 mg PO BID 30 days dulaglutide 1.5 mg (0.5 mL) subcut QWEEK 90 days fluoxetine 20 mg PO QAM 90 days levothyroxine (Synthroid) 150 mcg PO QAM lisinopril 30 mg PO QAM 90 days metformin 850 mg PO BID 90 days omeprazole 20 mg PO QAM 90 days walker Folding Front wheeled walker Tobacco use date assessed: 06/23/23 Fall risk assessment: No Falls in past year Last assessed Fall Risk: 09/26/23 Dental Screening Dental Screen Date: 03/20/23 HPI DM, hyperlipidemia, HTN, ALEXANDRE HPI Details Patient comes in today for her follow up visit States that she feels okay She denies any headaches or dizziness Denies any chest pains, no SOB No nausea/vomiting, no abdominal pain No change in bowel habits noted She had her follow up labs done a few days ago - to discuss her results [facility] Medical History Vitamin B12 deficiency Osteoarthritis of left knee Elevated cholesterol Cervical cancer Primary osteoarthritis of right hip [place] esophagus GERD (gastroesophageal reflux disease) Campoverde's palsy Allergic rhinitis Carcinoid tumor (~2021) Tubular adenoma of colon (~2002) Chest pain Obesity (BMI 30-39.9) Anxiety Urinary incontinence Primary osteoarthritis of both knees Acquired hypothyroidism Obstructive sleep apnea (~2005) Benign essential hypertension Diabetes mellitus Pure hypercholesterolemia Surgical History Status post total replacement of right hip (~01/17/23) Hx of bilateral cataract extraction History of esophagogastroduodenoscopy (EGD) History of lung surgery History of bronchoscopy (~2021) History of colonoscopy History of pubovaginal sling (~2010) History of hysterectomy History of cholecystectomy (~1996) Family History Father Diabetes Hypertension Mother Diabetes Cancer Social History Household Members: Spouse Housing: House Are you a primary senior resident care director to a significant other at home: No Do you presently have visiting nurse or other home services: No Alcohol intake: current Alcohol intake frequency: holidays/special occasions only Alcohol type: wine Patient Tobacco Use Status: Never used Tobacco e-Cigarette/Vaping Use: Never Used Second Hand Smoke Exposure: Yes service: No Current occupational status: retired Cognitive needs: No Hearing needs: Yes Vision needs: Yes Questionnaire Thrive Questionnaire Date Thrive assessed: 04/27/23 AUDIT C Alcohol Use Questionnaire (AUDIT-C) 1. How often do you have a drink containing alcohol?: Monthly or less 2. How many drinks containing alcohol do you have on a typical day when you are drinking?: 1 or 2 3. How often do you have six or more drinks on one occasion?: Never Total Score: 1 Score Reviewed/Action Taken: Yes SEBAS-7 AMB Questionnaire SEBAS-7 Date SEBAS - 7 assessed: 03/20/23 Source: Developed by Drs. Tim Torres, Caitie Nguyen, Justin Fallon and colleagues, with an educational ion from [email or web address]. Review of Systems Const Denies chills, Reports fatigue, Denies fever(s) and Denies headache(s) ENT Denies dysphagia, Denies dizziness, Denies otalgia, Denies headache(s), Denies neck pain, Denies odynophagia and Denies sore throat Card Denies chest pain, Denies palpitations and Denies dyspnea Resp Denies cough and Denies dyspnea GI Denies abdominal pain, Denies constipation, Denies dysphagia, Denies heartburn, Denies diarrhea, Denies nausea, Denies odynophagia and Denies vomiting Denies difficulty voiding, Denies nocturia, Denies dysuria and Denies urinary urgency Musc Reports arthralgias (over both knees; right hip pain has improved with SALOMON), Denies neck pain and Reports stiffness Skin/Breast Denies rash Neuro Denies dizziness, Denies headache(s), Reports paresthesias (on and off in the fingers and toes bilaterally) and Reports tremor(s) (in both hands, on and off) Endo Reports fatigue and Denies palpitations Physical exam (Primary Care) Vital Signs: Last Vital Signs Pulse 73 09/26/23 12:33 BP 124/78 09/26/23 12:33 Pulse Ox 98 09/26/23 12:33 Oxygen Delivery Method Room Air 09/26/23 12:33 BMI result Body Mass Index 32.4 Tobacco/Smoking Status: Tobacco use Status Tobacco use date assessed 06/23/23 09/26/23 12:39 Patient Tobacco Use Status Never used Tobacco 09/26/23 12:39 e-Cigarette/Vaping Use Never Used 09/26/23 12:39 Thrive Assessment: Date of Thrive Assessment Date Thrive assessed 04/27/23 09/26/23 12:39 Const General: no acute distress and alert HENMT Ears: TM's normal bilaterally and EAC's normal Throat: Yes posterior oropharynx normal and Yes tonsils normal (no TP congestion noted) Neck Neck: Yes no lymphadenopathy and Yes supple Thyroid: Thyroid normal Resp Auscultation: clear to auscultation bilaterally, no rales and no wheezes Cardio Rate: regular rate Rhythm: regular rhythm Heart sounds: no murmurs GI Palpation (GI): Soft to palpation and nontender Auscultation: normal bowel sounds General: Yes no CVA tenderness Back/Spine/Pelvis Back: no CVA tenderness Thoracic/Lumbar Spine: paraspinal muscle tenderness on the right in the lower lumbar and lumbar spinal tenderness Skin Rashes: no rashes Extrem General: Yes no clubbing, cyanosis or edema Right lower extremity: knee Details: tenderness; no swelling Left lower extremity: knee Details: tenderness; no swelling Results AMB Hemoglobin A1c AMB Hemoglobin A1c 6.5 % Last Edit by EDEL Leger on 09/26/23 12:44 Results Reviewed Results Reviewed: Laboratory Last Values Hgb A1c (Clinic) 6.5 % (4.0-6.0) H 09/26/23 09:33 Laboratory Tests 06/21/23 09/21/23 09/26/23 09:00 09:20 09:33 WBC 7.3 Hgb 12.9 Hct 40.3 Plt Count 285 Sodium 141 Potassium 4.4 Creatinine 0.88 Estimated GFR > 60 Fasting Glucose 124 H Hgb A1c (Clinic) 6.5 H Calcium 10.6 H AST 13 ALT 14 Triglycerides 121 Cholesterol 127 LDL Cholesterol, Calc 57 HDL Cholesterol 46 25-OH Vitamin D Total 53.8 TSH 0.15 L Free T4 1.15 Assessment and Plan Assessment & Plan (1) Benign essential hypertension: Code(s): I10 - Essential (primary) hypertension Plan: Reinforced low sodium diet - goal is systolic BP of at least 140 mm or less Patient states that her BP is usually much lower when she checks it at home Continue Lisinopril 30 mg QD Patient is reminded to continue monitoring her blood pressure regularly (2) Diabetes mellitus: Comment: type 2-dx ~2016-glucose usually [id number] Trulicity (takes on Tuesdays), Metformin, Januvia Code(s): E11.9 - Type 2 diabetes mellitus without complications Qualifiers: Diabetes mellitus type: type 2 Diabetes mellitus joint terminal attack controller insulin use: without halfway use Diabetes mellitus complication status: without complication Qualified Code(s): E11.9 - Type 2 diabetes mellitus without complications Plan: Her in-office HgbA1c today is at 6.5% (HgbA1c was at 6.3% a few months ago) - goal is < 7.0% Reinforced diabetic diet Continue Trulicity 1.5 mg SQ once a week She is also currently on Metformin 850 mg BID but per request, will try lowering her Metformin to 500 mg BID (3) Pure hypercholesterolemia: Code(s): E78.00 - Pure hypercholesterolemia, unspecified Plan: Results of her labs done a few days ago reviewed and discussed with patient Reinforced low cholesterol diet Continue Atorvastatin 10 mg QD Will recheck her labs and fasting lipids in 3 months for follow up (4) Primary osteoarthritis of right hip: Code(s): M16.11 - Unilateral primary osteoarthritis, right hip Plan: S/P total right hip arthroplasty with Dr. Reed on 01/17/2023, with (+) significant improvement of her hip symptoms Patient also recently completed physical therapy for her right hip and she continues to do the exercises taught to her by physical therapy regularly Follow up with orthopedics as scheduled (5) Primary osteoarthritis of both knees: Code(s): M17.0 - Bilateral primary osteoarthritis of knee Plan: S/P left knee TKA on 04/26/2023 She is currently still going to physical therapy for her knee Follow up with orthopedics as scheduled (6) Low back pain with right-sided sciatica: Code(s): M54.41 - Lumbago with sciatica, right side Qualifiers: Chronicity: unspecified Back pain laterality: right Qualified Code(s): M54.41 - Lumbago with sciatica, right side Plan: Reinforced activity and weight-lifting restrictions Repeat lumbar spine and SI joint x-rays done back in August 2022 revealed (+) degenerative changes of the lumbar spine and SI joints May continue taking Tylenol PRN and Tizanidine 4 mg TID PRN Continue Meloxicam 15 mg QD PRN with food only if no relief with Tylenol Advised again that physical therapy may also be an option and she can call for referral at any time if she wishes to try physical therapy for her back pain (7) Hypercalcemia: Code(s): E83.52 - Hypercalcemia Plan: Her serum calcium level was again slightly elevated at 10.6 on her labs done a few days ago Intact PTH level checked a couple of times in the past have come back normal, including her most recent one in November 2022 She was previously referred to Dr. 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 [place] on 09/29/21; states that she has been doing well since with no acute issues Follow up with thoracic surgery (Dr. [place]) as scheduled for continuing surveillance - was last seen back in August 2022 and will have repeat chest CT in 1 year (9) Acquired hypothyroidism: Code(s): E03.9 - Hypothyroidism, unspecified Plan: Her serum TSH level is again suppressed but free T4 level remains normal Continue Levothyroxine 150 mcg QD Will continue to monitor her TFTs regularly (10) Elevated liver enzymes: Code(s): R74.8 - Abnormal levels of other serum enzymes Plan: Improved/resolved; her LFTs have remained normal on her recent labs - will continue to monitor this closely Is most likely due to her weight (hepatosteatosis) - this was confirmed on abdominal US in the past (11) Obstructive sleep apnea: Onset Date: ~2005 Comment: (ALEXANDRE on CPAP) Code(s): G47.33 - Obstructive sleep apnea (adult) (pediatric) Plan: Continue using her CPAP device when she sleeps at night - patient continues to experience significant improvement/resolution of her fatigue and daytime somnolence with the regular use of her CPAP device (12) Tremor of both hands: Code(s): R25.1 - Tremor, unspecified Plan: She was seen and evaluated by Dr. 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 Follow up with neurology in 1 year (13) Vitamin B12 deficiency: Code(s): E53.8 - Deficiency of other specified B group vitamins Plan: Continue Vitamin B12 1000 mcg QD States that her symptoms of tingling/paresthesia seems to have improved significantly since she was started on B12 supplements (14) GERD without esophagitis: Code(s): K21.9 - Gastro-esophageal reflux disease without esophagitis Plan: Dietary restrictions reinforced Continue Omeprazole 20 mg QD PRN (15) Anxiety: Code(s): F41.9 - Anxiety disorder, unspecified Plan: Continue Fluoxetine 20 mg QD (16) Obesity (BMI 30-39.9): Code(s): E66.9 - Obesity, unspecified Plan: Reinforced diet; exercise is not realistic at present due to patient's multiple physical issues Plan Follow up in 3 months Orders: Orders Complete Blood Count Auto Diff 3 Months D64.9 - Anemia, unspecified Lipid Panel 3 Months E78.00 - Pure hypercholesterolemia, unspecified UA CC w/rflx Micro + Cult 3 Months R30.0 - Dysuria Microalbumin, Random (w Creat) 3 Months E11.9 - Type 2 diabetes mellitus without complications Hemoglobin A1c 3 Months E11.9 - Type 2 diabetes mellitus without complications Parathyroid Hormone Intact 3 Months E83.52 - Hypercalcemia AMB Hemoglobin A1c Today E11.9 - Type 2 diabetes mellitus without complications Comprehensive Badin. Panel Fast 3 Months E78.00 - Pure hypercholesterolemia, unspecified Vitamin B12 and Folate 3 Months E53.8 - Deficiency of other specified B group vitamins Vitamin D 25-OH Total 3 Months E55.9 - Vitamin D deficiency, unspecified Free T4 (Free Thyroxine) 3 Months E03.9 - Hypothyroidism, unspecified Thyroid Stimulating Hormone 3 Months E03.9 - Hypothyroidism, unspecified Medications: Changed From metformin 850 mg PO BID 90 days 180 tabs 2RF To metformin 500 mg PO BID 90 days 180 tabs 1RF Coding Level of Care Code Est Pt Level 4 (68852) Complex EM visit Add On G2211 Diagnoses Benign essential hypertension I10 Type 2 diabetes mellitus without complication, without long-term current use of insulin E11.9 Diabetes mellitus type: type 2 Diabetes mellitus joint terminal attack controller insulin use: without joint terminal attack controller use Diabetes mellitus complication status: without complication Pure hypercholesterolemia E78.00 Primary osteoarthritis of right hip M16.11 Primary osteoarthritis of both knees M17.0 Right-sided low back pain with right-sided sciatica, unspecified chronicity M54.41 Chronicity: unspecified Back pain laterality: right Hypercalcemia E83.52 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
[2023-09-26 12:33] VITALS: BP 124/78; PULSE 73; O2SAT 98; BMI 32.4
== END 2023-09-26 13:27 | disposition home or self-care (01) ==
PROVIDERS: PCP Internal Medicine; Visit Provider Internal Medicine
DX: I10 Essential (primary) hypertension (principal); E11.9 Type 2 diabetes mellitus without complications; D3A.090 Benign carcinoid tumor of the bronchus and lung; E78.00 Pure hypercholesterolemia, unspecified; M16.11 Unilateral primary osteoarthritis, right hip; M17.0 Bilateral primary osteoarthritis of knee; M54.41 Lumbago with sciatica, right side; E83.52 Hypercalcemia; E03.9 Hypothyroidism, unspecified; R74.8 Abnormal levels of other serum enzymes; G47.33 Obstructive sleep apnea (adult) (pediatric); R25.1 Tremor, unspecified; E53.8 Deficiency of other specified B group vitamins
CPT/HCPCS: 83036; 99214; G2211

== ENCOUNTER 2023-12-12 09:55 | Outpatient (AMB) | payer MEDICARE, OTHER, SELFPAY ==
--- NOTE | 2023-12-12 10:10 | AM.OFFVISMDC ---
Intake Vital Signs 12/12/23 10:13 Height 5 ft 6 in Weight 202 lb 4 oz BMI 32.6 BP 128/82 Blood Pressure Location Lt brachial Position Sitting Pulse 65 Pulse Source Pulse Oximeter Pulse Oximetry (%) 97 Oxygen Delivery Method Room Air Intake Visit Reasons: [facility] G0439 Bilingual Account Manager Required: No Accompanied by: Self / Same As Patient Allergies amoxicillin [AMOXICILLIN] Allergy (Intermediate, Verified 12/12/23 10:53) Gastrointestinal Upset Sulfa (Sulfonamide Antibiotics) [SULFA (SULFONAMIDE ANTIBIOTICS)] Allergy (Intermediate, Verified 12/12/23 10:53) HIVES,RASH Medication List - Last Reconciled 12/12/23 by Roberto Rojas MD acetaminophen 650 mg (2 x 325 mg) PO Q6H PRN 30 days atorvastatin 10 mg PO QAM 90 days cholecalciferol (vitamin D3) (Vitamin D3) 50 mcg PO DAILY coenzyme Q10 (Co Q-10) 400 mg PO QAM cyanocobalamin (vitamin B-12) 1,000 mcg PO DAILY 90 days [DIABETIC SHOES As directed - Dx: E11.9] docusate sodium 100 mg PO BID 30 days dulaglutide 1.5 mg (0.5 mL) subcut QWEEK 90 days fluoxetine 20 mg PO QAM 90 days levothyroxine (Synthroid) 150 mcg PO QAM lisinopril 30 mg PO QAM 90 days metformin 500 mg PO BID 90 days omeprazole 20 mg PO QAM 90 days walker Folding Front wheeled walker Do you need a note to return to daycare/school/sports/work: No HPI [facility] G0439 HPI Details Patient comes in today for her Annual Medicare Wellness Exam [place] of care was reviewed and updated today Patient has a healthcare proxy in place and on file IPPE/AWV: c/o of Annual Wellness Visit, subsequent visit. Medical / Social History Reviewed Past Medical History Yes . [place] of Care / Care Team list updated Yes . Surgical/Hospitalization History Yes . Current Medications (including OTC and supplements) Yes . Family History Yes . Tobacco Control form Yes . AUDIT-C (Alcohol use) form Yes . Illicit drug use in Social History Yes . Current diagnosis of depression? No Appropriate PHQ2/PHQ9 completed Yes . Data entered by Fiberglass Container Winding Operator and reviewed by provider Home Safety Throw rugs? No Grab bars? No Raised toilet seats? No Working smoke detectors? Yes Working carbon monoxide detectors? Yes Data entered by Fiberglass Container Winding Operator and reviewed by provider Activities of Daily Living (ADLs) Difficulty bathing or showering? No Difficulty dressing? No Difficulty using the toilet? No Difficulty getting in and out of bed? No Difficulty walking? No Receives help from another person with any of the above tasks? No Instrumental Activities of Daily Living (IADLs) Uses the telephone without help Gets to places out of walking distance without help Goes shopping for groceries without help Prepares own meals without help Does own minor home maintenance without help Does own laundry without help Does own housework without help Manages own money without help Currently takes medications? Yes Takes medication without help End-of-Life Planning Discussed advance directive Yes Advance directive on file Discussed wishes expressed in advance directive agreed to following patient's wishes Fall Risk: Fall History Have you had any falls with injury in the past year? No . Have you had two or more falls in the past year? No . Fall Risk Assessment: No falls in the past year . HRA filled out by the patient, reviewed by Provider and scanned. [facility] Medical History Vitamin B12 deficiency Osteoarthritis of left knee Elevated cholesterol Cervical cancer Primary osteoarthritis of right hip [place] esophagus GERD (gastroesophageal reflux disease) Campoverde's palsy Allergic rhinitis Carcinoid tumor (~2021) Tubular adenoma of colon (~2002) Chest pain Obesity (BMI 30-39.9) Anxiety Urinary incontinence Primary osteoarthritis of both knees Acquired hypothyroidism Obstructive sleep apnea (~2005) Benign essential hypertension Diabetes mellitus Pure hypercholesterolemia Surgical History Status post total replacement of right hip (~01/17/23) Hx of bilateral cataract extraction History of esophagogastroduodenoscopy (EGD) History of lung surgery History of bronchoscopy (~2021) History of colonoscopy History of pubovaginal sling (~2010) History of hysterectomy History of cholecystectomy (~1996) Family History Father Diabetes Hypertension Mother Diabetes Cancer Social History Household Members: Spouse Housing: House Are you a primary rn progressive care unit to a significant other at home: No Do you presently have visiting nurse or other home services: No Alcohol intake: current Alcohol intake frequency: holidays/special occasions only Alcohol type: wine Patient Tobacco Use Status: Never used Tobacco e-Cigarette/Vaping Use: Never Used Second Hand Smoke Exposure: Yes service: No Current occupational status: retired Cognitive needs: No Hearing needs: Yes Vision needs: Yes Questionnaire Medicare Wellness Checkup [age] What gender do you identify with?: female During the past 4 weeks, how much have you been bothered by emotional problems such as feeling anxious, depressed, irritable, sad or downhearted, and blue?: slightly During the past 4 weeks, has your physical & emotional health limited your social activities with family, friends, neighbors, or groups?: not at all During the past 4 weeks, how much bodily pain have you generally had?: mild pain During the past 4 weeks, was someone available to help you if you needed & wanted help?: yes, as much as I wanted Can you get to places out of walking distance without help? (For eg., can you travel alone on buses, taxis or drive your car?): Yes Can you go shopping for groceries or clothes without someone's help?: Yes Can you prepare your own meals?: Yes Can you do your housework without help?: Yes Because of any health problems, do you need the help of another person with your personal care needs such as eating, bathing, dressing or getting around the house?: No Can you handle your own money without help?: Yes During the past 4 weeks, how would you rate your health in general?: good During the past 4 weeks how have things been going for you?: pretty well Are you having difficulties driving your car?: no Do you always fasten your seat belt when you are in a car?: yes, usually During past 4 weeks, have you been bothered by the following: never: Falling or dizzy when standing up, Trouble eating well?, Teeth or denture problems? and Problems using the telephone? and sometimes: Tiredness or fatigue? Have you fallen 2 or more times in the past year?: Yes Are you afraid of falling?: No Are you a smoker?: no During the past 4 weeks, how many drinks of wine, beer, or other alcoholic beverages did you have?: no alcohol at all Do you exercise for about 20 minutes 3 or more times a week?: no, I usually do not exercise this much Have you been given information to help with the following?: yes: Hazards in your house that might hurt you? and yes: Keeping track of your medications? How often do you have trouble taking medicines the way you have been told to take them?: I always take medicine as prescribed How confident are you that you can control & manage most of your health problems?: very confident What is your race?: White Mini Mental State Exam (MMSE) Orientation What is the (year) (season) (date) (day) (month)?: year, season, date, day and month Where are we (state) (county) (town or city) (hospital) (floor)?: state, county, town or city, hospital/clinic and floor Score Score: 10 Activity of Daily Living Bathing - sponge bath, tub bath or shower: receives no assistance (gets in/out by self, if usual bathing means Dressing - getting clothes from closets & drawers, including inner/outer garments & fasteners.: gets clothes & gets completely dressed without help Toileting - going to the 'toilet room' for urine/bowel elimination & cleaning self/arranging clothes: goes to toilet room, cleans self, arranges clothes without help Transfer: moves in & out of bed and chair without help (may use support object) Continence: controls urination/bowel movements completely by self Feeding: feeds self without help Total Score: 0 Information obtained from: patient Using telephone: independent Traveling: independent Shopping: independent Preparing meals: independent Housework: independent Taking medicine: independent Managing money: independent PHQ-9 Over the last 2 weeks, how often have you been bothered by any of the following problems? 1. Little interest or pleasure in doing things: not at all 2. Feeling down, depressed, or hopeless: several days 3. Trouble falling or staying asleep, or sleeping too much: several days 4. Feeling tired or having little energy: several days 5. Poor appetite or overeating: not at all 6. Feeling bad about yourself - or that you are a failure or have let yourself or your family down: several days 7. Trouble concentrating on things, such as reading the newspaper or watching television: not at all 8. Moving or speaking so slowly that other people could have noticed. Or the opposite - being so fidgety or restless that you have been moving around a lot more than usual: not at all 9. Thoughts that you would be better off or of hurting yourself in some way: not at all Total score: 4 Depression Screening Interpretation: Negative Depression Screening Done: Yes 24213 - PHQ-9 Billing: Yes Source: Developed by Drs. Tim Torres, Caitie Nguyen, Justin Fallon and colleagues, with an educational ion from [employer]. PHQ-2/PHQ-9 PHQ-2 Over the last 2 weeks, how often have you been bothered by any of the following problems? 1. Little interest or pleasure in doing things: not at all 2. Feeling down, depressed, or hopeless: several days Total score: 1 If score is 3 or greater, continue 3. Trouble falling or staying asleep, or sleeping too much: several days 4. Feeling tired or having little energy: several days 5. Poor appetite or overeating: not at all 6. Feeling bad about yourself - or that you are a failure or have let yourself or your family down: several days 7. Trouble concentrating on things, such as reading the newspaper or watching television: not at all 8. Moving or speaking so slowly that other people could have noticed. Or the opposite - being so fidgety or restless that you have been moving around a lot more than usual: not at all 9. Thoughts that you would be better off or of hurting yourself in some way: not at all Total score: 4 0-4 None-Minimal, 5-9 Mild, 10-14 Moderate, 15-19 Moderately Severe, 20-27 Severe Source: Developed by Drs. Tim Torres, Caitie Nguyen, Justin Fallon and colleagues, with an educational ion from [employer]. Thrive Questionnaire Date Thrive assessed: 12/12/23 I am a: Patient What is your living situation today?: I have a steady place to live Within the past 12 months, did the food you bought not last and you didn't have the money to get more?: Never true Within the past 12 months, did you worry whether your food would run out before you got money to buy more?: Never true Do you have trouble paying for medicines?: No Do you have trouble getting transportation to medical appointments?: No Do you have trouble paying your heating and electricity bill?: No Do you have trouble taking care of your child, family member or friend?: No Do you have trouble with day-to-day activities such as bathing, preparing meals, shopping, managing finances, etc.?: No Are you currently unemployed and looking for a job?: No Are you interested in more education?: No Please select the resources that you would like help with: None Currently or been in a relationship where the following occur: No concerns reported THRIVE Score: 0 SEBAS-7 AMB Questionnaire SEBAS-7 Date SEBAS - 7 assessed: 12/12/23 Feeling nervous, anxious, or on edge: 0 = Not at all Not being able to stop or control worryin = Not at all Worrying too much about different things: 0 = Not at all Trouble relaxin = Not at all Being so restless that it is hard to sit still: 0 = Not at all Becoming easily annoyed or irritable: 0 = Not at all Feeling afraid as if something awful might happen: 0 = Not at all Total SEBAS-7 score (0-4 normal; 5-9 mild; 10-14 moderate; 15-21 severe): 0 Source: Developed by Drs. Tim Torres, Caitie Nguyen, Justin Fallon and colleagues, with an educational ion from [employer]. Review of Systems Const Denies chills, Reports fatigue, Denies fever(s) and Denies headache(s) ENT Denies dysphagia, Denies dizziness, Denies otalgia, Denies headache(s), Denies neck pain, Denies odynophagia and Denies sore throat Card Denies chest pain, Denies palpitations and Denies dyspnea Resp Denies cough and Denies dyspnea GI Denies abdominal pain, Denies constipation, Denies dysphagia, Denies heartburn, Denies diarrhea, Denies nausea, Denies odynophagia and Denies vomiting Denies difficulty voiding, Reports nocturia (failed surgery and multiple Rx for OAB ), Denies dysuria, Reports urinary incontinence and Denies urinary urgency Musc Reports arthralgias (over both knees; right hip pain has improved with SALOMON), Denies neck pain and Reports stiffness Skin/Breast Denies rash Neuro Denies dizziness, Denies headache(s), Reports paresthesias (on and off in the fingers and toes bilaterally) and Reports tremor(s) (in both hands, on and off) Endo Reports fatigue and Denies palpitations Physical Exam Vital Signs: Last Vital Signs Pulse 65 12/12/23 10:13 BP 128/82 12/12/23 10:13 Pulse Ox 97 12/12/23 10:13 Oxygen Delivery Method Room Air 12/12/23 10:13 BMI result Body Mass Index 32.6 IPPE/AWV: Balance Romberg Yes . Tandem walk Yes . Walk and Turn Yes . Rise from sit to stand Yes . Vision Corrective lens No Vision screen pass Hearing Whisper test pass - has hearing aids . Urinary incont. yes. EKG Not clinically necessary. Const Orientation/consciousness: patient oriented x3 Neuro General: patient oriented x3 Cognition (Neuro): normal cognition Gait exam (Neuro): Normal gait present Psych Thought process: Normal thought process present Office Procedures Flu Questionnaire Does the patient have a severe egg allergy?: No Immunizations Fluarix Triv [id number] (PF) 45 mcg (15 mcg x 3)/0.5 mL IM syringe Performing Provider: Roberto Rojas MD [facility] Documented (not given) by: EDEL Cardenas on 12/12/23 10:21 Reason Not Given: Patient Refused Assessment & Plan Assessment & Plan (1) Medicare annual wellness visit, subsequent: Code(s): Z00.00 - Encounter for general adult medical examination without abnormal findings Plan: HRA form discussed and completed with patient; form will be scanned into patient's chart ZARIA updated She is currently up-to-date with all of her routine cancer screenings Plan To return as scheduled next month for her regular follow up visit Orders: Orders Influenza [id number] Immunization Today Z23 - Encounter for immunization Quality Reporting (2019) Depression/Bipolar (159/160/161/177) PHQ-9: Total score: 4 Coding Level of Care Code Medicare Subsequent (G0439) Diagnoses Medicare annual wellness visit, subsequent Z00.00 CPT Codes Advance Care Planning - Advance Care Planning discussion: On file, no changes ([id number]) Advance Care Planning Advance Care Planning discussion: On file, no changes
[2023-12-12 10:13] VITALS: BP 128/82; PULSE 65; O2SAT 97; BMI 32.6
== END 2023-12-12 11:06 | disposition home or self-care (01) ==
PROVIDERS: PCP Internal Medicine; Visit Provider Internal Medicine
DX: Z00.00 Encounter for general adult medical examination without abnormal findings (principal)

== ENCOUNTER → 2023-12-12 09:55 | Outpatient (BNVA) | payer MEDICARE, OTHER, SELFPAY | PROVIDERS: PCP Internal Medicine; Visit Provider Internal Medicine | DX: Z00.00 Encounter for general adult medical examination without abnormal findings (principal); F41.1 Generalized anxiety disorder | CPT/HCPCS: 90471; 96127 ==

== ENCOUNTER 2024-01-10 09:51 | Outpatient (REF) | payer MEDICARE, OTHER, SELFPAY ==
[2024-01-10 11:08] LABS: Appearance Urine Clear; Color Urine Yellow; Glucose Urine UA Negative (Negative); Leukocyte Esterase Urine Moderate (2+) (Negative); Nitrite Urine Positive (Negative); PH 5.5 (5.0-9.0); UMIC TRIGGER UACC YES; Urine Blood Negative (Negative); Urine Ketones Negative (Negative); Urine Protein Negative (Neg-Trace)
[2024-01-10 11:10] LABS: MANUAL DIFF FLAG NO
[2024-01-10 11:13] LABS: Bacteria Urine 4+ (None Seen); Hyaline Casts Urine 0-2 /LPF (0-2); RBC Urine 0-2 /HPF (0-2); Squamous Epithelial Cell Urine 0-2 /HPF (0-2); UACC Culture Trigger YES; WBC Urine 21-50 /HPF (0-5)
[2024-01-10 11:19] LABS: Basophils Absolute Auto 0.1 X10*3/uL (0.0-0.2); Basophils Percent Auto 0.8 % (0-2); Eosinophils Absolute Auto 0.2 X10*3/uL (0.0-0.4); Eosinophils Percent Auto 3.6 % (0-4); Hematocrit 42.1 % (37.0-47.0); Hemoglobin 13.3 g/dl (12.0-16.0); Imm Gran Abs Auto 0.01 X10*3/uL (0.00-0.03); Imm Gran Pct Auto 0.2 % (0.0-0.4); Lymphocytes Absolute Auto 1.4 X10*3/uL (1.2-4.9); Lymphocytes Percent Auto 23.5 % (20-40); Mean Corpuscular HGB Conc 31.6 g/dl (31.0-35.0); Mean Corpuscular Hemoglobin 26.8 pg (27.0-33.0); Mean Corpuscular Volume 84.7 fL (80.0-98.0); Mean Platelet Volume 10.8 fL (9.4-12.3); Monocytes Absolute Auto 0.5 X10*3/uL (0.1-1.2); Monocytes Percent Auto 7.5 % (2-11); Neutrophils Percent Auto 64.4 % (45-73); Platelet Count 271 X10*3/uL (160-400); Red Blood Count 4.97 X10*6/uL (4.20-5.50); Red Cell Distribution Width 13.8 % (11.0-16.0); White Blood Count 6.1 X10*3/uL (4.8-10.8)
[2024-01-10 11:44] LABS: Estimated Average Glucose 140 mg/dL; Hemoglobin A1C 169.8302 umol/L; Hemoglobin A1c % 6.5 % (<6.0); Total Hemoglobin (HGBA1C) 3536.3806 umol/L
[2024-01-10 12:14] LABS: Creatinine Urine 116.44 mg/dL; Microalbum/Creatinine Ratio Ur 8.5 ug/mg cr (<30)
[2024-01-10 12:19] LABS: Parathyroid Hormone Intact 81.9 pg/mL (8.7-77.1)
[2024-01-10 12:25] LABS: Alanine Aminotransferase 23 U/L (0-31); Albumin Level 4.1 g/dL (3.5-5.0); Alkaline Phosphatase 55 U/L (39-117); Anion Gap 9 (12-20); Aspartate Amino Transferase 20 U/L (5-31); Bilirubin Total 0.5 mg/dL (0.0-1.0); Blood Urea Nitrogen 13 mg/dL (9-16); Calcium 10.7 mg/dL (8.4-10.2); Carbon Dioxide 26 mmol/L (22-29); Chloride 109 mmol/L (96-108); Cholesterol 155 mg/dL (<200); Estimated Glomerular Filt Rate > 60; Glucose Fasting 139 mg/dL (60-99); HDL Cholesterol 48 mg/dL (>40); LDL Cholesterol Calculated 78 mg/dL (<100); Potassium 4.3 mmol/L (3.3-5.1); Sodium 140 mmol/L (135-145); Triglycerides 147 mg/dL (<150)
[2024-01-10 12:39] LABS: Folate 9.8 ng/mL (> or = 4.0); Free T4 (Free Thyroxine) 1.34 ng/dL (0.71-1.85); Thyroid Stimulating Hormone 0.05 uIU/mL (0.32-4.0); Vitamin B12 1139 pg/mL (200-900); Vitamin D 25-OH Total 50.2 ng/mL (>30)
== END 2024-01-10 09:52 | disposition home or self-care (01) ==
LOC: HO.10HDL 09:51
PROVIDERS: Visit Provider Internal Medicine
DX: E78.00 Pure hypercholesterolemia, unspecified (principal); E55.9 Vitamin D deficiency, unspecified; E03.9 Hypothyroidism, unspecified; E83.52 Hypercalcemia; D64.9 Anemia, unspecified; E53.8 Deficiency of other specified B group vitamins; E11.65 Type 2 diabetes mellitus with hyperglycemia; R30.0 Dysuria
CPT/HCPCS: 36415; 80053; 80061; 81001; 82043; 82306; 82570; 82607; 82746; 83036; 83970; 84439; 84443; 85025; 87086; 87088; 87147; 87186

== ENCOUNTER 2024-01-16 12:21 | Outpatient (AMB) | payer MEDICARE, OTHER, SELFPAY ==
[2024-01-16 12:32] VITALS: BP 126/80; PULSE 62; O2SAT 98; BMI 32.8
--- NOTE | 2024-01-16 12:32 | A.OFFPC_ITS ---
Vital Signs 01/16/24 12:32 Height 5 ft 6 in Weight 203 lb 6 oz BMI 32.8 BP 126/80 Blood Pressure Location Lt brachial Position Sitting Pulse 62 Pulse Source Pulse Oximeter Pulse Oximetry (%) 98 Oxygen Delivery Method Room Air Intake Visit Reasons: DM, hyperlipidemia, HTN, hypothyroidism Waterside Worker Required: No Accompanied by: Self / Same As Patient Allergies amoxicillin [AMOXICILLIN] Allergy (Intermediate, Verified 01/16/24 12:56) Gastrointestinal Upset Sulfa (Sulfonamide Antibiotics) [SULFA (SULFONAMIDE ANTIBIOTICS)] Allergy (Int ermediate, Verified 01/16/24 12:56) HIVES,RASH Medication List - Last Reconciled 01/16/24 by Roberto Rojas MD acetaminophen 650 mg (2 x 325 mg) PO Q6H PRN 30 days atorvastatin 10 mg PO QAM 90 days cholecalciferol (vitamin D3) (Vitamin D3) 50 mcg PO DAILY coenzyme Q10 (Co Q-10) 400 mg PO QAM cyanocobalamin (vitamin B-12) 1,000 mcg PO DAILY 90 days [DIABETIC SHOES As directed - Dx: E11.9] docusate sodium 100 mg PO BID 30 days dulaglutide 1.5 mg (0.5 mL) subcut QWEEK 90 days fluoxetine 20 mg PO QAM 90 days levothyroxine (Synthroid) 150 mcg PO QAM lisinopril 30 mg PO QAM 90 days metformin 500 mg PO BID 90 days omeprazole 20 mg PO QAM 90 days walker Folding Front wheeled walker Tobacco use date assessed: 01/16/24 Fall risk assessment: 1 Fall in past year Last assessed Fall Risk: 01/16/24 Dental Screening Dental Screen Date: 01/16/24 Did you have a dental visit in the last 12 months?: Yes Did you have a dental problem in the last 6 months where you did not have access to dental care?: No Was dental information given to patient?: Patient has dentist HPI DM, hyperlipidemia, HTN, hypothyroidism HPI Details Patient comes in today for her follow up visit States that she feels okay She denies any headaches or dizziness Denies any chest pains, no SOB No nausea/vomiting, no abdominal pain No change in bowel habits noted Needs a few of her Rx refilled She had her follow up labs done a few days ago - to discuss her results Adds that she just had a chest CT done recently for surveillance of her carcinoid tumor and was advised that her chest CT came out okay but it incidentally showed (+) atrophy of her pancreatic tail and she was advised to speak to her PCP about this to see if further work up is warranted [facility] Medical History Vitamin B12 deficiency Osteoarthritis of left knee Elevated cholesterol Cervical cancer Primary osteoarthritis of right hip [place] esophagus GERD (gastroesophageal reflux disease) Campoverde's palsy Allergic rhinitis Carcinoid tumor (~2021) Tubular adenoma of colon (~2002) Chest pain Obesity (BMI 30-39.9) Anxiety Urinary incontinence Primary osteoarthritis of both knees Acquired hypothyroidism Obstructive sleep apnea (~2005) Benign essential hypertension Diabetes mellitus Pure hypercholesterolemia Surgical History Status post total replacement of right hip (~01/17/23) Hx of bilateral cataract extraction History of esophagogastroduodenoscopy (EGD) History of lung surgery History of bronchoscopy (~2021) History of colonoscopy History of pubovaginal sling (~2010) History of hysterectomy History of cholecystectomy (~1996) Family History Father Diabetes Hypertension Mother Diabetes Cancer Social History Household Members: Spouse Housing: House Are you a primary customer care voice consultant to a significant other at home: No Do you presently have visiting nurse or other home services: No Alcohol intake: current Alcohol intake frequency: holidays/special occasions only Alcohol type: wine Patient Tobacco Use Status: Never used Tobacco e-Cigarette/Vaping Use: Never Used Second Hand Smoke Exposure: Yes service: No Current occupational status: retired Cognitive needs: No Hearing needs: Yes Vision needs: Yes Questionnaire PHQ-9 Over the last 2 weeks, how often have you been bothered by any of the following problems? 1. Little interest or pleasure in doing things: not at all 2. Feeling down, depressed, or hopeless: several days 3. Trouble falling or staying asleep, or sleeping too much: several days 4. Feeling tired or having little energy: several days 5. Poor appetite or overeating: not at all 6. Feeling bad about yourself - or that you are a failure or have let yourself or your family down: several days 7. Trouble concentrating on things, such as reading the newspaper or watching television: not at all 8. Moving or speaking so slowly that other people could have noticed. Or the opposite - being so fidgety or restless that you have been moving around a lot more than usual: not at all 9. Thoughts that you would be better off or of hurting yourself in some way: not at all Total score: 4 Depression Screening Interpretation: Positive Depression Screening Follow-up: Existing condition and In treatment Depression Screening Done: Yes 25136 - PHQ-9 Billing: Yes Source: Developed by Drs. Tim Torres, Caitie Nguyen, Justin Fallon and colleagues, with an educational ion from [employer]. Thrive Questionnaire Date Thrive assessed: 01/16/24 I am a: Patient What is your living situation today?: I have a steady place to live Within the past 12 months, did the food you bought not last and you didn't have the money to get more?: Never true Within the past 12 months, did you worry whether your food would run out before you got money to buy more?: Never true Do you have trouble paying for medicines?: No Do you have trouble getting transportation to medical appointments?: No Do you have trouble paying your heating and electricity bill?: No Do you have trouble taking care of your child, family member or friend?: No Do you have trouble with day-to-day activities such as bathing, preparing meals, shopping, managing finances, etc.?: No Are you currently unemployed and looking for a job?: No Are you interested in more education?: No Please select the resources that you would like help with: None Currently or been in a relationship where the following occur: No concerns reported THRIVE Score: 0 AUDIT C Alcohol Use Questionnaire (AUDIT-C) 1. How often do you have a drink containing alcohol?: Monthly or less 2. How many drinks containing alcohol do you have on a typical day when you are drinking?: 1 or 2 3. How often do you have six or more drinks on one occasion?: Never Total Score: 1 Score Reviewed/Action Taken: Yes SEBAS-7 AMB Questionnaire SEBAS-7 Date SEBAS - 7 assessed: 01/16/24 Feeling nervous, anxious, or on edge: 0 = Not at all Not being able to stop or control worryin = Not at all Worrying too much about different things: 0 = Not at all Trouble relaxin = Not at all Being so restless that it is hard to sit still: 0 = Not at all Becoming easily annoyed or irritable: 0 = Not at all Feeling afraid as if something awful might happen: 0 = Not at all Total SEBAS-7 score (0-4 normal; 5-9 mild; 10-14 moderate; 15-21 severe): 0 Source: Developed by Drs. Tim Torres, Caitie Nguyen, Justin Fallon and colleagues, with an educational ion from [employer]. Review of Systems Const Denies chills, Reports fatigue, Denies fever(s) and Denies headache(s) ENT Denies dysphagia, Denies dizziness, Denies otalgia, Denies headache(s), Denies neck pain, Denies odynophagia and Denies sore throat Card Denies chest pain, Denies palpitations and Denies dyspnea Resp Denies cough and Denies dyspnea GI Denies abdominal pain, Denies constipation, Denies dysphagia, Denies heartburn, Denies diarrhea, Denies nausea, Denies odynophagia and Denies vomiting Denies difficulty voiding, Denies nocturia, Denies dysuria and Denies urinary urgency Musc Reports arthralgias (over both knees; right hip pain has improved with SALOMON), Denies neck pain and Reports stiffness Skin/Breast Denies rash Neuro Denies dizziness, Denies headache(s), Reports paresthesias (on and off in the fingers and toes bilaterally) and Reports tremor(s) (in both hands, on and off) Endo Reports fatigue and Denies palpitations Physical exam (Primary Care) Vital Signs: Last Vital Signs Pulse 62 01/16/24 12:32 BP 126/80 01/16/24 12:32 Pulse Ox 98 01/16/24 12:32 Oxygen Delivery Method Room Air 01/16/24 12:32 BMI result Body Mass Index 32.8 Tobacco/Smoking Status: Tobacco use Status Tobacco use date assessed 01/16/24 01/16/24 12:39 Patient Tobacco Use Status Never used Tobacco 11/12/24 12:39 e-Cigarette/Vaping Use Never Used 01/16/24 12:39 PHQ-9: PHQ-9 Score PHQ-9: Total score 4 01/16/24 12:39 Depression Screening Interpretation: Positive Depression Screening Follow-up: Existing condition and In treatment Thrive Assessment: Date of Thrive Assessment Date Thrive assessed 01/16/24 01/16/24 12:39 Currently or been in a relationship where the following occur: No concerns reported Const General: no acute distress and alert HENMT Ears: TM's normal bilaterally and EAC's normal Throat: Yes posterior oropharynx normal and Yes tonsils normal (no TP congestion noted) Neck Neck: Yes no lymphadenopathy and Yes supple Thyroid: Thyroid normal Resp Auscultation: clear to auscultation bilaterally, no rales and no wheezes Cardio Rate: regular rate Rhythm: regular rhythm Heart sounds: no murmurs GI Palpation (GI): Soft to palpation and nontender Auscultation: normal bowel sounds General: Yes no CVA tenderness Back/Spine/Pelvis Back: no CVA tenderness Thoracic/Lumbar Spine: paraspinal muscle tenderness on the right in the lower lumbar and lumbar spinal tenderness Skin Rashes: no rashes Extrem General: Yes no clubbing, cyanosis or edema Right lower extremity: knee Details: tenderness; no swelling Left lower extremity: knee Details: tenderness; no swelling Results Reviewed Results Reviewed: Laboratory Tests 01/10/24 09:56 WBC 6.1 Hgb 13.3 Hct 42.1 Plt Count 271 Sodium 140 Potassium 4.3 Creatinine 0.83 Estimated GFR > 60 Fasting Glucose 139 H Hemoglobin A1c % 6.5 H Calcium 10.7 H AST 20 ALT 23 Triglycerides 147 Cholesterol 155 LDL Cholesterol, Calc 78 HDL Cholesterol 48 Vitamin B12 1139 H 25-OH Vitamin D Total 50.2 TSH 0.05 L Free T4 1.34 PTH Intact 81.9 H Ur Specific [place] 1.020 Urine Protein Negative Urine Glucose (UA) Negative Urine Blood Negative Urine Nitrite Positive H Ur Leukocyte Esterase Moderate (2+) H Microalb/Creat Ratio 8.5 Coding Level of Care Code Est Pt Level 4 (13752) Diagnoses Type 2 diabetes mellitus without complication, without long-term current use of insulin E11.9 Diabetes mellitus type: type 2 Diabetes mellitus senior living insulin use: without senior living use Diabetes mellitus complication status: without complication Benign essential hypertension I10 Pure hypercholesterolemia E78.00 Osteoarthritis of right hip, unspecified osteoarthritis type M16.11 Osteoarthritis type: unspecified Primary osteoarthritis of both knees M17.0 Right-sided low back pain with right-sided sciatica, unspecified chronicity M54.41 Chronicity: unspecified Back pain laterality: right Hypercalcemia E83.52 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 coli urinary tract infection N39.0; B96.20 Anxiety F41.9 Obesity (BMI 30-39.9) E66.9 Additional Codes PHQ-9 - 30967 - PHQ-9 Billing: Yes ([id number]) Assessment & Plan Assessment & Plan (1) Diabetes mellitus: Comment: type 2-dx ~2016-glucose usually [id number] Trulicity (takes on Tuesdays), Metformin, Januvia Code(s): E11.9 - Type 2 diabetes mellitus without complications Category: Medical Qualifiers: Diabetes mellitus type: type 2 Diabetes mellitus exterminator termite insulin use: without exterminator termite use Diabetes mellitus complication status: without complication Qualified Code(s): E11.9 - Type 2 diabetes mellitus without complications Plan: Her HgbA1c remains unchanged from previous at 6.5% on her recent labs (in-office HgbA1c was also previously at 6.5% a few months ago) - goal is < 7.0% Reinforced diabetic diet Continue Trulicity 1.5 mg SQ once a week and Metformin 500 mg BID (2) Benign essential hypertension: Code(s): I10 - Essential (primary) hypertension Category: Medical Plan: Reinforced low sodium diet - goal is systolic BP of at least 140 mm or less Patient states that her BP is usually much lower when she checks it at home Continue Lisinopril 30 mg QD Patient is reminded to continue monitoring her blood pressure regularly (3) Pure hypercholesterolemia: Code(s): E78.00 - Pure hypercholesterolemia, unspecified Category: Medical Plan: Results of her labs done a few days ago reviewed and discussed with patient Reinforced low cholesterol diet Continue Atorvastatin 10 mg QD Will recheck her labs and fasting lipids in 4 months for follow up (4) Osteoarthritis of right hip: Code(s): M16.11 - Unilateral primary osteoarthritis, right hip Category: Medical Qualifiers: Osteoarthritis type: unspecified Qualified Code(s): M16.11 - Unilateral primary osteoarthritis, right hip Plan: S/P total right hip arthroplasty with Dr. Reed on 01/17/2023, with (+) significant improvement of her hip symptoms Patient also recently completed physical therapy for her right hip and she continues to do the exercises taught to her by physical therapy regularly Follow up with orthopedics as scheduled (5) Primary osteoarthritis of both knees: Code(s): M17.0 - Bilateral primary osteoarthritis of knee Category: Medical Plan: S/P left knee TKA on 04/26/2023 She has completed physical therapy for her knee a couple of months ago Follow up with orthopedics as scheduled (6) Low back pain with right-sided sciatica: Code(s): M54.41 - Lumbago with sciatica, right side Category: Medical Qualifiers: Chronicity: unspecified Back pain laterality: right Qualified Code(s): M54.41 - Lumbago with sciatica, right side Plan: Reinforced activity and weight-lifting restrictions Repeat lumbar spine and SI joint x-rays done back in August 2022 revealed (+) degenerative changes of the lumbar spine and SI joints May continue taking Tylenol PRN and Tizanidine 4 mg TID PRN Continue Meloxicam 15 mg QD PRN with food only if no relief with Tylenol Advised again that physical therapy may also be an option and she can call for referral at any time if she wishes to try physical therapy for her back pain (7) Hypercalcemia: Code(s): E83.52 - Hypercalcemia Category: Medical Plan: Her serum calcium level was again slightly elevated at 10.7 on her labs done a few days ago Intact PTH level checked a couple of times in the past have come back normal but is slightly elevated at 81.9 on her labs done a few days ago She was previously referred to Dr. Hughes for endocrinology evaluation but she has not been able to get in to see her We will continue to monitor her serum calcium level and intact PTH level for now and revisit endocrinology referral if her numbers progress further (8) Carcinoid tumor: Onset Date: ~2021 Comment: (s/p RLL wedge resection 09/2021) Code(s): D3A.00 - Benign carcinoid tumor of unspecified site Category: Medical Qualifiers: Carcinoid tumor malignancy status: benign Carcinoid tumor location: lung Qualified Code(s): 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 Wilson on 09/29/21; states that she has been doing well since with no acute issues Follow up with thoracic surgery (Dr. Wilson) as scheduled for continuing surveillance She had a repeat chest CT done at [facility] last month on 12/19/2023 and was advised that her CT came back negative but it was incidentally noticed that her pancreatic tail appears atrophied and she is advised to speak to her PCP about whether this needs further work ups or not (9) Pancreatic atrophy: Code(s): K86.89 - Other specified diseases of pancreas Category: Medical Plan: Will send patient for abdominal CT with contrast NIALL to further evaluate her pancreatic tail atrophy that was seen incidentally on her recent chest CT as medical literature exists that has shown that focal pancreatic parenchyma atrophy may be a harbinger of pancreatic malignancy (10) Acquired hypothyroidism: Code(s): E03.9 - Hypothyroidism, unspecified Category: Medical Plan: Her serum TSH level is again suppressed but free T4 level remains normal; patient is also clinically euthyroid Continue Levothyroxine 150 mcg QD Will continue to monitor her TFTs regularly (11) Obstructive sleep apnea: Onset Date: ~2005 Comment: (ALEXANDRE on CPAP) Code(s): G47.33 - Obstructive sleep apnea (adult) (pediatric) Category: Medical Plan: Patient admits that she has not been using her CPAP device for a while now and when she tried using it again a few weeks ago, sh got sick States that her machine is old and may need to be replaced Will refer her back to Sleep Medicine (she has seen Dr. Jolly in the past) to look into this; she will also likely require a repeat sleep study as it has been years since she had one done (12) Tremor of both hands: Code(s): R25.1 - Tremor, unspecified Category: Medical Plan: She was seen and evaluated by Dr. 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 Follow up with neurology in 1 year (13) Vitamin B12 deficiency: Code(s): E53.8 - Deficiency of other specified B group vitamins Category: Medical Plan: Continue Vitamin B12 1000 mcg QD States that her symptoms of tingling/paresthesia seems to have improved significantly since she was started on B12 supplements (14) GERD (gastroesophageal reflux disease): Code(s): K21.9 - Gastro-esophageal reflux disease without esophagitis Category: Medical Qualifiers: Esophagitis presence: without esophagitis Qualified Code(s): K21.9 - Gastro-esophageal reflux disease without esophagitis Plan: Dietary restrictions reinforced Continue Omeprazole 20 mg QD PRN (15) E. coli urinary tract infection: Code(s): N39.0 - Urinary tract infection, site not specified; B96.20 - Unspecified Escherichia coli [E. coli] as the cause of diseases classified elsewhere Category: Medical Plan: Her urine culture came back positive for E. coli As she also currently has some symptoms of dysuria and her U/A is positive for nitrates, will go ahead and start her empirically on Macrobid 100 mg BID x 7 days (16) Anxiety: Code(s): F41.9 - Anxiety disorder, unspecified Category: Medical Plan: Continue Fluoxetine 20 mg QD (17) Obesity (BMI 30-39.9): Code(s): E66.9 - Obesity, unspecified Category: Medical Plan: Reinforced diet; exercise is not realistic at present due to patient's multiple physical issues Plan Follow up in 4 months Orders: Orders Hemoglobin A1c 4 Months E11.9 - Type 2 diabetes mellitus without complications Complete Blood Count Auto Diff 4 Months D64.9 - Anemia, unspecified Comprehensive [place]. Panel Fast 4 Months E78.00 - Pure hypercholesterolemia, unspecified Thyroid Stimulating Hormone 4 Months E03.9 - Hypothyroidism, unspecified Free T4 (Free Thyroxine) 4 Months E03.9 - Hypothyroidism, unspecified Vitamin D 25-OH Total 4 Months E55.9 - Vitamin D deficiency, unspecified Vitamin B12 and Folate 4 Months E53.8 - Deficiency of other specified B group vitamins CT abdomen w IV con Today K86.89 - Other specified diseases of pancreas Lipid Panel 4 Months E78.00 - Pure hypercholesterolemia, unspecified Microalbumin, Random (w Creat) 4 Months E11.9 - Type 2 diabetes mellitus without complications UA CC w/rflx Micro + Cult 4 Months R30.0 - Dysuria Referrals Sleep Medicine Referral G47.33 - Obstructive sleep apnea (adult) (pediatric) Medications: New nitrofurantoin monohyd/m-cryst 100 mg must administer with a meal/food 100 mg PO BID 7 days 14 caps 0RF E. coli UTI Refilled lisinopril 30 mg PO QAM 90 days 90 tabs 1RF fluoxetine 20 mg PO QAM 90 days 90 tabs 1RF atorvastatin 10 mg PO QAM 90 days 90 tabs 1RF
== END 2024-01-16 13:28 | disposition home or self-care (01) ==
PROVIDERS: Visit Provider Internal Medicine
DX: E11.9 Type 2 diabetes mellitus without complications (principal); D3A.090 Benign carcinoid tumor of the bronchus and lung; I10 Essential (primary) hypertension; E78.00 Pure hypercholesterolemia, unspecified; M16.11 Unilateral primary osteoarthritis, right hip; M17.0 Bilateral primary osteoarthritis of knee; M54.41 Lumbago with sciatica, right side; E83.52 Hypercalcemia; K86.89 Other specified diseases of pancreas; E03.9 Hypothyroidism, unspecified; G47.33 Obstructive sleep apnea (adult) (pediatric); R25.1 Tremor, unspecified

== ENCOUNTER → 2024-01-16 12:21 | Outpatient (BNVA) | payer MEDICARE, OTHER, SELFPAY | PROVIDERS: Visit Provider Internal Medicine | DX: E11.9 Type 2 diabetes mellitus without complications (principal); E78.00 Pure hypercholesterolemia, unspecified; I10 Essential (primary) hypertension; M16.11 Unilateral primary osteoarthritis, right hip; M17.0 Bilateral primary osteoarthritis of knee; M54.41 Lumbago with sciatica, right side; E83.52 Hypercalcemia; K86.89 Other specified diseases of pancreas; E03.9 Hypothyroidism, unspecified; D3A.090 Benign carcinoid tumor of the bronchus and lung; R25.1 Tremor, unspecified; K21.9 Gastro-esophageal reflux disease without esophagitis; E53.8 Deficiency of other specified B group vitamins; F41.9 Anxiety disorder, unspecified | CPT/HCPCS: 96127; 99212 ==

== ENCOUNTER 2024-01-18 12:22 | Outpatient (REF) | payer MEDICARE, OTHER, SELFPAY ==
--- NOTE | ~2024-01-18 | MM_ITS ---
EXAMINATION: MM SCREENING DIGITAL BREAST TOMOSYNTHESIS, BILATERAL CLINICAL INFORMATION: Screening. Asymptomatic. COMPARISON: Mammography: Comparison is made with available priors TECHNIQUE: Digital breast mammography with tomosynthesis is performed in both the craniocaudal and mediolateral oblique views along with computer-aided detection (CAD). FINDINGS: There are scattered areas of fibroglandular density (ACR BI-RADS breast composition Category b). There are no significant masses, abnormal calcifications, or other abnormalities. MM/MM tomosynthesis screening BI IMPRESSION: No mammographic evidence of malignancy. ASSESSMENT: BI-RADS BI-RADS 1 - Negative RECOMMENDATION: Routine annual mammography screening. 1 year F/U This examination should not preclude the clinical evaluation of a suspicious palpable abnormality. This patient's information was entered into a reminder system with a target due date for their next mammogram. Electronically signed by: Pita Traore DO 01/26/2024 10:45 AM PB
== END 2024-01-18 12:23 | disposition home or self-care (01) ==
LOC: HO.MAMMO 12:22
PROVIDERS: PCP Internal Medicine; Visit Provider Internal Medicine
DX: Z12.31 Encounter for screening mammogram for malignant neoplasm of breast (principal)
CPT/HCPCS: 77063; 77067

== ENCOUNTER → 2024-01-18 12:30 | Outpatient (BNV) | payer MEDICARE, OTHER, SELFPAY | PROVIDERS: PCP Internal Medicine; Visit Provider Internal Medicine | DX: Z12.31 Encounter for screening mammogram for malignant neoplasm of breast (principal) | CPT/HCPCS: 77063; 77067 ==

== ENCOUNTER 2024-02-06 13:51 | Outpatient (REF) | payer MEDICARE, OTHER, SELFPAY ==
--- NOTE | ~2024-02-06 | CT_ITS ---
EXAMINATION: CT ABDOMEN WITH CONTRAST CLINICAL INFORMATION: pancreatic tail atrophy seen incidentally on chest CT - r/o pancreatic cancer COMPARISON: Chest CT dated 11/01/2022, PET/CT dated 07/27/2021 TECHNIQUE: Contiguous axial thin section helical images of the abdomen were performed following the administration of oral contrast and 85 mL of Omnipaque 350 intravenous contrast. The data set was reformatted in the coronal and sagittal planes and reviewed on an independent workstation. This CT examination was performed using dose optimization techniques as appropriate, variously including the following: *Automated exposure control *Adjustment of mA and/or kV according to patient size (this includes techniques or standardized protocols for targeted exams where dose is matched to indication/reason for exam; i.e. extremities or head) *Use of iterative reconstruction technique DLP: 263 mGy-cm FINDINGS: LUNG BASES: Stable post surgical changes in the right lower lobe. No suspicious lung nodules or consolidation in the visualized lower lungs. LIVER: Homogeneous in attenuation. Normal in size. No focal lesion. GALLBLADDER: Status post cholecystectomy with surgical clips located in the gallbladder fossa. BILIARY SYSTEM: No intrahepatic or extrahepatic biliary ductal dilation. PANCREAS: Unchanged appearance of the atrophic pancreatic tail when compared to PET/CT dated 07/27/2021. SPLEEN: Normal in size. No focal lesion. Adrenal Glands: No focal nodule. Kidneys/Bladder: Bilateral kidneys demonstrate symmetric enhancement. No perinephric fluid collection, urolithiasis or hydroureteronephrosis bilaterally. GI: The visualized alimentary tract is normal in course. No bowel wall thickening. No dilated loops of bowel to suggest obstruction. Appendix: The appendix is seen in its entirety and is unremarkable. Peritoneum: No pneumoperitoneum. No ascites. No intra-abdominal fluid collection. Peripherally calcified nodule in the anterior left abdominal wall measures 1.5 x 1.2 cm and has not significantly changed when compared to prior PET/CT dated 07/27/2021, at which time there was no FDG uptake, likely representing a benign finding. Vasculature: Atherosclerosis of the aorta and its branches. The abdominal aorta is normal in course and caliber. Lymph Nodes: No pathologically enlarged abdominal or pelvic lymph nodes. Soft Tissues/Musculoskeletal: Multilevel degenerative changes of the spine. No destructive osseous lesions. CT/CT abdomen w IV con IMPRESSION: 1. Unchanged appearance of the atrophic pancreatic tail when compared to PET/CT dated 07/27/2021. No evidence of pancreatic mass. 2. No acute abnormality in the abdomen. 3. Status post cholecystectomy. Fleischner guidelines were followed. Electronically signed by: Di Carvajal MD 02/07/2024 09:40 PM PB [place]
[2024-02-06] MEDS: iohexoL 350 MG/ML 100 ML INFUS..BTL IV (14:36)
--- OUTSIDE RECORDS SUMMARY | 2024-02-13 14:42 | XMS_ITS | Patient Health Record ---
Author Organization [facility] Address [address] [place] [address] Care Team Providers Care Prospect Manager Name Role Phone Jf Rojas MDh Primary Care Provider Tim Odell Unavailable [phone] REASON FOR REFERRAL No Information MEDICATIONS Medication [...] unspecified whether esophagitis present (K21.9) Active confirmed 642140367 Problem History of adenomatous polyp of colon (Z86.010) Active confirmed 736821834 Problem Colon cancer screening (Z12.11) Active confirmed 675286764 Problem Personal history of colonic polyps (Z86.010) Active confirmed History of poly p of colon (situation) (611664625) Problem Diverticulosis of large intestine without perforation or abscess without bleeding (K57.30) Active confirmed Diverticul ar disease of colon (913928072) Problem Gastroesophageal reflux disease (K21.9) Active confirmed Gastroesophagea l reflux disease (939393273) PLAN OF TREATMENT Pending Test Test Name Order Date Pathology 07/04/2022 Future Test Test Name Order Date UPPER GI ENDOSCOPY 05/06/2022 COLONOSCOPY 05/06/2022 Insurance Providers Payer Name Payer Address Payer Phone Subscriber Number Group Number Insured Name Patient Relationship to Insured Coverage Start Date Coverage End Date MEDICARE OF [place] [address] [place] [id number] ZACKERY FISHMAN Self - patient is the insured [facility] [address] [address] [place] [address] [phone] [id number] ZACKERY FISHMAN Self - patient is the insured MEDICAL (GENERAL) HISTORY Medical History History ICD Code Colonoscopies with Dr. Moctezuma with denia adelina of polyps--last one was in 2018 GERD--on omeprazole for many years Hypothyroidism Anxiety NIDDM Denies [place],CVA,Lung disease,renal disease Campoverde's palsy Surgical History Surgery Date(Month/Year) Cholecystectomy(open) Hysterectomy with BSO Right lower lobe lung resection-carcinoi d tumor--Dr. Wilson 2021
== END 2024-02-06 13:52 | disposition home or self-care (01) ==
LOC: HO.CT 13:51
PROVIDERS: PCP Internal Medicine; Visit Provider Internal Medicine
DX: K86.89 Other specified diseases of pancreas (principal)
CPT/HCPCS: 74160; Q9967

== ENCOUNTER 2024-05-06 09:38 | Outpatient (REF) | payer MEDICARE, OTHER, SELFPAY ==
[2024-05-06 10:16] LABS: MANUAL DIFF FLAG NO
[2024-05-06 10:17] LABS: Basophils Absolute Auto 0.1 X10*3/uL (0.0-0.2); Basophils Percent Auto 0.8 % (0-2); Eosinophils Absolute Auto 0.3 X10*3/uL (0.0-0.4); Eosinophils Percent Auto 4.5 % (0-4); Hematocrit 41.4 % (37.0-47.0); Hemoglobin 13.3 g/dl (12.0-16.0); Imm Gran Abs Auto 0.03 X10*3/uL (0.00-0.03); Imm Gran Pct Auto 0.5 % (0.0-0.4); Lymphocytes Absolute Auto 1.6 X10*3/uL (1.2-4.9); Lymphocytes Percent Auto 26.6 % (20-40); Mean Corpuscular HGB Conc 32.1 g/dl (31.0-35.0); Mean Corpuscular Hemoglobin 26.7 pg (27.0-33.0); Mean Corpuscular Volume 83.1 fL (80.0-98.0); Monocytes Absolute Auto 0.5 X10*3/uL (0.1-1.2); Monocytes Percent Auto 8.8 % (2-11); Neutrophils Absolute Auto 3.6 x10*3/uL (2.0-8.3); Neutrophils Percent Auto 58.8 % (45-73); Platelet Count 281 X10*3/uL (160-400); Red Blood Count 4.98 X10*6/uL (4.20-5.50); Red Cell Distribution Width 14.1 % (11.0-16.0); White Blood Count 6.1 X10*3/uL (4.8-10.8)
[2024-05-06 10:22] LABS: Appearance Urine Clear; Color Urine Yellow; Glucose Urine UA Negative (Negative); Leukocyte Esterase Urine Trace (Negative); Nitrite Urine Negative (Negative); PH 5.5 (5.0-9.0); UMIC TRIGGER UACC YES; Urine Blood Negative (Negative); Urine Ketones Negative (Negative); Urine Protein Negative (Neg-Trace)
[2024-05-06 10:25] LABS: Bacteria Urine 4+ (None Seen); Hyaline Casts Urine 0-2 /LPF (0-2); RBC Urine 0-2 /HPF (0-2); Squamous Epithelial Cell Urine 0-2 /HPF (0-2); WBC Urine 0-5 /HPF (0-5)
--- OUTSIDE RECORDS SUMMARY | 2024-05-06 10:40 | XMS_ITS | Clinical Summary ---
Author Organization [facility] [address] [facility] Address [address] [place] [address] Phone Care Team Providers Care Associate Relations Specialist Name Role Phone Roberto Rojas MD Primary Care Provider Allergies Active Allergy Reactions Criticality Noted Date Comments Amoxicillin 08/10/2021 Sulfa (Sulfonamide Antibiotics) 09/2021 Medications atorvastatin (LIPITOR) 10 mg tablet Take 10 mg by mouth daily. Active dulaglutide (Trulicity) 0.75 mg/0.5 mL pen injector injection Inject 0.5 mL into the skin once a week. Active fexofenadine (CHERYL) 180 mg tablet Take 180 mg by mouth daily. Active FLUoxetine (PROzac) 20 mg capsule Take 20 mg by mouth daily. Active levothyroxine sodium (TIROSINT) 150 mcg capsule Take 150 mcg by mouth daily. Active melatonin 5 mg capsule Take 5 mg by mouth. Active metFORMIN (GLUCOPHAGE) 850 mg tablet Take 500 mg by mouth 2 (two) times a day with meals. Active omeprazole 20 mg tablet,disintegr at, delay rel Take 20 mg by mouth daily. Active SITagliptin phosphate (Januvia) 100 mg tablet Take 100 mg by mouth daily. 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 Questionable significance. PCP to workup as needed. History of lung cancer 08/10/2021 Assessment & Plan (01/08/2024 12:49 PM EST): Ms. 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 The patient's most recent surveillance chest CT scan performed on December 19, 2023 shows no new or worsening pulmonary nodule, or thoracic adenopathy, to suggest recurrence or new disease. We will continue with routine chest CT surveillance the next of which will be in 1 year, December 2024. The patient will have a follow-up visit in the office following the CT scan. Patient should call the office should she have any questions or concerns prior to this next appointment. Surgical History Surgery Date Site/Laterality Comments CHOLECYSTECTOMY PROCEDURE: HISTORICAL CHOLECYSTECTOMY HYSTERECTOMY N/A PROCEDURE: HISTORICAL HYSTERECTOMY OTHER SURGICAL HISTORY 09/29/2021 Right PROCEDURE: CA THORACOSCOPY W/THERA WEDGE RESEXN INITIAL UNILAT; COMMENT: RLL Medical History Medical History Date Comments Hypothyroidism DX:Hypothyroidis m Anxiety disorder DX:Anxiety diso rder HTN (hypertension) DX:HTN (hyper tension) Type 2 diabetes mellitus wit hout complications (CMS/HCC) DX:Type 2 diabetes mellitus without complications (HCC) GERD (gastroesophageal reflux disease) DX:GERD (gastroesophageal reflux disease) Obstructive sleep apnea DX:Obstr uctive sleep apnea Mixed hyperlipidemia DX:Mixed hy perlipidemia Osteoarthritis DX:Osteoarthriti s; COMMENT: bilateral knees Urinary incontinence DX:Urinary incontinence Obesity DX:Obesity 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 Family History Medical History Relation Name Comments Diabetes Father Other: Other Father Breast cancer Mother Diabetes Mother Other: Other Mother No Known Problems Other 2 daughters Lung cancer Neg Hx Relation Name Status Comments Father Mother Other 2 daughters Alive Social History Tobacco Use Types Packs/Day Years Used Date Smoking Tobacco: Never Smokeless Tobacco: Never Tobacco Cessation:Counseling Given: Not Answered Alcohol Use Standard Drinks/Week Comments Not Currently 0 (1 standard drink = 0.6 oz pur e alcohol) Comments Unknown Sex and Gender Information Value Date Recorded Sex Assigned at Not on file Legal Sex Female 7:40 AM EST Gender Identity Not on file Sexual Orientation Not on file Obstetrics History Last Filed Vital Signs Vital Sign Reading Time Taken Comments Blood Pressure 136/84 01/08/2024 1:10 PM EST Pulse 77 01/08/2024 1:10 PM EST Temperature 36.8 ??C (98.2 ??F) 01/08/2024 1:10 PM ES T Respiratory Rate 14 01/08/2024 1:10 PM EST Oxygen Saturation - - Inhaled Oxygen Concentration - - Weight 92.1 kg (203 lb) 01/08/2024 1:10 PM EST Height 165.1 cm (5' 5 ) 01/08/2024 1:10 PM EST Body Mass Index 33.78 01/08/2024 1:10 PM EST Plan of Treatment Health Maintenance Due Date Last Done Comments COVID-19 Vaccine (#1) 11/25/1950 DTaP,Tdap,and Td Vaccines (1 - Tdap) 1965 Pneumococcal Vaccine: 50+ Ye ars (1 of 1 - PCV) 1996 Zoster Vaccines (1 of 2) 1996 RSV Immunization Patients 60 + Years Old (1 - 1-dose 75+ series) 2021 Depression Screening 02/06/2022 Falls Risk Assessment 02/06/2022 Hepatitis C Screening 02/06/2022 Medicare Annual Wellness Visit 02/06/2022 Osteoporosis Screening (Bone Density Screening) 02/06/2022 Social Influencers of Health Screening 02/06/2022 Influenza Vaccine (#1) 2023 HIB Vaccines Aged Out No longer eligi ble based on patient's age to complete this topic HPV Vaccines Aged Out No longer eligi ble based on patient's age to complete this topic Hepatitis A Vaccines Aged Out No long er eligible based on patient's age to complete this topic Hepatitis B Vaccines Aged Out No long er eligible based on patient's age to complete this topic IPV Vaccines Aged Out No longer eligi ble based on patient's age to complete this topic MMR Vaccines Aged Out No longer eligi ble based on patient's age to complete this topic Meningococcal ACWY Vaccine Aged Out N o longer eligible based on patient's age to complete this topic Meningococcal B Vacine Aged Out No lo nger eligible based on patient's age to complete this topic RSV Immunization Patients Un josé 20 months Aged Out No longer eligible b ased on patient's age to complete this topic Varicella Vaccines Aged Out No longer eligible based on patient's age to complete this topic Insurance MEDICARE [facility] Care Teams Associate Relations Specialist Relationship Specialty Start Date End Date Roberto Rojas MD [address] [place] [address] Dr Clemons [facility] [place] PCP - General Internal Medicine 07/21/21
--- OUTSIDE RECORDS SUMMARY | 2024-05-06 10:40 | XMS_ITS | Patient Health Record ---
Author Organization [facility] Address [address] [place] [address] Care Team Providers Care Energy Economist Name Role Phone Kang Rojas MDneth Primary Care Provider Tim Odell Unavailable [phone] REASON FOR REFERRAL No Information MEDICATIONS Medication [...] W/U Status Risk SNOMED Code Notes Problem Colon cancer screening (Z12.11) Active confirmed 071611833 Problem History of adenomatous polyp of colon (Z86.010) Active confirmed 350248280 Problem Personal history of colonic polyps (Z86.010) Active confirmed History of poly p of colon (situation) (533570333) Problem Diverticulosis of large intestine without perforation or abscess without bleeding (K57.30) Active confirmed Diverticul ar disease of colon (827411541) Problem Gastroesophageal reflux disease (K21.9) Active confirmed Gastroesophagea l reflux disease (435460003) Problem Gastroesophageal reflux disease, unspecified whether esophagitis present (K21.9) Active confirmed 044561391 PLAN OF TREATMENT Pending Test Test Name Order Date Pathology 07/04/2022 Future Test Test Name Order Date UPPER GI ENDOSCOPY 05/06/2022 COLONOSCOPY 05/06/2022 Insurance Providers Payer Name Payer Address Payer Phone Subscriber Number Group Number Insured Name Patient Relationship to Insured Coverage Start Date Coverage End Date MEDICARE OF [place] [address] [place] [id number] ZACKERY FISHMAN Self - patient is the insured [facility] [address] [address] [place] [address] [id number] ZACKERY FISHMAN Self - patient is the insured MEDICAL (GENERAL) HISTORY Medical History History ICD Code Colonoscopies with Dr. Moctezuma with denia adelina of polyps--last one was in 2018 GERD--on omeprazole for many years Hypothyroidism Anxiety NIDDM Denies [place],CVA,Lung disease,renal disease Campoverde's palsy Surgical History Surgery Date(Month/Year) Cholecystectomy(open) Hysterectomy with BSO Right lower lobe lung resection-carcinoi d tumor--Dr. Wilson 2021
[2024-05-06 10:46] LABS: Alanine Aminotransferase 23 U/L (0-31); Alkaline Phosphatase 60 U/L (39-117); Anion Gap 12 (12-20); Aspartate Amino Transferase 17 U/L (5-31); Bilirubin Total 0.4 mg/dL (0.0-1.0); Blood Urea Nitrogen 27 mg/dL (9-16); Calcium 10.3 mg/dL (8.4-10.2); Carbon Dioxide 25 mmol/L (22-29); Chloride 110 mmol/L (96-108); Cholesterol 131 mg/dL (<200); Estimated Glomerular Filt Rate > 60; Glucose Fasting 142 mg/dL (60-99); HDL Cholesterol 48 mg/dL (>40); LDL Cholesterol Calculated 65 mg/dL (<100); Potassium 4.6 mmol/L (3.3-5.1); Sodium 142 mmol/L (135-145); Total Protein 7.1 g/dL (6.5-8.0); Triglycerides 90 mg/dL (<150)
[2024-05-06 10:48] LABS: Estimated Average Glucose 143 mg/dL; Hemoglobin A1C 167.9999 umol/L; Hemoglobin A1c % 6.6 % (<6.0)
[2024-05-06 11:03] LABS: Free T4 (Free Thyroxine) 1.26 ng/dL (0.71-1.85); Thyroid Stimulating Hormone 0.11 uIU/mL (0.32-4.0); Vitamin D 25-OH Total 46.4 ng/mL (>30)
[2024-05-06 11:05] LABS: Creatinine Urine 76.88 mg/dL; Microalbumin Urine < 5.0 mg/L
[2024-05-06 12:35] LABS: Folate 7.7 ng/mL (> or = 4.0); Vitamin B12 603 pg/mL (200-900)
== END 2024-05-06 09:39 | disposition home or self-care (01) ==
LOC: HO.10HDL 09:38
PROVIDERS: Visit Provider Internal Medicine
DX: D64.9 Anemia, unspecified (principal); E78.00 Pure hypercholesterolemia, unspecified; E03.9 Hypothyroidism, unspecified; E11.9 Type 2 diabetes mellitus without complications; E55.9 Vitamin D deficiency, unspecified; E53.8 Deficiency of other specified B group vitamins
CPT/HCPCS: 36415; 80053; 80061; 81001; 82043; 82306; 82570; 82607; 82746; 83036; 84439; 84443; 85025

== ENCOUNTER 2024-05-16 11:31 | Outpatient (AMB) | payer MEDICARE, OTHER, SELFPAY ==
--- NOTE | 2024-05-16 11:46 | A.OFFPC_ITS ---
Vital Signs 05/16/24 11:48 Height 5 ft 6 in Weight 203 lb 6 oz BMI 32.8 BP 122/68 Blood Pressure Location Lt brachial Position Sitting Pulse 63 Pulse Source Pulse Oximeter Temp 97.3 F Temp Source Temporal Artery Scan Pulse Oximetry (%) 98 Oxygen Delivery Method Room Air Intake Visit Reasons: 4mth f/u Intake Note: Patient is here to follow up on DM, HTN, Hpercholesterolemia. Monotype Operator Required: No Rotary Dump Operator: Not Required per policy Accompanied by: Self / Same As Patient Allergies amoxicillin [AMOXICILLIN] Allergy (Intermediate, Verified 05/16/24 11:52) Gastrointestinal Upset Sulfa (Sulfonamide Antibiotics) [SULFA (SULFONAMIDE ANTIBIOTICS)] Allergy (Intermediate, Verified 05/16/24 11:52) HIVES,RASH Medication List - Last Reconciled 05/16/24 by FATOU Cook acetaminophen 650 mg (2 x 325 mg) PO Q6H PRN 30 days atorvastatin 10 mg PO QAM 90 days cholecalciferol (vitamin D3) (Vitamin D3) 50 mcg PO DAILY coenzyme Q10 (Co Q-10) 400 mg PO QAM cyanocobalamin (vitamin B-12) 1,000 mcg PO DAILY 90 days [DIABETIC SHOES As directed - Dx: E11.9] docusate sodium 100 mg PO BID 30 days dulaglutide 1.5 mg (0.5 mL) subcut QWEEK 90 days fluoxetine 20 mg PO QAM 90 days levothyroxine (Synthroid) 150 mcg PO QAM lisinopril 30 mg PO QAM 90 days metformin 500 mg PO BID 90 days nitrofurantoin monohyd/m-cryst 100 mg 100 mg PO BID 7 days omeprazole 20 mg PO QAM 90 days walker Folding Front wheeled walker Tobacco use date assessed: 05/16/24 Fall risk assessment: No Falls in past year Last assessed Fall Risk: 05/16/24 Dental Screening Dental Screen Date: 05/16/24 Did you have a dental visit in the last 12 months?: Yes Did you have a dental problem in the last 6 months where you did not have access to dental care?: No Was dental information given to patient?: Patient has dentist HPI 4mth f/u HPI Details patient is a 78-year-old female presenting follow up appointment Patient with Dr. Rojas, last seen in office on 01/16/2024 reports that she is diabetic and she is on Metformin and she feels tired all the time Reports that she has a lot of gas and feels nauseate after using the bathroom The patient reports that her stools are not diarrhea She reports that her symptoms started about couple months ago The gas is what is bothering her the most She reports that she has not been using her CPAP, reports that there are odors coming out if Reported this to the supplier and they told her that new CPAP is not due until September and she would have to call medicare and discuss this with them The patient reports that she has been coughing for awhile and thought that it was due to the lisinopril She reports that her coughs are worse at night. She is on omeprazole 20 mg daily-we will change the order to b.i.d. [facility] Medical History Vitamin B12 deficiency Osteoarthritis of left knee Elevated cholesterol Cervical cancer Primary osteoarthritis of right hip York esophagus GERD (gastroesophageal reflux disease) Campoverde's palsy Allergic rhinitis Carcinoid tumor (~2021) Tubular adenoma of colon (~2002) Chest pain Obesity (BMI 30-39.9) Anxiety Urinary incontinence Primary osteoarthritis of both knees Acquired hypothyroidism Obstructive sleep apnea (~2005) Benign essential hypertension Diabetes mellitus Pure hypercholesterolemia Surgical History Status post total replacement of right hip (~01/17/23) Hx of bilateral cataract extraction History of esophagogastroduodenoscopy (EGD) History of lung surgery History of bronchoscopy (~2021) History of colonoscopy History of pubovaginal sling (~2010) History of hysterectomy History of cholecystectomy (~1996) Family History Father Diabetes Hypertension Mother Diabetes Cancer Social History Household Members: Spouse Housing: House Are you a primary health care marketing specialist to a significant other at home: No Do you presently have visiting nurse or other home services: No Alcohol intake: current Alcohol intake frequency: holidays/special occasions only Alcohol type: wine Patient Tobacco Use Status: Never used Tobacco e-Cigarette/Vaping Use: Never Used Second Hand Smoke Exposure: Yes service: No Current occupational status: retired Cognitive needs: No Hearing needs: Yes (Hearing aide) Vision needs: Yes (Glasses) Questionnaire PHQ-9 Over the last 2 weeks, how often have you been bothered by any of the following problems? 1. Little interest or pleasure in doing things: not at all 2. Feeling down, depressed, or hopeless: not at all 3. Trouble falling or staying asleep, or sleeping too much: not at all 4. Feeling tired or having little energy: not at all 5. Poor appetite or overeating: not at all 6. Feeling bad about yourself - or that you are a failure or have let yourself or your family down: not at all 7. Trouble concentrating on things, such as reading the newspaper or watching television: not at all 8. Moving or speaking so slowly that other people could have noticed. Or the opposite - being so fidgety or restless that you have been moving around a lot more than usual: not at all 9. Thoughts that you would be better off or of hurting yourself in some way: not at all Total score: 0 Depression Screening Interpretation: Negative Depression Screening Done: Yes 48161 - PHQ-9 Billing: Yes Source: Developed by Drs. Tim Torres, Caitie Nguyen, Justin Fallon and colleagues, with an educational ion from [email or web address]. Thrive Questionnaire Date Thrive assessed: 05/16/24 I am a: Patient What is your living situation today?: I have a steady place to live Within the past 12 months, did the food you bought not last and you didn't have the money to get more?: Never true Within the past 12 months, did you worry whether your food would run out before you got money to buy more?: Never true Do you have trouble paying for medicines?: No Do you have trouble getting transportation to medical appointments?: No Do you have trouble paying your heating and electricity bill?: No Do you have trouble taking care of your child, family member or friend?: No Do you have trouble with day-to-day activities such as bathing, preparing meals, shopping, managing finances, etc.?: No Are you currently unemployed and looking for a job?: No Are you interested in more education?: No Please select the resources that you would like help with: None Currently or been in a relationship where the following occur: No concerns reported THRIVE Score: 0 AUDIT C Alcohol Use Questionnaire (AUDIT-C) 1. How often do you have a drink containing alcohol?: Monthly or less 2. How many drinks containing alcohol do you have on a typical day when you are drinking?: 1 or 2 3. How often do you have six or more drinks on one occasion?: Never Total Score: 1 SEBAS-7 AMB Questionnaire SEBAS-7 Date SEBAS - 7 assessed: 05/16/24 Feeling nervous, anxious, or on edge: 0 = Not at all Not being able to stop or control worryin = Not at all Worrying too much about different things: 0 = Not at all Trouble relaxin = Not at all Being so restless that it is hard to sit still: 0 = Not at all Becoming easily annoyed or irritable: 0 = Not at all Feeling afraid as if something awful might happen: 0 = Not at all Total SEBAS-7 score (0-4 normal; 5-9 mild; 10-14 moderate; 15-21 severe): 0 Source: Developed by Drs. Tim Torres, Caitie Nguyen, Justin Fallon and colleagues, with an educational ion from [email or web address]. SEBAS-7 Assessment Billing SEBAS-7 Assessment Tool: SEBAS-7 Assessment 70105 Review of Systems Const Denies headache(s) Eyes Denies loss of vision ENT Denies vertigo, Denies dizziness, Denies headache(s) and Denies sore throat Card Denies chest pain, Denies leg edema and Denies lightheadedness Resp Reports cough (ongoing intermittent cough, worse at night), Denies hemoptysis and Denies wheezing GI Denies abdominal pain, Denies melena, Denies constipation, Reports heartburn (intermittent), Denies diarrhea, Reports nausea, Denies vomiting and Reports other (increased gas) Denies urinary frequency, Denies dysuria and Denies urinary urgency Musc Reports back pain (on and off), Reports arthralgias (right knee intermittently), Denies joint swelling, Denies numbness and Denies tingling Neuro Denies Abnormal speech present, Denies behavioral changes, Denies vertigo, Denies dizziness, Denies headache(s), Denies loss of vision, Denies memory loss, Denies numbness and Denies tingling Psych Denies anxiety, Denies behavioral changes, Denies depression, Denies memory loss and Denies panic attacks Oswaldo/Lymph Denies easy bleeding and Denies easy bruising Aller/Immun Denies wheezing Physical exam (Primary Care) Vital Signs: Last Vital Signs Temp 97.3 F 05/16/24 11:48 Pulse 63 05/16/24 11:48 BP 122/68 05/16/24 11:48 Pulse Ox 98 05/16/24 11:48 Oxygen Delivery Method Room Air 05/16/24 11:48 BMI result Body Mass Index 32.8 Tobacco/Smoking Status: Tobacco use Status Tobacco use date assessed 05/16/24 05/16/24 11:53 Patient Tobacco Use Status Never used Tobacco 05/16/24 11:53 e-Cigarette/Vaping Use Never Used 05/16/24 11:53 PHQ-9: PHQ-9 Score PHQ-9: Total score 0 05/26/24 15:19 Depression Screening Interpretation: Negative Thrive Assessment: Date of Thrive Assessment Date Thrive assessed 05/16/24 05/16/24 11:53 Currently or been in a relationship where the following occur: No concerns reported Const General: healthy appearing, no acute distress, alert and awake Nutritional Appearance: well nourished Orientation/consciousness: oriented to person, oriented to place and oriented to time HENMT Ears: TM's normal bilaterally General nose exam: Normal nasal mucous membranes and turbinates present Eyes Conjunctivae: conjunctivae normal Sclerae: sclerae normal Pupils: Equal, round and reactive pupils present Neck Neck: Yes no lymphadenopathy and Yes no JVD Thyroid: Thyroid normal Carotids: no bruits Resp Effort & Inspection: normal respiratory effort and not tachypneic Auscultation: no crackles, no rales, no rhonchi and no wheezes Cardio Rate: regular rate Rhythm: regular rhythm Heart sounds: no murmurs and normal S1 and S2 GI Palpation (GI): Soft to palpation, nontender, no hepatomegaly and no splenomegaly Auscultation: normal bowel sounds General: Yes no CVA tenderness Back/Spine/Pelvis Back: no CVA tenderness Thoracic/Lumbar Spine: No thoracic spinal tenderness and No lumbar spinal tenderness (l) Skin General skin exam: no rashes or lesions noted and dry skin Neuro General: oriented to person, oriented to place and oriented to time Cranial nerves: Yes Equal, round and reactive pupils present Speech: No Abnormal speech present Gait exam (Neuro): Normal gait present Motor exam (neuro): no tremor noted Extrem Right upper extremity: full ROM Left upper extremity: full ROM Right lower extremity: full ROM; no edema Left lower extremity: full ROM; no edema Psych Mental Status: mental status grossly normal Speech and movement: Normal speech and movement present Affect: normal affect Attitude: cooperative Thought process: Normal thought process present Results Reviewed Results Reviewed: Laboratory Tests 05/06/24 09:45 WBC 6.1 RBC 4.98 Hgb 13.3 Hct 41.4 MCV 83.1 MCH 26.7 L Plt Count 281 Sodium 142 Potassium 4.6 Chloride 110 H Carbon Dioxide 25 Anion Gap 12 BUN 27 H Creatinine 0.87 Estimated GFR > 60 Fasting Glucose 142 H Hemoglobin A1c % 6.6 H Calcium 10.3 H AST 17 ALT 23 Triglycerides 90 Cholesterol 131 LDL Cholesterol, Calc 65 HDL Cholesterol 48 Vitamin B12 603 25-OH Vitamin D Total 46.4 Folate 7.7 TSH 0.11 L Free T4 1.26 Urine Color Yellow Urine Appearance Clear Urine pH 5.5 Ur Specific Otley 1.020 Urine Protein Negative Urine Glucose (UA) Negative Urine Ketones Negative Urine Blood Negative Urine Nitrite Negative Ur Leukocyte Esterase Trace H Urine RBC 0-2 Urine WBC 0-5 Ur Squamous Epith Cells 0-2 Urine Bacteria 4+ Hyaline Casts 0-2 Urine Creatinine 76.88 Urine Microalbumin < 5.0 Microalb/Creat Ratio TNP Coding Level of Care Code Est Pt Level 4 (68699) Diagnoses Type 2 diabetes mellitus without complication, without long-term current use of insulin E11.9 Diabetes mellitus complication status: without complication Diabetes mellitus intermediate insulin use: without intermediate use Diabetes mellitus type: type 2 Benign essential hypertension I10 Pure hypercholesterolemia E78.00 Osteoarthritis of right hip, unspecified osteoarthritis type M16.11 Osteoarthritis type: unspecified Primary osteoarthritis of both knees M17.0 Right-sided low back pain with right-sided sciatica, unspecified chronicity M54.41 Back pain laterality: right Chronicity: unspecified Hypercalcemia E83.52 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 Carcinoid tumor location: lung Carcinoid tumor malignancy status: benign Pancreatic atrophy K86.89 Acquired hypothyroidism E03.9 Obstructive sleep apnea G47.33 Tremor of both hands R25.1 Vitamin B12 deficiency E53.8 Gastroesophageal reflux disease without esophagitis K21.9 Esophagitis presence: without esophagitis Anxiety F41.9 Obesity (BMI 30-39.9) E66.9 Additional Codes SEBAS-7 Assessment Billing - SEBAS-7 Assessment Tool: SEBAS-7 Assessment 67543 ([id number]) PHQ-9 - 59446 - PHQ-9 Billing: Yes ([id number]) Time Spent (min) 39 Assessment & Plan Assessment & Plan (1) Diabetes mellitus: Comment: type 2-dx ~2016-glucose usually [id number] Trulicity (takes on Tuesdays), Metformin, Januvia Code(s): E11.9 - Type 2 diabetes mellitus without complications Category: Medical Qualifiers: Diabetes mellitus complication status: without complication Diabetes mellitus intermediate insulin use: without intermediate use Diabetes mellitus type: type 2 Qualified Code(s): E11.9 - Type 2 diabetes mellitus without complications Plan: Her HgbA1c current 6.6% on her recent labs, previously A1c was 6.5% - goal is < 7.0% Reinforced diabetic diet Continue Trulicity 1.5 mg SQ once a week and Metformin 500 mg BID (2) Benign essential hypertension: Code(s): I10 - Essential (primary) hypertension Category: Medical Plan: goal is systolic BP of at least 140 mm or less Encouraged DASH diet and activity as tolerated. Refrain from alcohol use and if you smoke, smoking cessation is strongly advised Blood pressure within goal Continue Lisinopril 30 mg QD Patient is reminded to continue monitoring her blood pressure regularly (3) Pure hypercholesterolemia: Code(s): E78.00 - Pure hypercholesterolemia, unspecified Category: Medical Plan: Healthy eating discussed. Encouraged to eat fruits/vegetables, protein- fish/baked chicken, and to avoid salty/fried foods, sweets, caffeine and carbohydrates. Encouraged to increase water intake 6-8 glasses a day and activity as tolerated Continue Atorvastatin 10 mg QD Will recheck her labs and fasting lipids in 3 months for follow up (4) Osteoarthritis of right hip: Code(s): M16.11 - Unilateral primary osteoarthritis, right hip Category: Medical Qualifiers: Osteoarthritis type: unspecified Qualified Code(s): M16.11 - Unilateral primary osteoarthritis, right hip Plan: S/P total right hip arthroplasty with Dr. Reed on 01/17/2023, with (+) significant improvement of her hip symptoms Patient also recently completed physical therapy for her right hip and she continues to do the exercises taught to her by physical therapy regularly Follow up with orthopedics as scheduled (5) Primary osteoarthritis of both knees: Code(s): M17.0 - Bilateral primary osteoarthritis of knee Category: Medical Plan: S/P left knee TKA on 04/26/2023 Reports that she is doing much better Follow up with orthopedics as scheduled (6) Low back pain with right-sided sciatica: Code(s): M54.41 - Lumbago with sciatica, right side Category: Medical Qualifiers: Back pain laterality: right Chronicity: unspecified Qualified Code(s): M54.41 - Lumbago with sciatica, right side Plan: Repeat lumbar spine and SI joint x-rays done back in August 2022 revealed (+) degenerative changes of the lumbar spine and SI joints May continue taking Tylenol PRN Reinforced activity and weight-lifting restrictions Avoid aggravating activities that worsens symptoms Balance activity with rest to allow the spine to heal Apply heat or cold pack to reduce pain and inflammation (7) Hypercalcemia: Code(s): E83.52 - Hypercalcemia Category: Medical Plan: Her serum calcium level was again slightly elevated at 10.3 it was 10.7 on previous lab Intact PTH level checked a couple of times in the past have come back normal but is slightly elevated at 81.9 on her labs done 01/10/24 She was previously referred to Dr. Hughes for endocrinology evaluation but she has not been able to get in to see her We will continue to monitor her serum calcium level and intact PTH level with the next labs-consider referring the patient back to Endocrinology if levels continue to be elevated (8) Carcinoid tumor: Onset Date: ~2021 Comment: (s/p RLL wedge resection 09/2021) Code(s): D3A.00 - Benign carcinoid tumor of unspecified site Category: Medical Qualifiers: Carcinoid tumor location: lung Carcinoid tumor malignancy status: benign Qualified Code(s): 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 Wilson on 09/29/21; states that she has been doing well since with no acute issues Follow up with thoracic surgery (Dr. Wilson) as scheduled for continuing surveillance She had a repeat chest CT done at [facility] last month on 12/19/2023 and was advised that her CT came back negative but it was incidentally noticed that her pancreatic tail appears atrophied and she is advised to speak to her PCP about whether this needs further work ups or not Dr. Rojas ordered an abdominal CT with contrast to further evaluate (9) Pancreatic atrophy: Code(s): K86.89 - Other specified diseases of pancreas Category: Medical Plan: CT of the abdomen unchanged appearance of the atrophic pancreatic tail and no evidence of pancreatic mass (10) Acquired hypothyroidism: Code(s): E03.9 - Hypothyroidism, unspecified Category: Medical Plan: Her serum TSH level is again suppressed but free T4 level remains normal; patient is also clinically euthyroid Continue Levothyroxine 150 mcg QD Will continue to monitor her TFTs regularly (11) Obstructive sleep apnea: Onset Date: ~2005 Comment: (ALEXANDRE on CPAP) Code(s): G47.33 - Obstructive sleep apnea (adult) (pediatric) Category: Medical Plan: She reports that she has not been using her CPAP, reports that there are odors coming out if Reported this to the supplier and they told her that new CPAP is not due until September and she would have to call medicare and discuss this with them (12) Tremor of both hands: Code(s): R25.1 - Tremor, unspecified Category: Medical Plan: She was seen and evaluated by Dr. 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 Follow up with Neurology as scheduled (13) Vitamin B12 deficiency: Code(s): E53.8 - Deficiency of other specified B group vitamins Category: Medical Plan: Continue Vitamin B12 1000 mcg QD States that her symptoms of tingling/paresthesia seems to have improved significantly since she was started on B12 supplements B12 levels 603-will continue to monitor (14) GERD (gastroesophageal reflux disease): Code(s): K21.9 - Gastro-esophageal reflux disease without esophagitis Category: Medical Qualifiers: Esophagitis presence: without esophagitis Qualified Code(s): K21.9 - Gastro-esophageal reflux disease without esophagitis Plan: Patient has been experiencing increased gas and intermittent nausea. She is also complaining of an ongoing cough that is worse at night. Reports that she thought it was due to her lisinopril. Discussed with the patient that this might be due to her GERD as well since the cough increases during the night time Dietary restrictions reinforced Omeprazole 20 mg daily changed to b.i.d. (15) Anxiety: Code(s): F41.9 - Anxiety disorder, unspecified Category: Medical Plan: Continue Fluoxetine 20 mg QD Denies SI/HI (16) Obesity (BMI 30-39.9): Code(s): E66.9 - Obesity, unspecified Category: Medical Plan: Reinforced dietary modifications and physical activity as tolerated due to the patient multiple joint issues Plan Follow up in 3 months Orders: Orders Complete Blood Count Auto Diff 3 Months E53.8 - Deficiency of other specified B group vitamins, E11.9 - Type 2 diabetes mellitus without complications, E03.9 - Hypothyroidism, unspecified, I10 - Essential (primary) hypertension, E78.00 - Pure hypercholesterolemia, unspecified, G47.33 - Obstructive sleep apnea (adult) (pediatric), K22.70 - York's esophagus without dysplasia, K21.9 - Gastro- esophageal reflux disease without esophagitis, J30.89 - Other allergic rhinitis, E66.9 - Obesity, unspecified Comprehensive [place]. Panel Fast 3 Months E53.8 - Deficiency of other specified B group vitamins, E11.9 - Type 2 diabetes mellitus without complications, E03.9 - Hypothyroidism, unspecified, I10 - Essential (primary) hypertension, E78.00 - Pure hypercholesterolemia, unspecified, G47.33 - Obstructive sleep apnea (adult) (pediatric), K22.70 - York's esophagus without dysplasia, K21.9 - Gastro- esophageal reflux disease without esophagitis, J30.89 - Other allergic rhinitis, E66.9 - Obesity, unspecified Lipid Panel 3 Months E53.8 - Deficiency of other specified B group vitamins, E11.9 - Type 2 diabetes mellitus without complications, E03.9 - Hypothyroidism, unspecified, I10 - Essential (primary) hypertension, E78.00 - Pure hypercholesterolemia, unspecified, G47.33 - Obstructive sleep apnea (adult) (pediatric), K22.70 - York's esophagus without dysplasia, K21.9 - Gastro- esophageal reflux disease without esophagitis, J30.89 - Other allergic rhinitis, E66.9 - Obesity, unspecified TSH reflex Free T4 3 Months E53.8 - Deficiency of other specified B group vitamins, E11.9 - Type 2 diabetes mellitus without complications, E03.9 - Hypothyroidism, unspecified, I10 - Essential (primary) hypertension, E78.00 - Pure hypercholesterolemia, unspecified, G47.33 - Obstructive sleep apnea (adult) (pediatric), K22.70 - York's esophagus without dysplasia, K21.9 - Gastro- esophageal reflux disease without esophagitis, J30.89 - Other allergic rhinitis, E66.9 - Obesity, unspecified UA CC w/rflx Micro + Cult 3 Months E53.8 - Deficiency of other specified B group vitamins, E11.9 - Type 2 diabetes mellitus without complications, E03.9 - Hypothyroidism, unspecified, I10 - Essential (primary) hypertension, E78.00 - Pure hypercholesterolemia, unspecified, G47.33 - Obstructive sleep apnea (adult) (pediatric), K22.70 - York's esophagus without dysplasia, K21.9 - Gastro- esophageal reflux disease without esophagitis, J30.89 - Other allergic rhinitis, E66.9 - Obesity, unspecified Vitamin D 25-OH Total 3 Months E53.8 - Deficiency of other specified B group v itamins, E11.9 - Type 2 diabetes mellitus without complications, E03.9 - Hypothyroidism, unspecified, I10 - Essential (primary) hypertension, E78.00 - Pure hypercholesterolemia, unspecified, G47.33 - Obstructive sleep apnea (adult) (pediatric), K22.70 - York's esophagus without dysplasia, K21.9 - Gastro- esophageal reflux disease without esophagitis, J30.89 - Other allergic rhinitis, E66.9 - Obesity, unspecified Glucose Fasting 3 Months E53.8 - Deficiency of other specified B group vitamins, E11.9 - Type 2 diabetes mellitus without complications, E03.9 - Hypothyroidism, unspecified, I10 - Essential (primary) hypertension, E78.00 - Pure hypercholesterolemia, unspecified, G47.33 - Obstructive sleep apnea (adult) (pediatric), K22.70 - York's esophagus without dysplasia, K21.9 - Gastro- esophageal reflux disease without esophagitis, J30.89 - Other allergic rhinitis, E66.9 - Obesity, unspecified Hemoglobin A1c 3 Months E53.8 - Deficiency of other specified B group vitamins, E11.9 - Type 2 diabetes mellitus without complications, E03.9 - Hypothyroidism, unspecified, I10 - Essential (primary) hypertension, E78.00 - Pure hypercholes terolemia, unspecified, G47.33 - Obstructive sleep apnea (adult) (pediatric), K22.70 - York's esophagus without dysplasia, K21.9 - Gastro-esophageal reflux disease without esophagitis, J30.89 - Other allergic rhinitis, E66.9 - Obesity, unspecified Medications: Changed From omeprazole 20 mg PO QAM 90 days 90 caps 3RF To omeprazole 20 mg PO BID 180 caps 3RF 90 days
[2024-05-16 11:48] VITALS: BP 122/68; PULSE 63; TEMP 36.3; O2SAT 98; BMI 32.8
--- OUTSIDE RECORDS SUMMARY | 2024-05-16 14:57 | XMS_ITS | Patient Health Record ---
Author Organization [facility] Address [address] [place] [address] Care Team Providers Care Window Shade Cloth Sewer Name Role Phone Kang Rojas MDneth Primary Care Provider Tim Odell Unavailable [phone] Reason For Referral No Information Medications Medication SIG (Take, Route, Fr equency, Duration) Notes Start Date End Date Status Lisinopril 20 MG TAKE 1 TABLET BY FOSTER TH DAILY Diagnosis Unavailable Oral for 90 Active metFORMIN HCl Active Prilosec Active Prozac Active Synthroid Active Vitamin D3 Active Immunizations Vaccine Route Administration Date Status Comme nts Influenza Unknown 01/04/2022 Administered Social History Tobacco Use: Social History Observation Description Date Details (start date - stop date) Never Smoker NA - NA Tobacco Use/Smoking Question Answer Notes Patient is a nonsmoker Alcohol Screen Question Answer Notes Did you have a drink containing alcohol in the p ast year? No Points 0 Interpretation Negative Problems Problem Type SNOMED Code ICD Code Onset Dates Problem Status W/U Status Risk Notes Problem 704581476 Colon cancer screening (Z12.11) Active confirmed Problem 573399288 History of adenomatous polyp of colon (Z86.010) Active confirmed Problem History of polyp of colon (situation) (934151943) Personal history of colonic polyps (Z86.010) Active confirmed Problem Diverticular disease of colon (020271106) Diverticulosis of large intestine without perforation or abscess without bleeding (K57.30) Active confirmed Problem Gastroesophageal reflux disease (567472316) Gastroesophageal reflux disease (K21.9) Active confirmed Problem 428581394 Gastroesophageal reflux disease, unspecified whether esophagitis present (K21.9) Active confirmed Plan Of Treatment Pending Test Test Name Order Date Pathology 07/04/2022 Future Test Test Name Order Date UPPER GI ENDOSCOPY 05/06/2022 COLONOSCOPY 05/06/2022 Insurance Providers Payer Name Payer Address Payer Phone Subscriber Number Group Number Insured Name Patient Relationship to Insured Coverage Start Date Coverage End Date MEDICARE OF [place] [address] [place] [address] [phone] [id number] ZACKERY FISHMAN Self - patient is the insured [facility] [address] [address] [place] [address] [phone] [id number] ZACKERY FISHMAN Self - patient is the insured Medical (General) History Medical History History ICD Code Colonoscopies with Dr. 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
--- OUTSIDE RECORDS SUMMARY | 2024-05-16 14:57 | XMS_ITS | Clinical Summary ---
Author Organization [facility] [address] [facility] Address [address] [place] [address] Phone Care Team Providers Care [employer] Division Manager Name Role Phone Roberto Rojas MD [...] HYSTERECTOMY OTHER SURGICAL HISTORY 09/29/2021 Right PROCEDURE: [place] THORACOSCOPY W/THERA WEDGE RESEXN INITIAL UNILAT; COMMENT: [...] age to complete this topic Insurance MEDICARE [facility] Care Teams [employer] Division Manager Relationship Specialty Start Date End Date Roberto Rojsa MD [address] [place] [address] Dr Clemons [facility] [place] PCP - General Internal Medicine 07/21/21
== END 2024-05-16 12:31 | disposition home or self-care (01) ==
LOC: HO.HMCH 11:32
PROVIDERS: PCP Internal Medicine
DX: E11.9 Type 2 diabetes mellitus without complications (principal); D3A.090 Benign carcinoid tumor of the bronchus and lung; I10 Essential (primary) hypertension; E78.00 Pure hypercholesterolemia, unspecified; M16.11 Unilateral primary osteoarthritis, right hip; M17.0 Bilateral primary osteoarthritis of knee; M54.41 Lumbago with sciatica, right side; E83.52 Hypercalcemia; K86.89 Other specified diseases of pancreas; E03.9 Hypothyroidism, unspecified; G47.33 Obstructive sleep apnea (adult) (pediatric); R25.1 Tremor, unspecified

== ENCOUNTER → 2024-05-16 11:31 | Outpatient (BNVA) | payer MEDICARE, OTHER, SELFPAY | PROVIDERS: PCP Internal Medicine | DX: E11.9 Type 2 diabetes mellitus without complications (principal); I10 Essential (primary) hypertension; E78.00 Pure hypercholesterolemia, unspecified; M16.11 Unilateral primary osteoarthritis, right hip; M17.0 Bilateral primary osteoarthritis of knee; M54.41 Lumbago with sciatica, right side; E83.52 Hypercalcemia; D3A.090 Benign carcinoid tumor of the bronchus and lung; K86.89 Other specified diseases of pancreas; E03.9 Hypothyroidism, unspecified; R25.1 Tremor, unspecified; E53.8 Deficiency of other specified B group vitamins; K21.9 Gastro-esophageal reflux disease without esophagitis; F41.9 Anxiety disorder, unspecified; E66.9 Obesity, unspecified | CPT/HCPCS: 96127; 99212 ==

== ENCOUNTER 2024-09-16 09:42 | Outpatient (REF) | payer MEDICARE, OTHER, SELFPAY ==
--- OUTSIDE RECORDS SUMMARY | 2024-09-16 10:13 | XMS_ITS | Patient Health Record ---
Author Organization [facility] Address [address] [place] [address] Care Team Providers Care Stop Attacher Name Role Phone Kang Rojas MDneth Primary Care Provider Tim Odell Unavailable [phone] Reason For Referral No Information Medications Medication [...] Problem Status W/U Status Risk Notes Problem 596105170 Colon cancer screening (Z12.11) Active confirmed Problem 703027499 History of adenomatous polyp of colon (Z86.010) Active confirmed Problem History of polyp of colon (situation) (292867428) Personal history of colonic polyps (Z86.010) Active confirmed Problem Diverticular disease of colon (959854573) Diverticulosis of large intestine without perforation or abscess without bleeding (K57.30) Active confirmed Problem Gastroesophageal reflux disease (252000718) Gastroesophageal reflux disease (K21.9) Active confirmed Problem 785091325 Gastroesophageal reflux disease, unspecified whether esophagitis present [...] OF [place] [address] [place] [address] [id number] ZACKERY FISHMAN Self - patient is the insured [facility] [address] [address] [place] [address] [phone] [id number] ZACKERY FISHMAN Self - patient is the insured Medical (General) History Medical History History ICD Code Colonoscopies with Dr. 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 Wilosn 2021
--- OUTSIDE RECORDS SUMMARY | 2024-09-16 10:13 | XMS_ITS | Clinical Summary ---
Author Organization [facility] [address] [facility] Address [address] [place] [address] Phone Care Team Providers Care Marine Equipment Research Engineer Name Role Phone Roberto Rojas MD Primary [...] HYSTERECTOMY OTHER SURGICAL HISTORY 09/29/2021 Right PROCEDURE: [place] THORACOSCOPY W/THERA WEDGE RESEXN INITIAL UNILAT; COMMENT: RLL Medical History Medical History Date Comments Hypothyroidism DX:Hypothyroidis m Anxiety disorder DX:Anxiety diso rder HTN (hypertension) DX:HTN (hyper tension) Type 2 diabetes mellitus wit hout complications ([facility] V24, [facility] V28) DX:Type 2 diabetes mellitus without complications (HCC) GERD (gastroesophageal reflux disease) DX:GERD (gastroesophageal reflux disease) Obstructive sleep apnea DX:Obstr uctive sleep apnea Mixed hyperlipidemia DX:Mixed hy perlipidemia Osteoarthritis DX:Osteoarthriti s; COMMENT: bilateral knees Urinary incontinence DX:Urinary incontinence Obesity DX:Obesity 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 Family History Medical History Relation Name [...] 78 01/08/2024 1:10 PM EST Temperature 36.8 C (98.2 F) 01/08/2024 1:10 PM EST Respiratory Rate 14 01/08/2024 1:10 PM EST [...] DTaP,Tdap,and Td Vaccines (1 - Tdap) 1965 Zoster Vaccines (1 of 2) 1965 Pneumococcal Vaccine: 50+ Ye ars (1 of 1 - PCV) 1996 RSV Immunization Adult Patie nts (1 - 1-dose 75+ series) 2021 Depression Screening 02/06/2022 Falls Risk Assessment 02/06/2022 Hepatitis C Screening 02/06/2022 Medicare Annual Wellness Visit 02/06/2022 Osteoporosis Screening (Bone Density Screening) 02/06/2022 Social Influencers of Health Screening 02/06/2022 Influenza Vaccine (#1) 2024 HIB Vaccines Aged Out No longer eligi [...] age to complete this topic Meningococcal B Vaccine Aged Out No l onger eligible based on patient's age to complete this topic RSV Immunization Patients Un josé 20 months Aged Out No longer eligible b ased on patient's age to complete this topic Varicella Vaccines Aged Out No longer eligible based on patient's age to complete this topic Insurance MEDICARE [facility] Care Teams Marine Equipment Research Engineer Relationship Specialty Start Date End Date Roberto Rojas MD [address] [place] [address] [address] [place] PCP - General Internal Medicine 07/21/21
[2024-09-16 13:08] LABS: MANUAL DIFF FLAG NO
[2024-09-16 13:14] LABS: Hematocrit 43.6 % (37.0-47.0); Hemoglobin 13.6 g/dl (12.0-16.0); Imm Gran Abs Auto 0.02 X10*3/uL (0.00-0.03); Imm Gran Pct Auto 0.3 % (0.0-0.4); Lymphocytes Absolute Auto 1.7 X10*3/uL (1.2-4.9); Mean Corpuscular HGB Conc 31.2 g/dl (31.0-35.0); Mean Corpuscular Hemoglobin 26.5 pg (27.0-33.0); Mean Corpuscular Volume 85.0 fL (80.0-98.0); NRBC Abs Auto 0.000 X10*3/uL (0.0-0.012); NRBC Pct Auto 0.0 /100WBC (0.0-0.2); Platelet Count 274 X10*3/uL (160-400); Red Blood Count 5.13 X10*6/uL (4.20-5.50); White Blood Count 6.4 X10*3/uL (4.8-10.8)
[2024-09-16 13:19] LABS: Appearance Urine Clear; Glucose Urine UA Negative (Negative); PH 5.5 (5.0-9.0); Specific Gravity - Urine 1.020 (1.005-1.025); UMIC TRIGGER UACC YES
[2024-09-16 13:22] LABS: UACC Culture Trigger YES
[2024-09-16 13:29] LABS: Hemoglobin A1C 176.2848 umol/L; Total Hemoglobin (HGBA1C) 3589.1240 umol/L
[2024-09-16 13:51] LABS: Alanine Aminotransferase 22 U/L (0-31); Albumin Level 4.5 g/dL (3.5-5.0); Alkaline Phosphatase 59 U/L (39-117); Anion Gap 11 (12-20); Aspartate Amino Transferase 18 U/L (5-31); Blood Urea Nitrogen 23 mg/dL (9-16); Calcium 10.6 mg/dL (8.4-10.2); Carbon Dioxide 22 mmol/L (22-29); Chloride 112 mmol/L (96-108); Cholesterol 133 mg/dL (<200); Estimated Glomerular Filt Rate 52; HDL Cholesterol 42 mg/dL (>40); Potassium 4.9 mmol/L (3.3-5.1); Sodium 140 mmol/L (135-145); Total Protein 7.2 g/dL (6.5-8.0); Triglycerides 150 mg/dL (<150)
[2024-09-16 14:41] LABS: Parathyroid Hormone Intact 83.4 pg/mL (8.7-77.1)
[2024-09-16 14:57] LABS: Free T4 (Free Thyroxine) 1.42 ng/dL (0.71-1.85)
== END 2024-09-16 09:43 | disposition home or self-care (01) ==
LOC: HO.10HDL 09:42
DX: E53.8 Deficiency of other specified B group vitamins (principal); E11.9 Type 2 diabetes mellitus without complications; E03.9 Hypothyroidism, unspecified; I10 Essential (primary) hypertension; E78.00 Pure hypercholesterolemia, unspecified; G47.33 Obstructive sleep apnea (adult) (pediatric); K22.70 Barrett's esophagus without dysplasia; K21.9 Gastro-esophageal reflux disease without esophagitis; J30.89 Other allergic rhinitis; E66.9 Obesity, unspecified; R82.90 Unspecified abnormal findings in urine
CPT/HCPCS: 36415; 80053; 80061; 81001; 82306; 83036; 83970; 84439; 84443; 85025; 87086; 87088; 87186

== ENCOUNTER 2024-09-18 12:21 | Outpatient (AMB) | payer MEDICARE, OTHER, SELFPAY ==
[2024-09-18 12:24] VITALS: BP 116/62; PULSE 65; O2SAT 97; BMI 33.1
--- NOTE | 2024-09-18 12:24 | MHC.PC.OV ---
Vital Signs 09/18/24 12:24 Height 5 ft 6 in Weight 205 lb 6 oz BMI 33.1 BP 116/62 Blood Pressure Location Lt brachial Position Sitting Pulse 65 Pulse Source Pulse Oximeter Pulse Oximetry (%) 97 Oxygen Delivery Method Room Air Intake Visit Reasons: 3 Month F/U Office Mover Required: No Accompanied by: Self / Same As Patient Allergies amoxicillin (AMOXICILLIN) Allergy (Intermediate, Verified 09/18/24 12:43) Gastrointestinal Upset Sulfa (Sulfonamide Antibiotics) (SULFA (SULFONAMIDE ANTIBIOTICS)) Allergy (Intermediate, Verified 09/18/24 12:43) HIVES,RASH Medication List - Last Reconciled 09/18/24 by Roberto Rojas MD acetaminophen 650 mg (2 x 325 mg) PO Q6H PRN 30 days atorvastatin 10 mg PO QAM 90 days cholecalciferol (vitamin D3) (Vitamin D3) 50 mcg PO DAILY coenzyme Q10 (Co Q-10) 400 mg PO QAM cyanocobalamin (vitamin B-12) 1,000 mcg PO DAILY 90 days [DIABETIC SHOES As directed - Dx: E11.9] docusate sodium 100 mg PO BID 30 days dulaglutide 1.5 mg (0.5 mL) subcut QWEEK 90 days fluoxetine 20 mg PO QAM 90 days levothyroxine (Synthroid) 150 mcg PO QAM lisinopril 30 mg PO QAM 90 days metformin 500 mg PO BID 90 days nitrofurantoin monohyd/m-cryst 100 mg 100 mg PO BID 7 days omeprazole 20 mg PO BID 90 days walker Folding Front wheeled walker Tobacco use date assessed: 09/18/24 Fall risk assessment: No Falls in past year Last assessed Fall Risk: 09/18/24 Dental Screening Dental Screen Date: 09/18/24 Did you have a dental visit in the last 12 months?: Yes Did you have a dental problem in the last 6 months where you did not have access to dental care?: No Was dental information given to patient?: Patient has dentist HPI 3 Month F/U HPI Details Patient comes in today for her follow up visit States that she feels okay She denies any headaches or dizziness Denies any chest pains, no SOB No nausea/vomiting, no abdominal pain No change in bowel habits noted Needs a few of her Rx refilled She had her follow up labs done a couple of days ago - to discuss her results [facility] Medical History Vitamin B12 deficiency Osteoarthritis of left knee Elevated cholesterol Cervical cancer Primary osteoarthritis of right hip [place] esophagus GERD (gastroesophageal reflux disease) Campoverde's palsy Allergic rhinitis Carcinoid tumor (~2021) Tubular adenoma of colon (~2002) Chest pain Obesity (BMI 30-39.9) Anxiety Urinary incontinence Primary osteoarthritis of both knees Acquired hypothyroidism Obstructive sleep apnea (~2005) Benign essential hypertension Diabetes mellitus Pure hypercholesterolemia Surgical History Status post total replacement of right hip (~01/17/23) Hx of bilateral cataract extraction History of esophagogastroduodenoscopy (EGD) History of lung surgery History of bronchoscopy (~2021) History of colonoscopy History of pubovaginal sling (~2010) History of hysterectomy History of cholecystectomy (~1996) Family History Father Diabetes Hypertension Mother Diabetes Cancer Social History Household Members: Spouse Housing: House Are you a primary hospice care consultant to a significant other at home: No Do you presently have visiting nurse or other home services: No Alcohol intake: current Alcohol intake frequency: holidays/special occasions only Alcohol type: wine Patient Tobacco Use Status: Never used Tobacco e-Cigarette/Vaping Use: Never Used Second Hand Smoke Exposure: Yes service: No Current occupational status: retired Cognitive needs: No Hearing needs: Yes (Hearing aide) Vision needs: Yes (Glasses) Questionnaire PHQ-9 Over the last 2 weeks, how often have you been bothered by any of the following problems? 1. Little interest or pleasure in doing things: not at all 2. Feeling down, depressed, or hopeless: not at all 3. Trouble falling or staying asleep, or sleeping too much: not at all 4. Feeling tired or having little energy: several days 5. Poor appetite or overeating: not at all 6. Feeling bad about yourself - or that you are a failure or have let yourself or your family down: not at all 7. Trouble concentrating on things, such as reading the newspaper or watching television: not at all 8. Moving or speaking so slowly that other people could have noticed. Or the opposite - being so fidgety or restless that you have been moving around a lot more than usual: not at all 9. Thoughts that you would be better off or of hurting yourself in some way: not at all Total score: 1 Depression Screening Interpretation: Negative Depression Screening Done: Yes 80285 - PHQ-9 Billing: Yes Source: Developed by Drs. Tim Torres, Caitie Nguyen, Justin Fallon and colleagues, with an educational ion from [employer]. Thrive Questionnaire Date Thrive assessed: 09/18/24 I am a: Patient What is your living situation today?: I have a steady place to live Within the past 12 months, did the food you bought not last and you didn't have the money to get more?: Never true Within the past 12 months, did you worry whether your food would run out before you got money to buy more?: Never true Do you have trouble paying for medicines?: No Do you have trouble getting transportation to medical appointments?: No Do you have trouble paying your heating and electricity bill?: No Do you have trouble taking care of your child, family member or friend?: No Do you have trouble with day-to-day activities such as bathing, preparing meals, shopping, managing finances, etc.?: No Are you currently unemployed and looking for a job?: No Are you interested in more education?: No Please select the resources that you would like help with: None Currently or been in a relationship where the following occur: No concerns reported THRIVE Score: 0 AUDIT C Alcohol Use Questionnaire (AUDIT-C) 1. How often do you have a drink containing alcohol?: Never 3. How often do you have six or more drinks on one occasion?: Never Total Score: 0 Score Reviewed/Action Taken: Yes SEBAS-7 AMB Questionnaire SEBAS-7 Date SEBAS - 7 assessed: 09/18/24 Feeling nervous, anxious, or on edge: 0 = Not at all Not being able to stop or control worryin = Not at all Worrying too much about different things: 0 = Not at all Trouble relaxin = Not at all Being so restless that it is hard to sit still: 0 = Not at all Becoming easily annoyed or irritable: 0 = Not at all Feeling afraid as if something awful might happen: 0 = Not at all Total SEBAS-7 score (0-4 normal; 5-9 mild; 10-14 moderate; 15-21 severe): 0 Source: Developed by Drs. Tim Torres, Caitie Nguyen, Justin Fallon and colleagues, with an educational ion from [employer]. Review of Systems Const Denies chills, Denies fatigue, Denies fever(s) and Denies headache(s) ENT Denies dysphagia, Denies dizziness, Denies otalgia, Denies headache(s), Denies neck pain, Denies odynophagia and Denies sore throat Card Denies chest pain, Denies palpitations and Denies dyspnea Resp Denies chest congestion, Denies cough and Denies dyspnea GI Denies abdominal pain, Denies constipation, Denies dysphagia, Denies heartburn, Denies diarrhea, Denies nausea, Denies odynophagia and Denies vomiting Denies difficulty voiding, Reports nocturia, Denies dysuria, Reports urinary incontinence (occasional) and Reports urinary urgency Musc Reports back pain (mild), Reports arthralgias (over both knees; right hip pain has improved with SALOMON), Denies neck pain and Reports stiffness Skin/Breast Denies rash Neuro Denies dizziness, Denies headache(s), Reports paresthesias (on and off in the fingers and toes bilaterally) and Reports tremor(s) (in both hands, on and off) Endo Denies fatigue and Denies palpitations Physical exam (Primary Care) Vital Signs: Last Vital Signs Pulse 65 09/18/24 12:24 BP 116/62 09/18/24 12:24 Pulse Ox 97 09/18/24 12:24 Oxygen Delivery Method Room Air 09/18/24 12:24 BMI result Body Mass Index 33.1 Tobacco/Smoking Status: Tobacco use Status Tobacco use date assessed 09/18/24 09/18/24 12:31 Patient Tobacco Use Status Never used Tobacco 09/18/24 12:31 e-Cigarette/Vaping Use Never Used 09/18/24 12:31 PHQ-9: PHQ-9 Score PHQ-9: Total score 1 09/18/24 12:31 Depression Screening Interpretation: Negative Thrive Assessment: Date of Thrive Assessment Date Thrive assessed 09/18/24 09/18/24 12:31 Currently or been in a relationship where the following occur: No concerns reported Const General: no acute distress and alert HENMT Ears: TM's normal bilaterally and EAC's normal Throat: Yes posterior oropharynx normal and Yes tonsils normal (no TP congestion noted) Neck Neck: Yes supple and No lymphadenopathy Thyroid: Thyroid normal Resp Auscultation: clear to auscultation bilaterally, no rales and no wheezes Cardio Rate: regular rate Rhythm: regular rhythm Heart sounds: no murmurs GI Palpation (GI): Soft to palpation and nontender Auscultation: normal bowel sounds General: Yes no CVA tenderness Back/Spine/Pelvis Back: no CVA tenderness Thoracic/Lumbar Spine: lumbar spinal tenderness Skin Rashes: no rashes Extrem General: Yes no clubbing, cyanosis or edema Right lower extremity: knee Details: tenderness; no swelling Left lower extremity: knee Details: tenderness; no swelling Results Reviewed Results Reviewed: Laboratory Tests 09/16/24 09:54 WBC 6.4 Hgb 13.6 Hct 43.6 Plt Count 274 Sodium 140 Potassium 4.9 Creatinine 1.03 Estimated GFR 52 Fasting Glucose 145 H Hemoglobin A1c % 6.6 H Calcium 10.6 H AST 18 ALT 22 Triglycerides 150 H Cholesterol 133 LDL Cholesterol, Calc 61 HDL Cholesterol 42 25-OH Vitamin D Total 51.0 TSH 0.17 L Free T4 1.42 PTH Intact 83.4 H Ur Specific [place] 1.020 Urine Protein Negative Urine Glucose (UA) Negative Urine Blood Negative Urine Nitrite Positive H Ur Leukocyte Esterase Small (1+) H Coding Level of Care Code Est Pt Level 4 (54224) Complex EM visit Add On G2211 Diagnoses Type 2 diabetes mellitus without complication, without long-term current use of insulin E11.9 Diabetes mellitus type: type 2 Diabetes mellitus [employer] insulin use: without shelter use Diabetes mellitus complication status: without complication Benign essential hypertension I10 Pure hypercholesterolemia E78.00 Osteoarthritis of right hip, unspecified osteoarthritis type M16.11 Osteoarthritis type: unspecified Primary osteoarthritis of both knees M17.0 Right-sided low back pain with right-sided sciatica, unspecified chronicity M54.41 Chronicity: unspecified Back pain laterality: right Hypercalcemia E83.52 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 coli urinary tract infection N39.0; B96.20 Anxiety F41.9 Obesity (BMI 30-39.9) E66.9 Additional Codes PHQ-9 - 39256 - PHQ-9 Billing: Yes ([id number]) Assessment & Plan Assessment & Plan (1) Diabetes mellitus: Comment: type 2-dx ~2015-glucose usually [id number]-[id number] Trulicity (takes on Tuesdays), Metformin, Januvia Code(s): E11.9 - Type 2 diabetes mellitus without complications Category: Medical Qualifiers: Diabetes mellitus type: type 2 Diabetes mellitus [employer] insulin use: without shelter use Diabetes mellitus complication status: without complication Qualified Code(s): E11.9 - Type 2 diabetes mellitus without complications Plan: Her HgbA1c was at 6.6% on her labs done a couple of days ago (was previously also at 6.6% a few months ago in May 2024) - goal is < 7.0% Reinforced diabetic diet Continue Trulicity 1.5 mg SQ once a week and Metformin 500 mg BID (2) Benign essential hypertension: Code(s): I10 - Essential (primary) hypertension Category: Medical Plan: Reinforced low sodium diet - goal is systolic BP of at least 140 mm or less Patient states that her BP is usually much lower when she checks it at home Continue Lisinopril 30 mg QD Patient is again reminded to continue monitoring her blood pressure regularly (3) Pure hypercholesterolemia: Code(s): E78.00 - Pure hypercholesterolemia, unspecified Category: Medical Plan: Results of her labs done a couple of days ago reviewed and discussed with patient Reinforced low cholesterol diet Continue Atorvastatin 10 mg QD Will recheck her labs and fasting lipids in 4 months for follow up (4) Osteoarthritis of right hip: Code(s): M16.11 - Unilateral primary osteoarthritis, right hip Category: Medical Qualifiers: Osteoarthritis type: unspecified Qualified Code(s): M16.11 - Unilateral primary osteoarthritis, right hip Plan: S/P total right hip arthroplasty with Dr. Reed on 01/17/2023, with (+) significant improvement of her hip symptoms Patient also completed physical therapy for her right hip and she continues to do the exercises taught to her by physical therapy regularly Follow up with orthopedics as scheduled (5) Primary osteoarthritis of both knees: Code(s): M17.0 - Bilateral primary osteoarthritis of knee Category: Medical Plan: S/P left knee TKA on 04/26/2023; patient also completed physical therapy for her knee after her surgery Follow up with orthopedics as scheduled (6) Low back pain with right-sided sciatica: Code(s): M54.41 - Lumbago with sciatica, right side Category: Medical Qualifiers: Chronicity: unspecified Back pain laterality: right Qualified Code(s): M54.41 - Lumbago with sciatica, right side Plan: Reinforced activity and weight-lifting restrictions Repeat lumbar spine and SI joint x-rays done back in August 2022 revealed (+) degenerative changes of the lumbar spine and SI joints Continue Tylenol PRN and Tizanidine 4 mg TID PRN; continue Meloxicam 15 mg QD PRN with food only if no relief with Tylenol Advised again that physical therapy may also be an option and she can call for referral at any time if she wishes to try physical therapy for her back pain (7) Hypercalcemia: Code(s): E83.52 - Hypercalcemia Category: Medical Plan: Her serum calcium level was again slightly elevated at 10.6 on her labs done a couple of days ago Intact PTH level is again slightly elevated at 83.4 on her recent labs - this may just be related to her CKD and not actually primary hyperparathyroidism She was previously referred to Dr. Hughes for endocrinology evaluation but she has not been able to get in to see her We will continue to monitor her serum calcium level and intact PTH level for now and revisit endocrinology referral if her numbers progress further (8) Carcinoid tumor: Onset Date: ~2021 Comment: (s/p RLL wedge resection 09/2021) Code(s): D3A.00 - Benign carcinoid tumor of unspecified site Category: Medical Qualifiers: Carcinoid tumor malignancy status: benign Carcinoid tumor location: lung Qualified Code(s): 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 Wilson on 09/29/21; states that she has been doing well since with no acute issues Follow up with thoracic surgery (Dr. Wilson) as scheduled for continuing surveillance She had a repeat chest CT done at [facility] last month on 12/19/2023 and was advised that her CT came back negative but it was incidentally noticed that her pancreatic tail appears atrophied and she is advised to speak to her PCP about whether this needs further work ups or not (9) Pancreatic atrophy: Code(s): K86.89 - Other specified diseases of pancreas Category: Medical Plan: (+) pancreatic tail atrophy was seen incidentally on a recent chest CT last year She was sent for a dedicated abdominal CT for further evaluation (medical literature exists that has shown that focal pancreatic parenchyma atrophy may be a harbinger of pancreatic malignancy) Her abdominal CT corfirmed the pancreatic tail atrophy seen on her previous imaging studies and that this is mostly unchanged in appearance, with no evidence of pancreatic mass or abnormality (10) Acquired hypothyroidism: Code(s): E03.9 - Hypothyroidism, unspecified Category: Medical Plan: Her serum TSH level is again suppressed but free T4 level remains normal on her recent labs; patient is also clinically euthyroid Continue Levothyroxine 150 mcg QD Will continue to monitor her TFTs regularly (11) Obstructive sleep apnea: Onset Date: ~2005 Comment: (ALEXANDRE on CPAP) Code(s): G47.33 - Obstructive sleep apnea (adult) (pediatric) Category: Medical Plan: Patient admits that she has not been using her CPAP device for a while now and when she tried using it again a few weeks ago, she got sick States that her machine is old and may need to be replaced Will refer her back again to Sleep Medicine; she will also likely require a repeat sleep study as it has been at least 5 years since she had one done (12) Tremor of both hands: Code(s): R25.1 - Tremor, unspecified Category: Medical Plan: She was seen and evaluated by Dr. 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 Follow up with neurology as scheduled in 1 year (13) Vitamin B12 deficiency: Code(s): E53.8 - Deficiency of other specified B group vitamins Category: Medical Plan: Continue Vitamin B12 1000 mcg QD States that her symptoms of tingling/paresthesia seems to have improved significantly since she was started on B12 supplements (14) GERD (gastroesophageal reflux disease): Code(s): K21.9 - Gastro-esophageal reflux disease without esophagitis Category: Medical Qualifiers: Esophagitis presence: without esophagitis Qualified Code(s): K21.9 - Gastro-esophageal reflux disease without esophagitis Plan: Dietary restrictions reinforced Continue Omeprazole 20 mg QD PRN (15) E. coli urinary tract infection: Code(s): N39.0 - Urinary tract infection, site not specified; B96.20 - Unspecified Escherichia coli [E. coli] as the cause of diseases classified elsewhere Category: Medical Plan: Her urine culture came back positive again for E. coli She has already been started on Macrobid 100 mg BID x 7 days yesterday (16) Anxiety: Code(s): F41.9 - Anxiety disorder, unspecified Category: Medical Plan: Continue Fluoxetine 20 mg QD (17) Obesity (BMI 30-39.9): Code(s): E66.9 - Obesity, unspecified Category: Medical Plan: Reinforced diet; exercise is not realistic at present due to patient's multiple physical issues Plan Follow up in 4 months Orders: Orders Hemoglobin A1c 4 Months E11.9 - Type 2 diabetes mellitus without complications Lipid Panel 4 Months E78.00 - Pure hypercholesterolemia, unspecified Complete Blood Count Auto Diff 4 Months D64.9 - Anemia, unspecified Comprehensive [place]. Panel Fast 4 Months E78.00 - Pure hypercholesterolemia, unspecified Free T4 (Free Thyroxine) 4 Months E03.9 - Hypothyroidism, unspecified Vitamin B12 and Folate 4 Months E53.8 - Deficiency of other specified B group vitamins Vitamin D 25-OH Total 4 Months E55.9 - Vitamin D deficiency, unspecified UA CC w/rflx Micro + Cult 4 Months R30.0 - Dysuria Thyroid Stimulating Hormone 4 Months E03.9 - Hypothyroidism, unspecified Microalbumin, Random (w Creat) 4 Months E11.9 - Type 2 diabetes mellitus without complications Referrals Sleep Medicine Referral G47.33 - Obstructive sleep apnea (adult) (pediatric) Medications: Refilled atorvastatin 10 mg PO QAM 90 tabs 1RF 90 days fluoxetine 20 mg PO QAM 90 tabs 1RF 90 days lisinopril 30 mg PO QAM 90 tabs 1RF 90 days
--- OUTSIDE RECORDS SUMMARY | 2024-09-18 13:20 | XMS_ITS | Patient Health Record ---
Author Organization [facility] Address [address] [place] [address] Care Team Providers Care Cryptologic Technician Operator/Analyst Name Role Phone Kang Rojas MDneth Primary Care Provider Tim Odell Unavailable [phone] Reason For Referral No Information Medications Medication [...] Problem Status W/U Status Risk Notes Problem 466850341 Colon cancer screening (Z12.11) Active confirmed Problem 160917521 History of adenomatous polyp of colon (Z86.010) Active confirmed Problem History of polyp of colon (situation) (500188384) Personal history of colonic polyps (Z86.010) Active confirmed Problem Diverticular disease of colon (833222005) Diverticulosis of large intestine without perforation or abscess without bleeding (K57.30) Active confirmed Problem Gastroesophageal reflux disease (315135571) Gastroesophageal reflux disease (K21.9) Active confirmed Problem 083976906 Gastroesophageal reflux disease, unspecified whether esophagitis present [...] OF [place] [address] [place] [address] [id number] ZACKERY FISHMAN Self - patient is the insured [facility] [address] [address] [place] [address] [id number] ZACKERY FISHMAN Self - patient is the insured Medical (General) History Medical History History ICD Code Colonoscopies with Dr. Moctezuma with denia adelina of polyps--last one was in 2018 GERD--on omeprazole for many years Hypothyroidism Anxiety NIDDM Denies CA,CVA,Lung disease,renal disease Campoverde's palsy Surgical History Surgery Date(Month/Year) Cholecystectomy(open) Hysterectomy with BSO Right lower lobe lung resection-carcinoi d tumor--Dr. Wilson 2021
--- OUTSIDE RECORDS SUMMARY | 2024-09-18 13:21 | XMS_ITS | Clinical Summary ---
Author Organization [facility] [address] [facility] Address [address] [place] [address] Phone Care Team Providers Care Excavator Operator Name Role Phone Roberto Rojas MD [...] HYSTERECTOMY OTHER SURGICAL HISTORY 09/29/2021 Right PROCEDURE: [place] THORACOSCOPY W/THERA WEDGE RESEXN INITIAL UNILAT; COMMENT: RLL Medical History Medical History Date Comments Hypothyroidism DX:Hypothyroidis m Anxiety disorder DX:Anxiety diso rder HTN (hypertension) DX:HTN (hyper tension) Type 2 diabetes mellitus wit hout complications ([facility] V24, [facility] V28) DX:Type 2 diabetes mellitus without complications (HCC) GERD (gastroesophageal reflux disease) DX:GERD (gastroesophageal reflux disease) Obstructive sleep apnea DX:Obstr uctive sleep apnea Mixed hyperlipidemia DX:Mixed hy perlipidemia Osteoarthritis DX:Osteoarthriti s; COMMENT: bilateral knees Urinary incontinence DX:Urinary incontinence Obesity DX:Obesity Carcinoid tumor of right comfort g ([facility] V28) 09/2021 Family History Medical History Relation [...] age to complete this topic Insurance MEDICARE [facility] Care Teams Excavator Operator Relationship Specialty Start Date End Date Roberto Rojas MD [address] [place] [address] [address] [place] PCP - General Internal Medicine 07/21/21
== END 2024-09-18 13:16 | disposition home or self-care (01) ==
LOC: HO.HMCH 12:22
PROVIDERS: PCP Internal Medicine; Visit Provider Internal Medicine
DX: E11.9 Type 2 diabetes mellitus without complications (principal); I10 Essential (primary) hypertension; E78.00 Pure hypercholesterolemia, unspecified; M16.11 Unilateral primary osteoarthritis, right hip; M17.0 Bilateral primary osteoarthritis of knee; M54.41 Lumbago with sciatica, right side; E83.52 Hypercalcemia; D3A.090 Benign carcinoid tumor of the bronchus and lung; K86.89 Other specified diseases of pancreas; E03.9 Hypothyroidism, unspecified; G47.33 Obstructive sleep apnea (adult) (pediatric); R25.1 Tremor, unspecified; E53.8 Deficiency of other specified B group vitamins; K21.9 Gastro-esophageal reflux disease without esophagitis; N39.0 Urinary tract infection, site not specified; B96.20 Unspecified Escherichia coli [E. coli] as the cause of diseases classified elsewhere; F41.9 Anxiety disorder, unspecified; E66.9 Obesity, unspecified

== ENCOUNTER → 2024-09-18 12:21 | Outpatient (BNVA) | payer MEDICARE, OTHER, SELFPAY | PROVIDERS: PCP Internal Medicine; Visit Provider Internal Medicine | DX: E11.9 Type 2 diabetes mellitus without complications (principal); I10 Essential (primary) hypertension; E78.00 Pure hypercholesterolemia, unspecified; M16.11 Unilateral primary osteoarthritis, right hip; M17.0 Bilateral primary osteoarthritis of knee; M54.41 Lumbago with sciatica, right side; E83.52 Hypercalcemia; D3A.090 Benign carcinoid tumor of the bronchus and lung; K86.89 Other specified diseases of pancreas; E03.9 Hypothyroidism, unspecified; R25.1 Tremor, unspecified; E53.8 Deficiency of other specified B group vitamins; K21.9 Gastro-esophageal reflux disease without esophagitis; G47.33 Obstructive sleep apnea (adult) (pediatric); F41.9 Anxiety disorder, unspecified; N39.0 Urinary tract infection, site not specified; B96.20 Unspecified Escherichia coli [E. coli] as the cause of diseases classified elsewhere; E66.9 Obesity, unspecified | CPT/HCPCS: 96127; 99212 ==

== ENCOUNTER 2024-10-18 08:46 | Outpatient (REF) | payer MEDICARE, OTHER, SELFPAY ==
--- OUTSIDE RECORDS SUMMARY | 2024-10-18 09:04 | XMS_ITS | Clinical Summary ---
Author Organization [facility] Address [address] [place] [address] Phone Care Team Providers Care Brick Handler Name Role Phone Roberto Rojas MD Primary Care Provider [phone] Allergies Active Allergy Reactions Criticality Noted Date Comments Amoxicillin 09/12/2023 Sulfa (Sulfonamide Antibiotics) 11/2023 Medications VITAMIN B-12 1000 MCG tablet Take 1 tablet by mouth every morning. 4 Active dulaglutide (TRULICITY) 1.5 mg/0.5 mL subcutaneous injection Inject 1.5 mg under the skin every 7 days. Active metFORMIN (GLUCOPHAGE) 850 MG tablet Take 850 mg by mouth 2 (two) times a day with meals. Active lisinopril (PRINIVIL,ZESTRI L) 30 MG tablet Take 30 mg by mouth daily. Active levothyroxine (SYNTHROID, LEVOTHROID) 150 MCG tablet Take 150 mcg by mouth every morning. Active cholecalciferol (VITAMIN D3) 400 unit tablet Take 400 Units by mouth daily. Active atorvastatin (LIPITOR) 10 MG tablet Take 10 mg by mouth daily. Active FLUoxetine (PROZAC) 20 MG capsule Take 20 mg by mouth daily. Active omeprazole (PRILOSEC) 20 MG capsule Take 20 mg by mouth daily. Active albuterol 90 mcg/actuation inhaler Inhale 2 puffs into the lungs every 6 (six) hours as needed. 6.7 g 4 Active Additional Information Patient not taking.Reported on 05/04/2024 methylPREDNISolo ne (MEDROL DOSEPACK) 4 mg tablet follow package directions 21 tablet 5 Active Active Problems Problem Noted Date Diagnosed Date History of adenomatous polyp of colon 05/04/2024 Gastroesophageal reflux disease 05/04/2024 Diverticular disease of colon 05/04/2024 Colon cancer screening 05/04/2024 Atrophy of pancreas 01/08/2024 History of lung cancer 08/10/2021 Immunizations No known immunizations Social History Tobacco Use Types Packs/Day Years Used Date Smoking Tobacco: Never Smokeless Tobacco: Never Tobacco Cessation:Counseling Given: No Education Answer Date Recorded Are you interested [...] on file Sexual Orientation Not on file Last Filed Vital Signs Vital Sign Reading Time Taken Comments Blood Pressure 162/91 05/04/2024 11:10 AM EST pt stated they did not take BP medication Pulse 60 05/04/2024 11:10 AM EST Temperature 37 C (98.6 F) 05/04/2024 11:10 AM EST Respiratory Rate 18 05/04/2024 11:1 0 AM EST Oxygen Saturation 98% 05/04/2024 11: 10 AM EST Inhaled Oxygen Concentration - - Weight 91.6 kg (202 lb) 05/04/2024 11:1 0 AM EST Height 167.6 cm (5' 6 ) 05/04/2024 11:1 0 AM EST Body Mass Index 32.6 05/04/2024 11:10 AM EST Plan of Treatment Health Maintenance Due Date Last Done Comments Adult Td,Tdap Booster 1946 CREATININE LEVEL 1946 LIPID PANEL 1946 POTASSIUM LEVEL 1946 TSH LEVEL 1946 DEPRESSION SCREENING 1958 HEPATITIS C SCREENING 1964 OSTEOPOROSIS SCREENING INITIAL (ONE-TIME) 11/25/2011 PNEUMOCOCCAL VACCINES (50+ years) (2 of 2 - PPSV23) 04/20/2017 04/20/2016 RSV VACCINE (1 - 1-dose 75+ series) 2021 COVID-19 VACCINE (2023- season) 2024 04/26/2024, 01/05/2023, 01/01/2022, Additional history exists ZOSTER VACCINES Completed 07/03/2018, 06/04, 04/09/2018, Additional history exists SMOKING STATUS SCREENING (Once After 26 Yrs) Completed 05/04/2024 HEPATITIS A VACCINES Aged Out No long er eligible based on patient's age to complete this topic HIB VACCINES Aged Out No longer eligi ble based on patient's age to complete this topic MENINGOCOCCAL VACCINES (ACWY) Aged Out No longer eligible based on patient's age to complete this topic MENINGOCOCCAL VACCINES (B) Aged Out N o longer eligible based on patient's age to complete this topic Medical Devices Not on [place] [id number] MEDICARE PART A & B [facility] [place] [address] MEDICARE PART A & [place] [address] MEDICARE PART A & B [facility] [place] [address] MEDICARE PART A & B [facility] [place] [address] MEDICARE PART A [place] [address] [place] [address] MEDICARE PART [place] [address] Care Teams Brick Handler Relationship Specialty Start Date End Date Roberto Rojas MD [address] [place] [address] [place] [address] PCP - General Internal Medicine 09/12/23 Additional Source Comments The information contained in this document represents components of the legal health record. It is not the complete legal health record.[facility]
--- OUTSIDE RECORDS SUMMARY | 2024-10-18 09:04 | XMS_ITS | Clinical Summary ---
Author Organization [facility] [address] [facility] Address [address] [place] [address] Phone Care Team Providers Care Outdoor Adventure Guides Name Role Phone Roberto Rojas MD Primary [...] HYSTERECTOMY OTHER SURGICAL HISTORY 09/29/2021 Right PROCEDURE: [place] THORACOSCOPY W/THERA WEDGE RESEXN INITIAL UNILAT; COMMENT: RLL Medical History Medical History Date Comments Hypothyroidism DX:Hypothyroidis m Anxiety disorder DX:Anxiety diso rder HTN (hypertension) DX:HTN (hyper tension) Type 2 diabetes mellitus wit hout complications ([facility] V24, [facility] V28) DX:Type 2 diabetes mellitus without complications (HCC) GERD (gastroesophageal reflux disease) DX:GERD (gastroesophageal reflux disease) Obstructive sleep apnea DX:Obstr uctive sleep apnea Mixed hyperlipidemia DX:Mixed hy perlipidemia Osteoarthritis DX:Osteoarthriti s; COMMENT: bilateral knees Urinary incontinence DX:Urinary incontinence Obesity DX:Obesity 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 Family History Medical History Relation [...] nts (1 - 1-dose 75+ series) 2021 Falls Risk Assessment 02/06/2022 Hepatitis C Screening 02/06/2022 Medicare Annual Wellness Visit 02/06/2022 Osteoporosis Screening (Bone Density Screening) 02/06/2022 Social Influencers of Health Screening 02/06/2022 Depression Screening 03/06/2024 Influenza Vaccine (#1) 2024 HIB Vaccines Aged [...] age to complete this topic Insurance MEDICARE [facility] Care Teams Outdoor Adventure Guides Relationship Specialty Start Date End Date Roberto Rjoas MD [address] [place] [address] [address] [place] PCP - General Internal Medicine 07/21/21
--- OUTSIDE RECORDS SUMMARY | 2024-10-18 09:05 | XMS_ITS | Patient Health Record ---
Author Organization [facility] Address [address] [place] [address] Care Team Providers Care Certified Teacher Assistant Name Role Phone Kang Rojas MDneth Primary Care Provider Tim Odell Unavailable [phone] Reason For Referral No Information Medications Medication [...] Problem Status W/U Status Risk Notes Problem 997164428 Colon cancer screening (Z12.11) Active confirmed Problem 084331029 History of adenomatous polyp of colon (Z86.010) Active confirmed Problem History of polyp of colon (situation) (441119652) Personal history of colonic polyps (Z86.010) Active confirmed Problem Diverticular disease of colon (315208776) Diverticulosis of large intestine without perforation or abscess without bleeding (K57.30) Active confirmed Problem Gastroesophageal reflux disease (403233565) Gastroesophageal reflux disease (K21.9) Active confirmed Problem 286634110 Gastroesophageal reflux disease, unspecified whether esophagitis present [...] OF [place] [address] [place] [address] [id number] ZACKERY FISHMAN Self - patient is the insured [facility] [address] [address] [place] [address] [phone] [id number] ZACKERY FISHMAN Self - patient is the [...]
[2024-10-18 10:19] LABS: Appearance Urine Cloudy; Glucose Urine UA Negative (Negative); PH 5.5 (5.0-9.0); Specific Gravity - Urine 1.020 (1.005-1.025); UMIC TRIGGER UACC YES
[2024-10-18 10:24] LABS: UACC Culture Trigger YES
== END 2024-10-18 08:47 | disposition home or self-care (01) ==
LOC: HO.10HDLNP 08:46
PROVIDERS: Visit Provider Internal Medicine
DX: R39.9 Unspecified symptoms and signs involving the genitourinary system (principal)
CPT/HCPCS: 81001; 87086; 87088; 87186

== ENCOUNTER 2024-11-06 11:35 | Outpatient (REF) | payer MEDICARE, OTHER, SELFPAY ==
--- NOTE | ~2024-11-06 | XR_ITS ---
EXAMINATION: XR HIP, RIGHT CLINICAL INFORMATION: M25.551 - Pain in right hip COMPARISON: April 2023 TECHNIQUE: AP upright, AP supine, and frog-leg lateral views of the right hip. FINDINGS: SI joints demonstrate mild degenerative changes with osteophytes and minimal subchondral sclerosis, greater on the left. Left hip joint demonstrates subtle axial joint space narrowing and small marginal osteophytes. Pubic symphysis joint demonstrates mild narrowing and sclerosis with osteophytes and linear pyrophosphate deposition. Total hip arthroplasty is again noted on the right. There is no abnormal lucency at bone metal interfaces. Numerous calcifications in the central pelvis are likely related to both phleboliths and colonic diverticulosis. XR/XR hip RT min 2V IMPRESSION: Unremarkable total right hip arthroplasty. 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 Moderate pubic symphysis joint degeneration. Moderate degenerative changes in bilateral SI joints. Electronically signed by: Godfrey Kim MD 11/06/2024 01:49 PM EDT
--- NOTE | ~2024-11-06 | XR_ITS ---
EXAMINATION: XR KNEE, LEFT CLINICAL INFORMATION: M25.562 - Pain in left knee COMPARISON: April 26, 2023 TECHNIQUE: Three views of the left knee. FINDINGS: Single image of the right knee demonstrates mild to moderate narrowing of medial compartment and minimal narrowing of the lateral compartment. There are marginal osteophytes involving the knee joint. Total knee arthroplasty is again noted on the left. There is anatomic alignment. There is been no shift in positioning of the hardware. Nonspecific thin linear low density is seen at the interface of methacrylate and bone in the posterior region of the femoral component. Joint effusion has resolved since the postoperative film. There is increased density of Hoffa's fat pad, likely postsurgical in nature. XR/XR knee LT 3V IMPRESSION: Unremarkable 3 component total knee arthroplasty, left within resolution of soft tissue edema and gas.. Electronically signed by: Godfrey Kim MD 11/06/2024 01:47 PM EDT
== END 2024-11-06 11:36 | disposition home or self-care (01) ==
LOC: HO.HOSX 11:35
PROVIDERS: Visit Provider Physician Assistant
DX: M70.62 Trochanteric bursitis, left hip (principal); M25.562 Pain in left knee; M25.551 Pain in right hip; Z96.641 Presence of right artificial hip joint; Z96.652 Presence of left artificial knee joint
CPT/HCPCS: 73502; 73562; 99212

== ENCOUNTER 2024-11-06 12:46 | Outpatient (AMB) | payer MEDICARE, OTHER, SELFPAY ==
--- OUTSIDE RECORDS SUMMARY | 2023-09-12 14:12 | XMS_ITS | Encounter Summary ---
Author Organization [facility] Address [address] [place] [phone] Phone Care Team Providers Care Stroke Belt Sander Operator Name Role Phone Roberto Rojas MD Primary Care Provider [phone] Encounter Details Date Type Department Care Team (Late st Contact Info) Description 09/12/2023 2:12 PM EDT Hospital Encounter [facility] [address] [place] [phone] Candy Willard FNP [address] [place] [phone] [email or web address] Social History Tobacco Use Types Packs/Day Years [...] provided indication for this examination in [facility]: S/P Fall; fall, pain over distal 3, 4 mcp COMPARISON: None FINDINGS: No fracture or dislocation. Degenerative changes most advanced at the first [facility] joint. Procedure Note Clayton Arevalo MD - 09/12/2023 XR HAND 3 OR MORE VIEWS (RIGHT) Referring clinician's provided indication for this examination in [facility]:S/P Fall; fall, pain over distal 3, 4 mcp COMPARISON: None FINDINGS: No fracture or dislocation. Degenerative changes most advanced at the[facility]. IMPRESSION: No fracture or dislocation. Canyd Willard CERTIFIED ORTHOTIST PRACTICE MANAGER IMG XR UPPER EXTREMITY Kari l Result documented in this encounter Visit Diagnoses Not on filedocumented in this encounter Additional Health Concerns Infection Onset Date Last Indicated Resolved Time CoV-Risk 12/25/2023 12/25/2023 01/05/2024 1:24 AM EDT documented as of this encounter Care Teams Stroke Belt Sander Operator Relationship Specialty Start Date End Date Roberto Rojas MD [address] [place] [address] [place] [address] PCP - General Internal Medicine 09/12/23 documented as of this encounter Additional Source Comments The information contained in this document represents components of the legal health record. It is not the complete legal health record.[facility]
--- OUTSIDE RECORDS SUMMARY | 2023-12-25 12:15 | XMS_ITS | Encounter Summary ---
Author Organization [facility] Address [address] [address] Phone Care Team Providers Care Cyanide Pot Tender Name Role Phone Roberto Rojas MD Primary Care Provider [phone] Encounter Details Date Type Department Care Team (Late st Contact Info) Description 12/25/2023 12:15 PM EDT Hospital Encounter [facility] [address] [place] [address] Reva Cerda, NUHA [address] [place] [address] Social History Tobacco Use Types Packs/Day Years [...] clinician's provided indication for this examination in [facility]: Cough COMPARISON: None FINDINGS: Devices/Tubes/Lines: None. [...] skeletal abnormality. IMPRESSION: Normal chest. Reva Cerda NIGHT NURSE IMG XR CHEST Final Resu lt documented in this encounter Visit Diagnoses Not on filedocumented in this encounter Additional Health Concerns Infection Onset Date Last Indicated Resolved Time CoV-Risk 12/25/2023 12/25/2023 01/05/2024 1:24 AM EDT documented as of this encounter Care Teams Cyanide Pot Tender Relationship Specialty Start Date End Date Roberto Rojas MD [address] [place] [address] [place] [address] PCP - General Internal Medicine 09/12/23 documented as of this encounter Additional Source Comments The information contained in this document represents components of the legal health record. It is not the complete legal health record.[facility]
[2024-11-06 13:00] VITALS: BMI 33.1
--- NOTE | 2024-11-06 13:00 | A.OFFVIS_ITS ---
Vital Signs 11/06/24 13:00 Height 5 ft 6 in Weight 205 lb BMI 33.1 Intake Visit Reasons: OV, Fell 11/05/24 concerned for TKA and SALOMON Intake Note: Ariane is a 78 year old female who presents today with concerns of right hip and left knee status post a couple of falls. History of right SALOMON on 01/17/23 and a left TKA 04/26/23, performed by Dr. Reed. Patient reports that she was gardening about 2-3 weeks ago when she had stepped in a soft spot in the ground causing her to fall. States most recent fall was in her cellar after she missed the last step. States discomfort that is located in her right buttock area. She also complains of right knee pain after having the fall. Allergies amoxicillin (AMOXICILLIN) Allergy (Intermediate, Verified 11/06/24 13:08) Gastrointestinal Upset Sulfa (Sulfonamide Antibiotics) (SULFA (SULFONAMIDE ANTIBIOTICS)) Allergy (Intermediate, Verified 11/06/24 13:08) HIVES,RASH Medication List - Last Reconciled 11/06/24 by Lizandro Jeff PA-C acetaminophen 650 mg (2 x 325 mg) PO Q6H PRN 30 days atorvastatin 10 mg PO QAM 90 days cholecalciferol (vitamin D3) (Vitamin D3) 50 mcg PO DAILY coenzyme Q10 (Co Q-10) 400 mg PO QAM cyanocobalamin (vitamin B-12) 1,000 mcg PO DAILY 90 days [DIABETIC SHOES As directed - Dx: E11.9] dulaglutide 1.5 mg (0.5 mL) subcut QWEEK 90 days fluoxetine 20 mg PO QAM 90 days levothyroxine (Synthroid) 150 mcg PO QAM lisinopril 30 mg PO QAM 90 days metformin 500 mg PO BID 90 days omeprazole 20 mg PO BID 90 days walker Folding Front wheeled walker HPI HPI OV, Fell 11/05/24 concerned for TKA and SALOMON: Details: 78 yo female presents to the office today for concerns to her left knee and rt hip, she is s/p right SALOMON on 01/17/23 and a left TKA 04/26/23, performed by Dr. Reed. She c/o mild stiffness in the left knee, otherwise functioning well with the left TKA. Right hip has pain with hip flexion. She has fallen a few times and is just concerned about the overall nature of her prosthesis. She denies fever or chills. She denies instability. Denies swelling. [facility] Medical History Vitamin B12 deficiency Osteoarthritis of left knee Elevated cholesterol Cervical cancer Primary osteoarthritis of right hip [place] esophagus GERD (gastroesophageal reflux disease) Campoverde's palsy Allergic rhinitis Carcinoid tumor (~2021) Tubular adenoma of colon (~2002) Chest pain Obesity (BMI 30-39.9) Anxiety Urinary incontinence Primary osteoarthritis of both knees Acquired hypothyroidism Obstructive sleep apnea (~2005) Benign essential hypertension Diabetes mellitus Pure hypercholesterolemia Surgical History Status post total replacement of right hip (~01/17/23) Hx of bilateral cataract extraction History of esophagogastroduodenoscopy (EGD) History of lung surgery History of bronchoscopy (~2021) History of colonoscopy History of pubovaginal sling (~2010) History of hysterectomy History of cholecystectomy (~1996) Family History Father Diabetes Hypertension Mother Diabetes Cancer Social History Household Members: Spouse Housing: House Are you a primary respiratory care technician to a significant other at home: No Do you presently have visiting nurse or other home services: No Alcohol intake: current Alcohol intake frequency: holidays/special occasions only Alcohol type: wine Patient Tobacco Use Status: Never used Tobacco e-Cigarette/Vaping Use: Never Used Second Hand Smoke Exposure: Yes service: No Current occupational status: retired Cognitive needs: No Hearing needs: Yes (Hearing aide) Vision needs: Yes (Glasses) Review of Systems Const All systems reviewed & are unremarkable except as noted in HPI and below Physical Exam Vital Signs: BMI result Body Mass Index 33.1 Extrem Other: Left knee surgical scar is present and well healed. No erythema or swelling. She has full range of motion and good quad activation. No laxity. Calf is supple and nontender neurovascularly intact. Right hip surgical scar well healed. She has no surrounding redness or swelling along the incision. She has no pain with range of motion of the hip. + Tenderness over the greater troch. No significant tenderness with hip flexion. Neurovascularly intact. Results Reviewed Results Reviewed: X-rays of both left knee and right hip obtained in the office today and reviewed by me are negative for any periprosthetic fractures were signs of loosening around the prosthesis. Assessment & Plan Assessment & Plan (1) Status post total replacement of right hip: Onset Date: ~01/17/23 Comment: Dr. Reed Code(s): Z96.641 - Presence of right artificial hip joint Category: Surgical (2) Status post total knee replacement, left: Onset Date: ~04/26/23 Comment: Dr. Alejandro Reed Code(s): Z96.652 - Presence of left artificial knee joint Category: Surgical (3) Trochanteric bursitis, left hip: Code(s): M70.62 - Trochanteric bursitis, left hip Category: Medical Plan I reassured the patient her joint prosthesis appear intact. I did recommend a course of physical therapy for her right hip as she does have some discomfort over her trochanteric bursa. She would benefit from some glute strengthening exercises. If there is any concerns going forward she can contact our office otherwise she will follow up as needed. Orders: Orders XR hip RT min 2V 11/06/24 M25.551 - Pain in right hip PT Evaluation and Treatment 11/06/24 M70.62 - Trochanteric bursitis, left hip, Z96.641 - Presence of right artificial hip joint, Z96.652 - Presence of left artificial knee joint XR knee LT 3V 11/06/24 M25.562 - Pain in left knee Coding Level of Care Code Est Pt Level 3 (81019) Complex EM visit Add On G2211 Diagnoses Status post total replacement of right hip Z96.641 Status post total knee replacement, left Z96.652 Trochanteric bursitis, left hip M70.62
--- OUTSIDE RECORDS SUMMARY | 2024-11-06 15:13 | XMS_ITS | Patient Health Record ---
Author Organization [facility] Address [address] [place] [address] Care Team Providers Care Second Chef Name Role Phone Kang Rojas MDneth Primary Care Provider Tim Odell Unavailable [phone] Reason For Referral No Information Medications Medication [...] Problem Status W/U Status Risk Notes Problem 709530787 Colon cancer screening (Z12.11) Active confirmed Problem 257926691 History of adenomatous polyp of colon (Z86.010) Active confirmed Problem History of polyp of colon (situation) (532363656) Personal history of colonic polyps (Z86.010) Active confirmed Problem Diverticular disease of colon (370157886) Diverticulosis of large intestine without perforation or abscess without bleeding (K57.30) Active confirmed Problem Gastroesophageal reflux disease (970605330) Gastroesophageal reflux disease (K21.9) Active confirmed Problem 321168203 Gastroesophageal reflux disease, unspecified whether esophagitis present [...] OF [place] [address] [place] [address] [id number] ZACKERY FISHMAN Self - patient is the insured [facility] [address] [address] [place] [address] [phone] [id number] ZACKERY FISHMAN Self - patient is the [...]
--- OUTSIDE RECORDS SUMMARY | 2024-11-06 15:13 | XMS_ITS | Clinical Summary ---
Author Organization [facility] Address [address] [place] [address] Phone Care Team Providers Care Care Navigator Name Role Phone Roberto Rojas MD Primary Care Provider [phone] Allergies Active Allergy Reactions Criticality Noted Date [...] Medical Devices Not on [place] [id number] MEDICARE PART A & B [facility] [address] MEDICARE PART A & [place] [address] MEDICARE PART A & B [facility] [address] MEDICARE PART A & B [facility] [address] MEDICARE PART [place] [address] [place] [address] MEDICARE PART [place] [address] Care Teams Care Navigator Relationship Specialty Start Date End Date Roberto Rojas MD [address] [place] [address] [place] [address] PCP - General Internal Medicine 09/12/23 Additional Source Comments The information contained in this document represents components of the legal health record. It is not the complete legal health record.[facility]
--- OUTSIDE RECORDS SUMMARY | 2024-11-06 15:13 | XMS_ITS | Clinical Summary ---
Author Organization [facility] 299 [facility] Address [address] [place] [address] Phone Care Team Providers Care Db2 Developer Name Role Phone Roberto Rojas MD Primary [...] HYSTERECTOMY OTHER SURGICAL HISTORY 09/29/2021 Right PROCEDURE: [place] THORACOSCOPY W/THERA WEDGE RESEXN INITIAL UNILAT; COMMENT: RLL Medical History Medical History Date Comments Hypothyroidism DX:Hypothyroidis m Anxiety disorder DX:Anxiety diso rder HTN (hypertension) DX:HTN (hyper tension) Type 2 diabetes mellitus wit hout complications ([facility] V24, [facility] V28) DX:Type 2 diabetes mellitus without complications (HCC) GERD (gastroesophageal reflux disease) DX:GERD (gastroesophageal reflux disease) Obstructive sleep apnea DX:Obstr uctive sleep apnea Mixed hyperlipidemia DX:Mixed hy perlipidemia Osteoarthritis DX:Osteoarthriti s; COMMENT: bilateral knees Urinary incontinence DX:Urinary incontinence Obesity DX:Obesity 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
== END 2024-11-06 13:30 | disposition home or self-care (01) ==
LOC: HO.HOS 12:47
PROVIDERS: PCP Internal Medicine; Visit Provider Physician Assistant
DX: M25.562 Pain in left knee (principal); Z96.652 Presence of left artificial knee joint; Z96.641 Presence of right artificial hip joint; M70.62 Trochanteric bursitis, left hip
CPT/HCPCS: 99213; G2211

== ENCOUNTER → 2024-11-06 12:50 | Outpatient (BNV) | payer MEDICARE, OTHER, SELFPAY | PROVIDERS: Visit Provider Radiology Diagnostic Radiology | DX: M25.551 Pain in right hip (principal); M16.11 Unilateral primary osteoarthritis, right hip; M25.562 Pain in left knee | CPT/HCPCS: 73502; 73562 ==

== ENCOUNTER 2025-01-08 10:51 | Outpatient (AMB) | payer MEDICARE, OTHER, SELFPAY ==
--- NOTE | 2025-01-08 10:53 | MHC.OFFVIS ---
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 Patient admits that she has not been using her CPAP device for a while now and when she tried using it again a few weeks ago, she got sick. States that her machine is old and may need to be replaced. She will also require a repeat sleep study as it has been at least 5 years since she had one done. Goes to bed at 10:30-11pm wakes up 7:30am. Wakes up at 2times a night naps 15-30min. Accompanied by: Self / Same As Patient Allergies amoxicillin (AMOXICILLIN) Allergy (Intermediate, Verified 01/08/25 10:57) Gastrointestinal Upset Sulfa (Sulfonamide Antibiotics) (SULFA (SULFONAMIDE ANTIBIOTICS)) Allergy (Intermediate, Verified 01/08/25 10:57) HIVES,RASH HPI Comments Details: 79 year old female with chronic sleep difficulties is referred to us by her PCP Dr. Rojas. She was diagnosed with ALEXANDRE >15 year ago, and could not tolerate the full face mask, she switched to nasal pillows and liked them. She snores loudly, gasps, she wakes up with tickles in her throat, has dry mouth and nasal congestion. Her mask strap is made of hard plastic right side of the head and she continues to have discomfort. She tried using her cpap in Dec 2023 and got a respiratory infection which developed into pneumonia and she had very little success with past trials. She goes to bed at 10:30 pm, wakes at 7am, has urge incontinence, nocturia with h/o UTIs. She is able to fall asleep.She naps daily for 15min. She has GERD managed with omeprazole po bid. She continues to hear audible, squeaky sounds from throat. Denies dysphagia to solids or liquids, bloating, belching, flatulence, and regurgitation of food. 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 T2DM is controlled. Mood can be irritable, has anxiety though pretty relaxed most days. STM is poor, forgets names and dates. She gets SOB with stairs and exertion, denies h/o asthma, denies smoking, denies alcohol or mj/ gummies. [facility] Medical History Vitamin B12 deficiency Osteoarthritis of left knee Elevated cholesterol Cervical cancer Primary osteoarthritis of right hip [place] esophagus GERD (gastroesophageal reflux disease) Campoverde's palsy Allergic rhinitis Carcinoid tumor (~2021) Tubular adenoma of colon (~2002) Chest pain Obesity (BMI 30-39.9) Anxiety Urinary incontinence Primary osteoarthritis of both knees Acquired hypothyroidism Obstructive sleep apnea (~2005) Benign essential hypertension Diabetes mellitus Pure hypercholesterolemia Surgical History Status post total replacement of right hip (~01/17/23) Hx of bilateral cataract extraction History of esophagogastroduodenoscopy (EGD) History of lung surgery History of bronchoscopy (~2021) History of colonoscopy History of pubovaginal sling (~2010) History of hysterectomy History of cholecystectomy (~1996) Family History Father Diabetes Hypertension Mother Diabetes Cancer Social History Household Members: Spouse Housing: House Are you a primary family member caretaker to a significant other at home: No Do you presently have visiting nurse or other home services: No Alcohol intake: current Alcohol intake frequency: holidays/special occasions only Alcohol type: wine Patient Tobacco Use Status: Never used Tobacco e-Cigarette/Vaping Use: Never Used Second Hand Smoke Exposure: Yes service: No Current occupational status: retired Cognitive needs: No Hearing needs: Yes (Hearing aide) Vision needs: Yes (Glasses) Physical Exam Vital Signs: Last Vital Signs Pulse 64 01/08/25 10:54 BP 120/82 01/08/25 10:54 Pulse Ox 97 01/08/25 10:54 Oxygen Delivery Method Room Air 01/08/25 10:54 BMI result Body Mass Index 33.6 Const General: cooperative, comfortable and no acute distress Nutritional Appearance: obese Orientation/consciousness: patient oriented x3 HEENT Face and sinus: Yes face symmetric Teeth and gingiva: other (mallampti score is 4) Neck Neck: Yes full ROM Resp Effort & Inspection: normal respiratory effort and able to speak in complete sentences Neuro General: patient oriented x3 and moves all extremities Cranial nerves: Yes Normal facial strength present, Yes Midline tongue present, Yes Ability to bilaterally rotate head present and Yes Ability to bilaterally elevate shoulders present Gait exam (Neuro): Antalgic gait present Motor exam (neuro): 5/5 motor strength present throughout and Normal motor muscle tone present throughout Results Reviewed Results Reviewed: NCS / EMG bilateral tremors of the hands, mild to moderate Neuropathy axonal, senory and peripheral PFTs IMPRESSION: No obstructive or restrictive ventilatory defect. No bronchodilator response. Decreased expiratory reserve volume suggests extrathoracic restriction likely secondary to abdominal obesity. Decreased diffusion capacity suggests emphysema. FLOWS: FEV1 of 105% of predicted at 2.33 L. FVC of 100% of predicted at 2.96 L. FEV1 to FVC ratio of 0.79. No bronchodilator response. LUNG VOLUMES: Total lung capacity 106% of predicted at 5.54 L. Residual volume 103% of predicted at 2.40 L Slow vital capacity 109% of predicted at 3.13 L. Expiratory reserve volume 15% of predicted at 0.10 L. Diffusion capacity is mildly decreased. Assessment & Plan Assessment & Plan (1) Excessive daytime sleepiness: Code(s): G47.19 - Other hypersomnia Category: Medical (2) Obstructive sleep apnea: Onset Date: ~2005 Comment: (ALEXANDRE on CPAP) Code(s): G47.33 - Obstructive sleep apnea (adult) (pediatric) Category: Medical (3) Neuropathy: Comment: EMG & NCV done on 08/21/2023 revealed (+) mild to moderate axonal sensory and motor peripheral neuropathy Code(s): G62.9 - Polyneuropathy, unspecified Category: Medical (4) Chronic fatigue: Code(s): R53.82 - Chronic fatigue, unspecified Category: Medical Plan HST r/o ALEXANDRE Neuropathy mild to moderate axonal, sensory and peripheral. Labs to r/o deficiency f/u 3 months Orders: Orders Ferritin 01/08/25 G47.19 - Other hypersomnia, R53.82 - Chronic fatigue, unspecified Methylmalonic Acid 01/08/25 G47.19 - Other hypersomnia, G47.33 - Obstructive sleep apnea (adult) (pediatric), G47.9 - Sleep disorder, unspecified, G62.9 - Polyneuropathy, unspecified, R53.82 - Chronic fatigue, unspecified, R53.83 - Other fatigue Parathyroid Hormone Intact 01/08/25 G47.19 - Other hypersomnia, R53.82 - Chronic fatigue, unspecified RT home sleep study Today G47.19 - Other hypersomnia Homocysteine 01/08/25 G47.19 - Other hypersomnia, G47.33 - Obstructive sleep apnea (adult) (pediatric), G47.9 - Sleep disorder, unspecified, G62.9 - Polyneuropathy, unspecified, R53.82 - Chronic fatigue, unspecified, R53.83 - Other fatigue Patient Instructions: Please complete the following fasting labs to rule out deficiencies. CBC/CMP/ B12/ Vit D/ TSH/ Homocysteine and MMA/ Ferritin. Sleep Hygiene provided: set a scheduled bedtime and wake time to help regulate the circadian rhythm and balance the release of pituitary hormones. Sleep in a dark room, temperatures below 68 degrees, and no devices n bed. Limit caffeinated products 6 hours prior to bed, and limit fluids 2-4 hours prior to bed. Gentle night yoga, diffusing essential oils, and playing soft music can be relaxing. Coding Level of Care Code New Pt Level 4 (86785) Diagnoses Excessive daytime sleepiness G47.19 Obstructive sleep apnea G47.33 Neuropathy G62.9 Chronic fatigue R53.82 Sleep Questionnaire Difficulty falling asleep: Yes Difficulty staying asleep?: Yes Number of arousals: 3+ Snoring: Yes Witnessed apneas: Yes Gasping arousals: Yes Nocturia: Yes GERD: Yes Vivid dreams: No Acting out dreams: No Abnormal behavior in sleep: No Abnormal movements in sleep: No Morning headaches: No Excessive daytime sleepiness: No Daytime naps: Yes Restless legs: No Hallucinations: No Sleep paralysis: No Drop attacks: No Sleep Study: Yes CPAP: Yes
[2025-01-08 10:54] VITALS: BP 120/82; PULSE 64; O2SAT 97; BMI 33.6
== END 2025-01-08 11:49 | disposition home or self-care (01) ==
PROVIDERS: PCP Internal Medicine; Visit Provider Physician Assistant Medical
DX: G47.19 Other hypersomnia (principal); G47.33 Obstructive sleep apnea (adult) (pediatric); G62.9 Polyneuropathy, unspecified; R53.82 Chronic fatigue, unspecified
CPT/HCPCS: 99204

== ENCOUNTER → 2025-01-08 10:51 | Outpatient (BNVA) | payer MEDICARE, OTHER, SELFPAY | PROVIDERS: PCP Internal Medicine; Visit Provider Physician Assistant Medical | DX: G47.33 Obstructive sleep apnea (adult) (pediatric) (principal) | CPT/HCPCS: 99202 ==

== ENCOUNTER 2025-01-13 14:44 | Outpatient (RCR) | payer MEDICARE, OTHER, SELFPAY ==
--- NOTE | 2024-11-26 09:50 | MHC.PT.EP ---
[facility] Office [place] Office [place] Office [address] [phone] F: [phone] F: [phone] F: [phone] F: [phone] Physical Therapy Plan of Care Date of Evaluation: 11/25/24 Date of Surgery: right SALOMON on 01/17/23 and a left TKA 04/26/23 Diagnosis: Presence of right artificial hip joint Presence of left artificial knee joint Trochanteric bursitis, left hip Assessment: Pt is a pleasant and motivated 79yo F who presents to PT with B knee and hip pain. She has a history of right SALOMON on 01/17/23 and a left TKA 04/26/23. She has had 2 recent falls and xrays of hip and knee s/p falls. She presents to PT with current impairments in pain, decreased ROM, decreased strength, decreased muscle length, soft tissue restrictions, decreased balance/proprioception, and impaired gait. She is limited functionally by prolonged sitting, squatting, prolonged standing, and descending stairs. She is an excellent candidate for skilled PT in order to address current impairments to facilitate return to PLOF. She is recommended to be seen 2x/week for 4 weeks and will be reassessed Frequency and Duration: The patient will be seen 2x/week for 4 weeks Short Term Goals: Pt will be I with HEP to promote self management of symptoms Pt will improve R knee flexion ROM by at least 10 degrees Senior Living Goals: Pt will improve B knee extension strength to 5/5 B to assist with prolonged standing and walking Pt will tolerate prolonged sitting > 30 minutes without pain or stiffness Pt will tolerate prolonged standing and walking > 30 min with improved gait mechanics and without LOB Treatment Plan: Modalities to reduce pain, spasms and effusion. Manual therapy to restore motion and function. Therapeutic exercise to improve strength and flexibility. Neuromuscular re-education for posture and balance. Therapeutic activities to return to functional activities of daily living. Electronically signed by: Ivonne Espitia, PT, DPT Please sign and return to therapist. Thank you for your referral.
--- NOTE | 2025-01-14 10:09 | MHC.PT.DC ---
[facility] [place] Office [place] Office [place] Office [address] Hiren Wade [address] [phone] F: [phone] F: [phone] F: [phone] F: [phone] Physical Therapy Discharge Report Diagnosis: Presence of right artificial hip joint Presence of left artificial knee joint Trochanteric bursitis, left hip Date of Surgery: right SALOMON on 01/17/23 and a left TKA 04/26/23 Date of Evaluation: 11/25/24 Date of Discharge: 01/14/25 Treatments to Date: 12 Cancellations to Date: No Shows to Date: Discharge Status: Achieved Goals Improved Function Independent with HEP Discharge Summary: Pt was seen for skilled PT from 11/25/24-01/13/25. She has made excellent progress since SOC. She has met her STGs and LTGs. She improved her score on LEFI outcome measure from 34/80 on initial PT evaluation to 51/80 today. She is independent with HEP. She is being D/C to HEP at this time Electronically signed by: Ivonne Roman, PT, DPT Please sign and return to therapist. Thank you for your referral.
== END 2025-01-14 10:08 | disposition home or self-care (01) ==
LOC: HO.PT 14:44
PROVIDERS: PCP Internal Medicine; Visit Provider Physician Assistant
DX: M70.62 Trochanteric bursitis, left hip (principal); Z96.641 Presence of right artificial hip joint; Z96.652 Presence of left artificial knee joint
CPT/HCPCS: 97110; 97112; 97162; 97530

== ENCOUNTER 2025-01-15 09:40 | Outpatient (REF) | payer MEDICARE, OTHER, SELFPAY ==
--- OUTSIDE RECORDS SUMMARY | 2023-09-12 13:12 | XMS_ITS | Encounter Summary ---
Author Organization [facility] Address [address] [place] [phone] Phone Care Team Providers Care Meteorology Faculty Member Name Role Phone Roberto Rojas MD Primary Care Provider [phone] Encounter Details Date Type Department Care Team (Late st Contact Info) Description 09/12/2023 2:12 PM EDT Hospital Encounter [facility] [address] [place] [phone] Candy Willard FNP [address] [place] [address] [email or web address] Social History Tobacco Use Types Packs/Day [...] clinician's provided indication for this examination in [facility]: S/P Fall; fall, pain over distal 3, 4 mcp COMPARISON: None FINDINGS: No fracture or dislocation. Degenerative changes most advanced at the first [facility] joint. Procedure Note Clayton Arevalo MD - 09/12/2023 XR HAND 3 OR MORE VIEWS (RIGHT) Referring clinician's provided indication for this examination in [facility]:S/P Fall; fall, pain over distal 3, 4 mcp COMPARISON: None FINDINGS: No fracture or dislocation. Degenerative changes most advanced at thefirst [facility] joint. IMPRESSION: No fracture or dislocation. Candy Willard FORM BUILDER HELPER IMG XR UPPER EXTREMITY Kari l Result documented in this encounter Visit Diagnoses Not on filedocumented in this encounter Additional Health Concerns Infection Onset Date Last Indicated Resolved Time CoV-Risk 12/25/2023 12/25/2023 01/05/2024 1:24 AM EDT documented as of this encounter Care Teams Meteorology Faculty Member Relationship Specialty Start Date End Date Roberto Rojas MD [address] [place] [address] [place] [address] PCP - General Internal Medicine 09/12/23 documented as of this encounter Additional Source Comments The information contained in this document represents components of the legal health record. It is not the complete legal health record.[facility]
--- OUTSIDE RECORDS SUMMARY | 2023-12-25 11:15 | XMS_ITS | Encounter Summary ---
Author Organization [facility] Address [address] [address] Phone Care Team Providers Care Fruit Thinner Name Role Phone Roberto Rojas MD Primary Care Provider [phone] Encounter Details Date Type Department Care Team (Late st Contact Info) Description 12/25/2023 12:15 PM EDT Hospital Encounter [facility] [address] [place] [address] Reva Cerda, NUHA [address] [place] [address] Social History Tobacco Use Types Packs/Day Years [...] clinician's provided indication for this examination in Epic: Cough COMPARISON: None FINDINGS: Devices/Tubes/Lines: None. Lungs: [...] skeletal abnormality. IMPRESSION: Normal chest. Reva Cerda OPERATIONS LIAISON IMG XR CHEST Final Resu lt documented in this encounter Visit Diagnoses Not on filedocumented in this encounter Additional Health Concerns Infection Onset Date Last Indicated Resolved Time CoV-Risk 12/25/2023 12/25/2023 01/05/2024 1:24 AM EDT documented as of this encounter Care Teams Fruit Thinner Relationship Specialty Start Date End Date Roberto Rojas MD [address] [place] [address] [place] [address] PCP - General Internal Medicine 7/9/24 documented as of this encounter Additional Source Comments The information contained in this document represents components of the legal health record. It is not the complete legal health record.[facility]
--- OUTSIDE RECORDS SUMMARY | 2025-01-14 11:15 | XMS_ITS | Encounter Summary ---
Author Organization [facility] Address [address] [place] [address] Care Team Providers Care Statistical Consultant Name Role Phone Roberto Rojas MD Primary Care Provider Reason for Visit * Reason Comments Follow-up CT surveillance Encounter Details Date Type Department Care Team ([facility] st Contact Info) Description 01/14/2025 11:15 AM EST Office Visit Thoracic Surgery - [address] [address] Brian Coreas, PA [address] [place] [phone] History of lung cancer (Primary Dx) Social History Tobacco Use Types Packs/Day Years Used Date Smoking Tobacco: Never Smokeless Tobacco: Never Alcohol Use Standard Drinks/Week Comments Not Currently 0 (1 standard drink = 0.6 oz pur e alcohol) Comments Unknown Sex and Gender Information Value Date Recorded Sex Assigned at Not on file Legal Sex Female 7:40 AM EST Gender Identity Not on file Sexual Orientation Not on file documented as of this encounter Last Filed Vital Signs Vital Sign Reading Time Taken Comments Blood Pressure 146/89 01/14/2025 11:37 AM EST Pulse 64 01/14/2025 11:37 AM EST Temperature 36.6 C (97.9 F) 01/14/2025 11:37 AM EST Respiratory Rate 18 01/14/2025 11:3 7 AM EST Oxygen Saturation 96% 01/14/2025 11: 37 AM EST Inhaled Oxygen Concentration - - Weight 94.3 kg (207 lb 14.4 oz) 025 11:37 AM EST Height 165.1 cm (5' 5 ) 01/14/2025 11:3 7 AM EST Body Mass Index 34.6 01/14/2025 11:37 AM EST documented in this encounter Progress Notes * Ana Malone NP - 01/13/2025 6:30 PM ESTAssociated Problem(s): History of lung cancer Ms. 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 The patient's most recent surveillance chest CT scan performed on January 07, 2025 shows no new or worsening pulmonary nodule, or thoracic adenopathy, to suggest recurrence or new disease. There are a few tiny micronodules which are either unchanged or likely represent secretions within small airways. We will continue with routine chest CT surveillance the next of which will be in 1 year, December 2025. The patient will have a follow-up visit in the office following the CT scan. Patient should call the office should she have any questions or concerns prior to this next appointment. documented in this encounter Plan of Treatment Not on file documented as of this encounter Visit Diagnoses Diagnosis History of lung cancer- Primary Personal history of malignant neoplasm of bronchus and lung documented in this encounter Care Teams Statistical Consultant Relationship Specialty Start Date End Date Roberto Rojas MD [address] [place] [address] [address] [place], [place] PCP - General Internal Medicine 07/21/21 documented as of this encounter
[2025-01-15 09:59] LABS: MANUAL DIFF FLAG NO
[2025-01-15 10:10] LABS: Hematocrit 43.5 % (37.0-47.0); Hemoglobin 13.8 g/dl (12.0-16.0); Imm Gran Abs Auto 0.01 X10*3/uL (0.00-0.03); Imm Gran Pct Auto 0.2 % (0.0-0.4); Lymphocytes Absolute Auto 1.6 X10*3/uL (1.2-4.9); Mean Corpuscular HGB Conc 31.7 g/dl (31.0-35.0); Mean Corpuscular Hemoglobin 26.6 pg (27.0-33.0); Mean Corpuscular Volume 84.0 fL (80.0-98.0); NRBC Abs Auto 0.000 X10*3/uL (0.0-0.012); NRBC Pct Auto 0.0 /100WBC (0.0-0.2); Platelet Count 234 X10*3/uL (160-400); Red Blood Count 5.18 X10*6/uL (4.20-5.50); White Blood Count 5.9 X10*3/uL (4.8-10.8)
[2025-01-15 10:58] LABS: Parathyroid Hormone Intact 122.0 pg/mL (8.7-77.1)
--- OUTSIDE RECORDS SUMMARY | 2025-01-15 10:59 | XMS_ITS | Clinical Summary ---
Author Organization [facility] [address] [facility] Address [address] [place] [address] Phone Care Team Providers Care Senior Java Developer Name Role Phone Roberto Rojas MD Primary Care Provider [phone] Allergies Active Allergy Reactions Criticality Noted Date [...] of lung cancer 08/10/2021 Assessment & Plan (01/13/2025 6:30 PM EST): Ms. Song is a 78 [...] or concerns prior to this next appointment. Assessment & Plan (01/08/2024 12:49 PM EST): [...] or concerns prior to this next appointment. Encounters Date Type Department Care Team Description 01/14/2025 11:15 AM EST Office Visit Thoracic Surgery - [place] [address] [facility] [address] [place] [id number] Brian Coreas PA History of lung cancer (Primary Dx) 01/07/2025 1:07 PM EST - 01/07/2025 11:59 PM EST Hospital Encounter [facility] CT Scan [address] [place] [id number] History of lung cancer Discharge Disposition: Home or Self Care from Last 3 Months Surgical History Surgery Date Site/Laterality Comments CHOLECYSTECTOMY PROCEDURE: HISTORICAL CHOLECYSTECTOMY HYSTERECTOMY N/A PROCEDURE: HISTORICAL HYSTERECTOMY OTHER SURGICAL HISTORY 09/29/2021 Right PROCEDURE: ID THORACOSCOPY W/THERA WEDGE RESEXN INITIAL UNILAT; COMMENT: RLL Medical History Medical History Date Comments Hypothyroidism DX:Hypothyroidis m Anxiety disorder DX:Anxiety diso rder HTN (hypertension) DX:HTN (hyper tension) Type 2 diabetes mellitus wit hout complications ([facility] V24, [facility] V28) DX:Type 2 diabetes mellitus without complications (HCC) GERD (gastroesophageal reflux disease) DX:GERD (gastroesophageal reflux disease) Obstructive sleep apnea DX:Obstr uctive sleep apnea Mixed hyperlipidemia DX:Mixed hy perlipidemia Osteoarthritis DX:Osteoarthriti s; COMMENT: bilateral knees Urinary incontinence DX:Urinary incontinence Obesity DX:Obesity Carcinoid tumor of right comfort g ([facility] V28) 09/2021 Family History Medical History Relation [...] Mass Index 34.6 01/14/2025 11:37 AM EST Plan of Treatment Health Maintenance Due Date Last Done Comments DTaP,Tdap,and Td Vaccines (1 - Tdap) 1964 Pneumococcal Vaccine: 50+ Years (2 of 2 - PCV20 or PCV21) 04/20/2017 04/20/2016 RSV Immunization Adult Patients (1 - 1-dose 75+ series) 2021 Falls Risk Assessment 02/06/2022 Hepatitis C Screening 02/06/2022 Medicare Annual Wellness Visit 02/06/2022 Osteoporosis Screening (Bone Density Screening) 02/06/2022 Social Influencers of Health Screening 02/06/2022 Depression Screening 03/06/2024 COVID-19 Vaccine ( season) 2024 04/26/2024, 01/05/2023, 01/01/2022, Additional history exists Influenza Vaccine (#1) 2024 , 01/04/2022, 12/28/2021, Additional history exists Zoster Vaccines Completed 07/03/2018, 06/04, 04/09/2018, Additional history exists HIB Vaccines Aged Out No longer eligi [...] to complete this topic RSV Immunization Patients Under 20 months Aged Out No longer eligible based on patient's age to complete this topic Varicella Vaccines Aged Out No longer eligible based on patient's age to complete this topic Procedures Procedure Name Priority Date/Time Associated Diagnosis Comments CT CHEST WO CONTRAST Routine 01/07/2025 1:25 PM EST History of lung cancer from Last 3 Months Results * CT Chest wo Contrast (01/07/2025 1:25 PM EST) Anatomical Region Laterality Modality Body Computed Tomogra phy 01/08/2025 7:38 AM EST Impressions 01/08/2025 7:48 AM EST No evidence of recurrent or metastatic disease. -------- FINAL REPORT -------- Dictated By: Michi Oneal Dictated Date: 01/08/2025 07:38 ET Assigned Physician: Michi Oneal Reviewed and Electronically Signed By: Michi Oneal Signed Date: 01/08/2025 07:48 ET Workstation ID: [id number] Transcribed By: Self Edit Transcribed Date: 01/08/2025 07:38 ET Narrative 01/08/2025 7:48 AM EST EXAMINATION: CT CHEST WITHOUT CONTRAST CLINICAL INFORMATION: Post right lower lobe wedge resection for lung cancer. Surveillance for new or recurrent disease. VATS with Wedge Resection (Da Sharona right lower lobe wedge, mediastinal lymphadenectomy 09/29/21 COMPARISON: Portions of previous CT 12/19/23 TECHNIQUE: Multidetector CT. Examination of the chest. Examination of the chest without IV contrast. Reformatting in the coronal and sagittal planes. DLP: 160 mGy-cm Dose optimization was performed including the use of low-dose iterative reconstruction technique with automatic exposure control based on patient size. Type of contrast: None Volume of IV contrast: None Volume of contrast discarded: 0 mL FINDINGS: LUNG: No suspicious abnormality of the trachea or mainstem bronchi. No suspicious change in the suture line consistent with wedge resection posteromedial right lower lobe. No new suspicious mass or nodule. There are a few tiny micronodules which are either unchanged or likely represent secretions within small airways. No significant interstitial lung abnormalities. MEDIASTINUM: There are no enlarged mediastinal or hilar lymph nodes. No suspicious abnormality of the esophagus CARDIAC: The heart is not enlarged. No pericardial fluid or thickening CORONARY CALCIFICATION: There are mild coronary calcifications. VASCULAR: There is no thoracic aortic aneurysm. The main pulmonary artery is normal caliber. PLEURA: There is no pleural fluid or pneumothorax AXILLA/CHEST WALL: There are no enlarged axillary lymph nodes. No chest wall mass demonstrated. The patient is a candidate for screening mammography. VISUALIZED UPPER ABDOMEN: No suspicious abnormality on limited assessment of the visualized upper abdomen. MUSCULOSKELETAL: No suspicious focal bony lesion. Procedure Note Michi Oneal MD - 01/08/2025 EXAMINATION: CT CHEST WITHOUT CONTRAST CLINICAL INFORMATION: Post right lower lobe wedge resection for lung cancer. Surveillance fornew or recurrent disease. VATS with Wedge Resection (Da Sharona right lowerlobe wedge, mediastinal lymphadenectomy 09/29/21 COMPARISON: Portions of previous CT 12/19/23 TECHNIQUE: Multidetector CT. Examination of the chest. Examination of the chest without IV contrast. Reformatting in the coronal and sagittal planes. DLP: 160 mGy-cm Dose optimization was performed including the use of low-dose iterativereconstruction technique with automatic exposure control based on patientsize. Type of contrast: None Volume of IV contrast: None Volume of contrast discarded: 0 mL FINDINGS: LUNG: No suspicious abnormality of the trachea or mainstem bronchi. Nosuspicious change in the suture line consistent with wedge resectionposteromedial right lower lobe. No new suspicious mass or nodule. There are a few tiny micronodules which are either unchanged or likelyrepresent secretions within small airways. No significant interstitial lung abnormalities. MEDIASTINUM: There are no enlarged mediastinal or hilar lymph nodes. Nosuspicious abnormality of the esophagus CARDIAC: The heart is not enlarged. No pericardial fluid or thickening CORONARY CALCIFICATION: There are mild coronary calcifications. VASCULAR: There is no thoracic aortic aneurysm. The main pulmonary arteryis normal caliber. PLEURA: There is no pleural fluid or pneumothorax AXILLA/CHEST WALL: There are no enlarged axillary lymph nodes. No chestwall mass demonstrated. The patient is a candidate for screeningmammography. VISUALIZED UPPER ABDOMEN: No suspicious abnormality on limited assessmentof the visualized upper abdomen. MUSCULOSKELETAL: No suspicious focal bony lesion. IMPRESSION: No evidence of recurrent or metastatic disease. -------- FINAL REPORT -------- Dictated By: Michi Oneal Dictated Date: 01/08/2025 07:38 ET Assigned Physician: Michi Oneal Reviewed and Electronically Signed By: Michi Oneal Signed Date: 01/08/2025 07:48 ET Workstation ID: [id number] Transcribed By: Self Edit Transcribed Date: 01/08/2025 07:38 ET Zakia CHAVEZ [facility] CT PROCEDURES Final Resul t from Last 3 Months Insurance MEDICARE [facility] Care Teams Senior Java Developer Relationship Specialty Start Date End Date Roberto Rojas MD [address] [place] [address] [address] [place], [place] PCP - General Internal Medicine 07/21/21
--- OUTSIDE RECORDS SUMMARY | 2025-01-15 10:59 | XMS_ITS | Clinical Summary ---
Author Organization [facility] Address [address] [place] [address] Phone Care Team Providers Care Emd Special Education Teacher Name Role Phone Roberto Rojas MD Primary Care Provider [phone] Allergies Active Allergy Reactions Criticality Noted Date [...] pancreas 01/08/2024 History of lung cancer 08/10/2021 Encounters Date Type Department Care Team Description 11/13/2024 Transcribe Orders [facility] [address] [place] [address] Sandra Ocampo Encounter for rehabilitation (Primary Dx) from Last 3 Months Immunizations No known immunizations Social History Tobacco [...] VACCINES (50+ years) (2 of 2 - PCV20 or PCV21) 04/20/2017 04/20/2016 RSV VACCINE (1 - 1-dose 75+ series) 2021 INFLUENZA VACCINE (#1) 2024 , 12/28/2021, 02/04/2021, Additional history exists COVID-19 VACCINE (2024- season) 2024 04/26/2024, 01/05/2023, 01/01/2022, Additional history exists ZOSTER VACCINES Completed 07/03/2018, 06/04, 04/09/2018, Additional history exists SMOKING STATUS SCREENING (Once After 26 Yrs) Completed 05/04/2024 HEPATITIS A VACCINES Aged Out No long er eligible based on patient's age to complete this topic HIB VACCINES Aged Out No longer eligi ble based on patient's age to complete this topic IPV VACCINES Aged Out No longer eligi ble based on patient's age to complete this topic MENINGOCOCCAL VACCINES (ACWY) Aged Out No longer eligible based on patient's age to complete this topic MENINGOCOCCAL VACCINES (B) Aged Out N o longer eligible based on patient's age to complete this topic Medical Devices Not on [place] [address] MEDICARE PART A & B [facility] [place] [address] MEDICARE PART A & B [facility] [place] [address] MEDICARE PART A & B [facility] [place] [address] [place] [address] MEDICARE PART A & B [facility] [place] [address] MEDICARE PART A & B [facility] [place] [address] MEDICARE PART A & B [facility] [place] [address] Care Teams Emd Special Education Teacher Relationship Specialty Start Date End Date Roberto Rojas MD [address] [place] [address] [place] [address] PCP - General Internal Medicine 09/12/23 Additional Source Comments The information contained in this document represents components of the legal health record. It is not the complete legal health record.[facility]
--- OUTSIDE RECORDS SUMMARY | 2025-01-15 10:59 | XMS_ITS | Patient Health Record ---
Author Organization [facility] Address [address] [place] [address] Care Team Providers Care Machine Rug Cleaner Name Role Phone Kang Rojas MDneth Primary Care Provider Tim Odell Unavailable [phone] Reason For Referral No Information Medications Medication SIG (Take, Route, Fr equency, Duration) Notes Start Date End Date Status Lisinopril 20 MG TAKE 1 TABLET BY FOSTER TH DAILY Diagnosis Unavailable Oral; Duration: 90 Active metFORMIN HCl Active Prilosec Active [...] Problem Status W/U Status Risk Notes Problem Colon cancer screening (767685306) Colon cancer screening (Z12.11) Active confirmed Problem History of adenomatous polyp of colon (194587423) History of adenomatous polyp of colon (Z86.010) Active confirmed Problem History of polyp of colon (situation) (833387723) Personal history of colonic polyps (Z86.010) Active confirmed Problem Diverticular disease of colon (800040521) Diverticulosis of large intestine without perforation or abscess without bleeding (K57.30) Active confirmed Problem Gastroesophageal reflux disease (051487826) Gastroesophageal reflux disease (K21.9) Active confirmed Problem Gastroesophageal reflux disease (625437214) Gastroesophageal reflux disease, unspecified whether esophagitis present [...] OF [place] [address] [place] [address] [id number] ZACKERY FISHMAN Self - patient is the insured [facility] [address] [address] [place] [phone] [id number] ZACKERY FISHMAN Self - patient is the [...]
[2025-01-15 11:04] LABS: Alanine Aminotransferase 22 U/L (0-31); Albumin Level 4.6 g/dL (3.5-5.0); Alkaline Phosphatase 63 U/L (39-117); Anion Gap 14 (12-20); Aspartate Amino Transferase 17 U/L (5-31); Blood Urea Nitrogen 18 mg/dL (9-16); Calcium 10.7 mg/dL (8.4-10.2); Carbon Dioxide 23 mmol/L (22-29); Chloride 110 mmol/L (96-108); Cholesterol 143 mg/dL (<200); Estimated Glomerular Filt Rate > 60; HDL Cholesterol 47 mg/dL (>40); Potassium 4.9 mmol/L (3.3-5.1); Sodium 142 mmol/L (135-145); Total Protein 7.4 g/dL (6.5-8.0); Triglycerides 124 mg/dL (<150)
[2025-01-15 11:11] LABS: Free T4 (Free Thyroxine) 1.46 ng/dL (0.71-1.85); Thyroid Stimulating Hormone 0.10 uIU/mL (0.32-4.0)
[2025-01-15 11:23] LABS: Ferritin 108 ng/mL (10-250)
[2025-01-15 11:28] LABS: Appearance Urine Cloudy; Glucose Urine UA Negative (Negative); PH 5.5 (5.0-9.0); Specific Gravity - Urine 1.020 (1.005-1.025); UMIC TRIGGER UACC YES
[2025-01-15 11:33] LABS: Folate 7.8 ng/mL (> or = 4.0); Vitamin B12 1053 pg/mL (200-900)
[2025-01-15 11:34] LABS: UACC Culture Trigger YES
[2025-01-15 11:53] LABS: Microalbum/Creatinine Ratio Ur 12.3 ug/mg cr (<30)
== END 2025-01-15 09:41 | disposition home or self-care (01) ==
LOC: HO.LAB 09:40
PROVIDERS: Physician Assistant Medical; Visit Provider Internal Medicine
DX: E11.9 Type 2 diabetes mellitus without complications (principal); E78.00 Pure hypercholesterolemia, unspecified; D64.9 Anemia, unspecified; E03.9 Hypothyroidism, unspecified; E53.8 Deficiency of other specified B group vitamins; E55.9 Vitamin D deficiency, unspecified; G47.9 Sleep disorder, unspecified; R53.82 Chronic fatigue, unspecified; G47.19 Other hypersomnia; G62.9 Polyneuropathy, unspecified; G47.33 Obstructive sleep apnea (adult) (pediatric); R53.83 Other fatigue
CPT/HCPCS: 36415; 80053; 80061; 81001; 81003; 82043; 82306; 82570; 82607; 82728; 82746; 83036; 83090; 83921; 83970; 84439; 84443; 85025; 87086; 87088; 87186

== ENCOUNTER 2025-01-22 12:25 | Outpatient (AMB) | payer MEDICARE, OTHER, SELFPAY ==
--- OUTSIDE RECORDS SUMMARY | 2023-09-12 13:12 | XMS_ITS | Encounter Summary ---
Author Organization [facility] Address [address] [place] [phone] Phone Care Team Providers Care Apartment Maintenance Worker Name Role Phone Roberto Rojas MD Primary Care Provider [phone] Encounter Details Date Type Department Care Team (Late st Contact Info) Description 09/12/2023 2:12 PM EDT Hospital Encounter [facility] [address] [place] [id number] Candy Willard FNP [address] [place] [id number] [email or web address] [email or web address] History Tobacco Use Types Packs/Day Years Used Date Smoking Tobacco: Never Smokeless Tobacco: Never Education Answer Date Recorded Are you interested in more education? Not on bal e 09/12/2023 Are you concerned about learning? Not on file 09/12/2023 No 09/12/2023 No 09/12/2023 Digital Access Answer Date Recorded No 09/12/2023 No 09/12/2023 Reliable internet access at home? Not on file 09/12/2023 Device with a working camera? Not on file Comments Unknown Sex and Gender Information Value Date Recorded Sex Assigned at Not on file Legal Sex Female 9:53 AM EDT Gender Identity Not on file Sexual Orientation Not on file documented as of this encounter Plan of Treatment Not on file documented as of this encounter Procedures Procedure Name Priority Date/Time Associated Diagnosis Comments XR HAND 3 OR MORE VIEWS (RIGHT) Urgent/patient waiting 09/12/2023 2:17 PM EDT Fall, initial encounter documented in this encounter Results * XR HAND 3 OR MORE VIEWS (RIGHT) (09/12/2023 2:17 PM EDT) Anatomical Region Laterality Modality Hand Right Computed Radiogr aphy 09/12/2023 2:18 PM EDT Impressions 09/12/2023 2:18 PM EDT No fracture or dislocation. Narrative 09/12/2023 2:18 PM EDT XR HAND 3 OR MORE VIEWS (RIGHT) Referring clinician's provided indication for this examination in [facility]: S/P Fall; fall, pain over distal 3, 4 mcp COMPARISON: None FINDINGS: No fracture or dislocation. Degenerative changes most advanced at the first CMC joint. Procedure Note Clayton Arevalo MD - 09/12/2023 XR HAND 3 OR MORE VIEWS (RIGHT) Referring clinician's provided indication for this examination in [facility]:S/P Fall; fall, pain over distal 3, 4 mcp COMPARISON: None FINDINGS: No fracture or dislocation. Degenerative changes most advanced at thefirst CMC joint. IMPRESSION: No fracture or dislocation. Candy Willard PUBLIC ADDRESS TECHNICIAN IMG XR UPPER EXTREMITY Kari l Result documented in this encounter Visit Diagnoses Not on filedocumented in this encounter Additional Health Concerns Infection Onset Date Last Indicated Resolved Time CoV-Risk 12/25/2023 12/25/2023 01/05/2024 1:24 AM EDT documented as of this encounter Care Teams Apartment Maintenance Worker Relationship Specialty Start Date End Date Roberto Rojas MD [address] [place] [address] [place] [id number] PCP - General Internal Medicine 09/12/23 documented as of this encounter Additional Source Comments The information contained in this document represents components of the legal health record. It is not the complete legal health record.[facility]
--- OUTSIDE RECORDS SUMMARY | 2023-12-25 11:15 | XMS_ITS | Encounter Summary ---
Author Organization [facility] Address [address] [address] Phone Care Team Providers Care Local Bulk Driver Name Role Phone Roberto Rojas MD Primary Care Provider [phone] Encounter Details Date Type Department Care Team (Late st Contact Info) Description 12/25/2023 12:15 PM EDT Hospital Encounter [facility] [address] [place] [phone] Reva Cerda, NUHA [address] [place] [address] [email or web address] Social History Tobacco Use Types Packs/Day Years [...] provided indication for this examination in [facility]: Cough COMPARISON: None FINDINGS: Devices/Tubes/Lines: None. Lungs: [...] skeletal abnormality. IMPRESSION: Normal chest. Reva Cerda VISUAL AID EXPERT IMG XR CHEST Final Resu lt documented in this encounter Visit Diagnoses Not on filedocumented in this encounter Additional Health Concerns Infection Onset Date Last Indicated Resolved Time CoV-Risk 12/25/2023 12/25/2023 01/05/2024 1:24 AM EDT documented as of this encounter Care Teams Local Bulk Driver Relationship Specialty Start Date End Date Roberto Rojas MD [address] [place] [address] [place] [address] PCP - General Internal Medicine 09/12/23 documented as of this encounter Additional Source Comments The information contained in this document represents components of the legal health record. It is not the complete legal health record.[facility]
[2025-01-22 12:34] VITALS: BP 124/80; PULSE 93; O2SAT 97; BMI 33.1
--- NOTE | 2025-01-22 12:34 | MHC.PC.OV ---
Vital Signs 01/22/25 12:34 Height 5 ft 6 in Weight 205 lb 4 oz BMI 33.1 BP 124/80 Blood Pressure Location Lt brachial Position Sitting Pulse 93 Pulse Source Pulse Oximeter Pulse Oximetry (%) 97 Oxygen Delivery Method Room Air Intake Visit Reasons: DM, HTN, hyperlipidemia Membership Solicitor Required: No Accompanied by: Self / Same As Patient Allergies amoxicillin (AMOXICILLIN) Allergy (Intermediate, Verified 01/22/25 12:49) Gastrointestinal Upset Sulfa (Sulfonamide Antibiotics) (SULFA (SULFONAMIDE ANTIBIOTICS)) Allergy (Intermediate, Verified 01/22/25 12:49) HIVES,RASH Medication List - Last Reconciled 01/22/25 by Roberto Rojas MD acetaminophen 650 mg (2 x 325 mg) PO Q6H PRN 30 days atorvastatin 10 mg PO QAM 90 days cholecalciferol (vitamin D3) (Vitamin D3) 50 mcg PO DAILY coenzyme Q10 (Co Q-10) 400 mg PO QAM cyanocobalamin (vitamin B-12) 1,000 mcg PO DAILY 90 days [DIABETIC SHOES As directed - Dx: E11.9] dulaglutide 1.5 mg (0.5 mL) subcut QWEEK 90 days fluoxetine 20 mg PO QAM 90 days levothyroxine (Synthroid) 150 mcg PO QAM lisinopril 30 mg PO QAM 90 days metformin 500 mg PO BID 90 days omeprazole 20 mg PO BID 90 days walker Folding Front wheeled walker Tobacco use date assessed: 01/22/25 Fall risk assessment: 2 + Falls in past year Last assessed Fall Risk: 01/22/25 Dental Screening Dental Screen Date: 01/22/25 Did you have a dental visit in the last 12 months?: Yes Did you have a dental problem in the last 6 months where you did not have access to dental care?: No Was dental information given to patient?: Patient has dentist HPI DM, HTN, hyperlipidemia HPI Details Patient comes in today for her follow up visit States that she tested positive for COVID last month and has been feeling more tired and achy than usual since She denies any headaches or dizziness Denies any chest pains but reports that she's had a recurrent/lingering cough since she had COVID last month Notes that her chest still feels tight and slightly congested at times and thinks that she hears some faint wheezing every now and then when she takes deep breaths States that her cough is mostly non-productive No nausea/vomiting, no abdominal pain No change in bowel habits noted She had her follow up labs done last week - to discuss her results [facility] Medical History Vitamin B12 deficiency Osteoarthritis of left knee Elevated cholesterol Cervical cancer Primary osteoarthritis of right hip [place] esophagus GERD (gastroesophageal reflux disease) Campoverde's palsy Allergic rhinitis Carcinoid tumor (~2021) Tubular adenoma of colon (~2002) Chest pain Obesity (BMI 30-39.9) Anxiety Urinary incontinence Primary osteoarthritis of both knees Acquired hypothyroidism Obstructive sleep apnea (~2005) Benign essential hypertension Diabetes mellitus Pure hypercholesterolemia Surgical History Status post total replacement of right hip (~01/17/23) Hx of bilateral cataract extraction History of esophagogastroduodenoscopy (EGD) History of lung surgery History of bronchoscopy (~2021) History of colonoscopy History of pubovaginal sling (~2010) History of hysterectomy History of cholecystectomy (~1996) Family History Father Diabetes Hypertension Mother Diabetes Cancer Social History Household Members: Spouse Housing: House Are you a primary memory care program director to a significant other at home: No Do you presently have visiting nurse or other home services: No Alcohol intake: current Alcohol intake frequency: holidays/special occasions only Alcohol type: wine Patient Tobacco Use Status: Never used Tobacco e-Cigarette/Vaping Use: Never Used Second Hand Smoke Exposure: Yes service: No Current occupational status: retired Cognitive needs: No Hearing needs: Yes (Hearing aide) Vision needs: Yes (Glasses) Questionnaire PHQ-9 Over the last 2 weeks, how often have you been bothered by any of the following problems? 1. Little interest or pleasure in doing things: not at all 2. Feeling down, depressed, or hopeless: not at all 3. Trouble falling or staying asleep, or sleeping too much: not at all 4. Feeling tired or having little energy: several days 5. Poor appetite or overeating: not at all 6. Feeling bad about yourself - or that you are a failure or have let yourself or your family down: not at all 7. Trouble concentrating on things, such as reading the newspaper or watching television: not at all 8. Moving or speaking so slowly that other people could have noticed. Or the opposite - being so fidgety or restless that you have been moving around a lot more than usual: not at all 9. Thoughts that you would be better off or of hurting yourself in some way: not at all Total score: 1 Depression Screening Interpretation: Negative Depression Screening Done: Yes 65872 - PHQ-9 Billing: Yes Source: Developed by Drs. Tim Torres, Caitie Nguyen, Justin Fallon and colleagues, with an educational ion from [employer]. Thrive Questionnaire Date Thrive assessed: 01/22/25 I am a: Patient What is your living situation today?: I have a steady place to live Within the past 12 months, did the food you bought not last and you didn't have the money to get more?: Never true Within the past 12 months, did you worry whether your food would run out before you got money to buy more?: Never true Do you have trouble paying for medicines?: No Do you have trouble getting transportation to medical appointments?: No Do you have trouble paying your heating and electricity bill?: No Do you have trouble taking care of your child, family member or friend?: No Do you have trouble with day-to-day activities such as bathing, preparing meals, shopping, managing finances, etc.?: No Are you currently unemployed and looking for a job?: No Are you interested in more education?: No Please select the resources that you would like help with: None Currently or been in a relationship where the following occur: No concerns reported THRIVE Score: 0 AUDIT C Alcohol Use Questionnaire (AUDIT-C) 1. How often do you have a drink containing alcohol?: Never 3. How often do you have six or more drinks on one occasion?: Never Total Score: 0 Score Reviewed/Action Taken: Yes SEBAS-7 AMB Questionnaire SEBAS-7 Date SEBAS - 7 assessed: 01/22/25 Feeling nervous, anxious, or on edge: 0 = Not at all Not being able to stop or control worryin = Not at all Worrying too much about different things: 0 = Not at all Trouble relaxin = Not at all Being so restless that it is hard to sit still: 0 = Not at all Becoming easily annoyed or irritable: 0 = Not at all Feeling afraid as if something awful might happen: 0 = Not at all Total SEBAS-7 score (0-4 normal; 5-9 mild; 10-14 moderate; 15-21 severe): 0 Source: Developed by Drs. Tim Torres, Caitie Nguyen, Justin Fallon and colleagues, with an educational ion from [employer]. Review of Systems Const Denies chills, Reports fatigue, Denies fever(s) and Denies headache(s) ENT Denies dysphagia, Denies dizziness, Denies otalgia, Denies headache(s), Denies neck pain, Denies odynophagia and Denies sore throat Card Denies chest pain, Denies palpitations and Denies dyspnea Resp Reports chest congestion (mild), Reports cough (on and off, non-productive), Denies dyspnea and Reports wheezing (at times) GI Denies abdominal pain, Reports bloating (at times), Denies constipation, Denies dysphagia, Denies heartburn, Denies diarrhea, Denies nausea, Denies odynophagia and Denies vomiting Denies difficulty voiding, Reports nocturia, Denies dysuria, Reports urinary incontinence (occasional) and Reports urinary urgency Musc Reports back pain (mild), Reports myalgias, Reports arthralgias (over both knees; right hip pain has improved with SALOMON), Denies neck pain and Reports stiffness Skin/Breast Denies rash Neuro Denies dizziness, Denies headache(s), Reports paresthesias (on and off in the fingers and toes bilaterally) and Reports tremor(s) (in both hands, on and off) Endo Reports fatigue and Denies palpitations Aller/Immun Reports wheezing (at times) Physical exam (Primary Care) Vital Signs: Last Vital Signs Pulse 93 01/22/25 12:34 BP 124/80 01/22/25 12:34 Pulse Ox 97 01/22/25 12:34 Oxygen Delivery Method Room Air 01/22/25 12:34 BMI result Body Mass Index 33.1 Tobacco/Smoking Status: Tobacco use Status Tobacco use date assessed 01/22/25 01/22/25 12:42 Patient Tobacco Use Status Never used Tobacco 01/22/25 12:42 e-Cigarette/Vaping Use Never Used 01/22/25 12:42 PHQ-9: PHQ-9 Score PHQ-9: Total score 1 01/22/25 12:42 Depression Screening Interpretation: Negative Thrive Assessment: Date of Thrive Assessment Date Thrive assessed 01/22/25 01/22/25 12:42 Currently or been in a relationship where the following occur: No concerns reported Const General: no acute distress and alert HENMT Ears: TM's normal bilaterally and EAC's normal Throat: Yes posterior oropharynx normal and Yes tonsils normal (no TP congestion noted) Neck Neck: Yes supple and No lymphadenopathy Thyroid: Thyroid normal Resp Auscultation: no crackles, no rales, no wheezes and diminished lung sounds (slightly) bilateral Cardio Rate: regular rate Rhythm: regular rhythm Heart sounds: no murmurs GI Palpation (GI): Soft to palpation and nontender Auscultation: normal bowel sounds General: Yes no CVA tenderness Back/Spine/Pelvis Back: no CVA tenderness Thoracic/Lumbar Spine: lumbar spinal tenderness Skin Rashes: no rashes Extrem General: Yes no clubbing, cyanosis or edema Right lower extremity: knee Details: tenderness; no swelling Left lower extremity: knee Details: tenderness; no swelling Results Reviewed Results Reviewed: Laboratory Tests 01/15/25 01/15/25 09:47 09:58 WBC 5.9 Hgb 13.8 Hct 43.5 Plt Count 234 Sodium 142 Potassium 4.9 Creatinine 0.89 Estimated GFR > 60 Fasting Glucose 130 H Hemoglobin A1c % 6.7 H Calcium 10.7 H Ferritin 108 AST 17 ALT 22 Triglycerides 124 Cholesterol 143 LDL Cholesterol, Calc 72 HDL Cholesterol 47 Vitamin B12 1053 H Methylmalonic Acid 129 25-OH Vitamin D Total 39.5 Homocysteine 13.8 H TSH 0.10 L Free T4 1.46 PTH Intact 122.0 H Ur Specific [place] 1.020 Urine Protein Negative Urine Glucose (UA) Negative Urine Blood Trace H Urine Nitrite Positive H Ur Leukocyte Esterase Large (3+) H Microalb/Creat Ratio 12.3 Coding Level of Care Code Est Pt Level 4 (65853) Complex EM visit Add On G2211 Diagnoses Type 2 diabetes mellitus without complication, without long-term current use of insulin E11.9 Diabetes mellitus type: type 2 Diabetes mellitus [facility] insulin use: without [facility] use Diabetes mellitus complication status: without complication Benign essential hypertension I10 Pure hypercholesterolemia E78.00 Osteoarthritis of right hip, unspecified osteoarthritis type M16.11 Osteoarthritis type: unspecified Primary osteoarthritis of both knees M17.0 Right-sided low back pain with right-sided sciatica, unspecified chronicity M54.41 Chronicity: unspecified Back pain laterality: right Hypercalcemia E83.52 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 Carcinoid tumor malignancy status: benign Carcinoid tumor location: lung Pancreatic atrophy K86.89 Acquired hypothyroidism E03.9 Obstructive sleep apnea G47.33 Cough, unspecified type R05.9 Cough type: unspecified Tremor of both hands R25.1 Vitamin B12 deficiency E53.8 Gastroesophageal reflux disease without esophagitis K21.9 Esophagitis presence: without esophagitis Anxiety F41.9 Obesity (BMI 30-39.9) E66.9 Additional Codes PHQ-9 - 15288 - PHQ-9 Billing: Yes ([id number]) Assessment & Plan Assessment & Plan (1) Diabetes mellitus: Comment: type 2-dx ~2015-glucose usually [phone] Trulicity (takes on Tuesdays), Metformin, Januvia Code(s): E11.9 - Type 2 diabetes mellitus without complications Category: Medical Qualifiers: Diabetes mellitus type: type 2 Diabetes mellitus ad terminal makeup operator insulin use: without ad terminal makeup operator use Diabetes mellitus complication status: without complication Qualified Code(s): E11.9 - Type 2 diabetes mellitus without complications Plan: Her HgbA1c was at 6.7% on her labs done last week (was previously at 6.6% a few months ago in September 2024) - goal is < 7.0% Reinforced diabetic diet Continue Trulicity 1.5 mg SQ once a week and Metformin 500 mg BID Have offered to raise her Trulicity dose up to to 3 mg to help stave off her rising HgbA1c but patient asked to hold off on this for now and will try working better on her diet first (2) Benign essential hypertension: Code(s): I10 - Essential (primary) hypertension Category: Medical Plan: Reinforced low sodium diet - goal is systolic BP of at least 140 mm or less Patient states that her BP is usually much lower when she checks it at home Continue Lisinopril 30 mg QD Patient is again reminded to continue monitoring her blood pressure regularly (3) Pure hypercholesterolemia: Code(s): E78.00 - Pure hypercholesterolemia, unspecified Category: Medical Plan: Results of her labs done last week reviewed and discussed with patient Reinforced low cholesterol diet Continue Atorvastatin 10 mg QD Will recheck her labs and fasting lipids in 4 months for follow up (4) Osteoarthritis of right hip: Code(s): M16.11 - Unilateral primary osteoarthritis, right hip Category: Medical Qualifiers: Osteoarthritis type: unspecified Qualified Code(s): M16.11 - Unilateral primary osteoarthritis, right hip Plan: S/P total right hip arthroplasty with Dr. Reed back on 01/17/2023, with (+) significant improvement of her hip symptoms Patient also completed physical therapy for her right hip subsequently and she continues to do the exercises taught to her by physical therapy regularly Follow up with orthopedics as scheduled (5) Primary osteoarthritis of both knees: Code(s): M17.0 - Bilateral primary osteoarthritis of knee Category: Medical Plan: S/P left knee TKA on 04/26/2023; patient also completed physical therapy for her knee after her surgery Follow up with orthopedics as scheduled (6) Low back pain with right-sided sciatica: Code(s): M54.41 - Lumbago with sciatica, right side Category: Medical Qualifiers: Chronicity: unspecified Back pain laterality: right Qualified Code(s): M54.41 - Lumbago with sciatica, right side Plan: Reinforced activity and weight-lifting restrictions Repeat lumbar spine and SI joint x-rays done back in August 2022 revealed (+) degenerative changes of the lumbar spine and SI joints Continue Tylenol PRN and Tizanidine 4 mg TID PRN; continue Meloxicam 15 mg QD PRN with food only if no relief with Tylenol Have advised patient again that physical therapy may be an option and she can call for referral at any time if she wishes to try physical therapy for her back pain (7) Hypercalcemia: Code(s): E83.52 - Hypercalcemia Category: Medical Plan: Her serum calcium level was again slightly elevated at 10.7 on her labs done last week Her intact PTH level was slightly elevated at 83.4 previously and this was thought to be related to her CKD but it has since gone up significantly and her PTH level is now at 122 pg/ml on her recent labs, which is likely consistent with primary hyperparathyroidism as her vitamin D level is low normal She was previously referred to Dr. Hughes for endocrinology evaluation but she has not been able to get in to see her We will try referring her to [facility] Endocrinology and have advised patient that she will likely be referred for parathyroidectomy in if endocrinology work up confirms her primary hyperparathyroidism (8) Carcinoid tumor: Onset Date: ~2021 Comment: (s/p RLL wedge resection 09/2021) Code(s): D3A.00 - Benign carcinoid tumor of unspecified site Category: Medical Qualifiers: Carcinoid tumor malignancy status: benign Carcinoid tumor location: lung Qualified Code(s): 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 Wilson on 09/29/21; states that she has been doing well since with no acute issues Follow up with thoracic surgery (Dr. Wilson) as scheduled for continuing surveillance She had a repeat chest CT done at [facility] last month on 12/19/2023 and was advised that her CT came back negative but it was incidentally noticed that her pancreatic tail appears atrophied and she is advised to speak to her PCP about whether this needs further work ups or not (9) Pancreatic atrophy: Code(s): K86.89 - Other specified diseases of pancreas Category: Medical Plan: (+) pancreatic tail atrophy was seen incidentally on a recent chest CT last year She was sent for a dedicated abdominal CT for further evaluation (medical literature exists that has shown that focal pancreatic parenchyma atrophy may be a harbinger of pancreatic malignancy) Her abdominal CT corfirmed the pancreatic tail atrophy seen on her previous imaging studies and that this is mostly unchanged in appearance, with no evidence of pancreatic mass or abnormality (10) Acquired hypothyroidism: Code(s): E03.9 - Hypothyroidism, unspecified Category: Medical Plan: Her serum TSH level is again suppressed but free T4 level remains normal on her recent labs; patient is clinically euthyroid Continue Levothyroxine 150 mcg QD Will continue to monitor her TFTs regularly (11) Obstructive sleep apnea: Onset Date: ~2005 Comment: (ALEXANDRE on CPAP) Code(s): G47.33 - Obstructive sleep apnea (adult) (pediatric) Category: Medical Plan: Patient admits that she has not been using her CPAP device for a while now and when she tried using it again a few weeks ago, she got sick States that her machine is old and may need to be replaced She was recently seen by Sleep Medicine and is currently awaiting a home sleep study to be scheduled (12) Cough: Code(s): R05.9 - Cough, unspecified Category: Medical Qualifiers: Cough type: unspecified Qualified Code(s): R05.9 - Cough, unspecified Plan: Patient states that she's had a lingering cough and chest congestion and also thinks she hears some wheezing at times when she takes deep breaths; cough is non-productive Will send her for chest x-rays NIALL for further evaluation (13) Tremor of both hands: Code(s): R25.1 - Tremor, unspecified Category: Medical Plan: She was seen and evaluated by Dr. 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 Follow up with neurology as scheduled (14) Vitamin B12 deficiency: Code(s): E53.8 - Deficiency of other specified B group vitamins Category: Medical Plan: States that her symptoms of tingling/paresthesia seems to have improved significantly since she was started on B12 supplements She was taking Vitamin B12 1000 mcg QD but as her B12 level is now >1000, have advised her to cut it back to every other day (15) GERD (gastroesophageal reflux disease): Code(s): K21.9 - Gastro-esophageal reflux disease without esophagitis Category: Medical Qualifiers: Esophagitis presence: without esophagitis Qualified Code(s): K21.9 - Gastro-esophageal reflux disease without esophagitis Plan: Dietary restrictions reinforced Continue Omeprazole 20 mg QD PRN (16) Anxiety: Code(s): F41.9 - Anxiety disorder, unspecified Category: Medical Plan: Continue Fluoxetine 20 mg QD (17) Obesity (BMI 30-39.9): Code(s): E66.9 - Obesity, unspecified Category: Medical Plan: Reinforced diet; exercise is not realistic at present due to patient's multiple physical issues Plan Follow up in 4 months Orders: Orders Hemoglobin A1c 4 Months E11.9 - Type 2 diabetes mellitus without complications UA CC w/rflx Micro + Cult 4 Months R30.0 - Dysuria Thyroid Stimulating Hormone 4 Months E03.9 - Hypothyroidism, unspecified XR chest 2V Today J98.8 - Other specified respiratory disorders Complete Blood Count Auto Diff 4 Months D64.9 - Anemia, unspecified Comprehensive [place]. Panel Fast 4 Months E78.00 - Pure hypercholesterolemia, unspecified Lipid Panel 4 Months E78.00 - Pure hypercholesterolemia, unspecified Microalbumin, Random (w Creat) 4 Months E11.9 - Type 2 diabetes mellitus without complications Free T4 (Free Thyroxine) 4 Months E03.9 - Hypothyroidism, unspecified Vitamin B12 and Folate 4 Months E53.8 - Deficiency of other specified B group vitamins Vitamin D 25-OH Total 4 Months E55.9 - Vitamin D deficiency, unspecified Referrals Endocrinology Referral E21.3 - Hyperparathyroidism, unspecified, E83.52 - Hypercalcemia
--- OUTSIDE RECORDS SUMMARY | 2025-01-22 23:30 | XMS_ITS | Clinical Summary ---
Author Organization [facility] Address [address] [place] [address] Phone Care Team Providers Care Swimming Pool Maintenance Name Role Phone Roberto Rojas MD Primary Care Provider [phone] Allergies Active Allergy Reactions Criticality Noted Date [...] Department Care Team Description 11/13/2024 Transcribe Orders [facility] [address] [place] [address] Sandra Ocampo Encounter for rehabilitation (Primary Dx) [...] Medical Devices Not on [place] [address] MEDICARE PART A & B [facility] [place] [address] MEDICARE PART A & B [facility] [place] [address] MEDICARE PART A & [place] [address] MEDICARE PART A & B [facility] [place] [address] [place] [address] MEDICARE PART A & B [facility] Address: [facility] ATTN:[employer] [address] [address] [place] [address] MEDICARE PART A [place] [address] Care Teams Swimming Pool Maintenance Relationship Specialty Start Date End Date Roberto Rojas MD [address] [place] [address] [place] [address] PCP - General Internal Medicine 09/12/23 Additional Source Comments The information contained in this document represents components of the legal health record. It is not the complete legal health record.[facility]
--- OUTSIDE RECORDS SUMMARY | 2025-01-22 23:30 | XMS_ITS | Patient Health Record ---
Author Organization [facility] Address [address] [place] [address] Care Team Providers Care Lime Kiln And Recausticizing Operator Name Role Phone Roberto Rojas MD Primary Care Provider Tim Odell Unavailable [phone] Reason For Referral No Information Medications Medication SIG (Take, Route, Fr equency, Duration) Notes Start Date End Date Status Lisinopril 20 MG Tablet TAKE 1 TABLET BY MOUTH DAILY Diagnosis Unavailable Oral; Duration: 90 Active metFORMIN HCl Active Prilosec Active Prozac Active Synthroid Active Vitamin D3 Active Immunizations Vaccine Route Administration Date Status Comme nts Influenza Unknown 01/04/2022 Administered Social History Tobacco Use: Social History Observation Description Date Details (start date - stop date) Never Smoker NA - NA Social History Drugs/Alcohol: Social Info Question Answer Notes Alcohol Screen Did you have a drink containing alcohol in the past year? No Points 0 Interpretation Negative Tobacco Use: Social Info Question Answer Notes Tobacco Use/Smoking Patient is a nonsmoker Additional Details Category Social Info Options Details Miscellaneous: Marital status: Occupation: retired Problems Problem Type SNOMED Code ICD Code Onset Dates Problem Status W/U Status Risk Notes Problem Colon cancer screening (355766626) Colon cancer screening (Z12.11) Active confirmed Problem History of adenomatous polyp of colon (107995492) History of adenomatous polyp of colon (Z86.010) Active confirmed Problem History of polyp of colon (situation) (825323391) Personal history of colonic polyps (Z86.010) Active confirmed Problem Diverticular disease of colon (160210956) Diverticulosis of large intestine without perforation or abscess without bleeding (K57.30) Active confirmed Problem Gastroesophageal reflux disease (875183732) Gastroesophageal reflux disease (K21.9) Active confirmed Problem Gastroesophageal reflux disease (081678561) Gastroesophageal reflux disease, unspecified whether esophagitis present (K21.9) Active confirmed Plan Of Treatment Pending Test Test Name Order Date Pathology 07/04/2022 Future Test Test Name Order Date UPPER GI ENDOSCOPY 05/06/2022 COLONOSCOPY 05/06/2022 Insurance Providers Payer Name Payer Address Payer Phone Subscriber Number Group Number Insured Name Patient Relationship to Insured Coverage Start Date Coverage End Date MEDICARE OF [place] [address] [place] [address] [id number] ZACKERY FISHMAN Self - patient is the insured [address] [address] [place] [address] [id number] ZACKERY FISHMAN Self - patient is the insured Medical (General) History Medical History History ICD Code Colonoscopies with Dr. 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
== END 2025-01-22 13:26 | disposition home or self-care (01) ==
LOC: HO.HMCH 12:26
PROVIDERS: PCP Internal Medicine; Visit Provider Internal Medicine
DX: E11.9 Type 2 diabetes mellitus without complications (principal); I10 Essential (primary) hypertension; E78.00 Pure hypercholesterolemia, unspecified; M16.11 Unilateral primary osteoarthritis, right hip; M17.0 Bilateral primary osteoarthritis of knee; M54.41 Lumbago with sciatica, right side; E83.52 Hypercalcemia; D3A.090 Benign carcinoid tumor of the bronchus and lung; K86.89 Other specified diseases of pancreas; E03.9 Hypothyroidism, unspecified; G47.33 Obstructive sleep apnea (adult) (pediatric); R05.9 Cough, unspecified; R25.1 Tremor, unspecified; E53.8 Deficiency of other specified B group vitamins; K21.9 Gastro-esophageal reflux disease without esophagitis; F41.9 Anxiety disorder, unspecified

== ENCOUNTER 2025-01-22 12:25 | Outpatient (REF) | payer MEDICARE, OTHER, SELFPAY ==
--- NOTE | ~2025-01-22 | XR_ITS ---
EXAMINATION: XR CHEST CLINICAL INFORMATION: J98.8 - Other specified respiratory disorders COMPARISON: Previous chest x-ray June [address] October 2022 TECHNIQUE: 2 views of the chest were obtained. FINDINGS: Stable nodular density projects over the left upper lobe. This was found be related to left first rib costochondral cartilage based on previous chest CTs and is stable. Lungs are otherwise clear. No consolidation or pulmonary edema. Cardiac and mediastinal contours are stable. No pleural effusion or pneumothorax. Degenerative changes of the spine. XR/XR chest 2V IMPRESSION: No evidence for acute disease in the chest. Electronically signed by: Maria Del Rosario Sanchez MD 01/22/2025 02:01 PM [facility]
== END 2025-01-22 12:26 | disposition home or self-care (01) ==
LOC: HO.XRAY 12:25
PROVIDERS: PCP Internal Medicine; Visit Provider Internal Medicine
DX: E11.9 Type 2 diabetes mellitus without complications (principal); I10 Essential (primary) hypertension; E78.00 Pure hypercholesterolemia, unspecified; M16.11 Unilateral primary osteoarthritis, right hip; M17.0 Bilateral primary osteoarthritis of knee; M54.41 Lumbago with sciatica, right side; E83.52 Hypercalcemia; D3A.090 Benign carcinoid tumor of the bronchus and lung; K86.89 Other specified diseases of pancreas; E03.9 Hypothyroidism, unspecified; G47.33 Obstructive sleep apnea (adult) (pediatric); R05.9 Cough, unspecified; R25.1 Tremor, unspecified; E53.8 Deficiency of other specified B group vitamins; K21.9 Gastro-esophageal reflux disease without esophagitis; F41.9 Anxiety disorder, unspecified; E66.9 Obesity, unspecified; Z13.39 Encounter for screening examination for other mental health and behavioral disorders; J98.8 Other specified respiratory disorders
CPT/HCPCS: 71046; 96127; 99212

== ENCOUNTER → 2025-01-22 13:44 | Outpatient (BNV) | payer MEDICARE, OTHER, SELFPAY | PROVIDERS: PCP Internal Medicine; Visit Provider Radiology Diagnostic Radiology | DX: J98.8 Other specified respiratory disorders (principal) | CPT/HCPCS: 71046 ==

== ENCOUNTER 2025-02-28 11:40 | Outpatient (REF) | payer MEDICARE, OTHER, SELFPAY ==
--- OUTSIDE RECORDS SUMMARY | 2023-09-12 13:12 | XMS_ITS | Encounter Summary ---
Author Organization [facility] Address [address] [place] [phone] Phone Care Team Providers Care White Work Cleaner Name Role Phone Roberto Rojas MD Primary Care Provider [phone] Encounter Details Date Type Department Care Team (Late st Contact Info) Description 09/12/2023 2:12 PM EDT Hospital Encounter [facility] [address] [place] [address] Candy Willard FNP [address] [place] [phone] [email or web address] Social History Tobacco Use Types Packs/Day Years [...] clinician's provided indication for this examination in [facility]: S/P Fall; fall, pain over distal 3, 4 mcp COMPARISON: None FINDINGS: No fracture or dislocation. Degenerative changes most advanced at the first [facility] joint. Procedure Note Clayton Arevalo MD - 09/12/2023 XR HAND 3 OR MORE VIEWS (RIGHT) Referring clinician's provided indication for this examination in [facility]:S/P Fall; fall, pain over distal 3, 4 mcp COMPARISON: None FINDINGS: No fracture or dislocation. Degenerative changes most advanced at the[facility] joint. IMPRESSION: No fracture or dislocation. Candy Willard LURER IMG XR UPPER EXTREMITY Kari l Result documented in this encounter Visit Diagnoses Not on filedocumented in this encounter Additional Health Concerns Infection Onset Date Last Indicated Resolved Time CoV-Risk 12/25/2023 12/25/2023 01/05/2024 1:24 AM EDT documented as of this encounter Care Teams White Work Cleaner Relationship Specialty Start Date End Date Roberto Rojas MD [address] [place] [address] [place] [id number] PCP - General Internal Medicine 09/12/23 documented as of this encounter Additional Source Comments The information contained in this document represents components of the legal health record. It is not the complete legal health record.[facility]
--- OUTSIDE RECORDS SUMMARY | 2023-12-25 11:15 | XMS_ITS | Encounter Summary ---
Author Organization [facility] Address [address] [address] Phone Care Team Providers Care Touring Production Manager Name Role Phone Roberto Rojas MD Primary Care Provider [phone] Encounter Details Date Type Department Care Team (Late st Contact Info) Description 12/25/2023 12:15 PM EDT Hospital Encounter [facility] [address] [place] [address] Reva Cerda, NUHA [address] [place] [address] Social History Tobacco Use Types Packs/Day Years [...] Name Priority Date/Time Associated Diagnosis Comments XR CHEST PA AND LATERAL 2 VIEWS Urgent/patient waiting 12/25/2023 12:20 PM EDT Cough documented in this encounter Results * XR CHEST PA AND LATERAL 2 VIEWS (12/25/2023 12:20 PM EDT) Anatomical Region Laterality Modality Chest Computed Radiogr aphy 12/25/2023 12:3 9 PM EDT Impressions 12/25/2023 12:40 PM EDT Normal chest. Narrative 12/25/2023 12:40 PM EDT XR CHEST PA AND LATERAL 2 VIEWS Referring clinician's provided indication for this examination in [facility]: Cough COMPARISON: None FINDINGS: Devices/Tubes/Lines: None. Lungs: Normal. The lungs are clear. No focal consolidation or pulmonary edema. Pleura: Normal. No pleural effusion or pneumothorax. Heart/Mediastinum: Normal heart and mediastinum. Bones/Soft Tissues: Normal. No significant skeletal abnormality. Procedure Note Katia Nunez MD - 12/25/2023 XR CHEST PA AND LATERAL 2 VIEWS Referring clinician's provided indication for this examination in Epic:Cough COMPARISON: None FINDINGS: Devices/Tubes/Lines: None. Lungs: Normal. The lungs are clear. No focal consolidation or pulmonaryedema. Pleura: Normal. No pleural effusion or pneumothorax. Heart/Mediastinum: Normal heart and mediastinum. Bones/Soft Tissues: Normal. No significant skeletal abnormality. IMPRESSION: Normal chest. Reva Cerda BILL DISTRIBUTOR IMG XR CHEST Final Resu lt documented in this encounter Visit Diagnoses Not on filedocumented in this encounter Additional Health Concerns Infection Onset Date Last Indicated Resolved Time CoV-Risk 12/25/2023 12/25/2023 01/05/2024 1:24 AM EDT documented as of this encounter Care Teams Touring Production Manager Relationship Specialty Start Date End Date Roberto Rojas MD [address] [place] [address] [place] [address] PCP - General Internal Medicine 09/12/23 documented as of this encounter Additional Source Comments The information contained in this document represents components of the legal health record. It is not the complete legal health record.[facility]
--- NOTE | ~2025-02-28 | MM_ITS ---
EXAMINATION: MM SCREENING DIGITAL BREAST TOMOSYNTHESIS, BILATERAL CLINICAL INFORMATION: Screening. Asymptomatic. COMPARISON: Mammography: Comparison is made with available priors TECHNIQUE: Digital breast mammography with tomosynthesis is performed in both the craniocaudal and mediolateral oblique views along with computer-aided detection (CAD). FINDINGS: There are scattered areas of fibroglandular density. Left: Developing focal asymmetry incompletely visualized on left CC view in the upper outer left breast far posterior depth. Developing focal asymmetry in upper outer breast anterior depth. No suspicious calcifications or other abnormal findings. Right: There are no significant masses, abnormal calcifications, or other abnormalities. MM/MM tomosynthesis screening BI IMPRESSION: Additional imaging is recommended ASSESSMENT: BI-RADS Category 0: Incomplete - Need additional Imaging Evaluation RECOMMENDATION: 1. Additional views of the left breast to include left XCCL view. 2. Targeted ultrasound if warranted after review of the additional views. 3. Radiology department staff will contact the patient for additional imaging. Additional Imaging required Electronically signed by: Pita Traore DO 02/28/2025 03:14 PM PB
--- OUTSIDE RECORDS SUMMARY | 2025-02-28 11:43 | XMS_ITS | Patient Health Record ---
Author Organization [facility] Address [address] [place] [address] Care Team Providers Care Tool And Die Repairer Name Role Phone Roberto Rojas MD Primary Care Provider Tim Odell Unavailable [phone] Reason For Referral No Information Medications Medication [...] Status Risk Notes Problem Colon cancer screening (925245242) Colon cancer screening (Z12.11) Active confirmed Problem History of adenomatous polyp of colon (014490197) History of adenomatous polyp of colon (Z86.010) Active confirmed Problem History of polyp of colon (situation) (562414894) Personal history of colonic polyps (Z86.010) Active confirmed Problem Diverticular disease of colon (586154842) Diverticulosis of large intestine without perforation or abscess without bleeding (K57.30) Active confirmed Problem Gastroesophageal reflux disease (597813978) Gastroesophageal reflux disease (K21.9) Active confirmed Problem Gastroesophageal reflux disease (175660245) Gastroesophageal reflux disease, unspecified whether esophagitis present [...] [place] [address] [place] [address] [id number] ZACKERY FISHMAN Self - patient is the insured [address] [address] [place] [address] [id number] ZACKERY FISHMAN Self - patient is the [...]
--- OUTSIDE RECORDS SUMMARY | 2025-02-28 11:43 | XMS_ITS | Clinical Summary ---
Author Organization [facility] [address] [facility] Address [address] [place] [address] Phone Care Team Providers Care Zoo Veterinarian Name Role Phone Roberto Rojas MD Primary [...] AM EST Office Visit Thoracic Surgery - [place] [address] [facility] [address] [place] [phone] Brian Coreas PA History of lung cancer (Primary Dx) 01/07/2025 1:07 PM EST - 01/07/2025 11:59 PM EST Hospital Encounter [facility] CT Scan [address] [place] [phone] History of lung cancer Discharge Disposition: Home or Self Care from Last 3 Months Surgical History Surgery Date Site/Laterality Comments CHOLECYSTECTOMY PROCEDURE: HISTORICAL CHOLECYSTECTOMY HYSTERECTOMY N/A PROCEDURE: HISTORICAL HYSTERECTOMY OTHER SURGICAL HISTORY 09/29/2021 Right PROCEDURE: [place] THORACOSCOPY W/THERA WEDGE RESEXN INITIAL UNILAT; COMMENT: RLL Medical History Medical History Date Comments Hypothyroidism DX:Hypothyroidis m Anxiety disorder DX:Anxiety diso rder HTN (hypertension) DX:HTN (hyper tension) Type 2 diabetes mellitus wit hout complications ([facility] [place], [facility] V28) DX:Type 2 diabetes mellitus without complications (HCC) GERD (gastroesophageal reflux disease) DX:GERD (gastroesophageal reflux disease) Obstructive sleep apnea DX:Obstr uctive sleep apnea Mixed hyperlipidemia DX:Mixed hy perlipidemia Osteoarthritis DX:Osteoarthriti s; COMMENT: bilateral knees Urinary incontinence DX:Urinary incontinence Obesity DX:Obesity 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 Family History Medical History Relation [...] Patients (1 - 1-dose 75+ series) 2021 Cholesterol Screening (Lipid Panel) 02/06/2022 Falls Risk Assessment 02/06/2022 Hepatitis C Screening 02/06/2022 Medicare Annual Wellness Visit 02/06/2022 Osteoporosis Screening (Bone Density Screening) 02/06/2022 Social Influencers of Health Screening 02/06/2022 Depression Screening 03/06/2024 COVID-19 Vaccine ( season) 2024 04/26/2024, 01/05/2023, 01/01/2022, Additional history exists Influenza Vaccine (#1) 2024 , 01/04/2022, 12/28/2021, Additional history exists Hypertension/CHF/CAD Annual BMP Blood Test 01/25/2025 Zoster Vaccines Completed 07/03/2018, 06/04, 04/09/2018, Additional [...] Signed Date: 01/08/2025 07:48 ET Workstation ID: [id number] Transcribed By: Self Edit Transcribed Date: 01/08/2025 [...] Signed Date: 01/08/2025 07:48 ET Workstation ID: [id number] Transcribed By: Self Edit Transcribed Date: 01/08/2025 07:38 ET [address]akia CHAVEZ IMG CT PROCEDURES Final Resul t from Last 3 Months Insurance MEDICARE [facility] Care Teams Zoo Veterinarian Relationship Specialty Start Date End Date Roberto Rojas MD [address] [place] [address] Dr Clemons [facility] FABY [place] PCP - General Internal Medicine 07/21/21
--- OUTSIDE RECORDS SUMMARY | 2025-02-28 11:43 | XMS_ITS | Clinical Summary ---
Author Organization [facility] Address [address] [place] [address] Phone Care Team Providers Care Deburring And Tooling Machine Operator Name Role Phone Roberto Rojas MD Primary Care Provider [phone] Allergies Active Allergy Reactions Criticality Noted Date [...] 12/28/2021, 02/04/2021, Additional history exists COVID-19 VACCINE ( - 2024- season) 2024 04/26/2024, 01/05/2023, 01/01/2022, Additional history [...] topic Medical Devices Not on file Insurance MEDICARE PART A & B Member Subscriber Plan / Payer (Ef fective 2011-Present) Name:Ariane Song Member ID:[id number] Relation to Subscriber:Self Name:Ariane Song Subscriber ID:[id number] Payer ID:[id number] Group ID:Not on file Type:Medicare Address: [facility] [employer] Cool [facility] [address] [facility] [place] [address] [facility] [place] [address] MEDICARE PART A & [place] [address] MEDICARE PART A & [place] [address] MEDICARE PART A & B [facility] [place] [address] MEDICARE PART A & B [facility] [place] [address] [place] [address] MEDICARE PART A & B [facility] [place] [address] Care Teams Deburring And Tooling Machine Operator Relationship Specialty Start Date End Date Roberto Rojas MD [address] [place] [address] [place] [address] PCP - General Internal Medicine 09/12/23 Additional Source Comments The information contained in this document represents components of the legal health record. It is not the complete legal health record.[facility]
== END 2025-02-28 11:41 | disposition home or self-care (01) ==
LOC: HO.MAMMO 11:40
PROVIDERS: PCP Internal Medicine; Visit Provider Internal Medicine
DX: Z12.31 Encounter for screening mammogram for malignant neoplasm of breast (principal)
CPT/HCPCS: 77063; 77067

== ENCOUNTER → 2025-02-28 11:45 | Outpatient (BNV) | payer MEDICARE, OTHER, SELFPAY | PROVIDERS: PCP Internal Medicine; Visit Provider Internal Medicine | DX: Z12.31 Encounter for screening mammogram for malignant neoplasm of breast (principal) | CPT/HCPCS: 77063; 77067 ==

== ENCOUNTER → 2025-03-05 12:58 | Outpatient (REF) | payer MEDICARE, OTHER, SELFPAY ==
--- OUTSIDE RECORDS SUMMARY | 2023-09-12 13:12 | XMS_ITS | Encounter Summary ---
Author Organization [facility] Address [address] [place] [id number] Phone Care Team Providers Care Transmission Maintenance Supervisor Name Role Phone Roberto Rojas MD Primary Care Provider [phone] Encounter Details Date Type Department Care Team (Late st Contact Info) Description 09/12/2023 2:12 PM EDT Hospital Encounter [facility] [address] [place] [phone] Candy Willard FNP [address] [place] [id number] [email or web address] Social History Tobacco Use Types Packs/Day Years [...] clinician's provided indication for this examination in [facility]: S/P Fall; fall, pain over distal 3, 4 mcp COMPARISON: None FINDINGS: No fracture or dislocation. Degenerative changes most advanced at the first [facility] joint. Procedure Note Clayton Arevalo MD - 09/12/2023 XR HAND 3 OR MORE VIEWS (RIGHT) Referring clinician's provided indication for this examination in [facility]:S/P Fall; fall, pain over distal 3, 4 mcp COMPARISON: None FINDINGS: No fracture or dislocation. Degenerative changes most advanced at [facility]. IMPRESSION: No fracture or dislocation. Candy Willard VEHICLE MODIFICATION TECHNICIAN IMG XR UPPER EXTREMITY Kari l Result documented in this encounter Visit Diagnoses Not on filedocumented in this encounter Additional Health Concerns Infection Onset Date Last Indicated Resolved Time CoV-Risk 12/25/2023 12/25/2023 01/05/2024 1:24 AM EDT documented as of this encounter Care Teams Transmission Maintenance Supervisor Relationship Specialty Start Date End Date Roberto Rojas MD [address] [place] [address] [place] [id number] PCP - General Internal Medicine 09/12/23 documented as of this encounter Additional Source Comments The information contained in this document represents components of the legal health record. It is not the complete legal health record.[facility]
--- OUTSIDE RECORDS SUMMARY | 2023-12-25 11:15 | XMS_ITS | Encounter Summary ---
Author Organization [facility] Address [address] [address] Phone Care Team Providers Care Admin Prog Coord Name Role Phone Roberto Rojas MD Primary Care Provider [phone] Encounter Details Date Type Department Care Team (Late st Contact Info) Description 12/25/2023 12:15 PM EDT Hospital Encounter [facility] [address] [place] [address] Reva Cerda, NUHA [address] [place] [address] Social History Tobacco Use Types Packs/Day Years [...] clinician's provided indication for this examination in [facility]: Cough COMPARISON: None FINDINGS: Devices/Tubes/Lines: None. [...] skeletal abnormality. IMPRESSION: Normal chest. Reva Cerda YOUTH PROBATION OFFICER IMG XR CHEST Final Resu lt documented in this encounter Visit Diagnoses Not on filedocumented in this encounter Additional Health Concerns Infection Onset Date Last Indicated Resolved Time CoV-Risk 12/25/2023 12/25/2023 01/05/2024 1:24 AM EDT documented as of this encounter Care Teams Admin Prog Coord Relationship Specialty Start Date End Date Roberto Rojas MD [address] [place] [address] [place] [address] PCP - General Internal Medicine 09/12/23 documented as of this encounter Additional Source Comments The information contained in this document represents components of the legal health record. It is not the complete legal health record.[facility]
--- OUTSIDE RECORDS SUMMARY | 2025-03-05 14:30 | XMS_ITS | Clinical Summary ---
Author Organization [facility] Address [address] [place] [address] Phone Care Team Providers Care Parking Worker Name Role Phone Roberto Rojas MD Primary Care Provider [phone] Allergies Active Allergy Reactions Criticality Noted Date [...] file Insurance MEDICARE PART A & [place] [address] MEDICARE PART A [place] [address] MEDICARE PART A & [place] [address] MEDICARE PART A & [place] [address] MEDICARE PART A & [place] [address] [place] [address] MEDICARE PART A & [place] [address] Care Teams Parking Worker Relationship Specialty Start Date End Date Roberto Rojas MD [address] [place] [address] [place] [address] PCP - General Internal Medicine 09/12/23 Additional Source Comments The information contained in this document represents components of the legal health record. It is not the complete legal health record.[facility]
--- OUTSIDE RECORDS SUMMARY | 2025-03-05 14:30 | XMS_ITS | Patient Health Record ---
Author Organization [facility] Address [address] [place] [address] Care Team Providers Care Design Cell Engineer Name Role Phone Roberto Rojas MD Primary Care Provider Tim Odell Unavailable [phone] Reason For Referral No Information Medications Medication [...] Status Risk Notes Problem Colon cancer screening (146604101) Colon cancer screening (Z12.11) Active confirmed Problem History of adenomatous polyp of colon (322772943) History of adenomatous polyp of colon (Z86.010) Active confirmed Problem History of polyp of colon (situation) (344495484) Personal history of colonic polyps (Z86.010) Active confirmed Problem Diverticular disease of colon (939684565) Diverticulosis of large intestine without perforation or abscess without bleeding (K57.30) Active confirmed Problem Gastroesophageal reflux disease (666072752) Gastroesophageal reflux disease (K21.9) Active confirmed Problem Gastroesophageal reflux disease (049025403) Gastroesophageal reflux disease, unspecified whether esophagitis present [...] [place] [address] [place] [address] [id number] ZACKERY FISHMAN Self - patient is the insured [address] [address] [place] [id number] ZACKERY FISHMAN Self - patient is the insured Medical (General) History Medical History History ICD Code Colonoscopies with Dr. 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
--- OUTSIDE RECORDS SUMMARY | 2025-03-05 14:30 | XMS_ITS | Clinical Summary ---
Author Organization [facility] [address] [facility] Address [address] [place] [address] Phone Care Team Providers Care Telecom Coordinator Name Role Phone Roberto Rojas MD Primary [...] AM EST Office Visit Thoracic Surgery - [place] [address] [facility] [address] [place] [phone] Brian Coreas PA History of lung cancer (Primary Dx) 01/07/2025 1:07 PM EST - 01/07/2025 11:59 PM EST Hospital Encounter [facility] CT Scan [address] [place] [phone] History of lung cancer Discharge Disposition: Home or Self Care from Last 3 Months Surgical History Surgery Date Site/Laterality Comments CHOLECYSTECTOMY PROCEDURE: HISTORICAL CHOLECYSTECTOMY HYSTERECTOMY N/A PROCEDURE: HISTORICAL HYSTERECTOMY OTHER SURGICAL HISTORY 09/29/2021 Right PROCEDURE: [place] THORACOSCOPY W/THERA WEDGE RESEXN INITIAL UNILAT; COMMENT: RLL Medical History Medical History Date Comments Hypothyroidism DX:Hypothyroidis m Anxiety disorder DX:Anxiety diso rder HTN (hypertension) DX:HTN (hyper tension) Type 2 diabetes mellitus wit hout complications ([facility] V24, [facility] V28) DX:Type 2 diabetes mellitus without complications (HCC) GERD (gastroesophageal reflux disease) DX:GERD (gastroesophageal reflux disease) Obstructive sleep apnea DX:Obstr uctive sleep apnea Mixed hyperlipidemia DX:Mixed hy perlipidemia Osteoarthritis DX:Osteoarthriti s; COMMENT: bilateral knees Urinary incontinence DX:Urinary incontinence Obesity DX:Obesity 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 Care Teams Telecom Coordinator Relationship Specialty Start Date End Date Roberto Rojas MD [address] [place] [address] Dr Clemons [facility] FABY [place] PCP - General Internal Medicine 07/21/21
== END ==
LOC: HO.SL 12:58
PROVIDERS: PCP Internal Medicine; Visit Provider Physician Assistant Medical
DX: G47.19 Other hypersomnia (principal); R06.83 Snoring; R06.81 Apnea, not elsewhere classified
CPT/HCPCS: 95806